=== PATIENT | male | born 1965 | race Caucasian/White ===

== ENCOUNTER 2018-06-09 11:44 | Emergency (ER) | payer BC, SELFPAY ==
[2018-06-09 12:14] VITALS: BP 113/66; PULSE 72; RESP 18; TEMP 36.4; O2SAT 96
--- NOTE | 2018-06-09 12:58 | DI.RAD_ITS ---
SYMPTOMS/DIAGNOSIS: CHEST TIGHTNESS, ? ACUTE DISEASE PA AND LATERAL CHEST: Comparison 01/12/12. The heart is normal in size. The lungs are clear. The mediastinal structures and pleura appear intact. CONCLUSION: Normal chest.
--- NOTE | 2018-06-09 12:58 | DI.CT_ITS ---
SYMPTOMS/DIAGNOSIS: DIZZINESS, HEADACHE, ? ACUTE PROCESS CT BRAIN, NONCONTRAST: No priors. The ventricles and sulci are consistent with the patient's age. The ventricles are intact. The basilar cisterns are patent. No acute intracranial hemorrhage, infarct, midline shift or mass effect is identified. There is opacification of several ethmoid air cells bilaterally. Mild mucosal thickening is seen in the left frontal sinus and the sphenoid sinuses. No fluid levels are seen. The mastoid air cells appear pneumatized. The calvarium is intact. IMPRESSION: Findings of paranasal sinusitis. No acute intracranial process. The findings were discussed with Dr. Sunshine of the Emergency Department on the date of the examination.
[2018-06-09] MEDS: Normal Saline 1,000 ML 1000 ML IV (13:23)
[2018-06-09 13:31] LABS: Abs Immature Grans 0.01 k/cumm (0.0-0.09); Absolute Basophil Count 0.03 k/cumm (0.0-0.2); Absolute Eosinophil Count 0.11 k/cumm (0.0-0.7); Absolute Lymphocyte Count 1.66 k/cumm (1.2-3.4); Absolute Monocyte Count 0.76 k/cumm (0.11-0.7); Absolute Neutrophil Count 2.78 k/cumm (1.2-6.7); Basophils % 0.6; Eosinophils % 2.1; HCT 39.3 % (40.0-50.0); HGB 13.2 g/dL (13.5-17.5); Immature Grans % 0.2; Mean Corp. HGB Concentration 33.6 g/dL (32.0-36.0); Mean Corpuscular Hemoglobin 29.8 pg (27.0-33.0); Mean Corpuscular Volume 88.7 fL (80-95); Mean Platelet Volume 11.2 fL (8.0-11.0); Monocytes % 14.2; Neutrophils % 51.9; Platelet Count 179 x1000/uL (130-400); RBC 4.43 m/cumm (4.50-6.00); RBC Distribution Width 13.3 % (11.8-14.1); White Blood Cell Count 5.35 k/cumm (4.4-10.8)
[2018-06-09 13:44] LABS: ALT 19 U/L (12-78); AST 18 U/L (15-37); Albumin 3.4 g/dL (3.4-5.0); Alkaline Phosphatase 66 U/L (46-116); Anion Gap 6.9 mmol/L (3-11); BUN 19 mg/dL (7-18); Bilirubin, Total 0.3 mg/dL (0.2-1.0); CO2 30.1 mmol/L (21.0-32.0); CREATININE 1.12 mg/dL (0.70-1.30); Calcium 8.8 mg/dL (8.5-10.1); Chloride 105 mmol/L (98-107); Glucose 108 mg/dL (70-100); Magnesium 1.7 mg/dL (1.8-2.4); Sodium 142 mmol/L (136-145); Total Protein 6.8 g/dL (6.4-8.2)
[2018-06-09 13:54] LABS: Troponin I < 0.02 ng/mL (0.00-0.06)
[2018-06-09] MEDS: diphenhydrAMINE 50 MG/ML VIAL 25 MG IVP (14:04)
[2018-06-09] MEDS: Ketorolac 30 MG/ML VIAL IVP (14:05)
[2018-06-09] MEDS: Meclizine 25 MG TAB PO (14:06)
[2018-06-09] MEDS: Prochlorperazine 10 MG/2 ML VIAL IVP (14:06)
[2018-06-09 14:14] VITALS: BP 114/61; PULSE 62; RESP 16; TEMP 36.8; O2SAT 99
--- NOTE | 2018-06-09 14:34 | ED.GENADUL_ITS ---
Discharge Plan Disposition Patient Disposition: HOME Condition: Stable Discharge Details Chief Complaint: Dizzy/Sync Clinical Impression: Vertigo, Headache Primary Care Provider: Michael Acosta ED Provider: Kristie Sunshine Home Meds and New Rx's Prescriptions: New meclizine 12.5 mg tablet 12.5 mg PO TID PRN (Reason: dizziness) Qty: 10 RF: 0 Continued citalopram 20 MG tablet 20 mg RF: 0 cyclobenzaprine 10 MG tablet 10 mg PO Q8H PRN PRNQty: 14 RF: 0 Discharge Instructions Instructions: Vertigo (ED), General Headache (ED) Additional Instructions: Drink plenty fluids and get plenty of rest. Take the meclizine as needed and directed for any further spinning sensation or dizziness. Follow-up with your primary care doctor in 1 week for reevaluation. Return immediately to the emergency department any worsening or concerning symptoms. Discharge Data Discharge Physician: Kristie Sunshine Medical Decision Making 53-year-old male with history of anxiety, depression and PTSD who presents for an episode of dizziness today. He also complained of brief palpitations with chest tightness after his dizziness started which he attributed to his anxiety. No syncopal episodes. No complaint of chest pain, shortness of breath, or palpitations at present. Patient admits to spinning sensation initially, but now complaining of lightheadedness, generalized weakness and headache. Has a history of chronic headaches for the past 3 months for which he [facility] Able to obtain the MRI brain w/ and w/o contrast [facility]18 which noted 1. No intracranial mass or acute intracranial abnormality identified. 2. Findings compatible with mild chronic paranasal sinus disease involving the ethmoid air cells and sphenoid sinus. Vitals within normal limits. Afebrile. Patient appears nontoxic and in no acute distress. The lights are off in the room and he appears mildly uncomfortable. No complaint of thunderclap headache or sudden onset so doubt subarachnoid hemorrhage. No complaint of fever or altered mental status and no focal deficits or meningeal signs so doubt meningitis. Differential diagnosis includes migraine, vertigo, dehydration, CVA, arrhythmia, electrolyte abnormality. Will place an IV, bolus IV fluids, labs, ekg, cxr and ct head. Will give meds for migraine and vertigo if CT head negative. EKG notes a rate of 75, sinus and no acute ST findings. Labs and imaging reviewed and note normal white blood cell count, electrolytes, negative troponin. CT head and chest x-ray negative. Will continue IV fluids, and give a dose of Compazine, Benadryl, Toradol as well as meclizine and reassess. 1520 --patient ambulated around the ED, feels much better and is requesting to go home. States his headache is resolved and he denies any dizziness. Will send home with a prescription for meclizine and he is instructed to drink plenty of fluids stay hydrated. Discussed with patient that as he had a very brief episode of palpitations that started after his dizziness and resolved shortly after, no history of syncope, normal EKG and heart rate, and with a history of anxiety, I do not see an indication for a monitor worker upon discharge and he is agreeable. He is instructed to follow-up with his primary care doctor for reevaluation and to return here at any time if worse. Medical Records Medical records reviewed: Yes I reviewed the patient's medical records. Imaging Data Radiologic Study: Radiologist's impression: PA AND LATERAL CHEST: Comparison 01/12/12. The heart is normal in size. The lungs are clear. The mediastinal structures and pleura appear intact. CONCLUSION: Normal chest. CT BRAIN, NONCONTRAST: No priors. The ventricles and sulci are consistent with the patient's age. The ventricles are intact. The basilar cisterns are patent. No acute intracranial hemorrhage, infarct, midline shift or mass effect is identified. There is opacification of several ethmoid air cells bilaterally. Mild mucosal thickening is seen in the left frontal sinus and the sphenoid sinuses. No fluid levels are seen. The mastoid air cells appear pneumatized. The calvarium is intact. IMPRESSION: Findings of paranasal sinusitis. No acute intracranial process. Lab Data Lab results reviewed: Yes I reviewed the patient's lab results. Laboratory Tests Range/Units 06/09/18 06/09/18 12:32 12:32 WBC (4.4-10.8) k/cumm 5.35 RBC (4.50-6.00) m/cumm 4.43 L Hgb (13.5-17.5) g/dL 13.2 L Hct (40.0-50.0) % 39.3 L MCV (80-95) fL 88.7 MCH (27.0-33.0) pg 29.8 MCHC (32.0-36.0) g/dL 33.6 RDW (11.8-14.1) % 13.3 Plt Count (130-400) x1000/uL 179 MPV (8.0-11.0) fL 11.2 H Immature Gran % 0.2 Neutrophils % 51.9 Lymphocytes % 31.0 Monocytes % 14.2 Eosinophils % 2.1 Basophils % 0.6 Absolute Neutrophils (1.2-6.7) k/cumm 2.78 Absolute Lymphocytes (1.2-3.4) k/cumm 1.66 Absolute Monocytes (0.11-0.7) k/cumm 0.76 H Absolute Eosinophils (0.0-0.7) k/cumm 0.11 Absolute Basophils (0.0-0.2) k/cumm 0.03 Sodium (136-145) mmol/L 142 Potassium (3.5-5.1) mmol/L 4.0 Chloride (98-107) mmol/L 105 Carbon Dioxide (21.0-32.0) mmol/L 30.1 Anion Gap (3-11) mmol/L 6.9 BUN (7-18) mg/dL 19 H Creatinine (0.70-1.30) mg/dL 1.12 Estimated GFR/1.73 m2 (mL/min/1.73m2) >= 60.00 Glucose (70-100) mg/dL 108 H Calcium (8.5-10.1) mg/dL 8.8 Magnesium (1.8-2.4) mg/dL 1.7 L Total Bilirubin (0.2-1.0) mg/dL 0.3 AST (15-37) U/L 18 ALT (12-78) U/L 19 Alkaline Phosphatase (46-116) U/L 66 Troponin I (0.00-0.06) ng/mL < 0.02 Total Protein (6.4-8.2) g/dL 6.8 Albumin (3.4-5.0) g/dL 3.4 ECG Data Attestation: I personally reviewed and interpreted this ECG (s) as follows: Interpretation: Rate of 75, sinus, no acute ST elevation or depression. T wave inversion in lead III, QTc 422. QRS 96. No old EKG to compare HPI General Mode of arrival: ambulatory . Date/Time Provider Initiated Documentation: 06/09/18 12:19 . Limitations to Documentation: no limitations . Information obtained by: patient . HPI Narrative: Patient is a 53-year-old male with a history of anxiety, depression and PTSD who presents for an episode of dizziness today. Patient states he was walking in his garage when he suddenly felt dizziness, spinning followed by chest tightness and heart palpitations. He states he felt a spinning sensation as if everything was shifting peer states he feels like the chest tightness and heart palpitations was due to his dizziness. Patient states he walked in his house and laid down on his bed to rest but this did not change the symptoms. He is complaining mainly of fatigue, generalized weakness, and lightheadedness now. Patient is also complaining of a headache which is in his frontal region, also with sensitivity and light, and posterior neck pain and region. Patient states he has had 3 months of headaches occurring once weekly similar to his headache today. States he is seen his primary care doctor at the [facility] for this and had an MRI brain done last week but he does not know the results. He denies any fever, blurry vision, nausea, vomiting, unilateral numbness or weakness. Related Data Home Medications Medication Instructions Recorded Confirmed citalopram 20 mg 04/11/17 cyclobenzaprine 10 mg PO Q8H PRN PRN #14 tab 04/25/17 meclizine 12.5 mg PO TID PRN #10 tab 06/09/18 Previous Rx's Medication Instructions Recorded cyclobenzaprine 10 mg PO Q8H PRN PRN #14 tab 04/25/17 meclizine 12.5 mg PO TID PRN #10 tab 06/09/18 Allergies Allergy/AdvReac Type Severity Reaction Status Date / Time acetaminophen [From Percocet] AdvReac Intermediate Nausea Unverified 06/09/18 12:18 oxycodone [From Percocet] AdvReac Intermediate Nausea Unverified 06/09/18 12:18 General Stated Complaint: Dizzy/Sync ANNIE: 3 Review of Systems Review of Systems All systems reviewed & are unremarkable except as noted in HPI and below Constitutional Reports as per HPI, Denies chills, Denies fever(s), Reports headache(s) and Reports weakness Eyes Denies blurry vision ENT Reports dizziness, Reports headache(s), Denies sore throat and Denies throat swelling Cardiovascular Denies chest pain and Denies dyspnea Respiratory Denies cough and Denies dyspnea Gastrointestinal Denies abdominal pain, Denies diarrhea and Denies vomiting Genitourinary Denies hematuria and Denies dysuria Musculoskeletal Denies back pain and Denies numbness Integumentary/Breasts Denies lesions and Denies rash Neurologic Reports dizziness, Reports headache(s), Denies focal weakness, Denies numbness and Reports weakness Allergic/Immunologic Denies throat swelling [facility] Medical History PTSD (post-traumatic stress disorder) (Acute) Anxiety (Chronic) Depression (Chronic) Surgical History Synovial cyst (Acute) H/O hemorrhoidectomy (Chronic) History of tonsillectomy (Chronic) History of tonsillectomy (Chronic) Social History Smoking and Tabacco status: Current every day alcohol intake: current alcohol intake frequency: a few times a month substance use type: does not use Exam Const General: cooperative and healthy appearing Orientation: alert and awake HENMT Head: normal to inspection Ears: hearing grossly normal bilaterally, external ears normal and TM's normal bilaterally General nose exam: external nose normal Face and sinus: normal facial exam Mouth: oral mucosae normal Teeth and gingiva: dentition normal Throat: posterior oropharynx normal Eyes General: appearance normal, both eyes and all related structures Eyelids: eyelids normal Pupils: PERRL EOM: EOM intact bilaterally Neck Neck: normal visual inspection Lymphatic: no lymphadenopathy noted Chest Chest: normal inspection of the chest Resp Effort & Inspection: normal respiratory effort and able to speak in complete sentences Auscultation: clear to auscultation bilaterally Cardio Rate: regular rate Rhythm: regular rhythm GI Inspection: normal to inspection Palpation: soft, not firm, no guarding, no hepatosplenomegaly, no masses and nontender Auscultation: normal bowel sounds Skin General skin exam: no rashes or lesions noted Neuro General: alert, awake, oriented x3, moves all extremities, no meningeal signs and no focal motor deficits Cranial Nerves: CN's II-XI intact bilaterally Cognition: normal cognition Speech: speech normal Gait: normal gait Motor: muscle tone normal throughout and strength 5/5 throughout Sensory Exam: no sensory deficits noted Extrem General: normal to inspection, full ROM, normal capillary refill and no edema Psych Appearance: grossly normal Mental Status: mental status grossly normal Speech and Movement: speech and movement normal Affect: normal affect Thought Process: normal Course Vital Signs Temperature 97.5 F L 06/09/18 12:14 Pulse 72 06/09/18 12:14 Respiratory Rate 18 06/09/18 12:14 Blood Pressure 113/66 06/09/18 12:14 Pulse Oximetry 96 06/09/18 12:14 Temperature 98.2 F 06/09/18 14:14 Temperature Source Skin 06/09/18 14:14 Pulse 62 06/09/18 14:14 Respiratory Rate 16 06/09/18 14:14 Respiratory Effort 06/09/18 14:12 Respiratory Depth Normal 06/09/18 14:10 Respiratory Pattern Normal 06/09/18 14:10 Blood Pressure 114/61 06/09/18 14:14 Pulse Oximetry 99 06/09/18 14:14 Oxygen Delivery Method Room Air 06/09/18 14:14 Oxygen Flow Rate 0 06/09/18 14:14 Pain Level 6 06/09/18 14:14 Lab/Test Results Lab/Test Results: Laboratory Tests Range/Units 06/09/18 06/09/18 12:32 12:32 WBC (4.4-10.8) k/cumm 5.35 RBC (4.50-6.00) m/cumm 4.43 L Hgb (13.5-17.5) g/dL 13.2 L Hct (40.0-50.0) % 39.3 L MCV (80-95) fL 88.7 MCH (27.0-33.0) pg 29.8 MCHC (32.0-36.0) g/dL 33.6 RDW (11.8-14.1) % 13.3 Plt Count (130-400) x1000/uL 179 MPV (8.0-11.0) fL 11.2 H Immature Gran % 0.2 Neutrophils % 51.9 Lymphocytes % 31.0 Monocytes % 14.2 Eosinophils % 2.1 Basophils % 0.6 Absolute Neutrophils (1.2-6.7) k/cumm 2.78 Absolute Lymphocytes (1.2-3.4) k/cumm 1.66 Absolute Monocytes (0.11-0.7) k/cumm 0.76 H Absolute Eosinophils (0.0-0.7) k/cumm 0.11 Absolute Basophils (0.0-0.2) k/cumm 0.03 Sodium (136-145) mmol/L 142 Potassium (3.5-5.1) mmol/L 4.0 Chloride (98-107) mmol/L 105 Carbon Dioxide (21.0-32.0) mmol/L 30.1 Anion Gap (3-11) mmol/L 6.9 BUN (7-18) mg/dL 19 H Creatinine (0.70-1.30) mg/dL 1.12 Estimated GFR/1.73 m2 (mL/min/1.73m2) >= 60.00 Glucose (70-100) mg/dL 108 H Calcium (8.5-10.1) mg/dL 8.8 Magnesium (1.8-2.4) mg/dL 1.7 L Total Bilirubin (0.2-1.0) mg/dL 0.3 AST (15-37) U/L 18 ALT (12-78) U/L 19 Alkaline Phosphatase (46-116) U/L 66 Troponin I (0.00-0.06) ng/mL < 0.02 Total Protein (6.4-8.2) g/dL 6.8 Albumin (3.4-5.0) g/dL 3.4
[2018-06-09 15:26] VITALS: BP 117/65; PULSE 65; RESP 18; O2SAT 97
--- NOTE | 2018-06-09 15:26 | NUR.NOTE ---
patient feeling better, ambulates with a steady gait, MD aware Nursing Note:
== END 2018-06-09 15:53 | disposition home or self-care (01) ==
PROVIDERS: Emergency Provider Physician Assistant; PCP Family Medicine
DX: R42 Dizziness and giddiness (principal); R51 Headache; F41.8 Other specified anxiety disorders; F43.10 Post-traumatic stress disorder, unspecified
CPT/HCPCS: 36415; 80053; 93005; 96361; 96374; 96375; 99285; 70450; 71046; 83735; 84484; 85025; 93010; J0780; J1200; J1885

== ENCOUNTER 2021-12-08 16:52 | Emergency (ER) | payer BC, SELFPAY ==
[2021-12-08 16:57] VITALS: BP 121/97; PULSE 76; RESP 17; TEMP 36.6; O2SAT 98
--- NOTE | 2021-12-08 18:07 | W.ED.GENAD ---
Discharge Plan Disposition Patient Disposition: HOME Condition: Improving Discharge Details Clinical Impression: Laceration of thumb Primary Care Provider: [facility] ED Provider: Reji Adames Home Meds and New Rx's Prescriptions: New cephalexin 500 mg capsule 500 mg PO BID 5 Days Qty: 10 0RF No Action citalopram 20 MG tablet 20 mg trazodone 50 mg Tablet 50 mg PO HS cyclobenzaprine 10 MG tablet 10 mg PO Q8H PRN PRNQty: 14 0RF meclizine 12.5 mg tablet 12.5 mg PO TID PRN (Reason: dizziness) Qty: 10 0RF Discharge Instructions Instructions: Laceration (ED) Additional Instructions: Please keep wound clean and dry. Please use dressing for the first 1 to 2 days and if you are active/going out otherwise allow wound to air out as much as possible when at home. Take antibiotics as prescribed. Please return to the emergency part for any worsening symptoms such as bleeding signs of infection or signs of poor healing. Medical Decision Making 56-year-old male presents after accidentally lacerating distal aspect of his right thumb with a promotional representative's knife cutting celery, flap laceration almost through and through, maintained skin bridge on ulnar aspect of approximately 1.5 cm in diameter, wound irrigated, no foreign bodies, hemostatic, ring block applied, 6 simple interrupted 5-0 Vicryl sutures applied, wrapped with Vaseline gauze and dry wrapping, given empiric dose of Keflex given depth and nature of cut in the setting of cutting vegetables. Patient's digit is neurovascularly intact. Patient did have a presyncopal episode while being irrigated in which he became pale and had to lay flat, currently his color is returned to normal, is hemodynamically stable. Given home care instructions and return precautions. HPI General Date/Time Provider Initiated Documentation: 12/08/21 16:59. HPI Narrative: 56-year-old male presents after accidentally lacerating his right thumb while cutting celery with a promotional representative's knife. Patient wrapped thumb before arrival. Last tetanus shot has been within the last 10 years. Related Data Home Medications Medication Instructions Recorded Confirmed citalopram 20 mg tablet 20 mg 04/11/17 cyclobenzaprine 10 mg tablet 10 mg PO Q8H PRN PRN #14 tabs 04/25/17 meclizine 12.5 mg tablet 12.5 mg PO TID PRN dizziness #10 06/09/18 tabs cephalexin 500 mg capsule 500 mg PO BID 5 days #10 caps 12/08/21 trazodone 50 mg tablet 50 mg PO HS 12/08/21 12/08/21 Previous Rx's Medication Instructions Recorded cyclobenzaprine 10 mg tablet 10 mg PO Q8H PRN PRN #14 tabs 04/25/17 meclizine 12.5 mg tablet 12.5 mg PO TID PRN dizziness #10 06/09/18 tabs cephalexin 500 mg capsule 500 mg PO BID 5 days #10 caps 12/08/21 Allergies Allergy/AdvReac Type Severity Reaction Status Date / Time acetaminophen [From Percocet] AdvReac Intermediate Nausea Unverified 12/08/21 17:27 oxycodone [From Percocet] AdvReac Intermediate Nausea Unverified 12/08/21 17:27 General Stated Complaint: Laceration ANNIE: 4 Review of Systems Narrative: Review of Systems Constitutional: negative Eyes: negative ENT: negative Cardiovascular: negative Respiratory: negative Gastrointestinal: negative : negative Musculoskeletal: negative Skin: Thumb laceration Neurologic: negative Psych: negative PFSH All Active Problems (Updated 12/08/21 @ 18:11 by Reji Adames MD) Laceration of thumb (Acute) Medical History (Updated 12/08/21 @ 18:11 by Reji Adames MD) Anxiety Depression PTSD (post-traumatic stress disorder) Surgical History H/O hemorrhoidectomy History of tonsillectomy History of tonsillectomy Synovial cyst Social History Smoking/Tobacco Use Status: Current every day Smoking risk assessment performed?: Yes Alcohol Intake: current Alcohol Intake frequency: a few times a month Drug use: Never Substance use type: does not use Do you feel safe in your relationship?: Yes Exam Narrative Exam Narrative: Physical Examination General: alert, awake, cooperative, resting comfortably, no acute distress HEENT: normocephalic, atraumatic; PERRL, EOM intact, conjunctiva normal; no nasal discharge; moist mucous membranes, oral and pharyngeal mucosa normal, tolerating secretions Neck: supple, trachea midline; full ROM Chest: normal to inspection Respiratory: normal respiratory effort, speaking in full sentences, clear to auscultation, no wheezing, rales or rhonchi Cardiac: regular rate, regular rhythm, S1S2 intact, no murmurs rubs or gallops GI: abdomen soft, non-tender, non-distended; no palpable mass or hepatosplenomegaly Skin: 3 cm flap laceration through distal tip of right thumb, almost through and through maintained skin bridge on ulnar aspect of approximately 1.5 cm in diameter, hemostatic no foreign body Neuro: AAOx3, normal speech, moving all extremities Extremities: Flexion extension abduction and abduction of thumb intact sensation in thumb intact Psych: Appropriate mood and affect Course Vital Signs Vital signs: Vital Signs Temperature 36.6 C 12/08/21 16:57 Pulse 76 12/08/21 16:57 Respiratory Rate 17 12/08/21 16:57 Blood Pressure 121/97 H 12/08/21 16:57 Pulse Oximetry 98 12/08/21 16:57 Temperature 36.6 C 12/08/21 16:57 Temperature Source Temporal Artery Scan 12/08/21 16:57 Pulse 76 12/08/21 16:57 Respiratory Rate 17 12/08/21 16:57 Respiratory Effort Non-Labored 12/08/21 17:24 Blood Pressure 121/97 H 12/08/21 16:57 Blood Pressure Position Sitting 12/08/21 16:57 Pulse Oximetry 98 12/08/21 16:57 Oxygen Delivery Method Room Air 12/08/21 16:57 Oxygen Flow Rate 0 12/08/21 16:57 Pain Level 4 12/08/21 16:57
[2021-12-08] MEDS: Cephalexin 500 MG CAP PO (18:10)
== END 2021-12-08 18:38 | disposition home or self-care (01) ==
PROVIDERS: Emergency Provider Emergency Medicine
DX: S61.011A Laceration without foreign body of right thumb without damage to nail, initial encounter (principal); F17.200 Nicotine dependence, unspecified, uncomplicated; W26.0XXA Contact with knife, initial encounter; Y93.59 Activity, other involving other sports and athletics played individually

== ENCOUNTER 2023-01-17 06:59 | Day surgery (SDC) | payer OTHER, SELFPAY ==
[2023-01-17 07:09] VITALS: BP 105/69; PULSE 52; RESP 18; TEMP 36.3; O2SAT 95
[2023-01-17] MEDS: Tropicam./Phenyleph. (1/2.5%) 5 ML BTL OD ×3 (07:20→07:30)
--- NOTE | 2023-01-17 07:43 | W.ANESPRE ---
General Info Date of Service Date Performed: 01/17/23 Height: 5 ft 10 in Weight: 119.7 kg Body Mass Index (BMI): 37.8 Surgical Procedure: Operation Date: 01/17/23 08:40 Proposed Procedure Side Surgeon p Cataract Extraction with IOL Implant Right Reji Smyth MD Meds Allergies and Home Medications Allergies Allergy/AdvReac Type Severity Reaction Status Date / Time acetaminophen [From Percocet] AdvReac Intermediate Nausea Verified 01/17/23 07:16 oxycodone [From Percocet] AdvReac Intermediate Nausea Verified 01/17/23 07:16 Home Medication Medication Instructions Recorded betamethasone valerate 0.1 % 1 applic topical BID 01/16/23 topical ointment ipratropium bromide 21 mcg (0.03 1 spray intranasal Q6H PRN 01/16/23 %) nasal spray nicotine (polacrilex) 4 mg buccal 4 mg PO DIRECTED 01/16/23 mini lozenge semaglutide 0.25 mg or 0.5 mg (2 0.25 mg subcut QWEEK 01/16/23 mg/1.5 mL) subcutaneous pen injector Current Visit Medications: Current Medications Generic Name Dose Route Start Last Admin Trade Name Freq PRN Reason Stop Dose Admin Acetaminophen 1,000 mg 01/17/23 06:00 Acetaminophen 500 Mg Tab PO 02/16/23 05:59 Q4H PRN PRN Balanced Salt Solution 500 ml 01/17/23 06:00 Balanced Salt Soln.-Plus 500 Ml Bag OP 02/16/23 05:59 DIRECTED ERICKA Miscellaneous Medication 0 ml 01/17/23 06:00 Prednisolone 1%, Moxifloxacin 0.5%, Nepafenac 0.1% 5ml Btl OD 02/16/23 05:59 DIRECTED ERICKA Miscellaneous Medication 0 ml 01/17/23 06:00 01/17/23 07:30 Tropicam./Phenyleph. (1/2.5%) 5 Ml Btl OD 02/16/23 05:59 1 drp DIRECTED ERICKA Administration Tetracaine HCl 0 ml 01/17/23 06:00 Tetracaine 0.5% 4 Ml Btl OD 02/16/23 05:59 DIRECTED ERICKA PFSH Active Problems Active Problems: Problem Status Onset Code Nuclear age-related cataract, right eye H25.11 Cortical age-related cataract, right eye H25.011 Medical History Medical History Anxiety Depression Dysfunction of eustachian tube Ex-smoker Major depressive disorder Multiple pulmonary nodules No blood products Non-alcoholic fatty liver disease PTSD (post-traumatic stress disorder) Sleep apnea Surgical History Surgical History H/O hemorrhoidectomy History of tonsillectomy History of tonsillectomy Synovial cyst Tobacco Smoking/Tobacco Use Status: Former Tobacco Use Alcohol Alcohol Intake: former Substance Use Substance use: Never Substance use type: does not use Vital Signs and Lab Results Vital Signs Most Recent Vital Signs in EMR: Most Recent Vital Signs Temp Pulse Resp BP Pulse Ox 36.3 C L 52 L 18 105/69 95 01/17/23 07:09 01/17/23 07:09 01/17/23 07:09 01/17/23 07:09 01/17/23 07:09 Lab Results Blood Type / Crossmatch: No Data to Display Complete Blood Count: No Data to Display Complete Metabolic Panel: No Data to Display Liver Function Panel: No Data to Display Coagulation Panel: No Data to Display Cardiac Panel: No Data to Display Arterial Blood Gas: No Data to Display Venous Blood Gas: No Data to Display Pancreas Panel: No Data to Display Thyroid Panel: No Data to Display Infectious Disease: No Data to Display Blood Cultures: No Data to Display Toxicology Panel: No Data to Display Anesthesia Assessment and Plan Anesthesia History Personal History: No History of Anesthesia Complications Family History: No Family History of Anesthesia Complications Exercise Tolerance Exercise Tolerance: Metabolic Equivalents>4 Pertinent Negatives Pertinent Negatives: No Symptoms of GERD, No Major Cardiovascular Symptoms or Complaints and No Major Pulmonary Symptoms or Complaints Cardiac & Pulmonary Exam Cardiac Exam: Normal S1/S2 Heart Sounds Pulmonary Exam: Clear Bilateral Breath Sounds Implantable Cardiac Device Does patient have a Pacemaker or an ICD?: No Airway Exam Known Difficult Airway: No Mallampati Class: 2 Mouth Opening: Normal (> 3cm) Thyromental Distance: Greater than 3 cm Neck Range of Motion: Full ROM Neck Circumference: Normal Teeth Condition: Normal Dentition ASA Classification ASA Score: ASA 2 Emergency Case?: No NPO Status NPO Status: NPO Clears >2 hours, Solids >8 hours Anesthesia Plan Resuscitation Status: Full Code Anesthesia Technique: MAC Anesthesia Airway Planned: Natural Airway Monitors Used: Standard Monitors Preoperative Comments:: PTSD with claustrophobia
[2023-01-17 07:45] VITALS: BMI 37.8
[2023-01-17] MEDS: Povidone-Iodine Ophth 30 ML BTL (08:18)
[2023-01-17] MEDS: Tetracaine 0.5% 4 ML BTL OD (08:18)
[2023-01-17] MEDS: Phenylephrine/Lidocaine (15/10) MG/ML 1 ML VIAL (08:25)
[2023-01-17] MEDS: Balanced Salt Soln.-PLUS 500 ML BAG OP (08:25)
[2023-01-17] MEDS: Duovisc Viscoelastic System EACH 1 EACH (08:25)
[2023-01-17] MEDS: Lidocaine 1% Pres-Free 5 ML VIAL (08:26)
[2023-01-17 08:52] VITALS: BP 112/74; PULSE 54; RESP 16; TEMP 36.4; O2SAT 95
--- NOTE | 2023-01-17 08:53 | W.PM.DSUDISC ---
Date of service: 01/17/23 Time of Service: 08:53 Discharge Plan Disposition Patient Disposition: Home Discharge Details Attending Provider: Reji Smyth Primary Care Provider: KERI LEBLANC Home Meds and New Rx's Prescriptions: No Action betamethasone valerate 0.1 % Ointment 1 applic TOPICAL BID ipratropium bromide 21 mcg (0.03 %) [place],Non-Aerosol 1 spray INTRANASAL Q6H PRN nicotine (polacrilex) 4 mg mini lozenge 4 mg PO DIRECTED semaglutide 0.25 mg or 0.5 mg(2 mg/1.5 mL) Pen Injector 0.25 mg SUBCUT QWEEK Discharge Instructions Stand Alone Forms: Post-op Topical Cataract, Kenisha Brewster (DSU) Discharge Orders Discharge Orders: Discharge Order (Routine); Ordered 01/17/23 Ordered By: Reji Smyth DS: Diagnosis Discharge Diagnosis (1) Nuclear age-related cataract, right eye: Status: Resolved (2) Cortical age-related cataract, right eye: Status: Resolved
--- NOTE | 2023-01-17 08:54 | ROE_ITS ---
Date of service: 01/17/23 Time of Service: 08:54 Operative Note Operative Note DATE OF PROCEDURE: 01/17/23 PRE-OP DIAGNOSIS: Nuclear/cortical cataract, right eye High hyperopia with oblique astigmatism, right eye POST-OP DIAGNOSIS: same PROCEDURE: Cataract extraction using phacoemulsification with toric intraocular lens implant, right eye SURGEON: Reji Smyth Refer to Anesthesia Record PATHOLOGY: none sent COMPLICATIONS: None Patient was transported to: same day Patient's condition: stable Implants: Jack [employer] Jack Vision Tecnis Eyhance Toric Intraocular Lens Indications: Progressive decreased vision due to cataract, right eye, with corneal astigmatism Procedure Description: [] CATARACT SURGERY OPERATIVE REPORT PREOPERATIVE DIAGNOSIS: Nuclear/cortical cataract, right eye High hyperopia with oblique astigmatism, right eye POSTOPERATIVE DIAGNOSIS: Same OPERATION: Cataract extraction using phacoemulsification with posterior chamber toric intraocular lens implant, right eye. IOL: IOL Inspector Quality Assurance/Model: Jack and Jack Vision Tecnis Eyhance Toric [id number] IOL Power: + 30.0 diopters sphere, + 5.25 cylinder IOL Serial Number: [id number] Optic Diameter: 6.0mm Haptic/Overall Diameter: 13.00mm PHACO INFO: Broderick [employer] Vision System with OZil and Active Fluidics Cumulative Dispersed Energy (CDE): 1.49 seconds SURGEON: Reji Smyth MD, NIDHI ANESTHESIA: Monitored Anesthesia Care (MAC), with local sub-tenon's anesthetic infiltration COMPLICATIONS: None SPECIMENS: None INDICATIONS FOR PROCEDURE: The patient is a 57-year-old male with history of high hyperopia and a stigmatism who has worn glasses since a very young age. He has developed a symptomatic nuclear/cortical cataract in the right eye. He desires cataract surgery and attempt to improve and maximize his vision. He desires a toric intraocular lens implant to reduce his residual postoperative a stigmatism. The option of cataract surgery was offered to the patient and he wished to proceed. See office notes for detailed information. PROCEDURE: The correct surgical eye was identified and marked as the right eye and the pupil was dilated in the preoperative area using mydriatics and cycloplegics. The dilated pupil size was 7.0 mm. With the patient in the seated position, topical anesthetic was applied and a surgical marker was used to addison the limbus at 6:00. A Surgilum Robomarker was then used to addison the 0/180 degree referenc e axis. Oral sedation was administered in the form of an Imprimis MKO Melt (midazolam 3mg/ketamine 25mg/ondansetron 2mg). The patient elected to proceed without oral sedation. The patient was brought to the operating room where cardiopulmonary monitoring was instituted and surgical time-out was performed, confirming the correct operative eye and IOL power. Topical anesthesia was administered and ophthalmic povidone-iodine 5% was instilled into the conjunctival fornices. Lidocaine gel was applied to the cornea and the herminia-ocular area was prepped with Betadine 10% solution and draped in the usual sterile fashion for intraocular surgery, including an aperture drape. A Tegaderm transparent film dressing was cut in half and used to cover the lashes and lid margins. Care was taken to sequester the lashes and lid margins under the Tegaderm dressing. A lid speculum was placed between the lids of the operative eye and the Ulisses-Natalia operating microscope was maneuvered into position. Jerri scissors were then used to make a conjunctival buttonhole approximately 6mm posterior to the limbus in the inferonasal quadrant. Blunt dissection was carried out to expose bare sclera, and a blunt-tipped sub-tenon?s anesthesia cannula was introduced and passed posteriorly along the globe where non- preserved plain lidocaine was injected into posterior sub-Tenon?s space. A corneal ring gauge and axis marker were then used to addison the 146 degree position for the main phaco incision.and the 56/236 degree axis for alignment of the toric IOL. A sideport knife was used to make a paracentesis port at the 256 postion and intraocular phenylephrine/lidocaine was injected into the anterior chamber. The anterior chamber was filled with viscoelastic.. A keratome knife was used to create a half-thickness groove at the limbus and then to construct a three-plane near-clear corneal tunnel extending 2.0mm into clear cornea at the 146 degree axis. . A flap was raised on the anterior capsule and capsulorhexis forceps were used to complete a continuous curvilinear capsulorhexis of 5.0 mm. Balanced salt solution was then used to perform cortical cleaving hydrodissection and nuclear hydrodelineation until the lens could be freely rotated within the capsular bag. The lens nucleus was then disassembled and removed within the capsular bag and iris plane using phacoemulsification. Residual cortical material was removed using the 45-degree angled silicone I/A tip with 0.3mm port. The posterior capsule was carefully polished to remove as much residual lens epithelial cells as safely possible. The capsular bag was then inflated and the anterior chamber deepened with viscoelastic. The lens implant described above was inserted into the capsular bag using the [employer] pre-loaded injector. A Kuglen hook was used to dial the IOL into position, about 10 degrees counterclockwise of its final alignment. Residual viscoelastic was then removed first from posterior to the IOL, then from the anterior chamber using the I/A handpiece. The I/A handpiece was then used to dial the IOL to the target axis. The lens implant was noted to center nicely within the capsular bag, with the toric IOL alcantara aligned at the 056/146 degree axis. The incisions were stromally hydrated, and the anterior chamber was reformed using BSS. Then 0.5cc of moxifloxacin 1.0mg/ml were injected into the capsular bag and anterior chamber. The incisions were checked with a Weck spear and found to be secure. Several drops of ophthalmic povidone-iodine 5% were then applied to the eye followed by two drops of Imprimis combination gatifloxacin/dexamethasone solution. The drapes were removed and a clear plastic protective eye shield was placed over the eye. The patient was then returned to Same Day Surgery in stable condition.
[2023-01-17 09:16] VITALS: BP 106/72; PULSE 53; RESP 18; TEMP 36.5; O2SAT 95
--- NOTE | 2023-01-17 09:17 | W.ANESPOSTOP ---
Postoperative Evaluation Date, Time and Location Date Performed: 01/17/23 Time Performed: 09:01 Patient Location: Day Surgery Unit Vital Signs Most Recent Imported Vital Signs: Most Recent Vital Signs Temp Pulse Resp BP Pulse Ox 36.4 C L 54 L 16 112/74 95 01/17/23 08:52 01/17/23 08:52 01/17/23 08:52 01/17/23 08:52 01/17/23 08:52 Pain Score Most Recent Pain Score: Most Recent Pain Score Pain Level 0 01/17/23 08:52 Assessment Mental Status: Awake (Alert & Oriented to Patient Baseline) Airway and Respiratory Function: Patent airway with normal (patient baseline) respiratory exam Cardiovascular Function: Hemodynamically Stable Hydration Status: Adequately Hydrated Nausea & Vomiting: No Nausea or Vomiting Pain: Pt. Denies Any Pain Peripheral Nerve Block: Patient did not receive a nerve block
== END 2023-01-17 09:33 | disposition home or self-care (01) ==
LOC: SUR 07:00
PROVIDERS: PCP Internal Medicine; Visit Provider Ophthalmology
PROC: (CPT 66984; principal; 2023-01-17 08:30)
DX: H25.11 Age-related nuclear cataract, right eye (principal); H25.011 Cortical age-related cataract, right eye
CPT/HCPCS: 66984; V2632

== ENCOUNTER 2023-01-31 06:58 | Day surgery (SDC) | payer OTHER, SELFPAY ==
[2023-01-31 07:00] VITALS: BP 125/72; PULSE 58; RESP 17; TEMP 36.2; O2SAT 97
[2023-01-31] MEDS: Tropicam./Phenyleph. (1/2.5%) 5 ML BTL OS ×3 (07:10→07:20)
--- NOTE | 2023-01-31 07:25 | W.ANESPRE ---
General Info Date of Service Date Performed: 01/31/23 Height: 5 ft 10 in Weight: 120.8 kg Body Mass Index (BMI): 38.2 Surgical Procedure: Operation Date: 01/31/23 08:40 Proposed Procedure Side Surgeon p Cataract Extraction with IOL Implant Left Reji Smyth MD Meds Allergies and Home Medications Allergies Allergy/AdvReac Type Severity Reaction Status Date / Time oxycodone [From Percocet] AdvReac Intermediate Nausea Verified 01/31/23 07:06 Home Medication Medication Instructions Recorded betamethasone valerate 0.1 % 1 applic topical BID 01/16/23 topical ointment ipratropium bromide 21 mcg (0.03 1 spray intranasal Q6H PRN 01/16/23 %) nasal spray nicotine (polacrilex) 4 mg buccal 4 mg PO DIRECTED 01/16/23 mini lozenge semaglutide 0.25 mg or 0.5 mg (2 0.25 mg subcut QWEEK 01/16/23 mg/1.5 mL) subcutaneous pen injector Current Visit Medications: Current Medications Generic Name Dose Route Start Last Admin Trade Name Freq PRN Reason Stop Dose Admin Acetaminophen 1,000 mg 01/31/23 06:00 Acetaminophen 500 Mg Tab PO 03/02/23 05:59 Q4H PRN PRN Balanced Salt Solution 500 ml 01/31/23 06:00 Balanced Salt Soln.-Plus 500 Ml Bag OP 03/02/23 05:59 DIRECTED ERICKA Miscellaneous Medication 0 ml 01/31/23 06:00 Prednisolone 1%, Moxifloxacin 0.5%, Nepafenac 0.1% 5ml Btl OS 03/02/23 05:59 DIRECTED ERICKA Miscellaneous Medication 0 ml 01/31/23 06:00 01/31/23 07:20 Tropicam./Phenyleph. (1/2.5%) 5 Ml Btl OS 03/02/23 05:59 1 drp DIRECTED ERICKA Administration Tetracaine HCl 0 ml 01/31/23 06:00 Tetracaine 0.5% 4 Ml Btl OS 03/02/23 05:59 DIRECTED ERICKA PFSH Active Problems Active Problems: Problem Status Onset Code Cortical age-related cataract, left eye H25.012 Nuclear age-related cataract, left eye H25.12 Nuclear age-related cataract, right eye H25.11 Cortical age-related cataract, right eye H25.011 Medical History Medical History No blood products Ex-smoker Sleep apnea Dysfunction of eustachian tube Major depressive disorder Multiple pulmonary nodules Non-alcoholic fatty liver disease Anxiety Depression PTSD (post-traumatic stress disorder) Surgical History Surgical History Synovial cyst History of tonsillectomy History of tonsillectomy H/O hemorrhoidectomy Tobacco Smoking/Tobacco Use Status: Former Tobacco Use Alcohol Alcohol Intake: former Substance Use Substance use: Never Substance use type: does not use Vital Signs and Lab Results Vital Signs Most Recent Vital Signs in EMR: Most Recent Vital Signs Temp Pulse Resp BP Pulse Ox 36.2 C L 58 L 17 125/72 97 01/31/23 07:00 01/31/23 07:00 01/31/23 07:00 01/31/23 07:00 01/31/23 07:00 Lab Results Blood Type / Crossmatch: No Data to Display Complete Blood Count: No Data to Display Complete Metabolic Panel: No Data to Display Liver Function Panel: No Data to Display Coagulation Panel: No Data to Display Cardiac Panel: No Data to Display Arterial Blood Gas: No Data to Display Venous Blood Gas: No Data to Display Pancreas Panel: No Data to Display Thyroid Panel: No Data to Display Infectious Disease: No Data to Display Blood Cultures: No Data to Display Toxicology Panel: No Data to Display Anesthesia Assessment and Plan Anesthesia History Personal History: No History of Anesthesia Complications Family History: No Family History of Anesthesia Complications Exercise Tolerance Exercise Tolerance: Metabolic Equivalents>4 Pertinent Negatives Pertinent Negatives: No Symptoms of GERD, No Major Cardiovascular Symptoms or Complaints and No Major Pulmonary Symptoms or Complaints Cardiac & Pulmonary Exam Cardiac Exam: Normal S1/S2 Heart Sounds Pulmonary Exam: Clear Bilateral Breath Sounds Implantable Cardiac Device Does patient have a Pacemaker or an ICD?: No Airway Exam Known Difficult Airway: No Mallampati Class: 2 Mouth Opening: Normal (> 3cm) Thyromental Distance: Greater than 3 cm Neck Range of Motion: Full ROM Neck Circumference: Normal Teeth Condition: Normal Dentition ASA Classification ASA Score: ASA 2 Emergency Case?: No NPO Status NPO Status: NPO Clears >2 hours, Solids >8 hours Anesthesia Plan Resuscitation Status: Full Code Anesthesia Technique: MAC Anesthesia Airway Planned: Natural Airway Monitors Used: Standard Monitors Preoperative Comments:: Never picked up semaglutide prescription PTSD with claustrophobia
[2023-01-31 07:30] VITALS: BMI 38.2
[2023-01-31] MEDS: Balanced Salt Soln.-PLUS 500 ML BAG OP (08:11)
[2023-01-31] MEDS: Tetracaine 0.5% 4 ML BTL OS (08:13)
[2023-01-31] MEDS: Duovisc Viscoelastic System EACH 1 EACH (08:14)
[2023-01-31] MEDS: Lidocaine 1% Pres-Free 5 ML VIAL (08:14)
[2023-01-31] MEDS: Povidone-Iodine Ophth 30 ML BTL (08:16)
[2023-01-31] MEDS: Phenylephrine/Lidocaine (15/10) MG/ML 1 ML VIAL (08:16)
[2023-01-31 08:37] VITALS: BP 106/60; PULSE 53; RESP 16; TEMP 36.3; O2SAT 95
--- NOTE | 2023-01-31 08:37 | W.PM.DSUDISC ---
Date of service: 01/31/23 Time of Service: 08:37 Discharge Plan Disposition Patient Disposition: Home Discharge Details Attending Provider: Reji Smyth Primary Care Provider: KERI LEBLANC Home Meds and New Rx's Prescriptions: No Action betamethasone valerate 0.1 % Ointment 1 applic TOPICAL BID Hold Instructions: Pt Stopped/Never Started ipratropium bromide 21 mcg (0.03 %) [place],Non-Aerosol 1 spray INTRANASAL Q6H PRN nicotine (polacrilex) 4 mg mini lozenge 4 mg PO DIRECTED Hold Instructions: Pt Stopped/Never Started semaglutide 0.25 mg or 0.5 mg(2 mg/1.5 mL) Pen Injector 0.25 mg SUBCUT QWEEK Discharge Instructions Stand Alone Forms: Post-op Topical Cataract, Kenisha Ganey ([facility]) Discharge Orders Discharge Orders: Discharge Order (Routine); Ordered 01/31/23 Ordered By: Reji Smyth DS: Diagnosis Discharge Diagnosis (1) Cortical age-related cataract, left eye: Status: Resolved (2) Nuclear age-related cataract, left eye: Status: Resolved
--- NOTE | 2023-01-31 08:38 | W.PM.OP ---
Date of service: 01/31/23 Time of Service: 08:38 Operative Note Operative Note DATE OF PROCEDURE: 01/31/23 PRE-OP DIAGNOSIS: Nuclear/cortical cataract, left eye high hyperopic astigmatism, left eye POST-OP DIAGNOSIS: same PROCEDURE: Cataract extraction using phacoemulsification with toric intraocular lens implant, left eye SURGEON: Reji Smyth ANESTHESIA TYPE: Local By Surgeon and MAC Refer to Anesthesia Record PATHOLOGY: none sent COMPLICATIONS: None Patient was transported to: same day Patient's condition: stable Implants: Jack and Jakc Vision Tecnis Eyhance Toric Intraocular Lens Indications: Progressive decreased vision due to cataract, left eye, with corneal astigmatism Procedure Description: CATARACT SURGERY OPERATIVE REPORT PREOPERATIVE DIAGNOSIS: Nuclear/cortical cataract, left eye High hyperopia with astigmatism, left eye POSTOPERATIVE DIAGNOSIS: Same OPERATION: Cataract extraction using phacoemulsification with posterior chamber toric intraocular lens implant, left eye. IOL: IOL Glue Mounter Operator/Model: Jack [employer] Jack Vision Tecnis Eyhance Toric [id number] IOL Power: + 31.5 diopters sphere, 4.50 diopters cylinder IOL Serial Number: [id number] Optic Diameter: 6.0mm Haptic/Overall Diameter: 13.00mm PHACO INFO: Broderick Centurion Vision System with OZil and [employer] Cumulative Dispersed Energy (CDE): 1.29 seconds SURGEON: Reji Smyth MD, NIDHI ANESTHESIA: Monitored Anesthesia Care (MAC), with local sub-tenon's anesthetic infiltration COMPLICATIONS: None SPECIMENS: None INDICATIONS FOR PROCEDURE: The patient is a 57-year-old male with history of high hyperopia with astigmatism since childhood who has developed symptomatic bilateral nuclear/cortical cataract. He is significantly symptomatic that he desires cataract surgery and attempt to improve and maximize his vision. He has already undergone cataract surgery in the right eye and is doing well postoperatively. He now presents for cataract surgery in the left eye. See operative report for detailed information. PROCEDURE: The correct surgical eye was identified and marked as the left eye and the pupil was dilated in the preoperative area using mydriatics and cycloplegics. The dilated pupil size was 7.0 mm. With the patient in the seated position, topical anesthetic was applied and a surgical marker was used to addison the limbus at 6:00. A Surgilum Robomarker was then used to addison the 0/180 degree reference axis. Marking the patient was challenging due to severe blepharospasm. Oral sedation was administered in the form of an Imprimis MKO Melt (midazolam 3mg/ketamine 25mg/ondansetron 2mg). The patient elected to proceed without oral sedation. The patient was brought to the operating room where cardiopulmonary monitoring was instituted and surgical time-out was performed, confirming the correct operative eye and IOL power. Topical anesthesia was administered and ophthalmic povidone-iodine 5% was instilled into the conjunctival fornices. The herminia-ocular area was prepped with Betadine 10% solution and draped in the usual sterile fashion for intraocular surgery, including an aperture drape. A Tegaderm transparent film dressing was cut in half and used to cover the lashes and lid margins. Care was taken to sequester the lashes and lid margins under the Tegaderm dressing. A lid speculum was placed between the lids of the operative eye and the Broderick [employer] operating microscope was maneuvered into position. Jerri scissors were then used to make a conjunctival buttonhole approximately 6mm posterior to the limbus in the inferonasal quadrant. Blunt dissection was carried out to expose bare sclera, and a blunt-tipped sub-tenon?s anesthesia cannula was introduced and passed posteriorly along the globe where non-preserved plain lidocaine was injected into posterior sub-Tenon?s space. A corneal ring gauge and axis marker were then used to addison the 0 degree position for the main phaco incision, and the 119/299 degree axis for alignment of the toric IOL. The original plan was to make the sacral incision at the 0 to 9 degree axis, but the patient had severe blepharospasm with strong Wong's phenomenon, as well as an overhanging brow which made placing incision location in this access very challenging, so the main phaco incision was moved more temporally. A sideport knife was used to make a paracentesis port superior/superiortemporally. Intraocular phenylephrine/lidocaine was injected into the anterior chamber. The anterior chamber was then filled with viscoelastic. A keratome knife was used to create a half-thickness groove at the limbus and then to construct a three-plane near-clear corneal tunnel extending 2.0mm into clear cornea at the just inferior to the 0 degree axis. . A flap was raised on the anterior capsule and capsulorhexis forceps were used to complete a continuous curvilinear capsulorhexis of 5.0 mm. Balanced salt solution was then used to perform cortical cleaving hydrodissection and nuclear hydrodelineation until the lens could be freely rotated within the capsular bag. The lens nucleus was then disassembled and removed within the capsular bag and iris plane using phacoemulsification. Residual cortical material was removed using the irrigation/aspiration handpiece. The posterior capsule was carefully polished to remove as much residual lens epithelial cells as safely possible. The capsular bag was then inflated and the anterior chamber deepened with viscoelastic. The lens implant described above was inserted into the capsular bag using the [employer] pre-loaded injector. . A Kuglen hook was used to dial the IOL into position, about 10 degrees counterclockwise of its final alignment. Residual viscoelastic was then removed first from posterior to the IOL, then from the anterior chamber using the I/A handpiece. The I/A handpiece was then used to dial the IOL to the target axis. The lens implant was noted to center nicely within the capsular bag, with the toric IOL alcantara aligned at the 119/299 degree axis. The incisions were stromally hydrated, and the anterior chamber was reformed using BSS. Then 0.5cc of moxifloxacin 1.0mg/ml were injected into the capsular bag and anterior chamber. The incisions were checked with a Weck spear and found to be secure. Several drops of ophthalmic povidone-iodine 5% were then applied to the eye followed by two drops of Imprimis combination prednisolone/moxifloxacin/nepafenac solution. The drapes were removed and a clear plastic protective eye shield was placed over the eye. The patient was then returned to Same Day Surgery in stable condition.
--- NOTE | 2023-01-31 08:47 | W.ANESPOSTOP ---
Postoperative Evaluation Date, Time and Location Date Performed: 01/31/23 Time Performed: 08:46 Patient Location: Day Surgery Unit Vital Signs Most Recent Imported Vital Signs: Most Recent Vital Signs Temp Pulse Resp BP Pulse Ox 36.3 C L 53 L 16 106/60 95 01/31/23 08:37 01/31/23 08:37 01/31/23 08:37 01/31/23 08:37 01/31/23 08:37 Pain Score Most Recent Pain Score: Most Recent Pain Score Pain Level 0 01/31/23 08:37 Assessment Mental Status: Awake (Alert & Oriented to Patient Baseline) Airway and Respiratory Function: Patent airway with normal (patient baseline) respiratory exam Cardiovascular Function: Hemodynamically Stable Hydration Status: Adequately Hydrated Nausea & Vomiting: No Nausea or Vomiting Pain: Pt. Denies Any Pain Peripheral Nerve Block: Patient did not receive a nerve block
[2023-01-31 09:08] VITALS: BP 103/71; PULSE 50; RESP 16; TEMP 36.4; O2SAT 95
== END 2023-01-31 09:20 | disposition home or self-care (01) ==
LOC: SUR 06:58
PROVIDERS: PCP Internal Medicine; Visit Provider Ophthalmology
PROC: (CPT 66984; principal; 2023-01-31 08:30)
DX: H25.012 Cortical age-related cataract, left eye (principal); H25.12 Age-related nuclear cataract, left eye; G47.33 Obstructive sleep apnea (adult) (pediatric); Z98.41 Cataract extraction status, right eye
CPT/HCPCS: 66984; 00123; V2632

== ENCOUNTER 2023-08-05 12:52 | Outpatient (REF) | payer BC, SELFPAY ==
[2023-08-08 13:20] LABS: Helicobacter pylori Ag, Feces Positive (Negative)
== END 2023-08-05 12:53 | disposition home or self-care (01) ==
LOC: LBN 12:52
PROVIDERS: PCP Internal Medicine; Visit Provider Naturopath
DX: A04.8 Other specified bacterial intestinal infections (principal)
CPT/HCPCS: 87338

== ENCOUNTER 2023-11-05 12:02 | Emergency (ER) | payer OTHER, SELFPAY ==
[2023-11-05] VITALS (40 sets, daily range): BP systolic 119–147; BP diastolic 57–89; PULSE 52–75; RESP 9–23; TEMP 36.2; O2SAT 93–97
--- NOTE | 2023-11-05 12:00 | RT.EKG_ITS ---
APPROVED REPORT Exam: Resting ECG Reason for Exam: Chest pain Patient Location: E HR:62 bpm ECG Measurements Heart Rate 62 AXIS [place] 143 P 72 QRSd 91 QRS 66 QT 382 T 42 QTc 389 Conclusion Sinus rhythm...normal P axis, V-rate 60- 99 sinus rhtyhm normal axis, normal intervals, non sichemic
--- OUTSIDE RECORDS SUMMARY | 2023-11-05 12:36 | XMS_ITS | Encounter Summary ---
Author Name [facility] [place] [facility] [place] [facility] [place] Address [address] [place] [address] Care Team Providers Care Import Specialist Name Role Phone KERI LEBLANC Primary Care Provider Unavaila ble Insurance Providers: All historical and current Section Date Range: From patient's date of to the date document was created. This section includes the names of all active insurance providers for the patient. Insurance Provider Type of Coverage Plan Name Start of Policy Coverage End of Policy Coverage Group Number Member ID Insurance Provider's Telephone Number Policy Crawley's Name Patient's Relationship to Policy Crawley [facility] POINT OF SERVICE SOV RET UNDER 65 CHERISE Apr 14, 2018 [id number] JANELL MALAGON ERT PATIENT [facility] POINT OF SERVICE SOV ACTIV E SELEC TCAR Apr 14, 2018 [id number] [phone] VESNA,JANELL ERT PATIENT [facility] ([id number]) PRESCRIPT ION [facility] Apr 14, 2018 [id number] [phone] VESNA,JANELL ERT PATIENT [facility] ([id number]) PRESCRIPT ION [facility] Apr 14, 2018 [id number] VESNA,JANELL ERT PATIENT Selected Encounter This section includes the information on record at [place] for the Encounter. Date/Time Encounter Type Encounter Description Reason Pro vider Source August 18, 2023 11:04 AM Outpatient Encounter TELEPHONE PRIMARY CARE IHE Encounter Template Text not used by [place] Plan of Treatment: Future Appointments (+ 6 months) and Future Tests (+/- 45 days) The Plan of Treatment section includes future care activities for the patient from all [place] treatmentfacilities. This section includes future appointments and future orders which are active, pending or scheduled. Future Appointments This section includes appointments that were scheduled to occur 6 months from the date of the Encounter, up to a maximum of 20 appointments. The data comes from all [place] treatment facilities. Appointment Date/Time Appointment Type Appointme nt Facility Name September 09, 2023 09:30 AM AM[facility]ATORY - NONE [place] [facility] Nov 17, 2023 09:00 AM AMBULATORY - NONE [place] [facility] Social History: Smoking Status (Most current) and Tobacco Use (All prior to encounter date) This section includes the most current, and the historical, smoking and tobacco- related health factors from the [place] facility where the Encounter took place. Current Smoking Status This section includes the most current smoking, or tobacco-related health factor, from the [place] facility where the Encounter took place. Date/Time Current Smoking Status Comment Facil ity August 19, 2022 09:30 AM VA-TOBACCO FORMER USER [facility] Tobacco Use History This section includes a history of the smoking, or tobacco-related health factors, that were collected on or before the date of the Encounter. The data comes from the [place] facility where the Encounter took place. Date/Time Smoking Status/Tobacco Use Comment F acility August 19, 2022 09:30 AM VA-TOBACCO QUIT 5 TO < 15 YRS [place] [facility] Jul 30, 2021 02:30 PM VA-TOBACCO FORMER USER [place] [facility] Jul 30, 2021 02:30 PM VA-TOBACCO QUIT 1 TO < 5 YRS [place] [facility] Mar 30, 2020 09:00 AM [place]-TO[place]ACCO FOR[facility] [facility] Mar 30, 2020 09:00 AM VA-TOBACCO QUIT 1 TO < 5 YRS [place] [facility] Mar 25, 2019 08:16 AM VA-TOBACCO FORMER USER [place] [facility] Mar 25, 2019 08:16 AM VA-TOBACCO QUIT < 1 YEAR [facility] [place] [facility] Mar 17, 2018 10:44 AM VA-TOBACCO FORMER USER [facility]UEL [facility] Mar 17, 2018 10:44 AM VA-TOBACCO QUIT < 1 YEAR [facility] [place] [facility] May 19, 2017 11:10 AM LIFETIME NON-TOBACCO USER [facility] MANU[facility] [place] [facility] Mar 14, 2017 08:57 AM CURRENT SMOKELESS TOBACCO USER [facility]UAN MANUEL [facility] [place] [facility] Mar 14, 2017 08:57 AM V1-PT DECLINES REF TO TOBACCO CESS [facility] Mar 14, 2017 08:57 AM V1-PT READY TO SHARON T TOBACCO USE [facility] MANUEL [facility] [facility] August 26, 2016 12:48 PM V1-PT DECLINES REF [facility] August 26, 2016 12:48 PM V1-PT THINKING ABO UT QUIT TOBACCO USE [facility] August 26, 2016 08:45 AM CURRENT SMOKER FELICITA PAREDES [facility] Aug 08, 2014 09:46 AM CURRENT SMOKER FELIC[facility] Aug 08, 2014 09:46 AM V1-PT DECLINES [facility] Aug 08, 2014 09:46 AM V1-PT DECLINES TOB ACCO CESSATION MEDS [facility] Aug 08, 2014 09:46 AM V1-PT THINKING ABO UT QUIT TOBACCO USE [facility] Jul 07, 2013 02:26 PM CURRENT SMOKER 4-6 cigarettes/day JUAN MANUEL [facility] Jul 07, 2013 02:26 PM V1-PT DECLINES REF [facility] Jul 07, 2013 02:26 PM V1-PT DECLINES TOB ACCO CESSATION MEDS [facility] Jul 07, 2013 02:26 PM V1-PT THINKING ABO UT QUIT TOBACCO USE [facility] Jul 15, 2012 02:30 PM CURRENT SMOKER Pt. is back to .5 to a ppd. Wants to quit again. [facility] Jul 15, 2011 10:07 AM V1-PT DECLINES [facility] Jul 15, 2011 10:07 AM V1-PT READY TO SHARON T TOBACCO USE JUAN MANUEL [facility] Dec 05, 2010 01:00 PM QUIT TOBACCO USE I N PAST YEAR [facility] Encounter Notes: All associated encounter notes This section contains the clinical notes associated to the Encounter. Date/Time Encounter Note(s) Provider Source August 18, 2023 11:04 AM LETTERS: LOCAL TITLE: Letter To Patient STANDARD TITLE: LETTERS DATE OF NOTE: AUGUST 18, 2023@11:04 ENTRY DATE: AUGUST 18, 2023@11:04:36 AUTHOR: DIMAS ARNDT COSIGNER: BRYAN AVENDAÑO URGENCY: STATUS: [place] [address] AUGUST 18, 2023 EDITH MALAGON [address] [place], [place] [address] Dear EDITH MALAGON: Thank you for selecting the [facility] [place], [place] for your health care. Date/Time: Tuesday AUGUST 22, 2023 at 9:00AM Clinic: [facility] Location: [address] Provider: KERI LEBLANC and Fish And Wildlife Biologist Wearing a mask is optional in most areas at all facilities. If you have private health insurance, please bring your insurance card(s) with you. The [place] may bill private health insurance companies for the cost of treating any non-service connected conditions. Upon check-in, please notify our personnel of any changes in address or telephone number. Again, thank you for letting us serve you. [employer]. [facility] [address] [place] [phone] TOLL FREE: [employer] ( ) JCAK ARNDT [facility]
--- OUTSIDE RECORDS SUMMARY | 2023-11-05 12:36 | XMS_ITS ---
Author Name [facility] [place] [facility] [place] Address [address] [place] [address] Care Team Providers Care Head Of Sales And Marketing Name Role Phone KERI LEBLANC Primary Care [...] Crawley's Name Patient's Relationship to Policy Crawley [facility] POINT OF SERVICE SOV ACTIV E SELEC TCAR Apr 14, 2018 [id number] JANELL MALAGON ERT PATIENT [facility] POINT OF SERVICE SOV RET UNDER 63 CHERISE Apr 14, 2018 [id number] VESNA,JANELL ERT PATIENT [facility] ([id number]) PRESCRIPT ION [facility] Apr 14, 2018 Q54A [id number] VESNA,JANELL ERT PATIENT [facility] ([id number]) PRESCRIPT ION [facility] Apr 14, 2018 Q54A [id number] VESNA,JANELL ERT PATIENT Selected Encounter This section includes the information on record at [place] for the Encounter. Date/Time Encounter Type Encounter Description Reason Pro vider Source Aug 12, 2023 01:18 PM Outpatient Encounter TELEPHONE PRIMARY CARE IHE Encounter Template Text not used by [place] Plan of Treatment: Future Appointments (+ 6 months) and Future Tests (+/- 45 days) The Plan of Treatment section includes future care activities for the patient from all [place] treatmentfacilities. This section includes future appointments and future orders which are active, pending or scheduled. Future Appointments This section includes appointments that were scheduled to occur 6 months from the date of the Encounter, up to a maximum of 20 appointments. The data comes from all [place] treatment facilities. Appointment Date/Time Appointment Type Appointme nt Facility Name September 09, 2023 09:30 AM AMBULATORY - NONE [place] [facility] Nov 17, 2023 09:00 AM AMBULATORY - NONE [place] [facility] Social History: Smoking Status (Most current) and Tobacco Use (All prior to encounter date) This section includes the most current, and the historical, smoking and tobacco- related health factors from the [place] facility where the Encounter took place. Current Smoking Status This section includes the most current smoking, or tobacco-related health factor, from the [place] facility where the Encounter took place. Date/Time Current Smoking Status Comment Facil ity August 19, 2022 09:30 AM VA-TOBACCO FORMER USER [facility] Tobacco Use History This section includes a history of the smoking, or tobacco-related health factors, that were collected on or before the date of the Encounter. The data comes from the [place] facility where the Encounter took place. Date/Time Smoking Status/Tobacco Use Comment F acility August 19, 2022 09:30 AM VA-TOBACCO QUIT 5 TO < 15 YRS [place] [facility] Jul 30, 2021 02:30 PM VA-TOBACCO FORMER USER [place] [facility] Jul 30, 2021 02:30 PM VA-TOBACCO QUIT 1 TO < 5 YRS [place] [facility] Mar 30, 2020 09:00 AM VA-TOBACCO FORMER USER [place] [facility] Mar 30, 2020 09:00 AM VA-TOBACCO QUIT 1 TO < 5 YRS [place] [facility] Mar 25, 2019 08:16 AM VA-TOBACCO FORMER USER [place] [facility] Mar 25, 2019 08:16 AM VA-TOBACCO QUIT < 1 YEAR [facility] Mar 17, 2018 10:44 AM VA-TOBACCO FORMER USER [facility]UEL [facility] Mar 17, 2018 10:44 AM VA-TOBACCO QUIT < 1 YEAR [facility] May 19, 2017 11:10 AM LIFETIME NON-TOBACCO USER [facility] MANUEL [facility] Mar 14, 2017 08:57 AM CURRENT SMOKELESS TOBACCO USER [facility] MANUEL [facility] Mar 14, 2017 08:57 AM V1-PT DECLINES REF TO TOBACCO CESS [facility] Mar 14, 2017 08:57 AM V1-PT READY TO SHARON T TOBACCO USE [facility] August 26, 2016 12:48 PM V1-PT DECLINES REF TO TOBACCO CESS [facility] August 26, 2016 12:48 PM V1-PT THINKING ABO UT QUIT TOBACCO USE [facility] August 26, 2016 08:45 AM CURRENT SMOKER FELICITA PAREDES [facility] Aug 08, 2014 09:46 AM CURRENT SMOKER FELIC[facility] PARED[facility] Aug 08, 2014 09:46 AM V1-PT DECLINES REF TO TOBACCO CESS [facility] Aug 08, 2014 09:46 AM V1-PT DECLINES TOB ACCO CESSATION MEDS [facility] Aug 08, 2014 09:46 AM V1-PT THINKING ABO UT QUIT TOBACCO USE [facility] Jul 07, 2013 02:26 PM CURRENT SMOKER 4-6 cigarettes/day [facility] MANU[facility] Jul 07, 2013 02:26 PM V1-PT DECLINES REF TO TOBACCO CESS [facility] Jul 07, 2013 02:26 PM V1-PT DECLINES TOB ACCO CESSATION MEDS [facility] Jul 07, 2013 02:26 PM V1-PT THINKING ABO UT QUIT TOBACCO USE [facility] Jul 15, 2012 02:30 PM CURRENT SMOKER Pt. is back to .5 to a ppd. Wants to quit again. [facility] Jul 15, 2011 10:07 AM V1-PT DECLINES REF TO TOBACCO CESS [facility] Jul 15, 2011 10:07 AM V1-PT READY TO SHARON T TOBACCO USE [facility] MANU[facility] Dec 05, 2010 01:00 PM QUIT TOBACCO USE I N PAST YEAR [facility] Encounter Notes: All associated encounter notes This section contains the clinical notes associated to the Encounter. Date/Time Encounter Note(s) Provider Source Aug 12, 2023 01:18 PM SOCIAL WORK NOTE: LOCAL TITLE: Administrative Note/Social Work STANDARD TITLE: SOCIAL WORK NOTE DATE OF NOTE: AUG 12, 2023@13:18 ENTRY DATE: AUG 12, 2023@13:18:59 AUTHOR: DIMAS ARNDT COSIGNER: BRYAN AVENDAÑO URGENCY: STATUS: COMPLETED Administrative Note/Social Work Has ADDENDA GRACE has been collaborating with 's MH provider to support Holt in his request to speak with a needle valve operator. SW able to confirm a date and time. provider asked if SW can be vague when speaking to Holt since his calls have to be on speaker phone. SW attempted to reach at home# (per his request), but received VM. D/t safety etc, this health science writer did not leave a message and will try him again later. /sallie ARNDT Primary Care Public Health Analyst Signed: 08/12/2023 13:20 /ROSAURA Samuels Caregiver Support Surface Mount Technology Operator Cosigned: 08/12/2023 15:44 Receipt Acknowledged By: 08/19/2023 10:37 /ROSAURA Schultz Clinical Public Health Analyst 08/18/2023 ADDENDUM STATUS: COMPLETED SW was able to connect with (and his as she has him place all calls on speaker phone). GRACE asked to confirm his upcoming appt August 21 at 9am. confirmed and asked if this person can send him an appt reminder. GRACE asked if he meant mail. Holt said you can email me and provided his email. For his safety, SW reached out to [facility] who suggested if Holt said email then he believes it is safe to send him a reminder. GRACE to draft a generic PCP/MH letter and send to Holt. /sallie ARNDT Primary Care Public Health Analyst Signed: 08/18/2023 11:03 /ROSAURA Samuels Caregiver Support Surface Mount Technology Operator Cosigned: 08/18/2023 12:51 JACK ARNDT JUAN MANUEL [facility]
--- OUTSIDE RECORDS SUMMARY | 2023-11-05 12:36 | XMS_ITS | Encounter Summary ---
Author Name [facility] [place] [facility] [place] Address [address] [place] [address] Care Team Providers Care Broadcast Supervisor Name Role Phone KERI ORELLANA Primary Care Provider Unavaila ble Insurance Providers: [...] Crawley's Name Patient's Relationship to Policy Crawley [facility] POINT OF SERVICE SOV RET UNDER 65 CHERISE Apr 14, 2018 [id number] JANELL MALAGON ERT PATIENT [facility] POINT OF SERVICE SOV ACTIV E SELEC TCAR Apr 14, 2018 [id number] VESNA,JANELL ERT PATIENT [employer] ([id number]) PRESCRIPT ION [facility] NT Apr 14, 2018 [id number] [phone] VESNA,JANELL ERT PATIENT [employer] ([id number]) PRESCRIPT ION [facility] NT Apr 14, 2018 [id number] VESNA,JANELL ERT PATIENT Selected Encounter This section includes the information on record at DC for the Encounter. Date/Time Encounter Type Encounter Description Reason Provider Source September 09, 2023 09:30 AM OFFICE O/P EST LOW 20 MIN PRIMARY CARE/MEDICINE ICD-10-CM B96.81 Helicobacter pylori as the cause of diseases classd roc MAHERIKER PHAN IHSteven Encounter Template Text not used by [place] Assessments - Encounter Diagnoses This section includes the primary and secondary diagnoses documented for the Encounter. Date/Time Primary/Secondary Diagnosis Diagnosis Name Provider Source Sep 23, 2023 02:27 PM PRIMARY Helicobacter pylori as the cause of diseases classd jacindatrinyrafael SABAS ORELLANA JUAN MANUEL [facility] Sep 23, 2023 02:27 PM SECONDARY Obesity, unspecified DEANASABAS PHAN [facility] Sep 23, 2023 02:27 PM SECONDARY Problems in relationship with spouse or partner SABAS ORELLANA [facility] Plan of Treatment: Future Appointments (+ 6 months) and Future Tests (+/- 45 days) The Plan of Treatment section includes future care activities for the patient from all [place] treatmentfacilities. This section includes future appointments and future orders which are active, pending or scheduled. Future Appointments This section includes appointments that were scheduled to occur 6 months from the date of the Encounter, up to a maximum of 20 appointments. The data comes from all [place] treatment facilities. Appointment Date/Time Appointment Type Appointme nt Facility Name Nov 17, 2023 09:00 AM AMBULATORY - NONE [facility] Lab Results: +/- 30 days of the encounter This section includes the Chemistry and Hematology Lab Results on record with DC for the patient. Radiology Reports and Pathology Reports are provided separately, in subsequent sections. Lab Results This section contains the Chemistry/Hematology Results that were resulted 30 days before or 30 daysafter the date of the Encounter. Date/Time Source Result Type Result - Unit Interpretation Reference Range Comment Oct 08, 2023 08:27 AM [facility] H.PYLORI,STOOL(B) Specimen Type: FECES No comment entered. Ordering Provider: SABAS ORELLANA Report Released Date/Time: September 09, 2023 10:15 AM Reporting Lab: [facility] [address] [facility] [address] Performing Lab: [facility] [address] [facility] [address] H.PYLORI,STOOL(B) Neg Neg Oct 08, 2023 08:23 AM [facility] TESTOSTERONE(WRJ) Specimen Type: SERUM Comment: , Tests performed on [employer] Turner SN:[id number] (405) Ordering Provider: SABAS ORELLANA Report Released Date/Time: September 09, 2023 10:50 AM Reporting Lab: [facility] [address] [facility] [address] Performing Lab: [facility] [address] [facility] [address] TESTOSTERONE(J) 485.3 ng/dL 220-892 Oct 08, 2023 08:23 AM [facility] LIPOPROTEIN CHOLESTEROL FRACT. PANEL Specimen Type: PLASMA Comment: , Tests performed on AC Holdco Turner SN:[id number] (405) Ordering Provider: SABAS ORELLANA Report Released Date/Time: September 09, 2023 10:52 AM Reporting Lab: [facility] [address] [facility] [address] Performing Lab: [facility] [address] [facility] [address] CHOLESTEROL 242 mg/dL H 0-200 TRIGLYCERIDE 192 mg/dL H 0-150 HDL CHOLESTEROL 37 mg/dL L >40 LDL CHOLESTEROL (CALC) 167 mg/dL Oct 08, 2023 08:23 AM [facility] LIVER PROFILE Specimen Type: PLASMA Comment: , Tests performed on Ver[employer] Johnny SN:[id number] (405) Ordering Provider: SABAS ORELLANA Report Released Date/Time: September 09, 2023 10:52 AM Reporting Lab: [facility] [address] [facility] [address] Performing Lab: [facility] [address] [facility] [address] PROTEIN, TOTAL 6.9 g/dL 6.0-8.5 ALBUMIN 3.5 g/dL 3.2-5.0 BILIRUBIN, TOTAL 0.4 mg/dL 0.2-1.2 ALKALINE PHOSPHATASE 56 U/L 40-150 ALT(SGPT) 28 U/L 7-52 AST(SGOT) 26 U/L 5-34 FIB-4 SCORE 1.39 <2.67 Oct 08, 2023 08:23 AM [facility] [employer] [facility] GLYCOHEMOGLOBIN (A1C ONLY) Specimen Type: BLOOD Comment: , Tests performed on [employer] SN:[id number] (405) Values obtained from A1C measurements can vary. For typical A1C assays, a reported value of 7.0 could actually be between 6.72 and 7.28 if measured by a reference method. A reported value of 9.0 could actually be between 8.73 and 9.27. Ref: http://www.ngs p.org/CAPdata. asp Ordering Provider: SABAS ORELLANA Report Released Date/Time: September 09, 2023 10:52 AM Reporting Lab: [facility] [employer] [address] [facility] [address] Performing Lab: [facility] [employer] [address] [facility] [address] HEMOGLOBIN A1C 5.4 4.0-5.6 Oct 08, 2023 08:23 AM [facility] P4 GLU,BUN,CREAT,LYTES,CA Specimen Type: PLASMA Comment: , Tests performed on [employer] SN:[id number] (405) Ordering Provider: SABAS ORELLANA Report Released Date/Time: September 09, 2023 10:52 AM Reporting Lab: [facility] [employer] [email or web address] [address] [facility] [address] Performing Lab: [email or web address] [address] [facility] [address] UREA NITROGEN 16 mg/dL 7-25 SODIUM 139 mmol/L 135-145 POTASSIUM 4.2 mmol/L 3.5-5.0 CHLORIDE 107 mmol/L 100-110 CARBON DIOXIDE 24 mmol/L 20-30 ANION GAP 8 4-16 GLUCOSE 103 mg/dL H 65-100 CREATININE 1.00 mg/dL 0.50-1.50 CALCIUM 9.0 mg/dL 8.5-10.5 eGFR(CKD-EPI 2020) 86 See_Comment Oct 08, 2023 08:23 AM [facility] PSA (NEEDLE PUNCH MACHINE OPERATOR HELPER) Specimen Type: SERUM Comment: , Tests performed on AC [employer]co Turner SN:[id number] (405) Ordering Provider: SABAS ORELLANA Report Released Date/Time: September 09, 2023 10:52 AM Reporting Lab: [facility] [address] [facility] [address] Performing Lab: [facility] [address] [facility] [address] PSA (NEEDLE PUNCH MACHINE OPERATOR HELPER) 0.20 ng/mL See_Comment Oct 08, 2023 08:23 AM [facility] CBC PROFILE Specimen Type: BLOOD No comment entered. Ordering Provider: SABAS ORELLANA Report Released Date/Time: September 09, 2023 10:52 AM Reporting Lab: [facility] [address] [facility] [address] Performing Lab: [facility] [address] [facility] [address] WBC 7.6 10*3/uL 4.5-11.0 RBC 5.05 10*6/uL 4.23-5.66 HGB 15.3 g/dL 12.8-17 HEMATOCRIT 44.3 39.2-50.4 MCV 87.7 fL 82-99 MCH 30.3 pg 26.2-32.6 MCHC 34.5 g/dL 30.8-35.1 PLT 212 10*3/uL 140-360 MPV 10.4 fL 9.2-12.4 RDW 12.7 12.0-16.0 LYMPH % 40.1 14.0-42.3 MONO % 10.2 5.1-13.7 NEUT % 45.7 43.7-75.8 EOS % 3.0 0.4-6.8 BASO % 0.9 0.1-2.0 IG % 0.1 0.0-0.7 NUCLEATED RED CELLS 0.0 /100{WBCs} 0.0-0.0 ABSOLUTE IG 0.0 10*3/uL 0-0.06 ABSOLUTE BASOPHILS 0.1 10*3/uL 0.01-0.13 ABSOLUTE EOS. 0.2 10*3/uL 0.03-0.44 ABSOLUTE LYMPHOCYTES 3.0 10*3/uL 1.0-3.2 ABSOLUTE MONOCYTES 0.8 10*3/uL 0.3-1.1 ABSOLUTE GRANULOCYTES 3.5 10*3/uL 2.2-7.6 ABSOLUTE NRBC 0.00 10*3/uL 0-0 Vital Signs: All taken on the encounter date This section contains inpatient and outpatient Vital Signs collected on the date of the Encounter. Date/Time Temperature Pulse Blood Pressure Respiratory Rate SP02 Pain Height Weight Body Mass Index Source September 09, 2023 09:33 AM 98.2 56 103/65 16 97 4 279 40 [facility] Social History: Smoking Status (Most current) and Tobacco Use (All prior to encounter date) This section includes the most current, and the historical, smoking and tobacco- related health factors from the DC facility where the Encounter took place. Current Smoking Status This section includes the most current smoking, or tobacco-related health factor, from the DC facility where the Encounter took place. Date/Time Current Smoking Status Comment Facil ity September 09, 2023 09:30 AM VA-TOBACCO NEVER USED [facility] Tobacco Use History This section includes a history of the smoking, or tobacco-related health factors, that were collected on or before the date of the Encounter. The data comes from the [place] facility where the Encounter took place. Date/Time Smoking Status/Tobacco Use Comment F acility August 19, 2022 09:30 AM VA-TOBACCO FORMER USER [facility] August 19, 2022 09:30 AM VA-TOBACCO QUIT 5 TO < 15 YRS [facility] Jul 30, 2021 02:30 PM VA-TOBACCO FORMER USER [facility] Jul 30, 2021 02:30 PM VA-TOBACCO QUIT 1 TO < 5 YRS [facility] Mar 30, 2020 09:00 AM VA-TOBACCO FORMER USER [facility] Mar 30, 2020 09:00 AM VA-TOBACCO QUIT 1 TO < 5 YRS [facility] Mar 25, 2019 08:16 AM VA-TOBACCO FORMER USER [facility] Mar 25, 2019 08:16 AM VA-TOBACCO QUIT < 1 YEAR [facility] Mar 17, 2018 10:44 AM VA-TOBACCO FORMER USER [facility] Mar 17, 2018 10:44 AM VA-TOBACCO QUIT < 1 YEAR [facility] May 19, 2017 11:10 AM LIFETIME NON-TOBACCO USER [facility] Mar 14, 2017 08:57 AM CURRENT SMOKELESS TOBACCO USER [facility] Mar 14, 2017 08:57 AM V[facility] 14, 2017 08:57 AM V1-PT READY TO SHARON T TOBACCO USE [facility] August 26, 2016 12:48 PM V1[facility] August 26, 2016 12:48 PM V1-PT THINKING ABO UT QUIT TOBACCO USE [facility] August 26, 2016 08:45 AM CURRENT SMOKER FELICITA PAREDES [facility] Aug 08, 2014 09:46 AM CURRENT SMOKER FELICITA PAREDES [facility] Aug 08, 2014 09:46 AM V1-PT [facility] Aug 08, 2014 09:46 AM V1-PT DECLINES TOB ACCO CESSATION MEDS [facility] Aug 08, 2014 09:46 AM V1-PT THINKING ABO UT QUIT TOBACCO USE [facility] Jul 07, 2013 02:26 PM CURRENT SMOKER 4-6 cigarettes/day [facility] Jul 07, 2013 02:26 PM V1-PT DECLINES REF TO TOBACCO CESS [facility] Jul 07, 2013 02:26 PM V1-PT DECLINES TOB ACCO CESSATION MEDS [facility] Jul 07, 2013 02:26 PM V1-PT THINKING ABO UT QUIT TOBACCO USE [facility] Jul 15, 2012 02:30 PM CURRENT SMOKER Pt. is back to .5 to a ppd. Wants to quit again. [facility] Jul 15, 2011 10:07 AM V1-PT DECLINES REF TO TOBACCO CESS [facility] Jul 15, 2011 10:07 AM V1-PT READY TO SHARON T TOBACCO USE [facility] Dec 05, 2010 01:00 PM QUIT TOBACCO USE I N PAST YEAR [facility] Encounter Notes: All associated encounter notes This section contains the clinical notes associated to the Encounter. Date/Time Encounter Note(s) Provider Source Oct 13, 2023 10:25 AM ADDENDUM: LOCAL TITLE: Addendum STANDARD TITLE: ADDENDUM DATE OF NOTE: OCT 13, 2023@10:25:02 ENTRY DATE: OCT 13, 2023@10:25:04 AUTHOR: KERI ORELLANA EXP COSIGNER: URGENCY: STATUS: COMPLETED Please print and mail the following results letter to the . Thank you. /es/ KERI ORELLANA MD Signed: 10/13/2023 10:25 Receipt Acknowledged By: 10/13/2023 10:30 /es/ HERB CARROLL MSA --- Original Document --- 10/13/23 Letter To Patient: [address] [address] OCT 13, 2023 [place], [place] [address] Dear EDITH MALAGON: It was a pleasure seeing you at your recent visit. I have received the results of your lab work testing for H pylori bacteria and would like to share them with you. H.PYLORI,STOOL(B) FECES SP LB #[id number] Collection time: Oct 08, 2023@08:27 Test Name Result Units Range --------- ------ ----- ----- H.PYLORI,STOOL(B) Neg Ref: Neg Your result is negative, which is normal and indicates that you do not have H pylori bacteria currently. No further testing or treatment is indicated. I look forward to seeing you at your next scheduled visit. Sincerely, KERI HOWARD MD [facility] Oct 13, 2023 10:22 AM LETTERS: LOCAL TITLE: Letter To Patient STANDARD TITLE: LETTERS DATE OF NOTE: OCT 13, 2023@10:22 ENTRY DATE: OCT 13, 2023@10:23:05 AUTHOR: KERI ORELLANA EXP COSIGNER: URGENCY: STATUS: COMPLETED Letter To Patient Has ADDENDA [address] [address] OCT 13, 2023 [place], [place] [address] Dear EDITH MALAGON: It was a pleasure seeing you at your recent visit. I have received the results of your lab work testing for H pylori bacteria and would like to share them with you. H.PYLORI,STOOL(B) FECES SP LB #[id number] Collection time: Oct 08, 2023@08:27 Test Name Result Units Range --------- ------ ----- ----- H.PYLORI,STOOL(B) Neg Ref: Neg Your result is negative, which is normal and indicates that you do not have H pylori bacteria currently. No further testing or treatment is indicated. I look forward to seeing you at your next scheduled visit. Sincerely, KERI ORELLANA MD 10/13/2023 ADDENDUM STATUS: COMPLETED Please print and mail the following results letter to the . Thank you. /es/ KERI ORELLANA MD Signed: 10/13/2023 10:25 Receipt Acknowledged By: * AWAITING SIGNATURE * HERB CARROLL JONATHAN B [facility] Oct 08, 2023 09:48 AM LETTERS: LOCAL TITLE: Letter To Patient STANDARD TITLE: LETTERS DATE OF NOTE: OCT 08, 2023@09:48 ENTRY DATE: OCT 08, 2023@09:48:49 AUTHOR: GELY FALK COSIGNER: URGENCY: STATUS: COMPLETED DEPARTMENT OF [facility] [address] [place] [address] OCT 08, 2023 ED[place] MALAGON [address] [place], [place] [address] Dear EDITH MALAGON: I am covering for your regular PCP while they are away this week and just wanted to share the results of your recent blood work. Collection time: Oct 08, 2023@08:23 Test Name Result Units Range --------- ------ ----- ----- PSA (NEEDLE PUNCH MACHINE OPERATOR HELPER) 0.20 ng/mL <0.10 - 4.0 TESTOSTERONE(WRJ) 485.3 ng/dL 220 - 892 HEMOGLOBIN A1C 5.4 % 4.0 - 5.6 GLUCOSE 103 H mg/dL 65 - 100 UREA NITROGEN 16 mg/dL 7 - 25 CREATININE 1.00 mg/dL 0.50 - 1.50 eGFR(CKD-EPI 2020) 86 60 - >90 SODIUM 139 mmol/L 135 - 145 POTASSIUM 4.2 mmol/L 3.5 - 5.0 CHLORIDE 107 mmol/L 100 - 110 CARBON DIOXIDE 24 mmol/L 20 - 30 ANION GAP 8 4 - 16 CALCIUM 9.0 mg/dL 8.5 - 10.5 PROTEIN, TOTAL 6.9 g/dL 6.0 - 8.5 ALBUMIN 3.5 g/dL 3.2 - 5.0 ALKALINE PHOSPHATASE 56 U/L 40 - 150 ALT(SGPT) 28 U/L 7 - 52 AST(SGOT) 26 U/L 5 - 34 FIB-4 SCORE 1.39 Ref: <=2.67 BILIRUBIN, TOTAL 0.4 mg/dL 0.2 - 1.2 CHOLESTEROL 242 H mg/dL 0 - 200 TRIGLYCERIDE 192 H mg/dL 0 - 150 HDL CHOLESTEROL 37 L mg/dL Ref: >=40 LDL CHOLESTEROL (CALC) 167 mg/dL Your lab tests were all in the normal range however, your cholesterol levels are higher than we like to see. To reduce your risk of heart disease and stroke, we typically recommend a medication called a statin. I will let Dr. Orellana know about this and he will be in touch with you. Please call the clinic if you have any questions about these lab results or would like to talk more about starting a cholesterol medication. Sincerely, GELY Bunch [facility] September 09, 2023 09:38 AM PRIMARY CARE NOTE: LOCAL TITLE: Primary Care Clinic Note STANDARD TITLE: PRIMARY CARE NOTE DATE OF NOTE: SEPTEMBER 09, 2023@09:38 ENTRY DATE: SEPTEMBER 09, 2023@09:39:07 AUTHOR: KERI ORELLANA EXP COSIGNER: URGENCY: STATUS: COMPLETED Primary Care Clinic Note Has ADDENDA ID: Mr. Edith Malagon is a 58 yo, MALE CC: f/u obesity, depression, H. pylori PROBLEM LIST Active problems - Computerized Problem List is the source for the followin. Exposure to potentially hazardous substance 2. Anxiety disorder 3. Erectile dysfunction 4. Hyperlipidemia 5. Non-alcoholic fatty liver 6. Thyroid nodule 7. Multiple pulmonary nodules 8. Obesity 9. Chronic post-traumatic stress disorder 10. Major depressive disorder 11. Dysfunction of eustachian tube 12. Sleep apnea 13. Ex-smoker HPI: Edith is doing about the same today. Ongoing home stressors but health has been unchanged. #H. Pylori was diagnosed with H pylori, he went to his wifes provider and was found to be positive H pylori and was Clarithromycin, Amoxacillin, and Lansoprazole. He has taking dietary probitions. No associated symoptoms. #Depression, Anxiety, Marital stress He has feeling more depressed, more stressed in his relationship. remains very anxious; has severe anxiety. is spending money replacing clothes, etc. He saw a associate business analyst, feels that he cannot financially leave his marriage. He will get down, dispondant for 1-3 yard, He met w Dr. Naik once a week through the winter, therapy was very helpful but now feels able to disengage. No panic. Has frequent SI, no specific plan or action. No alcohol; abstinent. No other drugs. #HTN, HLD Takes no cardiac medication. Has intermittent chest pain when he is stressed, prior stress testing negative. No arm/neck/jaw pain. No new or worsening exertional dyspnea. Will have episodes of feeling poorly, gets shaky and lighteadness, sometimes will occur when gets up. Never passed out. No palpitations. No lower extremity edema. No lightheadedness, passing out. #Obesity Weight is up slightly, he identifies dairy and breads, drives and eats on the road. Cookies, baked goods etc. he identifies as causative. ROS: Gen: Has CPAP, wears nightly, follows w Sleep once a year. HENNT: Vision has been much improved since cataracht surgery. Tobacco: Quit ~2018, ~1 ppd since age ~13 Alcohol: None currently Drug: none SHx: Fully retired, lives in [place], [place]. Worked in [employer] and [employer]. Works around the home, spends time with . Son b. 1983, Daughter b. 1992 living 1 hr away. SERVICE HX: deferred Active Outpatient Medications (excluding Supplies): Active Outpatient Medications Status ========= 1) CARBOXYMETHYLCELLULOSE NA 0.5% OPH SOLN INSTILL ONE ACTIVE DROP IN BOTH EYES FOUR TIMES A DAY FOR DRY EYE 2) IPRATROPIUM BR 0.03% NASAL SPRAY SPRAY 1 SPRAY INTO ACTIVE EACH NOSTRIL EVERY SIX HOURS NEEDED FOR NASAL IRRITATION/CONGESTION MAY INCREASE TO 2 SPRAYS PER NOSTRIL IF PERSISTING RUNNY NOSE. 3) NICOTINE POLACRILEX 4MG MINI LOZENGE DISSOLVE ONE ACTIVE LOZENGE BY MOUTH EVERY FOUR HOURS NEEDED TO PREVENT NICOTINE WITHDRAWAL SYMPTOMS 4) TADALAFIL 10MG TAB TAKE ONE TO TWO TABLETS BY MOUTH ACTIVE NEEDED FOR ERECTILE DYSFUNCTION Active Non-VA Medications Status ========= 1) Non-VA SEMAGLUTIDE WL 0.25MG/0.5ML PEN 0.5ML 0.25MG ACTIVE (0.5ML) SUBCUTANEOUSLY ONCE A WEEK 5 Total Medications ALLERGIES: DULOXETINE, VARDENAFIL OBJECTIVE: PE: Temp: 98.2 F [36.8 C] (09/09/2023 09:33) Pulse: 56 (09/09/2023 09:33) BP: 103/65 (09/09/2023 09:33) Resp: 16 (09/09/2023 09:33) 09/09/23 @ 0933 PULSE OXIMETRY: 97 HT(in): 70 in [177.8 cm] (05/19/2019 13:57) WT(lbs):279 lb [126.55 kg] (09/09/2023 09:33) BODY MASS INDEX - NO HEIGHTS FOUND Appearance: Sitting comfortably in chair, No acute distress Eyes: PERRL, no conjunctival injection ENMT: Moist MM CVS: RRR, No M/R/G RESP: Breathing comfortably on room air, no cough observed. No Wheeze/Rales/Ronchi Abd: Central adiposity, Non-tender, Non-distended, BS active MSK: No focal erythema or swelling of the hands, ankles, knees Skin: Warm, dry, well-perfused Neuro/Psych: Alert, Oriented, Appropriate, Conversant. Recent Labs: GLU,BUN,CREAT,LYTES - NONE FOUND HGB A1C: 5.3 (09/05/22 09:26) HCT: 40.5 (06/09/19 15:33) HGB: 13.2 (06/09/19 15:33) No data available for: ALBUMIN BILIRUBIN, TOTAL ALKALINE PHOSPHATASE ALT(SGPT) AST(SGOT) CHOL: 212 (09/05/22 09:26) HDL: 45 (09/05/22 09:26) LDL: 147 (09/05/22 09:26) TRI (09/05/22 09:26) B12 - NONE FOUND TSH: 0.95 (09/05/22 09:26) PSA (NEEDLE PUNCH MACHINE OPERATOR HELPER) - NONE FOUND HIV: No data available for: HIV Ag/Ab SCREEN ASSESSMENT/PLAN: 57 y/o M w obesity class II, HLD, NAFLD, axiety and depression with marked martial stress at home presenting for routine f/u on these issues found to have CV risk factors addequately controlled, otherwise ongoing stable depression and marital stress, worsening obesity in the setting of lifestyle factors condutive to weight gain. Recent H pylori exposure and treatment, test for cure indicated now. Otherwise no changes to current managet as CV risk factors adeuately controlled. #Hx of H pylori. Established. Confirm cure indicated, retreat if positive. - H pylori stool Ag now #MDD, Relatioinship stress Chronic, stable. Moderate functional MDD, chronic passive suicidal ideation, low risk of suicide short term, moderate risk emt intermediate. Pt has been educated on MH resources available at [facility], consents to seek care if mood symptoms worsen. - declines pharmacotherapy, MH referral at this time - pt has been evaluated by SW, declines referral to RISE/abuse services at this time #Obesity class III. Chronic, stable. s/p extensive counseling in diet and lifestyle modification. Excellent candidate for GLP1 agonist, will attempt to follow-up private insurance approval to start medication after operation. - start GLP1a pending availability #History of tobacco smoking. Chronic, stable. Quit 2018. 30 pk yr hx. - repeat CT lung cancer screening annually, next 02/2024 Healthcare Maintenance addressed today: - COVID vaccination next visit - FIT testing now Follow-Up Plan: 6 months for these issues INSTRUCTIONS PROVIDED THIS VISIT: (verbal) Pt educated of Mental health, Emergent and Urgent care services available at [facility] and also in community and reasons to access due to this condition. /es/ KERI ORELLANA MD Signed: 09/15/2023 03:43 09/15/2023 ADDENDUM STATUS: COMPLETED Medication Reconciliation: Perform Medication Reconciliation JLV Link Data on this list may not be complete. Please check JLV. Allergies/ADRs (Tool #5) FACILITY ALLERGY/ADR -------- No Remote Allergy/ADR Data available for this patient JUAN MANUEL PAREDES [facility] DULOXETINE JUAN MANUEL [facility] VARDENAFIL Med Recon NoGlossary (Tool #1) INCLUDED IN THIS LIST: Alphabetical list of active outpatient prescriptions dispensed from this DC (local) and dispensed from another DC or DoD facility (remote) as well as inpatient orders (local pending and active), local clinic medications, locally documented non-VA medications, and local prescriptions that have or been discontinued in the past 90 days. Non-VA Meds Last Documented On: Sep 12, 2022 NOTE The display of VA prescriptions dispensed from another DC or DoD facility (remote) is limited to active outpatient prescription entries matched to National Drug File at the originating site and may not include some items such as investigational drugs, compounds, etc. NOT INCLUDED IN THIS LIST: Medications self-entered by the patient into personal health records (i.e. FreeDrive) are NOT included in this list. Non-VA medications documented outside this DC, remote inpatient orders (regardless of status) and remote clinic medications are NOT included in this list. The patient and provider must always discuss medications the patient is taking, regardless of where the medication was dispensed or obtained. -------- OUTPT BETAMETHASONE VALERATE 0.1% OINT (Status = ) APPLY APPLICATION TOPICALLY TWICE A DAY Rx# [id number] Last Released: 09/06/22 Qty/Days Supply: Rx Expiration Date: 09/06/23 Refills Remainin Indication: ELBOW INFLAMMATION OUTPT CARBOXYMETHYLCELLULOSE NA 0.5% OPH SOLN (Status = Active) INSTILL ONE DROP IN BOTH EYES FOUR TIMES A DAY FOR DRY EYE Rx# [id number] Last Released: 03/29/23 Qty/Days Supply: Rx Expiration Date: 03/28/24 Refills Remainin Indication: FOR DRY EYE OUTPT IPRATROPIUM BR 0.03% NASAL SPRAY (Status = Discontinued) SPRAY 1 SPRAY INTO EACH NOSTRIL EVERY SIX HOURS NEEDED FOR NASAL IRRITATION/CONGESTION MAY INCREASE TO 2 SPRAYS PER NOSTRIL IF PERSISTING RUNNY NOSE. Rx# [id number] Last Released: Supply: 60 Rx Expiration Date: 09/14/23 Refills Remainin Indication: FOR RHINITIS OUTPT MULTIVITAMIN/MINERALS CAP/TAB (Status = Active) TAKE ONE CAP/TAB BY MOUTH ONCE DAILY TO SUPPLEMENT VITAMINS Rx# [id number] Last Released: 09/12/23 Qty/Days Supply: 100/90 Rx Expiration Date: 09/09/24 Refills Remainin Indication: TO SUPPLEMENT VITAMINS OUTPT NICOTINE POLACRILEX 4MG MINI LOZENGE (Status = Discontinued) DISSOLVE ONE LOZENGE BY MOUTH EVERY FOUR HOURS NEEDED TO PREVENT NICOTINE WITHDRAWAL SYMPTOMS Rx# [id number] Last Released: 09/12/23 Qty/Days Supply: 324 Rx Expiration Date: 12/27/23 Refills Remainin OUTPT NICOTINE POLACRILEX 4MG MINI LOZENGE (Status = Active/Suspended) DISSOLVE ONE LOZENGE BY MOUTH EVERY FOUR HOURS NEEDED TO PREVENT NICOTINE WITHDRAWAL SYMPTOMS Rx# [id number] Last Released: QtDays Supply: Rx Expiration Date: 09/09/24 Refills Remainin Non-VA SEMAGLUTIDE WL 0.25MG/0.5ML PEN 0.5ML INJECT 0.25MG (0.5ML) SUBCUTANEOUSLY ONCE A WEEK Lorrie Lizama OUTPT TADALAFIL 10MG TAB (Status = Active) TAKE ONE TO TWO TABLETS BY MOUTH NEEDED FOR ERECTILE DYSFUNCTION Rx# [id number] Last Released: 01/10/23 Qty/Days Supply: Rx Expiration Date: 01/10/24 Refills Remainin Indication: FOR ERECTILE DYSFUNCTION -------- SUPPLIES -------- Comments: The patient's Essential Medication List for Review was used for reconciliation to address additions, deletions, and changes as reported by the patient/caregiver. The patient/caregiver indicates that medications are being taken as documented as described above. The patient/caregiver maintains their own up to date medication list. Was medication education provided for new medications or changes to medications? (including medication name, dose, route, reason for use, and potential side effects). Yes. Verbal education was provided to patient/caregiver and patient/caregiver verbalized understanding. /bear/ KERI ORELLANA MD Signed: 09/15/2023 03:46 KERI ORELLANA T [facility] September 09, 2023 09:29 AM PRIMARY CARE ANNUAL EVALUATION NOTE: LOCAL TITLE: Preventive Health Annual Review STANDARD TITLE: PRIMARY CARE ANNUAL EVALUATION NOTE DATE OF NOTE: SEPTEMBER 09, 2023@09:29 ENTRY DATE: SEPTEMBER 09, 2023@09:29:20 AUTHOR: SHAHZAD BANKS EXP COSIGNER: URGENCY: STATUS: COMPLETED Tobacco Use Screening: The patient has never used tobacco. COVID-19 Immunization: Vaccine given previously - no written/electronic documentation available Comment: pt states that he recieved vaccine [place] at the [place] Influenza Immunization: The patient has received the seasonal influenza vaccine for the current season at another location. Documented: INFLUENZA, UNSPECIFIED FORMULATION Historical Date Administered: Feb 2023 Exact date unknown Information Source: FROM PUBLIC AGENCY Homelessness/Food Insecurity Screen: In the past 2 months, have you been living in stable housing that you own, rent, or stay in as part of a household? Yes - Living in stable housing. Are you worried or concerned that in the next 2 months you may NOT have stable housing that you own, rent, or stay in as part of a household? No - Not worried about housing near future The reports the following: Within the past 12 months, you worried whether your food would run out before you got money to buy more. Never true Within the past 12 months, the food you bought just didn't last and you didn't have money to get more. Never true Alcohol Use Screen (AUDIT-C): Alcohol Screen: SCREEN FOR ALCOHOL (AUDIT-C) An alcohol screening test (AUDIT-C) was negative (score=0). 1. How often did you have a drink containing alcohol in the past year? Consider a drink to be a 12 ounce can or bottle of regular beer, 8 ounces of malt liquor, a 5 ounce glass of table wine, or a 1.5 ounce shot of liquor (like scotch, gin, or vodka). Never 2. How many drinks containing alcohol did you have on a typical day when you were drinking in the past year? Response not required due to responses to other questions. 3. How often did you have six or more drinks on one occasion in the past year? Response not required due to responses to other questions. Advance Directive Screen MH AD: Patient does not have an Advance Directive completed and is requesting more information. A consult was sent to Social Work Services at this visit so that an appointment can be made with the patient to review the advance directive. The patient received education about Advance Directives and written notification of his/her rights. /bear/ SHAHZAD BANKS certified nursing assistant Signed: 09/09/2023 09:33 SHAHZAD BANKS [facility]
--- OUTSIDE RECORDS SUMMARY | 2023-11-05 12:36 | XMS_ITS | Continuity of Care Document ---
Author Name [facility] Organization [facility] Care Team Providers Care Outsewer Name Role Phone [facility] Unavailable Unavailable Problems Combined list of problems from 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 It does not include entries that were removed or entered in error. Problem Status Onset Date Problem Type Date of Resolution Comments Source tooth pain Active Condition DoD refractive error Active Condition DoD presbyopia Active Condition DoD astigmatism regular Active Condition Do D visit for: services physical Active Condition DoD visit for: services physical accession Active Condition DoD difficulty breathing (dyspnea) Active Condition DoD cough Active Condition DoD Wheezing Active Condition DoD leg strain gastrocnemius right Inactive Condition DoD sprain Inactive Condition [facility] Intervention And Counseling On Cessation Of Tobacco Use Inactive Condition [facility] Administrative Evaluation Services Inactive Condition DoD furuncle on the lower leg Inactive Condition DoD Physical Examination Inactive Condition DoD lower back pain Inactive Condition [facility] ankle sprain Inactive Condition [facility] lumbar radiculopathy Inactive Condition [facility] ankle sprain left Inactive Condition DoD Dressing Change Inactive Condition [facility] Incision And Drainage Of Skin Abscess Inactive Condition DoD nicotine dependence Inactive Condition D oD diarrhea Inactive Condition [facility] visit for: services flight physical Inactive Condition DoD astigmatism Inactive Condition [facility] refractive error - hypermetropia Active Condition [facility] visit for: examination of subpopulation Active Condition [facility] visit for: routine eye exam Inactive Condition [facility] visit for: occupational health / fitness exam Active Condition [facility] Patient Counseling: Active Condition Do D Patient Education - Injury Prevention Active Condition DoD reactive airway disease Inactive Condition [facility] DISEASE DoD upper respiratory infection Inactive Condition UPPER RESPIRATORY INFECTION DoD backache Active Condition [facility] DoD Anxiety disorder Active Condition [facility] Chronic post-traumatic stress disorder Active Condition [facility] Dysfunction of eustachian tube Active Condition [facility] Erectile dysfunction Active Condition Aug 10, 2021 Entered By: MANUEL LEBLANC Comment: A, s/p Sildenafil, Tadalafil. Trial Vardenafil (07/2021) [facility] Ex-smoker Active Condition [facility] Exposure to potentially hazardous substance Active Condition [facility] Hyperlipidemia Active Condition Jul 132021 Entered By: MANUEL LEBLANC Comment: A. Elevated tChol, LDL, Triglycerides. Low HDL. Statin advised. (07/2021) [facility] Major depressive disorder Active Condition [facility] Multiple pulmonary nodules Active Condition Jul 23, 2021 Entered By: MANUEL LEBLANC Comment: A. Several bilateral sub-3 mm nodules on LDCT screening; repeat 07/2022 [facility] Non-alcoholic fatty liver Active Condition Jul 23, 2021 Entered By: MANUEL LEBLANC Comment: A. Incidental finding on CT (07/2021); diet modification [facility] Obesity Active Condition Aug 10 Entered By: MANUEL LEBLANC Comment: A. Class II. Start dietary carbohydrate reduction (07/2021)Sep 12, 2022 Entered By: MANUEL LEBLANC Comment: B. Start Semaglutide, private insurance (08/2022) [facility] Sleep apnea Active Condition Aug 10, 2021 Entered By: MANUEL LEBLANC Comment: A. CPAP nightly [facility] Thyroid nodule Active Condition Jan 122021 Entered By: MANUEL LEBLANC Comment: A. Incidental nodule noted on LDCT screeningAu2022 Entered By: MANUEL LEBLANC Comment: B. US thyroid neg 11/2022; repeat surveillance 12/2023 ordered [facility] Ankle pain Inactive Condition 08/10/2021 [facility] Residual hemorrhoidal skin tags (ICD-9-CM 455.9) Inactive Condition 09/11/2022 [facility] Diagnosis: ICD-10-CM B96.81 Helicobacter pylori as the cause of diseases classd elswhr Active Diagnosis [facility] Diagnosis: ICD-10-CM Z63.0 Problems in relationship with spouse or partner Active Diagnosis [facility] Diagnosis: ICD-10-CM F32.1 Major depressive disorder, single episode, moderate Active Diagnosis [facility] Diagnosis: ICD-10-CM Z65.8 Oth problems related to psychosocial circumstances Active Diagnosis [facility] Diagnosis: ICD-10-CM F43.12 Post-traumatic stress disorder, chronic Active Diagnosis [facility] Diagnosis: ICD-10-CM F43.23 Adjustment disorder with mixed anxiety and depressed mood Active Diagnosis [facility] Diagnosis: ICD-10-CM Z46.0 Encounter for fit/adjst of spectacles and contact lenses Active Diagnosis [facility] Diagnosis: ICD-10-CM H04.123 Dry eye syndrome of bilateral lacrimal glands Active Diagnosis [facility] Diagnosis: ICD-10-CM 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 [facility] Diagnosis: ICD-10-CM Z01.818 Encounter for other preprocedural examination Active Diagnosis [facility] Diagnosis: ICD-10-CM M25.561 Pain in right knee Active Diagnosis [facility] Diagnosis: ICD-10-CM Z77.29 Contact with and exposure to other hazardous substances Active Diagnosis [facility] Diagnosis: ICD-10-CM K75.81 Nonalcoholic steatohepatitis ([place]OUDREAUX) Active Diagnosis [facility] Diagnosis: ICD-10-CM F33.9 Major depressive disorder, recurrent, unspecified Active Diagnosis [facility] Diagnosis: ICD-10-CM G47.30 Sleep apnea, unspecified Active Diagnosis [facility] Medications Combined list of outpatient medications from 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Medications provided include 1) outpatient medications from the last 15 months, and 2) patient-reported medications. Medication Details Route Status Patient Instructions Prescription Expires Prescription Number Last Dispense Date Ordering Provider Order Date Order Qty Source BETAMETHASO NE VALERATE 0.1% OINT,TOP BETAMETH ASONE VALERATE 0.1% OINT,TOP APPLY APPLICAT ION TOPICALL Y TWICE A DAY ELBOW INFLAMMA TION September 05, 2022 45 September 06, 2023 [id number] September 05, 2022 KERI LEBLANC [facility] TOPICA L 09/06/2023 [id number] John LEBLANC ONATHAN B 2022 45 [facility] CARBOXYMETH YLCELLULOSE NA 0.5% SOLN,OPH CARBOXYM ETHYLCEL LULOSE NA 0.5% SOLN,OPH Active INSTILL ONE DROP IN BOTH EYES FOUR TIMES A DAY FOR DRY EYE FOR DRY EYE Mar 28, 2023 30 Mar 28, 2024 [id number] Mar 28, 2023 John AUGUST [facility] OPHTHA LMIC ACTIVE 03/28/2024 [id number] SHABBIR AUGUST NNKee D 2022 30 [facility] IPRATROPIUM BR 0.03% SOLN,SPRAY, NASAL IPRATROP IUM BR 0.03% SOLN,SPR AY,NASAL Disconti nued SPRAY 1 SPRAY INTO EACH NOSTRIL EVERY SIX HOURS NEEDED FOR NASAL IRRITATI ON/CONGE STION MAY INCREASE TO 2 SPRAYS PER NOSTRIL IF PERSISTI NG RUNNY NOSE. FOR RHINITIS Sep 13, 2022 60 Sep 14, 2023 [id number] Sep 13, 2022 KERI LEBLANC [facility] NASAL DISCONT INUED BY PROVIDE R 09/14/2023 [id number] John LEBLANC 2022 60 [facility] MULTIVITAMI NS W/MINERALS CAP/TAB MULTIVIT AMINS W/MINERA LS CAP/TAB Active TAKE ONE CAP/TAB BY MOUTH ONCE DAILY TO SUPPLEME NT VITAMINS TO SUPPLEME NT VITAMINS September 09, 2023 100 September 09, 2024 [id number] September 09, 2023 KERI LEBLANC [facility] ORAL ACTIVE 09/09/2024 [id number] John LEBLANC 2023 100 [facility] NICOTINE POLACRILEX 4MG MINI LOZENGE NICOTINE POLACRIL EX 4MG MINI LOZENGE Active: Susp DISSOLVE ONE LOZENGE BY MOUTH EVERY FOUR HOURS NEEDED TO PREVENT NICOTINE WITHDRAW AL SYMPTOMS September 09, 2023 324 September 09, 2024 [id number] Dec 11, 2023 KERI LEBLANC [facility] ORAL SUSPEND ED 09/09/2024 [id number] John LEBLANC 2023 324 [facility] NICOTINE POLACRILEX 4MG MINI LOZENGE NICOTINE POLACRIL EX 4MG MINI LOZENGE Disconti nued DISSOLVE ONE LOZENGE BY MOUTH EVERY FOUR HOURS NEEDED TO PREVENT NICOTINE WITHDRAW AL SYMPTOMS Dec 26, 2022 324 Dec 27, 2023 [id number] Sep 15, 2023 KERI LEBLANC [facility] ORAL DISCONT INUED 12/27/2023 [id number] John LEBLANC 2022 324 [facility] NICOTINE POLACRILEX 4MG MINI LOZENGE NICOTINE POLACRIL EX 4MG MINI LOZENGE Disconti nued DISSOLVE ONE LOZENGE BY MOUTH EVERY FOUR HOURS NEEDED TO PREVENT NICOTINE WITHDRAW AL SYMPTOMS Dec 05, 2021 324 Dec 06, 2022 [id number] Sep 15, 2022 KERI LEBLANC [facility] ORAL DISCONT INUED 12/06/2022 [id number] John LEBLANC 2021 324 [facility] SEMAGLUTIDE (WT LOSS) 0.25MG/0.5M L INJ,SOLN,PE N,0.5ML SEMAGLUT TERENCE (WT LOSS) 0.25MG/0 .5ML INJ,SOLN ,PEN,0.5 ML Non-VA INJECT 0.25MG (0.5ML) SUBCUTAN EOUSLY ONCE A WEEK Sep 12, 2022 Non-[facility] Document ed by: KERI LEBLANC Document ed at: [facility] SUBCUT ANEOUS ACTIVE John LEBLANC 2022 [facility] TADALAFIL 10MG TAB TADALAFI L 10MG TAB Active TAKE ONE TO TWO TABLETS BY MOUTH NEEDED FOR ERECTILE DYSFUNCT ION FOR ERECTILE DYSFUNCT ION Jan 09, 2023 18 Jan 10, 2024 [id number] Jan 09, 2023 KERI LEBLANC [facility] ORAL ACTIVE 01/10/2024 [id number] John LEBLANC 2022 18 [facility] Allergies, Adverse Reactions, Alerts Combined list of allergies from 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 It does not include entries that were removed or entered in error. Substance Category Reaction Severity Reaction type Status Date Reported Comments Source DULOXETINE Propensity to adverse reactions to drug (finding) Anxiety, Suicidal thoughts MILD active 8 [facility] No Known Allergies Drug allergy (disorder) active 0 [facility] [place] VARDENAFIL Propensity to adverse reactions to drug (finding) Headache MODERATE active 3 [facility] Immunizations Combined list of available immunizations from the 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 Immunization Series Date Given Administered By Site Reaction Lot Number CVX Code Drug Medical Radiation Therapist Status Comments Source INFLUENZA, UNSPECIFIED FORMULATION [address] [facility] PNEUMOCOCCAL CONJUGATE PCV20, POLYSACCHARID E [id number] CONJUGATE, ADJUVANT, PF 2022 TERE ONEAL RIGHT DELTO ID [id number] [address] [facility] TDAP 2022 TERE ONEAL LEFT DELTO ID [id number] [address] [facility] INFLUENZA, INJECTABLE, QUADRIVALENT, PRESERVATIVE FREE [address] [facility] ZOSTER RECOMBINANT [address] [facility] ZOSTER RECOMBINANT [address] [facility] INFLUENZA, INJECTABLE, QUADRIVALENT, PRESERVATIVE FREE 2018 150 complet ed Site: Left Deltoid [facility] INFLUENZA, SEASONAL, INJECTABLE 2017 141 complet ed Site: Left Deltoid [facility] INFLUENZA, SEASONAL, INJECTABLE 2016 141 complet ed Site: Left Deltoid [facility] INFLUENZA, UNSPECIFIED FORMULATION [address] [facility] INFLUENZA, UNSPECIFIED FORMULATION 2015 88 complet ed Site: Left Deltoid [facility] INFLUENZA, UNSPECIFIED FORMULATION [address] [facility] INFLUENZA, UNSPECIFIED FORMULATION [address] [facility] Influenza, seasonal, injectable, preservative free 1 2011 [id number] San[employer]i Pasteur ([facility]) complet ed Influenza , seasonal, injectabl e, preservat arvind free DoD INFLUENZA, UNSPECIFIED FORMULATION 2011 88 complet ed [facility] PNEUMOCOCCAL, UNSPECIFIED FORMULATION 2011 109 complet ed Site: Left Deltoid [facility] INFLUENZA, UNSPECIFIED FORMULATION 2010 88 complet ed [facility] influenza virus vaccine, live, attenuated, for intranasal use 1 2010 [id number] 111 Unknown (UNK) complet ed influenza virus vaccine, live, attenuate d, for intranasa l use DoD TDAP 2009 115 complet ed [facility] influenza virus vaccine, split virus (incl. purified surface antigen)-reti red CODE 1 2009 [id number] San[employer]i Pasteur ([facility]) complet ed influenza virus vaccine, split virus (incl. purified surface antigen)- retired CODE DoD meningococcal ACWY vaccine, unspecified formulation 2 2009 [id number] San[employer]i Pasteur ([facility]) complet ed meningoco ccal ACWY vaccine, unspecifi ed formulati on DoD INFLUENZA, UNSPECIFIED FORMULATION 2009 88 complet ed [facility] anthrax vaccine 3 2009 [id number] [employer] [place] ([facility]) complet ed anthrax vaccine DoD influenza virus vaccine, split virus (incl. purified surface antigen)-reti red CODE 1 2009 [id number] 15 Unknown (UNK) complet ed influenza virus vaccine, split virus (incl. purified surface antigen)- retired CODE DoD anthrax vaccine 3 2009 [id number] 24 [employer] [place] ([facility]) complet ed anthrax vaccine DoD hepatitis A vaccine, adult dosage 3 2009 [id number] 52 Unknown (UNK) complet ed hepatitis A vaccine, adult dosage DoD typhoid Vi capsular polysaccharid e vaccine 1 2009 [id number] Unknown (UNK) comple t ed typhoid Vi capsular polysacch aride vaccine DoD Novel influenza-H1N 1-09, injectable 1 2008 [id number] 127 Unknown (UNK) complet ed Novel influenza -D7M2-01, injectabl e DoD hepatitis B vaccine, adult dosage 3 2008 UNK 43 Unknown (UNK) Not Given hepatitis B vaccine, adult dosage DoD varicella virus vaccine 1 2008 UNK 21 Unknown (UNK) Not Given varicella virus vaccine DoD TETANUS DIPTHERIA (TD-ADULT) (HISTORICAL) 2008 139 complet ed [facility] influenza virus vaccine, live, attenuated, for intranasal use 1 2007 [id number] [employer]. (MED) complet ed influenza virus vaccine, live, attenuate d, for intranasa l use DoD hepatitis B vaccine, adult dosage 2 2007 [id number] 43 Unknown (UNK) complet ed hepatitis B vaccine, adult dosage DoD tetanus and diphtheria toxoids, adsorbed, preservative free, for adult use (2 Lf of tetanus toxoid and 2 Lf of diphtheria toxoid) 1 2007 UNK 09 Unknown (UNK) comple t ed tetanus and diphtheri a toxoids, adsorbed, preservat arvind free, for adult use (2 Lf of tetanus toxoid and 2 Lf of diphtheri a toxoid) DoD influenza virus vaccine, split virus (incl. purified surface antigen)-reti red CODE 1 2004 [id number] 15 Unknown (UNK) comple t ed influenza virus vaccine, split virus (incl. purified surface antigen)- retired CODE DoD anthrax vaccine 2 2002 UNK 24 Unknown (UNK) comple t ed anthrax vaccine DoD vaccinia (smallpox) vaccine 0 2002 [id number] Liseth (SAMY) complet ed vaccinia (smallpox ) vaccine DoD anthrax vaccine 1 2002 [id number] [employer] [facility] ([facility]) complet ed anthrax vaccine DoD influenza virus vaccine, split virus (incl. purified surface antigen)-reti red CODE 0 2002 [id number] 15 Unknown (UNK) comple t ed influenza virus vaccine, split virus (incl. purified surface antigen)- retired CODE DoD meningococcal polysaccharid e vaccine (MPSV4) 0 2002 [id number] 32 Unknown (UNK) comple t ed meningoco ccal polysacch aride vaccine (MPSV4) DoD hepatitis B vaccine, adult dosage 1 2002 [id number] 43 Unknown (UNK) complet ed hepatitis B vaccine, adult dosage DoD typhoid Vi capsular polysaccharid e vaccine 0 2002 [id number] 101 Unknown (UNK) comple t ed typhoid Vi capsular polysacch aride vaccine DoD tetanus and diphtheria toxoids, adsorbed, preservative free, for adult use (2 Lf of tetanus toxoid and 2 Lf of diphtheria toxoid) 0 2002 UNK 09 Unknown (UNK) comple t ed tetanus and diphtheri a toxoids, adsorbed, preservat arvind free, for adult use (2 Lf of tetanus toxoid and 2 Lf of diphtheri a toxoid) DoD hepatitis A vaccine, adult dosage 2 1999 UNK 52 Unknown (UNK) comple t ed hepatitis A vaccine, adult dosage DoD typhoid Vi capsular polysaccharid e vaccine 0 1999 UNK 101 Unknown (UNK) comple t ed typhoid Vi capsular polysacch aride vaccine DoD measles, mumps and rubella virus vaccine 0 1999 UNK 03 Unknown (UNK) comple t ed measles, mumps and rubella virus vaccine DoD tetanus and diphtheria toxoids, adsorbed, preservative free, for adult use (2 Lf of tetanus toxoid and 2 Lf of diphtheria toxoid) 0 1999 UNK 09 Unknown (UNK) comple t ed tetanus and diphtheri a toxoids, adsorbed, preservat arvind free, for adult use (2 Lf of tetanus toxoid and 2 Lf of diphtheri a toxoid) DoD poliovirus vaccine, inactivated 0 1999 UNK 10 Unknown (UNK) comple t ed polioviru s vaccine, inactivat ed DoD hepatitis A vaccine, adult dosage 1 1999 UNK 52 Unknown (UNK) comple t ed hepatitis A vaccine, adult dosage DoD Results Combined list of recent chemistry, hematology and other laboratory results from Department of Defense and Veterans Affairs, ranging from 15 months to all on record, depending upon the facility. Order Name Results Value Reference Range Date Interpretation Specimen Comments Source H.PYLORI, STOOL(B) HELICOBACTE R PYLORI AG [[place]ENCE] IN STOOL BY IMMUNOASSAY Neg 10/07 Specimen Type: FECES No comment entered. Ordering Provider: DILCIA LEBLANC Report Released Date/Time: September 09, 2023 10:15 AM Reporting Lab: [facility] [address] [facility] [address] Performing Lab: [facility] [place] [facility] [address] [facility] [address] [facility] TESTOSTER ONE(WRJ) TESTOSTERON E [MASS/VOLUM E] IN SERUM OR PLASMA 485.3 ng/dL 220 - 892 10/07 Specimen Type: SERUM Comment: , Tests performed on [employer] [place] SN:[id number] (405) Ordering Provider: DILCIA LEBLANC Report Released Date/Time: September 09, 2023 10:50 AM Reporting Lab: [facility] [address] [facility] [address] Performing Lab: [facility] [place] [facility] [address] [facility] [address] [facility] LIPOPROTE IN CHOLESTER OL FRACT. PANEL CHOLESTEROL [MASS/VOLUM E] IN SERUM OR PLASMA 242 mg/dL 0 - 200 10/07 H Specimen Type: PLASMA Comment: , Tests performed on Medic Trace [id number] (405) Ordering Provider: DILCIA LEBLANC Report Released Date/Time: September 09, 2023 10:52 AM Reporting Lab: [facility] [address] [facility] [address] Performing Lab: [facility] [address] [facility] [address] [facility] LIPOPROTE IN CHOLESTER OL FRACT. PANEL TRIGLYCERID E [MASS/VOLUM E] IN SERUM OR PLASMA 192 mg/dL 0 - 150 10/07 H Specimen Type: PLASMA Comment: , Tests performed on Medic Trace SN:[id number] (405) Ordering Provider: DILCIA LEBLANC Report Released Date/Time: September 09, 2023 10:52 AM Reporting Lab: [place] [facility] [address] [facility] [address] Performing Lab: [facility] [place] [facility] [address] [facility] [address] [facility] [place] [facility] LIPOPROTE IN CHOLESTER OL FRACT. PANEL CHOLESTEROL IN HDL [MASS/VOLUM E] IN SERUM OR PLASMA 37 mg/dL 40 06/26 /2024 L Specimen Type: PLASMA Comment: , Tests performed on [employer] [place] SN:[id number] (405) Ordering Provider: DILCIA LEBLANC Report Released Date/Time: September 09, 2023 10:52 AM Reporting Lab: [facility] [place] [facility] [address] [facility] [address] Performing Lab: [facility] [address] [facility] [address] [facility] [place] [facility] LIPOPROTE IN CHOLESTER OL FRACT. PANEL CHOLESTEROL IN LDL [MASS/VOLUM E] IN SERUM OR PLASMA BY CALCULATION 167 mg/dL 10/07 Specimen Type: PLASMA Comment: , Tests performed on [employer] [place] SN:[id number] (405) Ordering Provider: DILCIA LEBLANC Report Released Date/Time: September 09, 2023 10:52 AM Reporting Lab: [facility] [address] [facility] [address] Performing Lab: [facility] [place] [facility] [address] [facility] [address] [facility] [facility] LIVER PROFILE PROTEIN [MASS/VOLUM E] IN SERUM OR PLASMA 6.9 g/dL 6.0 - 8.5 10/07 Specimen Type: PLASMA Comment: , Tests performed on [employer] [place] SN:[id number] (405) Ordering Provider: DILCIA LEBLANC Report Released Date/Time: September 09, 2023 10:52 AM Reporting Lab: [facility] [address] [facility] [address] Performing Lab: [facility] [place] [facility] [address] [facility] [address] [facility] [facility] LIVER PROFILE ALBUMIN [MASS/VOLUM E] IN SERUM OR PLASMA 3.5 g/dL 3.2 - 5.0 10/07 Specimen Type: PLASMA Comment: , Tests performed on [employer] [place] SN:[id number] (405) Ordering Provider: DILCIA LEBLANC Report Released Date/Time: September 09, 2023 10:52 AM Reporting Lab: [facility] [address] [facility] [address] Performing Lab: [place] [facility] [address] [facility] [address] [facility] [place] [facility] LIVER PROFILE BILIRUBIN.T OTAL [MASS/VOLUM E] IN SERUM OR PLASMA 0.4 mg/dL 0.2 - 1.2 10/07 Specimen Type: PLASMA Comment: , Tests performed on Medic Trace SN:[id number] (405) Ordering Provider: DILCIA LEBLANC Report Released Date/Time: September 09, 2023 10:52 AM Reporting Lab: [facility] [address] [facility] [address] Performing Lab: [place] [facility] [address] [facility] [address] [facility] ALKALINE PHOSPHATASE [ENZYMATIC ACTIVITY/VO LUME] IN SERUM OR PLASMA 56 U/L 40 - 150 10/07 Specimen Type: PLASMA Comment: , Tests performed on Medic Trace SN:[id number] (405) Ordering Provider: DILCIA LEBLANC Report Released Date/Time: September 09, 2023 10:52 AM Reporting Lab: [facility] [address] [facility] [address] Performing Lab: [place] [facility] [address] [facility] [address] [facility] [place] [facility] ALANINE AMINOTRANSF ERASE [ENZYMATIC ACTIVITY/VO LUME] IN SERUM OR PLASMA 28 U/L 7 - 52 10/07 Specimen Type: PLASMA Comment: , Tests performed on Medic Trace SN:[id number] (405) Ordering Provider: DILCIA LEBLANC Report Released Date/Time: September 09, 2023 10:52 AM Reporting Lab: [facility] [place] [address] [facility] [address] Performing Lab: [facility] [place] [place] [facility] [address] [facility] [address] [facility] [place] [facility] LIVER PROFILE ASPARTATE AMINOTRANSF ERASE [ENZYMATIC ACTIVITY/VO LUME] IN SERUM OR PLASMA 26 U/L 5 - 34 10/07 Specimen Type: PLASMA Comment: , Tests performed on Medic Trace SN:[id number] (405) Ordering Provider: DILCIA LEBLANC Report Released Date/Time: September 09, 2023 10:52 AM Reporting Lab: [facility] [place] [place] [facility] [address] [facility] [address] Performing Lab: [facility] [place] [facility] [address] [facility] [address] [facility] [place] [facility] LIVER PROFILE FIB-4 SCORE 1.39 <2.67 - 2.67 10/07 Specimen Type: PLASMA Comment: , Tests performed on [employer] [place] SN:[id number] (405) Ordering Provider: DILCIA LEBLANC Report Released Date/Time: September 09, 2023 10:52 AM Reporting Lab: [facility] [facility] [address] [facility] [address] Performing Lab: [place] [facility] [address] [facility] [address] [facility] GLYCOHEMO GLOBIN (A1C ONLY) HEMOGLOBIN A1C/HEMOGLO BIN.TOTAL IN BLOOD BY HPLC 5.4 4.0 - 5.6 10/07 Specimen Type: BLOOD Comment: , Tests performed on [employer] [place] SN:[id number] (405) Values obtained from A1C measurement s can vary. For typical A1C assays, a reported value of 7.0 could actually be between 6.72 and 7.28 if measured by a reference method. A reported value of 9.0 could actually be between 8.73 and 9.27. Ref: http://[email or web address] ngsp.org/[place] Pdata.asp Ordering Provider: DILCIA LEBLANC Report Released Date/Time: September 09, 2023 10:52 AM Reporting Lab: [place] [facility] [address] [facility] [address] Performing Lab: [facility] [place] [address] [facility] [address] [facility] PSA (ARCHITEC T) PROSTATE SPECIFIC AG [MASS/VOLUM E] IN SERUM OR PLASMA 0.20 ng/mL 10/07 Specimen Type: SERUM Comment: , Tests performed on Grow Mobile Turner SN:[id number] (405) Ordering Provider: DILCIA LEBLANC Report Released Date/Time: September 09, 2023 10:52 AM Reporting Lab: [place] [facility] [facility] [address] [facility] [address] Performing Lab: [facility] [place] [address] [facility] [address] [facility] P4 GLU,BUN,C REAT,LYTE S,CA UREA NITROGEN [MASS/VOLUM E] IN SERUM OR PLASMA 16 mg/dL 7 - 25 10/07 Specimen Type: PLASMA Comment: , Tests performed on [employer] Turner SN:[id number] (405) Ordering Provider: DILCIA LEBLANC Report Released Date/Time: September 09, 2023 10:52 AM Reporting Lab[facility] [address] [facility] [address] Performing Lab[facility] [address] [facility] [address] [facility] P4 GLU,BUN,C REAT,LYTE S,CA SODIUM [MOLES/VOLU ME] IN SERUM OR PLASMA 139 mmol/L 135 - 145 10/07 Specimen Type: PLASMA Comment: , Tests performed on [employer] Turner SN:[id number] (405) Ordering Provider: DILCIA LEBLANC Report Released Date/Time: September 09, 2023 10:52 AM Reporting Lab: [facility] [address] [facility] [address] Performing Lab: [facility] [address] [facility] [address] [facility] P4 GLU,BUN,C REAT,LYTE S,CA POTASSIUM [MOLES/VOLU ME] IN SERUM OR PLASMA 4.2 mmol/L 3.5 - 5.0 10/07 Specimen Type: PLASMA Comment: , Tests performed on [employer] Turner SN:[id number] (405) Ordering Provider: DILCIA LEBLANC Report Released Date/Time: September 09, 2023 10:52 AM Reporting Lab: [facility] [address] [facility] [address] Performing Lab: [facility] [address] [facility] [address] [facility] P4 GLU,BUN,C REAT,LYTE S,CA CHLORIDE [MOLES/VOLU ME] IN SERUM OR PLASMA 107 mmol/L 100 - 110 10/07 Specimen Type: PLASMA Comment: , Tests performed on [employer] Turner SN:[id number] (405) Ordering Provider: DILCIA LEBLANC Report Released Date/Time: September 09, 2023 10:52 AM Reporting Lab: [facility] [address] [facility] [address] Per[facility]: [facility] [address] [facility] [address] [facility] P4 GLU,BUN,C REAT,LYTE S,CA CARBON DIOXIDE, TOTAL [MOLES/VOLU ME] IN SERUM OR PLASMA 24 mmol/L 20 - 30 10/07 Specimen Type: PLASMA Comment: , Tests performed on [employer] SN:[id number] (405) Ordering Provider: DILCIA LEBLANC Report Released Date/Time: September 09, 2023 10:52 AM Reporting Lab: [facility] [address] [facility] [address] [facility]forming Lab: [facility] [address] [facility] [address] [facility] P4 GLU,BUN,C REAT,LYTE S,CA ANION GAP IN SERUM OR PLASMA 8 4 - 16 10/07 Specimen Type: PLASMA Comment: , Tests performed on [employer] SN:[id number] (405) Ordering Provider: DILCIA LEBLANC Report Released Date/Time: September 09, 2023 10:52 AM Reporting Lab: [facility] [address] [facility] [address] Performing Lab: [facility] [address] [facility] [address] [facility] P4 GLU,BUN,C REAT,LYTE S,CA GLUCOSE [MASS/VOLUM E] IN SERUM OR PLASMA 103 mg/dL 65 - 100 10/07 H Specimen Type: PLASMA Comment: , Tests performed on [employer] SN:[id number] (405) Ordering Provider: DILCIA LEBLANC Report Released Date/Time: September 09, 2023 10:52 AM Reporting Lab: [facility] [address] [facility] [address] Performing Lab: [facility] [address] [facility] [address] [facility] P4 GLU,BUN,C REAT,LYTE S,CA CREATININE [MASS/VOLUM E] IN SERUM OR PLASMA 1.00 mg/dL 0.50 - 1.50 10/07 Specimen Type: PLASMA Comment: , Tests performed on Medic [employer] SN:[id number] (405) Ordering Provider: DILCIA LEBLANC Report Released Date/Time: September 09, 2023 10:52 AM Reporting Lab: [facility] [address] [facility] [address] Per[facility]: [facility] [address] [facility] [address] [facility] P4 GLU,BUN,C REAT,LYTE S,CA CALCIUM [MASS/VOLUM E] IN SERUM OR PLASMA 9.0 mg/dL 8.5 - 10.5 10/07 Specimen Type: PLASMA Comment: , Tests performed on Medic Trace SN:[id number] (405) Ordering Provider: DILCIA LEBLANC Report Released Date/Time: September 09, 2023 10:52 AM Reporting Lab: [facility] [address] [facility] [address] [facility]forming Lab: [facility] [address] [facility] [address] [facility] P4 GLU,BUN,C REAT,LYTE S,CA GLOMERULAR FILTRATION RATE/1.73 SQ M.PREDICTED [VOLUME RATE/AREA] IN SERUM, PLASMA OR BLOOD BY CREATININE- BASED FORMULA (CKD-EPI 2020) 86 10/07 Specimen Type: PLASMA Comment: , Tests performed on Medic Trace SN:[id number] (405) Ordering Provider: DILCIA LEBLANC Report Released Date/Time: September 09, 2023 10:52 AM Reporting Lab: [facility] [address] [facility] [address] Performing Lab: [facility] [address] [facility] [address] [facility] CBC PROFILE LEUKOCYTES [#/VOLUME] IN BLOOD BY AUTOMATED COUNT 7.6 10*3/uL 4.5 - 11.0 10/07 Specimen Type: BLOOD No comment entered. Ordering Provider: DILCIA LEBLANC Report Released Date/Time: September 09, 2023 10:52 AM Reporting Lab: [facility] [address] [facility] [address] Performing Lab: [facility] [address] [facility] [address] [facility] [place] CBC PROFILE ERYTHROCYTE S [#/VOLUME] IN BLOOD BY AUTOMATED COUNT 5.05 10*6/uL 4.23 - 5.66 10/07 Specimen Type: BLOOD No comment entered. Ordering Provider: DILCIA LEBLANC Report Released Date/Time: September 09, 2023 10:52 AM Reporting Lab: [facility] [address] [facility] [address] Performing Lab: [facility] [address] [facility] [address] [facility] [place] CBC PROFILE HEMOGLOBIN [MASS/VOLUM E] IN BLOOD 15.3 g/dL 12.8 - 17 10/07 Specimen Type: BLOOD No comment entered. Ordering Provider: DILCIA LEBLANC Report Released Date/Time: September 09, 2023 10:52 AM Reporting Lab: [facility] [address] [facility] [address] Performing Lab: [facility] [address] [facility] [address] [facility] CBC PROFILE HEMATOCRIT [VOLUME FRACTION] OF BLOOD BY AUTOMATED COUNT 44.3 39.2 - 50.4 10/07 Specimen Type: BLOOD No comment entered. Ordering Provider: DILCIA LEBLANC Report Released Date/Time: September 09, 2023 10:52 AM Reporting Lab: [facility] [address] [facility] [address] Performing Lab: [facility] [address] [facility] [address] [facility] CBC PROFILE MCV [ENTITIC VOLUME] BY AUTOMATED COUNT 87.7 fL 82 - 99 10/07 Specimen Type: BLOOD No comment entered. Ordering Provider: IDLCIA LEBLANC Report Released Date/Time: September 09, 2023 10:52 AM Reporting Lab: [facility] [address] [facility] [address] Performing Lab: [facility] [address] [facility] [address] [facility] [facility] [facility] CBC PROFILE MCH [ENTITIC MASS] BY AUTOMATED COUNT 30.3 pg 26.2 - 32.6 10/07 Specimen Type: BLOOD No comment entered. Ordering Provider: DILCIA LEBLANC Report Released Date/Time: September 09, 2023 10:52 AM Reporting Lab: [facility] [address] [facility] [address] Performing Lab: [facility] [address] [facility] [address] [place] [facility] [facility] CBC PROFILE MCHC [MASS/VOLUM E] BY AUTOMATED COUNT 34.5 g/dL 30.8 - 35.1 10/07 Specimen Type: BLOOD No comment entered. Ordering Provider: DILCIA LEBLANC Report Released Date/Time: September 09, 2023 10:52 AM Reporting Lab: [facility] [address] [facility] [address] Performing Lab: [facility] [place] [address] [facility] [address] [facility] [facility] CBC PROFILE PLATELETS [#/VOLUME] IN BLOOD BY AUTOMATED COUNT 212 10*3/uL 140 - 360 10/07 Specimen Type: BLOOD No comment entered. Ordering Provider: DILCIA LEBLANC Report Released Date/Time: September 09, 2023 10:52 AM Reporting Lab: [facility] [address] [facility] [address] Performing Lab: [facility] [place] [address] [facility] [address] [place] [facility] [facility] CBC PROFILE PLATELET MEAN VOLUME [ENTITIC VOLUME] IN BLOOD BY AUTOMATED COUNT 10.4 fL 9.2 - 12.4 10/07 Specimen Type: BLOOD No comment entered. Ordering Provider: DILCIA LEBLANC Report Released Date/Time: September 09, 2023 10:52 AM Reporting Lab: [facility] [place] [address] [facility] [address] Performing Lab: [facility] [place] [facility] [facility] [address] [facility] [address] [facility] [place] [facility] CBC PROFILE ERYTHROCYTE DISTRIBUTIO N WIDTH [RATIO] BY AUTOMATED COUNT 12.7 12.0 - 16.0 10/07 Specimen Type: BLOOD No comment entered. Ordering Provider: DILCIA LEBLANC Report Released Date/Time: September 09, 2023 10:52 AM Reporting Lab: [facility] [address] [facility] [address] Performing Lab: [facility] [place] [address] [facility] [address] [facility] [facility] CBC PROFILE LYMPHOCYTES /100 LEUKOCYTES IN BLOOD BY AUTOMATED COUNT 40.1 14.0 - 42.3 10/07 Specimen Type: BLOOD No comment entered. Ordering Provider: DILCIA LEBLANC Report Released Date/Time: September 09, 2023 10:52 AM Reporting Lab: [facility] [address] [facility] [address] Performing Lab: [facility] [place] [address] [facility] [address] [facility] [facility] CBC PROFILE MONOCYTES/1 00 LEUKOCYTES IN BLOOD BY AUTOMATED COUNT 10.2 5.1 - 13.7 10/07 Specimen Type: BLOOD No comment entered. Ordering Provider: DILCIA LEBLANC Report Released Date/Time: September 09, 2023 10:52 AM Reporting Lab: [facility] [address] [facility] [address] Performing Lab: [facility] [place] [facility] [address] [facility] [address] [facility] [facility] CBC PROFILE GRANULOCYTE S/100 LEUKOCYTES IN BLOOD BY AUTOMATED COUNT 45.7 43.7 - 75.8 10/07 Specimen Type: BLOOD No comment entered. Ordering Provider: DILCIA LEBLANC Report Released Date/Time: September 09, 2023 10:52 AM Reporting Lab: [facility] [address] [facility] [address] Performing Lab: [facility] [place] [facility] [facility] [address] [facility] [address] [facility] [facility] CBC PROFILE EOSINOPHILS /100 LEUKOCYTES IN BLOOD BY AUTOMATED COUNT 3.0 0.4 - 6.8 10/07 Specimen Type: BLOOD No comment entered. Ordering Provider: DILCIA LEBLANC Report Released Date/Time: September 09, 2023 10:52 AM Reporting Lab: [facility] [address] [facility] [address] Performing Lab: [facility] [address] [facility] [address] [facility] [facility] CBC PROFILE BASOPHILS/1 00 LEUKOCYTES IN BLOOD BY AUTOMATED COUNT 0.9 0.1 - 2.0 10/07 Specimen Type: BLOOD No comment entered. Ordering Provider: DILCIA LEBLANC Report Released Date/Time: September 09, 2023 10:52 AM Reporting Lab: [facility] [address] [facility] [address] Performing Lab: [facility] [place] [address] [facility] [address] [place] [facility] CBC PROFILE IMMATURE GRANULOCYTE S/100 LEUKOCYTES IN BLOOD BY AUTOMATED COUNT 0.1 0.0 - 0.7 10/07 Specimen Type: BLOOD No comment entered. Ordering Provider: DILCIA LEBLANC Report Released Date/Time: September 09, 2023 10:52 AM Reporting Lab: [facility] [address] [facility] [address] Performing Lab: [facility] [place] [address] [facility] [address] [place] [facility] [facility] CBC PROFILE NUCLEATED ERYTHROCYTE S/100 LEUKOCYTES [RATIO] IN BLOOD BY AUTOMATED COUNT 0.0 /100{WBC s} 0.0 - 0.0 10/07 Specimen Type: BLOOD No comment entered. Ordering Provider: DILCIA LEBLANC Report Released Date/Time: September 09, 2023 10:52 AM Reporting Lab: [facility] [place] [address] [facility] [address] Performing Lab: [facility] [facility] [facility] [address] [facility] [address] [place] [facility] CBC PROFILE IMMATURE GRANULOCYTE S [#/VOLUME] IN BLOOD 0.0 10*3/uL 0 - 0.06 10/07 Specimen Type: BLOOD No comment entered. Ordering Provider: DILCIA LEBLANC Report Released Date/Time: September 09, 2023 10:52 AM Reporting Lab: [facility] [place] [address] [place] [facility] [place] [address] Performing Lab: [facility] [address] [place] [facility] [place] [address] [facility] CBC PROFILE BASOPHILS [#/VOLUME] IN BLOOD BY AUTOMATED COUNT 0.1 10*3/uL 0.01 - 0.13 10/07 Specimen Type: BLOOD No comment entered. Ordering Provider: DILCIA LEBLANC Report Released Date/Time: September 09, 2023 10:52 AM Reporting Lab: [facility] [place] [address] [place] [facility] [place] [address] Performing Lab: [facility] [place] [address] [facility] [address] [facility] [facility] CBC PROFILE EOSINOPHILS [#/VOLUME] IN BLOOD BY AUTOMATED COUNT 0.2 10*3/uL 0.03 - 0.44 10/07 Specimen Type: BLOOD No comment entered. Ordering Provider: DILCIA LEBLANC Report Released Date/Time: September 09, 2023 10:52 AM Reporting Lab: [facility] [address] [place] [facility] [place] [address] Performing Lab: [facility] [address] [facility] [address] [facility] [facility] CBC PROFILE LYMPHOCYTES [#/VOLUME] IN BLOOD BY AUTOMATED COUNT 3.0 10*3/uL 1.0 - 3.2 10/07 Specimen Type: BLOOD No comment entered. Ordering Provider: DILCIA LEBLANC Report Released Date/Time: September 09, 2023 10:52 AM Reporting Lab: [facility] [address] [place] [facility] [place] [address] Performing Lab: [facility] [place] [address] [place] [facility] [place] [address] [facility] CBC PROFILE MONOCYTES [#/VOLUME] IN BLOOD BY AUTOMATED COUNT 0.8 10*3/uL 0.3 - 1.1 10/07 Specimen Type: BLOOD No comment entered. Ordering Provider: DILCIA LEBLANC Report Released Date/Time: September 09, 2023 10:52 AM Reporting Lab: [facility] [place] [facility] [address] [facility] [address] [facility]: [facility] [address] [facility] [address] [facility] CBC PROFILE NEUTROPHILS [#/VOLUME] IN BLOOD BY AUTOMATED COUNT 3.5 10*3/uL 2.2 - 7.6 10/07 Specimen Type: BLOOD No comment entered. Ordering Provider: DILCIA LEBLANC Report Released Date/Time: September 09, 2023 10:52 AM Reporting Lab: [facility] [address] [facility] [address] Performing Lab: [facility] [address] [facility] [address] [facility] CBC PROFILE NUCLEATED ERYTHROCYTE S [#/VOLUME] IN BLOOD BY AUTOMATED COUNT 0.00 10*3/uL 0 - 0 10/07 Specimen Type: BLOOD No comment entered. Ordering Provider: DILCIA LEBLANC Report Released Date/Time: September 09, 2023 10:52 AM Reporting Lab: [facility] [address] [facility] [address] Performing Lab: [facility] [address] [facility] [address] [facility] OCCULT BLOOD FIT X1 SCREEN(WR J) HEMOGLOBIN. GASTROINTES TINAL.LOWER [PRESENCE] IN STOOL BY IMMUNOASSAY Negative 01/18 Specimen Type: FECES Comment: Tests performed on [employer] 80(405) Ordering Provider: DILCIA LEBLANC Report Released Date/Time: Jan 09, 2023 09:06 AM Reporting Lab: [facility] [address] [facility] [address] Performing Lab: [facility] [address] [facility] [address] [facility] THYROID TESTING CASCADE THYROXINE (T4) FREE [MASS/VOLUM E] IN SERUM OR PLASMA 0.8 ng/dL 0.6 - 1.6 09/05 Specimen Type: SERUM Comment: Tests performed on [employer] (405) SN:[id number] Ordering Provider: DILCIA LEBLANC Report Released Date/Time: September 05, 2022 08:25 AM Reporting Lab: [facility] [address] [facility] [address] Performing Lab: [facility] [address] [facility] [address] [facility] THYROID TESTING CASCADE THYROTROPIN [UNITS/VOLU ME] IN SERUM OR PLASMA 0.95 u[IU]/mL 0.35 - 5.00 09/05 Specimen Type: SERUM Comment: Tests performed on [employer] (405) SN:[id number] Ordering Provider: DILCIA LEBLANC Report Released Date/Time: September 05, 2022 08:25 AM Reporting Lab: [facility] [address] [facility] [address] Performing Lab: [facility] [address] [facility] [address] [facility] Vital Signs Combined list of inpatient and outpatient Vital Signs from Department of Defense and Veterans Affairs, ranging from 12 months to all on record, depending upon the facility. Vital Sign Value Date Comments Source Encounters Combined list of: 1) Encounters from Department of Veterans Affairs facilities going back up to thelast 18 months. 2) Encounters from the Department of Defense facilities going back up to 280 months. Location Location Details Encounter Type Encounter Number Reason For Visit Attending Provider ADM Date DC Date Status Disposition Source Theater Facility OUTPATIENT [id number] 01/21 Released w/o Limitations Theater Facilit y Theater Facility OUTPATIENT [id number] 06/15 Released w/o Limitations [facility] [place] OUTPATIENT [id number] cdtf screeni SAMINA Rubio 10/03 Released w/o Limitations [facility] [place] F) Theater Facility OUTPATIENT [id number] 07/12 Released w/o Limitations Theater Facilit y Theater Facility OUTPATIENT [id number] 08/09 Sick at Home/Quarter s Theater Facilit y Theater Facility OUTPATIENT [id number] 09/04 Released w/o Limitations Theater Facilit y Theater Facility OUTPATIENT [id number] 09/08 Released w/o Limitations Theater Facilit y Theater Facility OUTPATIENT [id number] 11/29 Released w/o Limitations Theater Facilit y Theater Facility OUTPATIENT [id number] 11/30 Released w/o Limitations Theater Facilit y Theater Facility OUTPATIENT [id number] 12/02 Released w/o Limitations Theater Facilit y Theater Facility OUTPATIENT [id number] 12/05 Released w/o Limitations Theater Facilit y Theater Facility OUTPATIENT [id number] 01/14 Released w/o Limitations Theater Facilit y Theater Facility OUTPATIENT [id number] 01/15 Released w/o Limitations Theater Facilit y Theater Facility OUTPATIENT [id number] 01/15 Released w/o Limitations Theater Facilit y Theater Facility OUTPATIENT [id number] 02/26 Released w/o Limitations Theater Facilit y Theater Facility OUTPATIENT [id number] 02/27 Released w/o Limitations Theater Facilit y [facility] [place]([facility]) OUTPATIENT [id number] DEMOB EVAL (186,DE MOB) CINTHIA GOMEZ A 03/26 Released w/o Limitations [facility] ESTELA [place]([facility] [employer](Civil Defense Support Team) OUTPATIENT [id number] AL[facility] () 06/23-- -RESP CLEARAN GELY LEIJA 07/24 Released with Work/Duty Limitations [facility] [employer](Civi l Defense Support Team) [facility] [employer](Civil Defense Support Team) OUTPATIENT [id number] ALC () 06/23 MED-MON PAULINA MUNOZ 07/28 Released w/o Limitations [facility] [employer](Civi l Defense Support Team) [facility] [employer](Civil Defense Support Team) OUTPATIENT [id number] AL[facility] () 06/23-- MED MONITOR EVELYN COLON 08/02 Released w/o Limitations [facility] Villavicencio [facility] [employer] [employer](Civi l Defense Support Team) [facility] [employer](Civil Defense Support Team) OUTPATIENT [id number] AL[facility] () MED-MON EVELYN LEVIN 08/04 Released w/o Limitations [facility] [place]Civ[place] Support [place] [facility] [place] OUT[facility] [id number] JUNE, TIGIST Louise 08/04 [facility]ased w/o Limitations [facility] [facility] OUTPATIENT [id number] ALC () 06/23 - MED MONITOR PETE MOTA 08/05 [facility]ased w/o Limitations [facility] [facility] [place] OUTPATIENT [id number] [facility] Screeni SAMINA Rubio 12/29 Released w/o Limitations [facility] [place] [place]) [place] [id number] SONIA GARAY 12/31 Released w/o Limitations [facility] [place] DIRECT TO MTF FROM OTHER THAN ER OR [facility] [id number] BARBARA ORNELAS 01/05 [facility] FIT SPECTACLES MULTIFOCAL [id number] 5. Diagnos is: ICD-10- CM Z46.0 Encount er for fit/adj st of spectac les and contact lenses< br/> DARREN JAMES 05/15 [place] [facility] [place] [facility] POS AIRWAY PRESSURE CPAP [id number] 5. Diagnos is: ICD-10- CM G47.30 Sleep apnea, unspeci fied
NATHAN ROSE VID 05/15 [place] [facility] [facility] SPECTACLES [id number] 5. Diagnos is: ICD-10- CM Z46.0 Encount er for fit/adj st of spectac les and contact lenses< br/> DARREN JAMES 07/05 [facility] Outpatient Encounter [id number] Diagnos is: ICD-10- CM F33.9 Major depress arvind disorde r, recurre nt, unspeci fied
CARMELITA ALYO TT D 08/19 [facility] Outpatient Encounter [id number] 5. LUCIE MARK 08/26 [facility] Outpatient Encounter [id number] 5.08/26 [facility] OFFICE O/P EST MOD 30-39 MIN [id number] Diagnos is: ICD-10- CM K75.81 Nonalco holic steatoh epatiti s ([place])< br/> MOE LEBLANC 09/05 [facility] Outpatient Encounter [id number] 09/05 [facility] Outpatient Encounter [id number] 5.09/12 [facility] Outpatient Encounter [id number] Diagnos is: ICD-10- CM Z77.29 Contact with and exposur e to other hazardo us substan erich<br/ > MOE LEBLANC B 09/13 [facility] OFFICE O/P NEW MOD 45-59 MIN [id number] Diagnos is: ICD-10- CM M25.561 Pain in right knee
DEMARCO QUIROGA 09/20 [facility] Outpatient Encounter [id number] [facility] [facility] Out[facility] Encounter [id number] 11/18 [place] [facility] [place] [facility] Outpatient Encounter [id number] 12/04 [place] [facility] [place] [facility] OFFICE O/P EST MOD 30-39 MIN [id number] Diagnos is: ICD-10- CM F43.12 Post-tr aumatic stress disorde r, chronic
REBFIDELIA,SCO TT D 12/06 [place] [facility] [place] [facility] Outpatient Encounter [id number] 12/19 [place] [facility] [place] [facility] Outpatient Encounter [id number] 12/20 [place] [facility] [place] [facility] Outpatient Encounter [id number] 12/27 [place] [facility] [place] [facility] Outpatient Encounter [id number] 12/30 [place] [facility] [place] [facility] OFFICE O/P EST MOD 30-39 MIN [id number] Diagnos is: ICD-10- CM Z01.818 Encount er for other preproc edural examina tion
MOE LEBLANC 01/09 [place] [facility] [place] [facility] Outpatient Encounter [id number] 01/09 [place] [facility] [place] [facility] Outpatient Encounter [id number] 01/16 [place] [facility] [place] [facility] Outpatient Encounter [id number] 01/21 [place] [facility] [place] [facility] Outpatient Encounter [id number] 02/04 [facility] Outpatient Encounter [id number] 02/07 [facility] Outpatient Encounter [id number] 02/12 [facility] PSYTX W PT 45 MINUTES [id number] Diagnos is: ICD-10- CM F32.1 Major depress arvind disorde r, single episode , moderat e
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
WALDO AUGUST D 02/18 [facility] PSYTX W PT 45 MINUTES [id number] Diagnos is: ICD-10- CM F32.1 Major depress arvind disorde r, single episode , moderat e
JN HAINES 03/14 [facility] Outpatient Encounter [id number] 03/14 [facility] OFFICE O/P EST SF 10-19 MIN [id number] Diagnos is: ICD-10- CM H04.123 Dry eye syndrom e of bilater al lacrima l glands< br/> WALDO AUGUST D 03/28 [facility] REPAIR & ADJUST SPECTACLES [id number] Diagnos is: ICD-10- CM Z46.0 Encount er for fit/adj st of spectac les and contact lenses< br/> DARREN JAMES 03/28 [facility] PSYCH DIAGNOSTIC EVALUATION [id number] Diagnos is: ICD-10- CM F43.23 Adjustm ent disorde r with mixed anxiety and depress ed mood
VEILLETTE, JN 04/04 [facility] PSYTX W PT 45 MINUTES [id number] Diagnos is: ICD-10- CM F43.23 Adjustm ent disorde r with mixed anxiety and depress ed mood
VEILLETTE, JN 04/18 [facility] PSYTX W PT 45 MINUTES [id number] Diagnos is: ICD-10- CM F32.1 Major depress arvind disorde r, single episode , moderat e
VEILLETTE, JN 05/16 [facility] PSYTX W PT 45 MINUTES [id number] [id number] Diagnos is: ICD-10- CM F43.12 Post-tr aumatic stress disorde r, chronic
CRISTINA COSTA 05/30 [facility] PSYTX W PT 45 MINUTES [id number] [id number] Diagnos is: ICD-10- CM F32.1 Major depress arvind disorde r, single episode , moderat e
VEILLETTE, JN 06/12 [facility] CASE MANAGEMENT [id number] Diagnos is: ICD-10- CM Z65.8 Oth problem s related to psychos ocial circums tances< br/> ST PATITO,A MONIQUE 06/12 [facility] CASE MANAGEMENT [id number] [id number] Diagnos is: ICD-10- CM Z63.0 Problem s in relatio nship with spouse or partner
ST PATITO,A MONIQUE 06/12 [facility] PSYTX W PT 45 MINUTES [id number] [id number] Diagnos is: ICD-10- CM F32.1 Major depress arvind disorde r, single episode , moderat e
VEILLETTE, JN 06/26 [facility] PSYTX W PT 45 MINUTES [id number] [id number] Diagnos is: ICD-10- CM F32.1 Major depress arvind disorde r, single episode , moderat e
VEILLETTE, JN 07/10 [facility] PSYTX W PT 45 MINUTES [id number] [id number] Diagnos is: ICD-10- CM F32.1 Major depress arvind disorde r, single episode , moderat e
VEILLETTE, JN 07/24 [facility] PSYTX W PT 45 MINUTES [id number] [id number] Diagnos is: ICD-10- CM F32.1 Major depress arvind disorde r, single episode , moderat e
VEILLETTE, JN 08/07 [facility] Outpatient Encounter [id number] 08/11 [facility] Outpatient Encounter [id number] 08/17 [facility] PSYTX W PT 60 MINUTES [id number] [id number] Diagnos is: ICD-10- CM Z63.0 Problem s in relatio nship with spouse or partner
ST PATITO,A MONIQUE 08/21 [facility] OFFICE O/P EST LOW 20 MIN [id number] Diagnos is: ICD-10- CM B96.81 Helicob acter pylori as the cause of disease s classd elswhr< br/> MOE LEBLANC Romaine 09/08 [facility] Outpatient Encounter [id number] 11/04 [facility] Procedures Combined list of: 1) Procedures from Department [facility], not all [place] non-surgical procedures are included; 2) All procedures from the Department of Defense facilities. Procedure Procedure Type Code Date Perfomer Comments Sourc e EXTRACTION OF OTHER TOOTH 12 [facility] SCREENING TEST OF VISUAL ACUITY, QUANTITATIVE, BILATERAL 12/30/19 12 [facility] SCREENING TEST OF VISUAL ACUITY, QUANTITATIVE, BILATERAL 08/05/19 12 [facility] DIAGNOSTIC DARK ADAPTATION EXAMINATION WITH INTERPRETATION AND REPORT 10/04/19 06 [facility] SKIN TEST; TUBERCULOSIS, INTRADERMAL 03/29/20 10 [facility] HEALTH&BEHAV ASSESSMENT (EG, HEALTH-FOC CLINICAL INTERVIEW, BEHAVIORAL OBSERVATIONS, PSYCHOPHYSICOLOGICAL MONITOR, HEALTH-ORIENT QUESTIONNAIRES), EA 15 MIN [id number] W THE PATIENT; INIT ASSESSMENT 03/25/20 10 [facility] INDIVIDUAL PSYCHOTHERAPY, INSIGHT ORIENTED, BEHAVIOR MODIFYING AND/OR SUPPORTIVE, IN AN OFFICE OR OUTPATIENT FACILITY, APPROXIMATELY 20 TO 30 MINUTES [id number] WITH THE PATIENT 05/08/19 10 [facility] TYPHOID VACCINE, CAPSULAR POLYSACCHARIDE (VICPS), FOR INTRAMUSCULAR USE 04/28/19 10 [facility] PURE TONE AUDIOMETRY (THRESHOLD); AIR ONLY 04/27/19 10 [facility] SKIN TEST; TUBERCULOSIS, SHRAVAN TEST 06/22/19 04 [facility] TYMPANOMETRY (IMPEDANCE TESTING) 06/21/19 04 [facility] UNLISTED VACCINE/TOXOID 08/13 05/03 03 [facility] SKIN TEST; TUBERCULOSIS, SHRAVAN TEST 08/05/19 03 [facility] Physician Supervised Specimen Handling / Transfer: Office To Lab Physician Supervised Specimen Handling / Transfer: Office To Lab [id number] 12/30/19 12 HERMINIO LOPEZ [facility] Venipuncture Venipuncture [id number] 12/30/19 12 HERMINIO LOPEZ [facility] Screening Test Of Visual Acuity, Quantitative, Bilateral Screening Test Of Visual Acuity, Quantitative, Bilateral 73294 12/30/19 12 HERMINIO LOPEZ [facility] Screening Test Of Visual Acuity, Quantitative, Bilateral Screening Test Of Visual Acuity, Quantitative, Bilateral 71106 08/06/19June, TIGIST Gil [facility] Spectacles Services Fitting Monofocal Except For Aphakia Spectacles Services Fitting Monofocal Except For Aphakia 33171 08/06/19June, TIGIST Gil [facility] Determination Of Refractive State Determination Of Refractive State 03867 08/06/19June, TIGIST Gil [facility] Clinical Social Work Individual Outpatient Counseling 30 Minutes Clinical Social Work Individual Outpatient Counseling 30 Minutes [id number] 04/16/19 11 MIK COREAS [facility] Clinical Social Work Individual Outpatient Counseling 30 Minutes Clinical Social Work Individual Outpatient Counseling 30 Minutes [id number] 05/10/19 10 EVARISTO RITCHIE [facility] Screening Test Of Visual Acuity, Quantitative, Bilateral Screening Test Of Visual Acuity, Quantitative, Bilateral [id number] 10/04/19 06 CHARI EDWARDS [facility] Eye Findings Diagnostic Dark Adaptation Exam Eye Findings Diagnostic Dark Adaptation Exam [id number] 10/04/19 06 CHARI EDWARDS [facility] Social History Combined list of available smoking, tobacco, and other social history from 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 Social History Type Response Date Comment Source Tobacco smoking status [facility] VA-TOBACCO NEVER USED 09/09/2023 [facility] History of tobacco use VA-TOBACCO FORMER USER 08/19/2022 [facility] History of tobacco use VA-TOBACCO FORMER USER 07/30/2021 [facility] History of tobacco use VA-TOBACCO FORMER USER 03/30/2020 [facility] History of tobacco use VA-TOBACCO QUIT < 1 YEAR 03/25/2019 [facility] History of tobacco use VA-TOBACCO FORMER USER 03/17/2018 [facility] History of tobacco use LIFETIME NON-TOBACCO USER 05/19/2017 [facility] History of tobacco use CURRENT SMOKELESS TOBACCO USER 03/14/2017 [facility] History of tobacco use V1-PT THINKING ABOUT QUIT TOBACCO USE 08/26/2016 [facility] History of tobacco use CURRENT SMOKER 08/26/2016 [facility] History of tobacco use QUIT TOBACCO USE 1-7 YEARS AGO 04/20/2015 [facility] History of tobacco use CURRENT SMOKER 08/08/2014 [facility] History of tobacco use CURRENT SMOKER 07/07/2013 4-6 cigarettes/day [facility] History of tobacco use CURRENT SMOKER 07/15/2012 Pt. is back to .5 to a ppd. Wants to quit again. [facility] History of tobacco use V1-PT READY TO QUIT TOBACCO USE 07/15/2011 [facility] History of tobacco use QUIT TOBACCO USE IN PAST YEAR 12/05/2010 [facility] This section is an empty social history section. [facility] Plan of Care List of future care activities from Department of 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 Additional future care activities may be listed in the Assessment and Plan section. Date/Time Care Activity Care Activity Detail Facili ty 11/17/2023 AMBULATORY - NONE AMBULATORY - NONE [facility] 03/16/2024 AMBULATORY - NONE AMBULATORY - NONE [facility] 11/17/2023 Imaging - Ultrasound Order ULTRA SOUND NECK (THYROID,HEAD,SOFT TISSUE) [facility]
--- OUTSIDE RECORDS SUMMARY | 2023-11-05 12:36 | XMS_ITS ---
Author Name [facility] [place] [facility] [place] [facility] [place] Address [address] [place] [address] Care Team Providers Care Drying Room Operator Name Role Phone KERI LEBLANC Primary Care [...] Crawley's Name Patient's Relationship to Policy Crawley [facility] POINT OF SERVICE SOV RET UNDER 65 CHERISE Apr 14, 2018 [id number] [phone] VESNA,JANELL ERT PATIENT [facility] POINT OF SERVICE SOV ACTIV E SELEC TCAR Apr 14, 2018 [id number] VESNA,JANELL ERT PATIENT [facility] ([id number]) [facility] [place] Apr 14, 2018 Q54A [id number] [phone] VESNA,JANELL ERT PATIENT [facility] ([id number]) [facility] [place] Apr 14, 2018 Q54A [id number] VESNA,JANELL ERT PATIENT Selected Encounter This section includes the information on record at [place] for the Encounter. Date/Time Encounter Type Encounter Description Reason Pro vider Source Nov 05, 2023 11:19 AM Outpatient Encounter TELEPHONE TRIAGE IHE Encounter Template Text not used by [facility] Plan of Treatment: Future Appointments (+ 6 months) and Future Tests (+/- 45 days) The Plan of Treatment section includes future care activities for the patient from all [place] treatmentfacilities. This section includes future appointments and future orders which are active, pending or scheduled. Future Appointments This section includes appointments that were scheduled to occur 6 months from the date of the Encounter, up to a maximum of 20 appointments. The data comes from all [place] treatment facilities. Appointment Date/Time Appointment Type Appointme nt Facility Name Nov 17, 2023 09:00 AM AMBULATORY - NONE [facility] Mar 16, 2024 09:00 AM AMBULATORY - NONE [facility] Active, Pending, and Scheduled Orders This section includes a listing of several types of active, pending, and scheduled orders, including clinic medications orders, diagnostic test orders, procedure orders and consult orders; where the start date of the order is 45 days before the date of the Encounter or 45 days after the date of theEncounter. The data comes from all [place] treatment facilities. Test Date/Time Test Type Test Details Facility Name Nov 17, 2023 09:00 AM Imaging - Ultrasou nd Order ULTRASOUND NECK (THYROID,HEAD,SOFT TISSUE) [facility] Lab Results: +/- 30 days of the encounter This section includes the Chemistry and Hematology Lab Results on record with [place] for the patient. Radiology Reports and Pathology Reports are provided separately, in subsequent sections. Lab Results This section contains the Chemistry/Hematology Results that were resulted 30 days before or 30 daysafter the date of the Encounter. Date/Time Source Result Type Result - Unit Interpretation Reference Range Comment Oct 08, 2023 08:27 AM [facility] H.PYLORI,STOOL(B) Specimen Type: FECES No comment entered. Ordering Provider: SABAS LEBLANC Report Released Date/Time: September 09, 2023 10:15 AM Reporting Lab: [facility] [address] [facility] [address] Performing Lab: [facility] [address] [facility] [address] H.PYLORI,STOOL(B) Neg Neg Oct 08, 2023 08:23 AM [facility] TESTOSTERONE([facility]) Specimen Type: SERUM Comment: , Tests performed on [employer] [id number] (405) Ordering Provider: SABAS LEBLANC Report Released Date/Time: September 09, 2023 10:50 AM Reporting [facility] [address] [facility] [address] Performing Lab: [facility] [address] [facility] [address] TESTOSTERONE([facility]) 485.3 ng/dL 220-892 Oct 08, 2023 08:23 AM [facility] GLYCOHEMOGLOBIN (A1C ONLY) Specimen Type: BLOOD Comment: , Tests performed on [employer] SN:[id number] (405) Values obtained from A1C measurements can vary. For typical A1C assays, a reported value of 7.0 could actually be between 6.72 and 7.28 if measured by a reference method. A reported value of 9.0 could actually be between 8.73 and 9.27. Ref: http://www.ngs p.org/CAPdata. asp Ordering Provider: SABAS LEBLANC Report Released Date/Time: September 09, 2023 10:52 AM Reporting Lab: [facility] [address] [facility] [address] Performing Lab: [facility] [address] [facility] [address] HEMOGLOBIN A1C 5.4 4.0-5.6 Oct 08, 2023 08:23 AM [facility] LIVER PROFILE Specimen Type: PLASMA Comment: , Tests performed on [employer] [id number] (405) Ordering Provider: SABAS LEBLANC Report Released Date/Time: September 09, 2023 10:52 AM Reporting Lab: [facility] [address] [facility] [address] Performing Lab: [facility] [address] [facility] [address] PROTEIN, TOTAL 6.9 g/dL 6.0-8.5 ALBUMIN 3.5 g/dL 3.2-5.0 BILIRUBIN, TOTAL 0.4 mg/dL 0.2-1.2 ALKALINE PHOSPHATASE 56 U/L 40-150 ALT(SGPT) 28 U/L 7-52 AST(SGOT) 26 U/L 5-34 FIB-4 SCORE 1.39 <2.67 Oct 08, 2023 08:23 AM [facility] LIPOPROTEIN CHOLESTEROL FRACT. PANEL Specimen Type: PLASMA Comment: , Tests performed on [employer] SN:[id number] (405) Ordering Provider: SABAS LEBLANC Report Released Date/Time: September 09, 2023 10:52 AM Reporting Lab: [facility] [address] [facility] [address] Performing Lab[facility] [address] [facility] [address] CHOLESTEROL 242 mg/dL H 0-200 TRIGLYCERIDE 192 mg/dL H 0-150 HDL CHOLESTEROL 37 mg/dL L >40 LDL CHOLESTEROL (CALC) 167 mg/dL Oct 08, 2023 08:23 AM [facility] PSA ([employer]) Specimen Type: SERUM Comment: , Tests performed on [employer] SN:[id number] (405) Ordering Provider: SABAS LEBLANC Report Released Date/Time: September 09, 2023 10:52 AM Reporting [facility] [address] [facility] [address] Performing Lab[facility] [address] [facility] [address] PSA ([employer]) 0.20 ng/mL See_Comment Oct 08, 2023 08:23 AM [facility] P4 GLU,BUN,CREAT,LYTES,CA Specimen Type: PLASMA Comment: , Tests performed on [employer] SN:[id number] (405) Ordering Provider: SABAS LEBLANC Report Released Date/Time: September 09, 2023 10:52 AM Reporting Lab: [facility] [address] [facility] [address] Performing Lab[facility] [address] [facility] [address] UREA NITROGEN 16 mg/dL 7-25 SODIUM 139 mmol/L 135-145 POTASSIUM 4.2 mmol/L 3.5-5.0 CHLORIDE 107 mmol/L 100-110 CARBON DIOXIDE 24 mmol/L 20-30 ANION GAP 8 4-16 GLUCOSE 103 mg/dL H 65-100 CREATININE 1.00 mg/dL 0.50-1.50 CALCIUM 9.0 mg/dL 8.5-10.5 eGFR(CKD-EPI 2020) 86 See_Comment Oct 08, 2023 08:23 AM [facility] CBC PROFILE Specimen Type: BLOOD No comment entered. Ordering Provider: SABAS LEBLANC Report Released Date/Time: September 09, 2023 10:52 AM Reporting Lab: [facility] [address] [facility] [facility] [address] Performing Lab: [facility] [address] [facility] [address] WBC 7.6 10*3/uL 4.5-11.0 RBC 5.05 10*6/uL [...] 10*3/uL 2.2-7.6 ABSOLUTE NRBC 0.00 10*3/uL 0-0 Social History: Smoking Status (Most current) and Tobacco Use (All prior to encounter date) This section includes the most current, and the historical, smoking and tobacco- related health factors from the [place] facility where the Encounter took place. Current Smoking Status This section includes the most current smoking, or tobacco-related health factor, from the [place] facility where the Encounter took place. Date/Time Current Smoking Status Comment Paul ity September 09, 2023 09:30 AM VA-TOBACCO NEVER USED [facility] Tobacco Use History This section includes a history of the smoking, or tobacco-related health factors, that were collected on or before the date of the Encounter. The data comes from the [place] facility where the Encounter took place. Date/Time Smoking Status/Tobacco Use Comment Marisol acility August 19, 2022 09:30 AM VA-TOBACCO FORMER USER [facility] August 19, 2022 09:30 AM VA-TOBACCO QUIT 5 TO < 15 YRS [facility] Jul 30, 2021 02:30 PM VA-TOBACCO FORMER USER [facility] Jul 30, 2021 02:30 PM VA-TOBACCO QUIT 1 TO < 5 YRS [facility] Mar 30, 2020 09:00 AM VA-TOBACCO FORMER USER [facility] Mar 30, 2020 09:00 AM VA-TOBACCO QUIT 1 TO < 5 YRS [facility] Mar 25, 2019 08:16 AM VA-TOBACCO FORMER USER [facility] Mar 25, 2019 08:16 AM VA-TOBACCO QUIT < 1 YEAR [facility] Mar 17, 2018 10:44 AM VA-TOBACCO FORMER USER [facility] Mar 17, 2018 10:44 AM VA-TOBACCO QUIT < 1 YEAR [facility] May 19, 2017 11:10 AM LIFETIME NON-TOBACCO USER [facility] Mar 14, 2017 08:57 AM CURRENT SMOKELESS TOBACCO USER [facility] Mar 14, 2017 08:57 AM [facility] 14, 2017 08:57 AM V1-PT READY TO SHARON T TOBACCO USE [facility] August 26, 2016 12:48 PM V1-PT DECLINES REF TO TOBACCO CESS PRGM [facility] August 26, 2016 12:48 PM V1-PT THINKING ABO UT QUIT TOBACCO USE [facility] August 26, 2016 08:45 AM CURRENT SMOKER FELICITA PAREDES [facility] Aug 08, 2014 09:46 AM CURRENT SMOKER FELICITA PAREDES [facility] Aug 08, 2014 09:46 AM V1-PT DECLINES REF TO TOBACCO CESS PRGM [facility] Aug 08, 2014 09:46 AM V1-PT DECLINES TOB ACCO CESSATION MEDS [facility] Aug 08, 2014 09:46 AM V1-PT THINKING ABO UT QUIT TOBACCO USE [facility] Jul 07, 2013 02:26 PM CURRENT SMOKER 4-6 cigarettes/day [facility] Jul 07, 2013 02:26 PM V1-PT DECLINES REF TO TOBACCO CESS PRGM [facility] Jul 07, 2013 02:26 PM V1-PT DECLINES TOB ACCO CESSATION MEDS [facility] Jul 07, 2013 02:26 PM V1-PT THINKING ABO UT QUIT TOBACCO USE [facility] Jul 15, 2012 02:30 PM CURRENT SMOKER Pt. is back to .5 to a ppd. Wants to quit again. [facility] Jul 15, 2011 10:07 AM V1[facility]PT [facility] Jul 15, 2011 10:07 AM V1-PT READY TO SHARON T TOBACCO USE [facility] Dec 05, 2010 01:00 PM QUIT TOBACCO USE I N PAST YEAR [facility] Encounter Notes: All associated encounter notes This section contains the clinical notes associated to the Encounter. Date/Time Encounter Note(s) Provider Source Nov 05, 2023 11:19 AM RN PROGRESS NOTE: LOCAL TITLE: [facility]: CLINICAL TRIAGE STANDARD TITLE: RN PROGRESS NOTE DATE OF NOTE: NOV 05, 2023@11:19:11 ENTRY DATE: NOV 05, 2023@11:19:11 AUTHOR: LILLIAM BARTH COSIGNER: URGENCY: STATUS: COMPLETED Patient Demographics Patient Name: EDITH MALAGON Patient Primary [address]: [address] [place] [address] [address] [facility] [place] [address] Patient Primary Phone: [phone] Patient : 1965 Patient Age: 58 Caller/Recipient Relation to Patient: Self Emergency Contact: TAISHA MALAGON Triage Summary Conducted triage/discussed symptoms Utilized the Triage Tool: Yes Chief Complaint: Chest Heaviness System WHEN: Now, 911 Nurse's Recommendation / WHEN: 911 System WHERE: Emergency department Nurse's Recommendation / WHERE: ED Other Patient Disposition Patient/Caregiver agrees to plan of care: No Patient WHERE: ED Other Other - Patient Where Disposition: driving him Patient WHEN: Now Other - Patient When Disposition: declines 911 Patient is Urgent or Emergent Nursing Plan and Disposition Referred patient to higher level of care Instructed to go to Emergency Room (ER) Advised of Financial Disclaimer: Patient advised that recommendation for care provided during the call does not constitute an approval or authorization for payment by the [place] or its staff. Patient advised to report a community ED visit to the [facility] Office of Community Care at within 72 hours. Advised of [place] Benefits Other Other Description: declined Other course(s) of action Provided guidance for worsening symptoms: *Caller/Patient* advised to call facilities [place] Clinical Contact Center or seek immediate medical attention for new or worsening symptoms Nurse Summary Nurse Summary: Chest pressure Onset 2 days, lingering unchanged Notes tighness center anterior chest, chest pressure like someone is sitting on my chest. SOB with exertion, notes SOB with full sentences. Sharp ain in chest with deep breath. Notes occ dizziness lightheadedness, uncomfortableness, I fee heavy in my arms, a weird tingling in arms . (bilaterally) Was nauseated this AM Checked B/P while on phone: 122/77 HR 64 1995 given NTG when dx pleuricy, states not simialr to that will drive him to ED now Reviewed Non [place] ED Notification line number [facility] [address] [place] [address] Clinical Contact Center Codes Clinic/Location: V1 [facility] PHONE CCC RN TXCC Triage Complete Triage Date: 11/05/2023, 11:17 AM Triage Note: Phone Triage 05 Nov 2023 15:05:59 +0000 [facility] Demographics 58 y/o Male Results CC: Chest Heaviness Software suggested: Software suggested follow-up location: Emergency department Values and Measures Duration of CC: 2 Days Alerts 1) This patient is at high risk for admission. Positive Responses HPI: chest pain, crushing quality HPI: discomfort in the neck, jaw, shoulder or arm HPI: nausea, with chest pain Negative Responses Denies: HPI: chest pain, duration longer than 10 minutes Denies: HPI: chest pain, severe Denies: HPI: syncope Denies: PMH: angina Denies: PMH: heart attack /es/ LILLIAM SAEZ CCC, RN Signed: 11/05/2023 11:19 Receipt Acknowledged By: 11/05/2023 11:30 /bear/ MIK ROMAN RN, CWCN, CFCN [facility]ILLIAM BARTH [facility]
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
--- OUTSIDE RECORDS SUMMARY | 2023-11-05 12:37 | XMS_ITS ---
Author Name [facility] [place] [facility] [place] [facility] [place] Address [address] [place] [address] Care Team Providers Care Quality Control Assistant Name Role Phone KERI LEBLANC Primary Care [...] Crawley's Name Patient's Relationship to Policy Crawley [facility] POINT OF SERVICE SOV RET UNDER 65 CHERISE Apr 14, 2018 [id number] [phone] JANELL MALAGON ERT PATIENT [facility] POINT OF SERVICE SOV ACTIV E SELEC TCAR Apr 14, 2018 [id number] VESNA,JANELL ERT PATIENT [facility] ([id number]) PRESCRIPT ION [facility] NT Apr 14, 2018 Q54A [id number] VESNA,JANELL ERT PATIENT [facility] ([id number]) PRESCRIPT ION [facility] NT Apr 14, 2018 Q54A [id number] VESNA,JANELL ERT PATIENT Selected Encounter This section includes the information on [place] at [place] for the Encounter. Date/Time Encounter Type Encounter Description Reason Provider Source May 16, 2023 09:00 AM PSYTX W PT 45 MINUTES [facility] ICD-10-CM F32.1 Major depressive disorder, single episode, moderate DEVORAILLETTMAYELA Harris IE IHE Encounter Template Text not used by [facility] Assessments - Encounter Diagnoses This section includes the primary and secondary diagnoses documented for the Encounter. Date/Time Primary/Secondary Diagnosis Diagnosis Name Provider Source May 16, 2023 05:09 PM PRIMARY Major depressive disorder, single episode, moderate TEAGAN RAUSCH ESTEPHANIE ZAMBRANO [facility] May 16, 2023 05:09 PM SECONDARY Post-traumatic stress disorder, chronic TEAGAN RAUSCH [facility] Plan of Treatment: Future Appointments (+ 6 months) and Future Tests (+/- 45 days) The Plan of Treatment section includes future care activities for the patient from all [place] [facility] This section includes future appointments and future orders which are active, pending or scheduled. Future Appointments This section includes appointments that were scheduled to occur 6 months from the date of the Encounter, up to a maximum of 20 appointments. The data comes from all [place] treatment facilities. Appointment Date/Time Appointment Type Appointme nt Facility Name May 30, 2023 09:00 AM AMBULATORY - PSYCHIATRY [facility] Jun 13, 2023 09:00 AM AMBULATORY - PSYCHIATRY [facility] Jun 27, 2023 09:00 AM AMBULATORY - PSYCHIATRY [facility] Jul 11, 2023 09:00 AM AMBULATORY - PSYCHIATRY [facility] Jul 25, 2023 09:00 AM AMBULATORY - PSYCHIATRY [facility] Aug 08, 2023 09:00 AM AMBULATORY - PSYCHIATRY [facility] September 09, 2023 09:30 AM AM[facility]ATORY - [facility] Social History: Smoking Status (Most current) and Tobacco Use (All prior to encounter date) This section includes the most current, and the historical, smoking and tobacco- related health factors from the [facility] facility where the Encounter took place. Current Smoking Status This section includes the most current smoking, or tobacco-related health factor, from the [facility] facility where the Encounter took place. Date/Time Current Smoking Status Comment Paul ity August 19, 2022 09:30 AM VA-TOBACCO FORMER USER [facility] Tobacco Use History This section includes a history of the smoking, or tobacco-related health factors, that were collected on or before the date of the Encounter. The data comes from the [place] facility where the Encounter took place. Date/Time Smoking Status/Tobacco Use Comment F acility August 19, 2022 09:30 AM VA-TOBACCO QUIT 5 TO < 15 YRS [facility] Jul 30, 2021 02:30 PM VA-TOBACCO FORMER USER [facility] Jul 30, 2021 02:30 PM VA-TOBACCO QUIT 1 TO < 5 YRS [facility] Mar 30, 2020 09:00 AM VA-TOBACCO FORMER USER [facility] Mar 30, 2020 09:00 AM VA-TOBACCO QUIT 1 TO < 5 YRS [facility] Mar 25, 2019 08:16 AM VA-TOBACCO FORMER USER [facility] Mar 25, 2019 08:16 AM VA-TOBACCO QUIT < 1 YEAR [facility] Mar 17, 2018 10:44 AM VA-TOBACCO FORMER USER [facility] Mar 17, 2018 10:44 AM VA-TOBACCO QUIT < 1 YEAR [facility] May 19, 2017 11:10 AM LIFETIME NON-TOBACCO USER [facility] Mar 14, 2017 08:57 AM CURRENT SMOKELESS TOBACCO USER [facility] Mar 14, 2017 08:57 AM V1-PT [facility] Mar 14, 2017 08:57 AM V1-PT READY TO SHARON T TOBACCO USE [facility] August 26, 2016 12:48 PM V1-PT DECLINES REF TO [facility] August 26, 2016 12:48 PM V1-PT THINKING ABO UT QUIT TOBACCO USE [facility] August 26, 2016 08:45 AM CURRENT SMOKER FELICITA PAREDES [facility] Aug 08, 2014 09:46 AM CURRENT SMOKER FELICITA PAREDES [facility] Aug 08, 2014 09:46 AM V1-PT DECLINES REF TO [facility]ACCO [facility]ESS [facility] Aug 08, 2014 09:46 AM V1-PT DECLINES TOB ACCO CESSATION MEDS [facility] Aug 08, 2014 09:46 AM V1-PT THINKING ABO UT QUIT TOBACCO USE [facility] Jul 07, 2013 02:26 PM CURRENT SMOKER 4-6 cigarettes/day [facility] Jul 07, 2013 02:26 PM V1-PT DECLINES REF TO TOBACCO CESS PRGM [facility] Jul 07, 2013 02:26 PM V1-PT DECLINES TOB ACCO CESSATION MEDS [facility] Jul 07, 2013 02:26 PM V1-PT THINKING ABO UT QUIT TOBACCO USE [facility] Jul 15, 2012 02:30 PM CURRENT SMOKER Pt. is back to .5 to a ppd. Wants to quit again. [facility] Jul 15, 2011 10:07 AM V1-PT DECLINES REF TO TOBACCO CESS PRGM [facility] Jul 15, 2011 10:07 AM V1-PT READY TO SHARON T TOBACCO USE [facility] Dec 05, 2010 01:00 PM QUIT TOBACCO USE I N PAST YEAR [facility] Encounter Notes: All associated encounter notes This section contains the clinical notes associated to the Encounter. Date/Time Encounter Note(s) Provider Source May 16, 2023 03:09 PM MENTAL HEALTH COUN SELING NOTE: LOCAL TITLE: Psychotherapy/Mental Health STANDARD TITLE: MENTAL HEALTH COUNSELING NOTE DATE OF NOTE: MAY 16, 2023@15:09 ENTRY DATE: MAY 16, 2023@15:09:24 AUTHOR: MAKENZIE RAUSCH EXP COSIGNER: DI HAINES URGENCY: STATUS: COMPLETED Psychotherapy/Mental Health Has ADDENDA Individual Psychotherapy Session 5 Length of Visit: 50 min Primary Diagnosis treated this visit: MDD Secondary Diagnosis treated this visit: PTSD Modality of treatment/intervention: Follow-up/Intake Session content: PT spent the majority of our meeting voicing his frustration with his current living situation. His has been less confrontational in the past 3-4 weeks. Consequently, PT reports that his mood has felt improved. He is unsure what to attribute the change in his 's behavior but acknowledges that the direct conversation he had with her one month ago may have contributed. Despite this, he shares that he still feels reluctant to voice his frustrations to his and is not optimistic that these changes will last. PT shares he has been considering purchasing a recreational vehicle as an affordable option if he decides to separate from his . He has reflected on what his next few years would feel like without making significant changes and states that he feels more motivated to consider alternatives. Discussed assertive communication and the importance of expressing his needs in the service of his mental wellbeing. Reviewed plan to continue supportive therapy next visit and to coordinate with IPVAP Preconstruction Manager Mental Status Exam: Appearance: neatly and casually dressed, appears stated age Psychomotor behavior and posture: normal, good eye contact Speech: normal Mood: depressed Affect: appropriate to content Thought content: normal Thought form: coherent, linear, logical Judgment: intact Insight: fair Orientation: person, place, date, time Attention/Concentration: not formally assessed, no problems exhibited Memory: not formally assessed, no apparent problems with short/terminal system operator Risk Assessment: is evaluated to be a low risk of acute and chronic suicide. Please see the 02/14/2023 Suicide/Homicide risk note for additional details. Assessment: PT showed improved willingness to consider realistic changes he can make to improve his relationship. He remains fearful of vocalizing his needs to his but acknowledges that she seemed receptive to the their previous conversation one month ago. Plan: RTC in 2 weeks to resume psychotherapy. NLT RTC (date and time of next appointment): May @09:00 This case and treatment provided are discussed in routine, on-going supervision with the undersigned production control supervisor. /bear/ MAKENZIE RAUSCH Psychology Practicum Student Signed: 05/16/2023 17:09 /bear/ Di Haines Psy.D. Clinical Health Psychologist Cosigned: 05/19/2023 10:27 05/19/2023 ADDENDUM STATUS: COMPLETED I have reviewed this case and concur with the clinical impressions and recommendations made by this trainee, who is under my clinical supervision. We discuss topics including assessment, diagnosis, impressions, interventions, and recommendations related to care in a standard, weekly 60-minute individual supervision meeting. /bear/ Di Haines Psy.D. Clinical Health Psychologist Signed: 05/19/2023 10:29 MAKENZIE RAUSCH [facility]
--- OUTSIDE RECORDS SUMMARY | 2023-11-05 12:37 | XMS_ITS ---
Author Name [facility] [place] [facility] [place] [facility] [place] Address [address] [place] [address] Care Team Providers Care Batt Packer Name Role Phone KERI LEBLANC Primary Care [...] Policy Crawley's Name Patient's Relationship to Policy Carwley [facility] POINT OF SERVICE SOV RET UNDER 63 CHERISE Apr 14, 2018 [id number] VESNA,JANELL ERT PATIENT [facility] POINT OF SERVICE SOV ACTIV E SELEC TCAR Apr 14, 2018 [id number] VESNA,JANELL ERT PATIENT [facility] ([id number]) [facility] [place] Apr 14, 2018 Q54A [id number] VESNA,JANELL ERT PATIENT [facility] ([id number]) PRESCRIPT I[facility] Apr 14, 2018 Q54A [id number] [phone] VESNA,JANELL ERT PATIENT Selected Encounter This section includes the information on record at [place] for the Encounter. Date/Time Encounter Type Encounter Description Reason Provider Source Jun 13, 2023 09:54 AM CASE MANAGEMENT PRIMARY CARE/MEDICINE ICD-10-CM Z65.8 Oth problems related to psychosocial circumstances HAILE ARNDT Encounter Template Text not used by [place] Assessments - Encounter Diagnoses This section includes the primary and secondary diagnoses documented for the Encounter. Date/Time Primary/Secondary Diagnosis Diagnosis Name Provider Source Jun 24, 2023 02:12 PM PRIMARY Oth problems related to psychosocial circumstances DEMETRIUS ARNDT [facility] Plan of Treatment: Future Appointments (+ 6 months) and Future Tests (+/- 45 days) The Plan of Treatment section includes future care activities for the patient from all [place] [facility]. This section includes future appointments and future orders which are active, pending or scheduled. Future Appointments This section includes appointments that were scheduled to occur 6 months from the date of the Encounter, up to a maximum of 20 appointments. The data comes from all [place] treatment facilities. Appointment Date/Time Appointment Type Appointme nt Facility Name Jun 27, 2023 09:00 AM AMBULATORY - PSYCHIATRY [facility] Jul 11, 2023 09:00 AM AMBULATORY - PSYCHIATRY [facility] Jul 25, 2023 09:00 AM AMBULATORY - PSYCHIATRY [facility] Aug 08, 2023 09:00 AM AMBULATORY - PSYCHIATRY [facility] September 09, 2023 09:30 AM AMBULATORY - NONE [facility] Nov 17, 2023 09:00 AM AMBULATORY - NONE [facility] Social History: Smoking Status (Most current) and Tobacco Use (All prior to encounter date) This section includes the most current, and the historical, smoking and tobacco- related health factors from the [place] facility where the Encounter took place. Current Smoking Status This section includes the most current smoking, or tobacco-related health factor, from the [place] facility where the Encounter took place. Date/Time Current Smoking Status Comment Paul ity August 19, 2022 09:30 AM [place]-TOBACCO QUIT 5 TO < 15 YRS [facility] Tobacco Use History This section includes a history of the smoking, or tobacco-related health factors, that were collected on or before the date of the Encounter. The data comes from the [place] facility where the Encounter took place. Date/Time Smoking Status/Tobacco Use Comment F acility August 19, 2022 09:30 AM VA-TOBACCO QUIT 5 TO < 15 YRS [facility] Jul 30, 2021 02:30 PM VA-TOBACCO FORMER USER [facility] Jul 30, 2021 02:30 PM VA-TOBACCO QUIT 1 TO < 5 YRS [facility] Mar 30, 2020 09:00 AM VA-TOBACCO FORMER USER [facility] Mar 30, 2020 09:00 AM VA-TOBACCO QUIT 1 TO < 5 YRS [facility] Mar 25, 2019 08:16 AM VA-TOBACCO FORMER USER [facility] Mar 25, 2019 08:16 AM VA-TOBACCO QUIT < 1 YEAR [facility] Mar 17, 2018 10:44 AM VA-TOBACCO FORMER USER [facility] Mar 17, 2018 10:44 AM VA-TOBACCO QUIT < 1 YEAR [facility] May 19, 2017 11:10 AM LIFETIME NON-TOBACCO USER [facility] Mar 14, 2017 08:57 AM CURRENT SMOKELESS TOBACCO USER [facility] Mar 14, 2017 08:57 AM V1-PT [facility] Mar 14, 2017 08:57 AM V1-PT READY TO SHARON T TOBACCO USE [facility] August 26, 2016 12:48 PM V1-PT [facility]CLINES [facility] August 26, 2016 12:48 PM V1-PT THINKING ABO UT QUIT TOBACCO USE [facility] August 26, 2016 08:45 AM CURRENT SMOKER FELICITA PAREDES [facility] Aug 08, 2014 09:46 AM CURRENT SMOKER FELICITA PAREDES [facility] Aug 08, 2014 09:46 AM V1-PT DECLINES [facility] Aug 08, 2014 09:46 AM V1-PT DECLINES TOB ACCO CESSATION MEDS [facility] Aug 08, 2014 09:46 AM V1-PT THINKING ABO UT QUIT TOBACCO USE [facility] Jul 07, 2013 02:26 PM CURRENT SMOKER 4-6 cigarettes/day [facility] Jul 07, 2013 02:26 PM V1-PT DECLINES REF TO TOBACCO CESS PRGM [facility] Jul 07, 2013 02:26 PM V1-PT DECLINES TOB ACCO CESSATION MEDS [facility] Jul 07, 2013 02:26 PM V1-PT THINKING ABO UT QUIT TOBACCO USE [facility] Jul 15, 2012 02:30 PM CURRENT SMOKER Pt. is back to .5 to a ppd. Wants to quit again. [facility] Jul 15, 2011 10:07 AM V1-PT DECLINES REF TO TOBACCO CESS PRGM [facility] Jul 15, 2011 10:07 AM V1-PT READY TO SHARON T TOBACCO USE [facility] Dec 05, 2010 01:00 PM QUIT TOBACCO USE I N PAST YEAR [facility] Encounter Notes: All associated encounter notes This section contains the clinical notes associated to the Encounter. Date/Time Encounter Note(s) Provider Source Jun 13, 2023 09:54 AM SOCIAL WORK RISK ASSESSMENT SCREENING NOTE: LOCAL TITLE: RELATIONSHIP HEALTH AND SAFETY SCREEN STANDARD TITLE: SOCIAL WORK RISK ASSESSMENT SCREENING NOTE DATE OF NOTE: JUN 13, 2023@09:54 ENTRY DATE: JUN 13, 2023@09:55:11 AUTHOR: DIMAS ARNDT COSIGNER: TRINI AVENDAÑO URGENCY: STATUS: COMPLETED REL[facility] HEALTH AND SAFETY SCREEN Has ADDENDA RHS Screen: RHS Screen Session Format: Face to Face Environmental Check Upon inquiry, the individual reports that the environment is safe to proceed. Informed Consent to Screen and Document The individual consents to proceed with screening. The individual consents to documentation of responses. PRIMARY SCREEN: In the past 12 months, how often did a current or former intimate partner (e.g., boyfriend, girlfriend, , , sexual partner): 1. Scream or curse at you Never 2. Insult or talk down to you-HOWEVER BLAMES ME OFTEN Never 3. Threaten you with harm Never 4. Physically hurt you Never 5. Force or pressure you to have sexual contact against your will, or when you were unable to say no Never ?? The HITS tool (items 1-4 above) is [place] copyright protected by Roe Mason MD, and the user has full rights to use it throughout the [place] system. PRIMARY SCREEN RESULT: The Primary Screen is NEGATIVE. The individual answered never to all forms of IPV above (i.e., answered never to all 5 items) The individual accepts education and/or resources: Yes - Offered verbal universal education about IPV - Offered verbal IPV information to include state domestic violence hotline, and name of Intimate Partner Violence Assistance Long Winder Tender(IPVAP-C) or trained Licensed Independent Providers (LIPs), but declined. EDUCATION: The individual indicated readiness to learn. Education offered during this session as noted above. The individual indicated understanding by asking relevant questions and making appropriate comments. No barriers to learning were observed or identified. Sexual Orientation: The patient thinks of their sexual orientation as: Straight or Heterosexual /bear/ JACK [facility] Human Resources Manager Signed: 06/13/2023 12:43 /bear/ Trini Avendaño [facility] Caregiver Support Liquid Center Assembler Cosigned: 06/17/2023 12:20 06/13/2023 ADDENDUM STATUS: COMPLETED Scored negative, however, emotional abuse and emotional harms such as controlling and blaming him for any issues. /bear/ [facility]ACK [facility] Human Resources Manager Signed: 06/13/2023 13:06 /bear/ Trini Avendaño [facility] Caregiver Support Liquid Center Assembler Cosigned: 06/17/2023 11:56 JACK ARNDT [facility]
--- OUTSIDE RECORDS SUMMARY | 2023-11-05 12:37 | XMS_ITS ---
Author Name [facility] [place] [facility] [place] [facility] [place] Address [address] [place] [address] Care Team Providers Care Correction Officer Supervisor Name Role Phone KERI LEBLANC Primary Care [...] Crawley's Name Patient's Relationship to Policy Crawley [facility] POINT OF SERVICE SOV ACTIV E SELEC TCAR Apr 14, 2018 [id number] JANELL MALAG[address] E[address] PATIENT [facility] POINT OF SERVICE SOV RET UNDER 65 CHERISE Apr 14, 2018 [id number] JANELL MALAGON ERT PATIENT [facility] ([id number]) [facility] Apr 14, 2018 Q54A [id number] VESNA,JANELL ERT PATIENT [facility] ([id number]) [facility]CRIPT [facility] Apr 14, 2018 Q54A [id number] [phone] VESNA,JANELL ERT PATIENT Selected Encounter This section includes the information on record at [place] for the Encounter. Date/Time Encounter Type Encounter Description Reason Provider Source Jul 25, 2023 09:00 AM PSYTX W PT 45 MINUTES [facility] - IND ICD-10-CM F32.1 Major depressive disorder, single episode, moderate SASCHATTSteven,MAYELA IE IHE Encounter Template Text not used by [place] Assessments - Encounter Diagnoses This section includes the primary and secondary diagnoses documented for the Encounter. Date/Time Primary/Secondary Diagnosis Diagnosis Name Provider Source Jul 26, 2023 07:28 AM PRIMARY Major depressive disorder, single episode, moderate [place] [facility] Jul 26, 2023 07:28 AM SECONDARY Post-traumatic stress disorder, chronic TEAGAN RAUSCH [facility] Plan of Treatment: Future Appointments (+ 6 [...] Date/Time Appointment Type Appointme nt Facility Name Aug 08, 2023 09:00 AM [facility] September 09, 2023 09:30 AM AMBULATORY - NONE [facility] Nov 17, 2023 09:00 AM AMBULATORY - NONE [facility] Social History: Smoking Status (Most current) and [...] ity August 19, 2022 09:30 AM VA-TOBACCO QUIT 5 TO < 15 YRS [facility] Tobacco Use History This section includes a history of the smoking, or tobacco-related health factors, that were collected on or before the date of the Encounter. The data comes from the [place] facility where the Encounter took place. Date/Time Smoking Status/Tobacco Use Comment F acility August 19, 2022 09:30 AM VA-TOBACCO QUIT 5 TO < 15 YRS [facility]EL [facility] Jul 30, 2021 02:30 PM VA-TOBACCO FORMER USER JUAN MANUEL [facility]ED[facility] Jul 30, 2021 02:30 PM VA-TOBACCO QUIT 1 TO < 5 YRS [facility] Mar 30, 2020 09:00 AM VA-TOBACCO FORMER USER [facility] Mar 30, 2020 09:00 AM VA-TOBACCO QUIT 1 TO < 5 YRS JUAN MANUEL [facility] Mar 25, 2019 08:16 AM VA-TOBACCO FORMER USER [facility] MANUEL [facility] Mar 25, 2019 08:16 AM VA-TOBACCO QUIT < 1 YEAR [facility] Mar 17, 2018 10:44 AM VA-TOBACCO FORMER USER JUAN MANUEL [facility] Mar 17, 2018 10:44 AM VA-TOBACCO QUIT < 1 YEAR JUAN MANUEL [facility] May 19, 2017 11:10 AM LIFETIME NON-TOBACCO USER JUAN MANUEL PAREDES [facility] Mar 14, 2017 08:57 AM CURRENT SMOKELESS TOBACCO USER JUAN MANUEL PAREDES [facility] Mar 14, 2017 08:57 AM V1-PT DECLINES REF TO TOBACCO [facility]ESS [facility] Mar 14, 2017 08:57 AM V1-PT READY TO SHARON T TOBACCO USE JUAN MANUEL [facility]ED[facility] August 26, 2016 12:48 PM V1-PT DECLINES REF TO TOBACCO [facility]ESS [facility] August 26, 2016 12:48 PM V1-PT THINKING ABO UT QUIT TOBACCO USE [facility] August 26, 2016 08:45 AM CURRENT SMOKER FELICITA [facility]ED[facility] Aug 08, 2014 09:46 AM CURRENT SMOKER FELICITA [facility] Aug 08, 2014 09:46 AM V1-PT DECLINES REF TO TOBACCO CESS [facility] Aug 08, 2014 09:46 AM V1-PT DECLINES TOB ACCO CESSATION MEDS JUAN MANUEL [facility] Aug 08, 2014 09:46 AM V1-PT THINKING ABO UT QUIT TOBACCO USE JUAN MANUEL [facility] Jul 07, 2013 02:26 PM CURRENT SMOKER 4-6 cigarettes/day JUAN MANUEL PAREDES [facility] Jul 07, 2013 02:26 PM V1-PT DECLINES REF TO TOBACCO CESS [facility] Jul 07, 2013 02:26 PM V1-PT DECLINES TOB ACCO CESSATION MEDS [facility] Jul 07, 2013 02:26 PM V1-PT THINKING ABO UT QUIT TOBACCO USE [facility] Jul 15, 2012 02:30 PM CURRENT SMOKER Pt. is back to .5 to a ppd. Wants to quit again. [facility] Jul 15, 2011 10:07 AM V1-PT DECLINES REF TO TOBACCO CESS [facility] Jul 15, 2011 10:07 AM V1-PT READY TO SHARON T TOBACCO USE [facility] Dec 05, 2010 01:00 PM QUIT TOBACCO USE I N PAST YEAR [facility] Encounter Notes: All associated encounter notes This section contains the clinical notes associated to the Encounter. Date/Time Encounter Note(s) Provider Source Jul 26, 2023 07:10 AM MENTAL HEALTH COUN SELING NOTE: LOCAL TITLE: Psychotherapy/Mental Health STANDARD TITLE: MENTAL HEALTH COUNSELING NOTE DATE OF NOTE: JUL 26, 2023@07:10 ENTRY DATE: JUL 26, 2023@07:11:16 AUTHOR: MAKENZIE RAUSCH EXP COSIGNER: DI HAINES URGENCY: STATUS: COMPLETED Psychotherapy/Mental Health Has ADDENDA Individual Psychotherapy Session 9 Length of Visit: 55 min Primary Diagnosis treated this visit: MDD Secondary Diagnosis treated this visit: PTSD Modality of treatment/intervention: Follow-up Session content: PT discussed ongoing contemplation about possibly from his . He describes feeling overwhelmed and emotionally burdened by the thought of separation. He expressed feelings of guilt and negative self-judgement but states he recognizes that separation would likely be the most healthy decision for his overall wellbeing. He worries that others will think he is abandoning his and that he will have to relocate to new place to avoid friends and family. Discussed client's internal dialogue and examined how his beliefs about commitment are influencing his decision-making process. Plan to review legal consultation experience in 2 weeks and review maintenance plan in final session. Mental Status Exam: Appearance: neatly and casually dressed, appears stated age Psychomotor behavior and posture: normal, good eye contact Speech: normal Mood: depressed Affect: appropriate to content Thought content: normal Thought form: coherent, linear, logical Judgment: intact Insight: fair Orientation: person, place, date, time Attention/Concentration: not formally assessed, no problems exhibited Memory: not formally assessed, no apparent problems with short/group home Risk Assessment: is evaluated to be a low risk of acute and chronic SI/HI/. He denies recent thoughts, plans or intent to harm himself or others. Assessment: PT was engaged and participatory throughout session. He recognized that his self-critical thoughts are exacerbating feelings of anxiety and depression and causing him to avoid engaging in his decision-making process. He showed improved willingness to endure distress and improved confidence in his ability to cope with overwhelming emotions. Plan: RTC in 2 weeks to finalize termination/maintenance plan. NLT RTC (date and time of next appointment): Jul @09:00 This case and treatment provided are discussed in routine, on-going supervision with the undersigned sample room supervisor. /bear/ MAKENZIE RAUSCH Psychology Practicum Student Signed: 07/26/2023 07:29 /bear/ Di Haines Psy.D. Clinical Health Psychologist Cosigned: 07/28/2023 08:06 07/28/2023 ADDENDUM STATUS: COMPLETED I have reviewed this case and concur with the clinical impressions and recommendations made by this trainee, who is under my clinical supervision. We discuss topics including assessment, diagnosis, impressions, interventions, and recommendations related to [place] care in a standard, weekly 60-minute individual supervision meeting. /bear/ Di Haines Psy.D. Clinical Health Psychologist Signed: 07/28/2023 08:07 MAKENZIE RAUSCH [facility]
--- OUTSIDE RECORDS SUMMARY | 2023-11-05 12:37 | XMS_ITS ---
Author Name [facility] [place] [facility] [place] Address [address] [place] [address] Care Team Providers Care Machine I Cutter Name Role Phone KERI LEBLANC Primary Care [...] Crawley's Name Patient's Relationship to Policy Crawley [facility] POINT OF SERVICE SOV RET UNDER 63 CHERISE Apr 14, 2018 [id number] [phone] JANELL MALAGON ERT PATIENT [facility] POINT OF SERVICE SOV ACTIV E SELEC TCAR Apr 14, 2018 [id number] JANELL MALAGON ERT PATIENT [facility] ([id number]) PRESCRIPT ION [facility] Apr 14, 2018 Q54A [id number] [phone] VESNA,JANELL ERT PATIENT [facility] ([id number]) PRESCRIPT ION [facility] Apr 14, 2018 Q54A [id number] VESNA,JANELL ERT PATIENT Selected Encounter This section includes the [place] for the Encounter. Date/Time Encounter Type Encounter Description Reason Provider Source Jul 11, 2023 09:00 AM PSYTX W PT 45 MINUTES [facility] - IND ICD-10-CM F32.1 Major depressive disorder, single episode, moderate MAYELA HAINES IHE Encounter Template Text not used by [place] Assessments - Encounter Diagnoses This section includes the primary and secondary diagnoses documented for the Encounter. Date/Time Primary/Secondary Diagnosis Diagnosis Name Provider Source Jul 11, 2023 11:32 AM PRIMARY Major depressive disorder, single episode, moderate [place] MIHIR [facility] Jul 11, 2023 11:32 AM SECONDARY Post-traumatic stress disorder, chronic TEAGAN RAUSCH [facility] Plan of Treatment: Future Appointments (+ 6 months) and Future Tests (+/- 45 days) The Plan of Treatment section includes future care activities for the patient [facility] [place] [facility] This section includes future appointments and future orders which are active, pending or scheduled. Future Appointments This section includes appointments that were scheduled to occur 6 months from the date of the Encounter, up to a maximum of 20 appointments. The data comes from all [place] treatment facilities. Appointment Date/Time Appointment Type Appointme nt Facility Name Jul 25, 2023 09:00 AM AMBULATORY - PSYCHIATRY [facility] Aug 08, 2023 09:00 AM AMBULATORY - PSYCHIATRY [facility] September 09, 2023 09:30 AM AMBULATORY - NONE [facility] Nov 17, 2023 09:00 AM AMBULATORY - NONE [facility] Social History: Smoking Status (Most current) and Tobacco Use (All prior to encounter date) This section includes the most current, and the historical, smoking and tobacco- related health factors from the [place] facility where the Encounter took place. Current Smoking Status This section includes the most current smoking, or tobacco-related health factor, from the [place] facility where the Encounter took place. Date/Time Current Smoking Status Comment Facil ity August 19, 2022 09:30 AM VA-TOBACCO FORMER USER [facility] Tobacco Use History This section includes a history of the smoking, or tobacco-related health factors, that were collected on or before the date of the Encounter. The data comes from the [place] facility where the Encounter took place. Date/Time Smoking Status/Tobacco Use Comment F acility August 19, 2022 09:30 AM VA-TOBACCO QUIT 5 TO < 15 YRS [facility] Jul 30, 2021 02:30 PM VA-TOBACCO FORMER USER JUAN MANUEL [facility] Jul 30, 2021 02:30 PM VA-TOBACCO QUIT 1 TO < 5 YRS [facility] Mar 30, 2020 09:00 AM VA-TOBACCO FORMER USER [facility] Mar 30, 2020 09:00 AM VA-TOBACCO QUIT 1 TO < 5 YRS [facility] Mar 25, 2019 08:16 AM VA-TOBACCO FORMER USER JUAN MANUEL [facility] Mar 25, 2019 08:16 AM VA-TOBACCO QUIT < 1 YEAR [facility] Mar 17, 2018 10:44 AM VA-TOBACCO FORMER USER JUAN MANUEL [facility] Mar 17, 2018 10:44 AM [...] CESS PRGM [facility] Jul 15, 2011 10:07 AM V1-PT READY TO SHARON T TOBACCO USE [facility] Dec 05, 2010 01:00 PM QUIT TOBACCO USE I N PAST YEAR [facility] Encounter Notes: All associated encounter notes This section contains the clinical notes associated to the Encounter. Date/Time Encounter Note(s) Provider Source Jul 11, 2023 11:27 AM MENTAL HEALTH COUN SELING NOTE: LOCAL TITLE: Psychotherapy/Mental Health STANDARD TITLE: MENTAL HEALTH COUNSELING NOTE DATE OF NOTE: JUL 11, 2023@11:27 ENTRY DATE: JUL 11, 2023@11:28:06 AUTHOR: MAKENZIE RAUSCH EXP COSIGNER: DI HAINES URGENCY: STATUS: COMPLETED Psychotherapy/Mental Health Has ADDENDA Individual Psychotherapy Session 8 Length of Visit: 45 min Primary Diagnosis treated this visit: MDD Secondary Diagnosis treated this visit: PTSD Modality of treatment/intervention: Follow-up Session content: PT discussed themes of freedom and comfort in the context of his relationship with his . He has been focusing on creating healthier boundaries and reports he went hiking and hunting several times in the past two weeks. He indicates he feels ready to meet with a criminal lawyer to discuss separation. He recognized that he has felt unhappy in his relationship for the past 10 years however, he is fearful of making such a significant life change. Explored underlying reasons for PT's fear of change and discussed beliefs contributing to resistance. Discussed self-validation in reinforcing boundaries and managing emotional responses to boundary violations. Reviewed plan to resume discussion relating to resistance next session. Mental Status Exam: Appearance: neatly and casually dressed, appears stated age Psychomotor behavior and posture: normal, good eye contact Speech: normal Mood: depressed Affect: appropriate to content Thought content: normal Thought form: coherent, linear, logical Judgment: intact Insight: fair Orientation: person, place, date, time Attention/Concentration: not formally assessed, no problems exhibited Memory: not formally assessed, no apparent problems with short/equipment operator intermodal yard Risk Assessment: [place] is evaluated to be a low risk of acute and chronic SI/HI/. He denies recent thoughts, plans or intent to harm himself or others. Assessment: PT demonstrated improved willingness to make changes in support of asserting boundaries within his relationship. He acknowledges that although he has been unhappy, he feels a level of comfort within his relationship that he is fearful of losing. Plan: RTC in 2 weeks to resume termination/maintenance plan. PT encouraged to reflect on the potential benefits of confiding in his children. NLT RTC (date and time of next appointment): Jul @09:00 This case and treatment provided are discussed in routine, on-going supervision with the undersigned supervisor audit clerks. /bear/ MAKENZIE RAUSCH Psychology Practicum Student Signed: 07/12/2023 00:36 /bear/ Di Haines Psy.D. Clinical Health Psychologist Cosigned: 07/14/2023 11:01 Receipt Acknowledged By: 07/18/2023 09:08 /bear/ THERON WICK Psychology Doctoral Entry Level Automotive Technician 07/14/2023 ADDENDUM STATUS: COMPLETED I have reviewed this case and concur with the clinical impressions and recommendations made by this trainee, who is under my clinical supervision. We discuss topics including assessment, diagnosis, impressions, interventions, and recommendations related to care in a standard, weekly 60-minute individual supervision meeting. /bear/ Di Haines Psy.D. Clinical Health Psychologist Signed: 07/14/2023 11:02 MAKENZIE RAUSCH [facility]
--- OUTSIDE RECORDS SUMMARY | 2023-11-05 12:37 | XMS_ITS | Encounter Summary ---
Author Name [facility] [place] [facility] [place] [facility] [place] [facility] [place] Address [address] [place] [address] Care Team Providers Care Mill Hand Name Role Phone KERI LEBLANC Primary Care [...] Name Patient's Relationship to Policy Crawley [facility] SOV RET UNDER 65 CHERISE Apr 14, 2018 [id number] [phone] JANELL MALAGON ERT PATIENT [facility] SERV[facility] SOV ACTIV E SELEC TCAR Apr 14, 2018 [id number] VESNA,JANELL ERT PATIENT [facility] ([id number]) PRESCRIPT ION [facility] NT Apr 14, 2018 [id number] VESNA,JANELL ERT PATIENT [facility] ([id number]) [facility]CRIPT [facility] NT Apr 14, 2018 [id number] VESNA,JANELL ERT PATIENT Selected Encounter This section includes the information on record at [place] for the Encounter. Date/Time Encounter Type Encounter Description Reason Provider Source Jun 13, 2023 10:41 AM CASE MANAGEMENT PRIMARY CARE/MEDICINE ICD-10-CM Z63.0 Problems in relationship with spouse or partner HAILE ARNDT Encounter Template Text not used by [place] Assessments - Encounter Diagnoses This section includes the primary and secondary diagnoses documented for the Encounter. Date/Time Primary/Secondary Diagnosis Diagnosis Name Provider Source Jun 24, 2023 02:13 PM PRIMARY Problems in relationship with spouse or partner DEMETRIUS ARNDT [facility] Jun 24, 2023 02:13 PM SECONDARY Counseling, unspecified DEMETRIUS ARNDT [facility] Jun 24, 2023 02:13 PM SECONDARY Oth problems related to psychosocial circumstances DEMETRIUS ARNDT [facility] Jun 24, 2023 02:13 PM SECONDARY Problems of adjustment to life-cycle transitions DEMETRIUS ARNDT [facility] Plan of Treatment: Future Appointments (+ 6 months) and Future Tests (+/- 45 days) The Plan of Treatment section includes future care activities for the patient from all [place] [facility] This section includes future appointments and [...] 27, 2023 09:00 AM AMBULATORY - PSYCHIATRY [facility] Jul 11, 2023 09:00 AM AMBULATORY - PSYCHIATRY [facility] Jul 25, 2023 09:00 AM AMBULATORY - PSYCHIATRY [facility] Aug 08, 2023 09:00 AM [facility] September 09, 2023 09:30 AM AMBULATORY - NONE [place] AALIYAH [facility] Nov 17, 2023 09:00 AM AMBULATORY - NONE [place] AALIY[facility] Social History: Smoking Status (Most [...] 19, 2022 09:30 AM VA-TOBACCO FORMER USER [facility] Tobacco Use History This section includes a history of the smoking, or tobacco-related health factors, that were collected on or before the date of the Encounter. The data comes from the [place] facility where the Encounter took place. Date/Time Smoking Status/Tobacco Use Comment Marisol acility August 19, 2022 09:30 AM VA-TOBACCO QUIT 5 TO < 15 YRS [facility] Jul 30, 2021 02:30 PM VA-TOBACCO FORMER USER [facility] Jul 30, 2021 02:30 PM VA-TOBACCO QUIT 1 TO < 5 YRS [facility] Mar 30, 2020 09:00 AM VA-TOBACCO FORMER USER [facility] Mar 30, 2020 09:00 AM VA-TOBACCO QUIT 1 TO < 5 YRS [facility] Mar 25, 2019 08:16 AM VA-TOBACCO FORMER USER [facility] Mar 25, 2019 08:16 AM VA-TOBACCO QUIT < 1 YEAR [facility] Mar 17, 2018 10:44 AM VA-TOBACCO FORMER USER [facility] Mar 17, 2018 10:44 AM VA-TOBACCO QUIT < 1 YEAR [facility] May 19, 2017 11:10 AM LIFETIME NON-TOBACCO USER [facility] Mar 14, 2017 08:57 AM CURRENT SMOKELESS TOBACCO USER [facility] Mar 14, 2017 08:57 AM [facility] 14, 2017 08:57 AM V1-PT READY TO SHARON T TOBACCO USE [facility] August 26, 2016 12:48 PM V1-PT [facility] August 26, 2016 12:48 PM V1-PT THINKING ABO UT QUIT TOBACCO USE [facility] August 26, 2016 08:45 AM CURRENT SMOKER FELICITA PAREDES [facility] Aug 08, 2014 09:46 AM CURRENT SMOKER FELICITA PAREDES [facility] Aug 08, 2014 09:46 AM V1-PT DECLINES REF TO TOBACCO CESS PRGM [facility] Aug 08, 2014 09:46 AM V1-PT DECLINES TOB ACCO CESSATION MEDS [facility] Aug 08, 2014 09:46 AM V1-PT THINKING ABO UT QUIT TOBACCO USE [facility] Jul 07, 2013 02:26 PM CURRENT SMOKER 4-6 cigarettes/day [facility] Jul 07, 2013 02:26 PM V1-PT DECLINES REF TO TOBACCO CESS PRGM [facility] Jul 07, 2013 02:26 PM V1-PT DECLINES TOB ACCO CESSATION MEDS [facility] Jul 07, 2013 02:26 PM V1-PT THINKING ABO UT QUIT TOBACCO USE [facility] Jul 15, 2012 02:30 PM CURRENT SMOKER Pt. is back to .5 to a ppd. Wants to quit again. [facility] Jul 15, 2011 10:07 AM V1-PT [facility] Jul 15, 2011 10:07 AM V1-PT READY TO SHARON T TOBACCO USE [facility] Dec 05, 2010 01:00 PM QUIT TOBACCO USE I N PAST YEAR [facility] Encounter Notes: All associated encounter notes This section contains the clinical notes associated to the Encounter. Date/Time Encounter Note(s) Provider Source Jun 13, 2023 10:41 AM SOCIAL WORK RISK ASSESSMENT SCREENING NOTE: [facility] TITLE: Social Work Triage Assessment STANDARD TITLE: SOCIAL WORK RISK ASSESSMENT SCREENING NOTE DATE OF NOTE: JUN 13, 2023@10:41 ENTRY DATE: JUN 13, 2023@10:41:33 AUTHOR: DIMAS ARNDT COSIGNER: TRINI AVENDAÑO URGENCY: STATUS: COMPLETED Social Work Triage Assessment Referral Source: RH&S SW Presenting Issue: Veterans reports worsening anxiety and depressive sx in the context of marital discord. This PACT SW was requested to complete RH&S screen. Brewster confirms it is safe to document in his chart. Psychosocial Hx: Titus has been to his Taisha since 1983. 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 Brewster is the only one receiving income between him and his . Brewster and Taisha have 2 children, one son (38 years old) and one daughter (32 years old). Narrative: Titus reports after he completely retired in 2018, he noticed how bad things are with his . Titus now understands why and what his kids experienced growing up with his . Titus's is also estranged from her siblings due to her presentation. Titus shared controlling and paranoia behavior from his (see below). His is a very sabianism Gnosticist. SW asked if he has talked to his about alternatives to divorce such as couples therapy. Titus reports she will not do couples counseling or take medications. SW asked about spiritual counseling. Titus denies this is an option with their jew, and since she is so sabianism, she would never sign divorce papers unless he cheated on her which he refuses to do. SW asked if he has relayed his concerns/experiences with her medical team as they would be the best to intervene. Titus reports he will not go to her appointments because he is afraid he will say something wrong. Titus agreed to complete RH&S screen. Titus's official score was negative for experiencing IPV in his relationship, however, this particular screening did not account for the emotional abuse Titus endures, as well as, other abusive behaviors such as isolating, blaming, and controlling him. Titus states yeah it is an unhealthy relationship. SW offered to connect Titus to the community based agency [facility], however, Titus declined as he does not recognize his unhealthy relationship as IPV. SW relayed [facility] or even the [place] RH&S SW would be other people to whom he could talk to in case he needed to talk to someone before he sees his MH provider, and Titus continued to decline the offer. When the topic of divorce came up, Titus reports if he were to divorce his , that is it. I will never be able to talk to my kids again. Titus reports his son and daughter already have a strained relationship with their mother that if he left, all her issues would fall onto their kids and he cannot put that on them. Titus reports his would forbid them to talk to him and he would lose them. SW asked Titus to consider the evidence that supports this statement since he talks to his son nearly every day and his daughter calls him regularly, and they do not want to talk to their mother. [facility]ACE relayed his kids can set healthy boundaries with their mother. Titus reported he also feared that if he divorces her then she may kill herself based on statement she had made in the past. Titus further discusses other barriers to divorce such as lack of privacy to receive mail, lack of privacy to just talk to a divorce lawyer to hear his options, how he would support two households, and how episcopalian would play a huge role in executing a divorce. Titus was quiet for a minute then said maybe I could PO Box if I can afford one. Controlling Behaviors/Paranoia: Titus shared how much he enjoyed going out hunting and fishing, but the last time he went hunting, he was gone too long so called him to accuse him of cheating on her and was suicidal if he didn't return home immediately. Titus reports he is timed with anything he does, and has to have all his conversations on speaker phone so she can hear them because if he doesn't then his will question him what negative things he said about her. Titus reports he has no friends and cannot leave the house. Titus reports he has to have a reason to go outside. Titus has to follow what his asks. Titus reports his believes cell phones cause her headaches and has asked Titus to leave his cell phone in the car. She is worried how Wi-Fi technology is impacting her health so they have no Internet in the home, however, Titus reports they currently have Internet since he hid the router and cords in the basement so his cannot see them. She uses the Internet to look up things that could be making her ill. She has essential oils in the home because the Internet said so even though they bother Titus's sinuses. Titus feels he has no voice. Titus reports he and his do not sleep in the same room or bed together. Titus reports they tried to, but he couldn't sleep the way his wanted him to. Titus reports he has had no sexual desires for his in a long time. He would never cheat on her either which is what he would have to do in order for her to divorce him based on her episcopalian. Titus reports he cannot even think about another relationship. Titus reports his used to clean their home 2x/week, but has increased to every day for fear of bugs and their eggs. showers frequently during a day which leads to dry skin which she constantly itches. Titus reports she itches saying there are bugs on her. Titus reports he tries to correct her or help her, but she does not believe him. Titus was hopeful his would get better, but can see it will not. Titus seemed to agree with this travel writer that 's behavior may exacerbate as she gets older. Titus reports he cannot even talk to his . She is not supportive of him. She blames him for anything that goes wrong with her health. He reports he had a bad PTSD nightmare. He tried to talk to his about it since he was scared and she didn't show any support. Titus shared that 4-5 years ago, he had a difficult time, was depressed and expressing SI. He asked his to take him to a facility for help with his SI. He said I was asking for help and his said if she brought him to a place then that's the end of us. Titus reports who needs to hear that when they are in a vulnerable state. Titus has lost all supports and interests because of what he refers to as her controlling behaviors and paranoia. Titus endorses depression. He reports sometimes he loses it at her so appreciates coming in every 2 weeks to speak to MH provider to even me out. Titus reports it is easier to just give in to his than to do anything else. Titus reports he is getting anxious since his knows how long his sessions is and the travel time. Titus reports if he is late, then she will question him. GRACE encouraged Titus to consider talking to a divorce lawyer to hear his options. [facility]ACE acknowledged this is a conversation that should be held in a safe place and offered the [place]. GRACE acknowledged how difficult his relationship sounds with this and everyone has their own journey, and that Titus should approach leaving his relationship at the pace at which he is most comfortable. Titus appreciated the time and support. He reports he will think things over and see when he may be ready to talk to a divorce lawyer to hear his options. Titus understands this travel writer is available whenever he is ready. SW had brief discussion regarding boundaries, thinking errors (statements he believes without evidence for those statements), and healthy vs unhealthy relationships. SW encouraged continued relationship building with adult children and having tough conversations without feeling he is burdening them. appears to be in the pre-contemplation stage of change as it relates to from his . GRACE will work with Brewster in taking action steps once that stage of change has been reached. Suggestions for MH in regard to healthy relationships: *Processing pros and cons of a conversation with his kids regarding divorce *Cognitive incongruence (Jehovah Witness and suicidal behavior) *Methods used as control in IPV, such as suicidal threats *Support in recognizing that change has to come from him, and the ability to only control one's own behaviors vs other's behaviors. Location: [facility] Office Room#129 Time: 45 Minutes Plan: SW remains available as needed or requested. [facility] updated RH&S [facility]. /bear/ JACK ARNDT Primary Care Sap Sd Analyst Signed: 06/17/2023 10:05 /es/ Trini Avendaño [facility] Caregiver Support Diamond Driller Helper Cosigned: 06/17/2023 11:17 Receipt Acknowledged By: 06/19/2023 11:15 /es/ MAKENZIE RAUSCH Psychology Practicum Student 07/23/2023 08:55 /es/ SERAFIN CERON CORE DROPPER Clinical Sap Sd Analyst 06/17/2023 19:42 /es/ Di Burrell Psy.D. Clinical Health Psychologist 06/27/2023 16:08 /es/ JACK OLVERA MD Venancio [facility]
--- OUTSIDE RECORDS SUMMARY | 2023-11-05 12:37 | XMS_ITS ---
Author Name [facility] [place] [facility] [place] [facility] [place] Address [address] [place] [address] Care Team Providers Care Digital Account Director Name Role Phone KERI LEBLANC Primary Care [...] Crawley's Name Patient's Relationship to Policy Crawley [facility] POINT OF SERVICE SOV RET UNDER 65 CHERISE Apr 14, 2018 [id number] JANELL MALAGON ERT PATIENT [facility] POINT OF SERVICE SOV ACTIV E SELEC TCAR Apr 14, 2018 [id number] VESNA,JANELL ERT PATIENT [facility] ([id number]) PRESCRIPT [facility]ON [facility] Apr 14, 2018 Q54A [id number] VESNA,JANELL ERT PATIENT [facility] ([id number]) PRESCRIPT ION [facility] Apr 14, 2018 Q54A [id number] VESNA,JANELL ERT PATIENT Selected Encounter This section includes the information on record at [place] for the Encounter. Date/Time Encounter Type Encounter Description Reason Provider Source May 30, 2023 09:00 AM PSYTX W PT 45 MINUTES [facility] ICD-10-CM F43.12 Post-traumatic stress disorder, chronic THERESA COSTA Steven Encounter Template Text not used by [place] Assessments - Encounter Diagnoses This section includes the primary and secondary diagnoses documented for the Encounter. Date/Time Primary/Secondary Diagnosis Diagnosis Name Provider Source May 30, 2023 04:35 PM PRIMARY Post-traumatic stress disorder, chronic RUTHTEAGAN LICONA MIHIR ESTEPHANIE [facility] Plan of Treatment: Future Appointments (+ 6 months) and Future Tests (+/- 45 days) The Plan of Treatment section includes future care activities for the patient from [facility] [place] [facility]. This section includes future appointments and future orders which are active, pending or scheduled. Future Appointments This section includes appointments that were scheduled to occur 6 months from the date of the Encounter, up to a maximum of 20 appointments. The data comes from all [place] treatment facilities. Appointment Date/Time Appointment Type Appointme nt Facility Name Jun 13, 2023 09:00 AM AMBULATORY - PSYCHIATRY [facility] Jun 27, 2023 09:00 AM AMBULATORY - PSYCHIATRY [facility] Jul 11, 2023 09:00 AM AMBULATORY - PSYCHIATRY [facility] Jul 25, 2023 09:00 AM AMBULATORY - PSYCHIATRY [facility] Aug 08, 2023 09:00 AM AMBULATORY - PSYCHIATRY [facility] September 09, 2023 09:30 AM AMBULATORY - NONE [facility] Nov 17, 2023 09:00 AM AMBULATORY - NONE [facility] Social History: Smoking Status (Most current) and Tobacco Use (All prior to encounter date) This section includes the most current, and the historical, smoking and tobacco- related health factors from the [place] facility where the Encounter took place. Current Smoking Status This section includes the most current smoking, or tobacco-related health factor, from the [place] facility where the Encounter took place. Date/Time Current Smoking Status Ariana rios August 19, 2022 09:30 AM VA-TOBACCO FORMER USER [facility] Tobacco Use History This section includes a history of the smoking, or tobacco-related health factors, that were collected on or before the date of the Encounter. The data comes from the [place] facility where the Encounter took place. Date/Time Smoking Status/Tobacco Use Comment F acility August 19, 2022 09:30 AM VA-TOBACCO QUIT 5 TO < 15 YRS [facility] Jul 30, 2021 02:30 PM VA-TOBACCO FORMER USER [facility] Jul 30, 2021 02:30 PM VA-TOBACCO QUIT 1 TO < 5 YRS [facility] Mar 30, 2020 09:00 AM VA-TOBACCO FORMER USER [facility] Mar 30, 2020 09:00 AM VA-TOBACCO QUIT 1 TO < 5 YRS [facility] Mar 25, 2019 08:16 AM VA-TOBACCO FORMER USER [facility] Mar 25, 2019 08:16 AM VA-TOBACCO QUIT < 1 YEAR [facility] Mar 17, 2018 10:44 AM VA-TOBACCO FORMER USER [facility] Mar 17, 2018 10:44 AM VA-TOBACCO QUIT < 1 YEAR [facility] May 19, 2017 11:10 AM LIFETIME NON-TOBACCO USER [facility] Mar 14, 2017 08:57 AM CURRENT SMOKELESS TOBACCO USER [facility] Mar 14, 2017 08:57 AM V1-PT DECLINES REF TO TOBACCO CESS [facility] Mar 14, 2017 08:57 AM V1-PT READY TO SHARON T TOBACCO USE [facility] August 26, 2016 12:48 PM V1-PT DECLINES REF TO TOBACCO CESS [facility] August 26, 2016 12:48 PM V1-PT THINKING ABO UT QUIT TOBACCO USE [facility] August 26, 2016 08:45 AM CURRENT SMOKER FELICITA [facility] Aug 08, 2014 09:46 AM CURRENT SMOKER [facility]ITA [facility] Aug 08, 2014 09:46 AM V1-PT DECLINES REF TO TOBACCO CESS [facility] Aug 08, 2014 09:46 AM V1-PT DECLINES TOB ACCO CESSATION MEDS [facility] Aug 08, 2014 09:46 AM V1-PT THINKING ABO UT QUIT TOBACCO USE [facility] Jul 07, 2013 02:26 PM CURRENT SMOKER 4-6 cigarettes/day [facility] Jul 07, 2013 02:26 PM V1-PT DECLINES REF TO TOBACCO CESS PRGM [facility] Jul 07, 2013 02:26 PM V1-PT DECLINES TOB ACCO CESSATION MEDS [facility] Jul 07, 2013 02:26 PM V1-PT THINKING ABO UT QUIT TOBACCO USE [facility] Jul 15, 2012 02:30 PM CURRENT SMOKER Pt. is back to .5 to a ppd. Wants to quit again. [facility] Jul 15, 2011 10:07 AM V1-PT DECLINES REF TO TOBACCO CESS PRGM [facility] Jul 15, 2011 10:07 AM V1-PT READY TO SHARON T TOBACCO USE [facility] Dec 05, 2010 01:00 PM QUIT TOBACCO USE I N PAST YEAR [facility] Encounter Notes: All associated encounter notes This section contains the clinical notes associated to the Encounter. Date/Time Encounter Note(s) Provider Source May 30, 2023 12:52 PM MENTAL HEALTH COUN SELING NOTE: LOCAL TITLE: Psychotherapy/Mental Health STANDARD TITLE: MENTAL HEALTH COUNSELING NOTE DATE OF NOTE: MAY 30, 2023@12:52 ENTRY DATE: MAY 30, 2023@12:53:10 AUTHOR: MAKENZIE RAUSCH EXP COSIGNER: DI HAINES URGENCY: STATUS: COMPLETED Psychotherapy/Mental Health Has ADDENDA Individual Psychotherapy Session 6 Length of Visit: 50 min Primary Diagnosis treated this visit: MDD Secondary Diagnosis treated this visit: PTSD Modality of treatment/intervention: Follow-up Session content: PT spent time reviewing the status of his relationship stress. He states that he has been trying to be more vocal in expressing his needs to his . So far, she has been receptive to his feedback on two occasions and he reports her accommodations have been an improvement for his overall wellbeing. In the past week however, his has been complaining of bugs biting her and she has been scratching her skin creating sores on her arms. He attributes her behavior to delusion and has been frustrated by his inability to convince her to agree to professional help. He does not believe she is a danger to herself or others but feels himself growing more distant from her as time progresses. He shares he feels more motivated to eventually separate from his however, he feels overwhelmed by the steps involved in this process. Reviewed self-care practices and assertive communication. Discussed plan to review meeting with [facility] next session. Mental Status Exam: Appearance: neatly and casually dressed, appears stated age Psychomotor behavior and posture: normal, good eye contact Speech: normal Mood: depressed Affect: appropriate to content Thought content: normal Thought form: coherent, linear, logical Judgment: intact Insight: fair Orientation: person, place, date, time Attention/Concentration: not formally assessed, no problems exhibited Memory: not formally assessed, no apparent problems with short/vermin exterminator Risk Assessment: is evaluated to be a low risk of acute and chronic suicide. Please see the 02/14/2023 Suicide/Homicide risk note for additional details. Assessment: PT presented to his appointment in a cheerful mood and seemed more optimistic about the possibility of from his and finding independence. He States he has been reading more and has found this to be a helpful outlet in coping with stress related to his living situation. Plan: RTC in 2 weeks to resume psychotherapy. NLT RTC (date and time of next appointment): Jun @09:00 This case and treatment provided are discussed in routine, on-going supervision with the undersigned order to delivery supervisor. /bear/ MAKENZIE RAUSCH Psychology Practicum Student Signed: 05/30/2023 16:39 /bear/ Di Haines Psy.D. Clinical Health Psychologist Cosigned: 06/03/2023 09:44 Receipt Acknowledged By: 06/11/2023 11:39 /bear/ THERON WICK Psychology Doctoral Corn Chip Maker 06/03/2023 ADDENDUM STATUS: COMPLETED I have reviewed this case and concur with the clinical impressions and recommendations made by this trainee, who is under my clinical supervision. We discuss topics including assessment, diagnosis, impressions, interventions, and recommendations related to care in a standard, weekly 60-minute individual supervision meeting. /bear/ Di Haines Psy.D. Clinical Health Psychologist Signed: 06/03/2023 09:45 06/05/2023 ADDENDUM STATUS: COMPLETED denies current thoughts of suicide or morbid rumination. He is vocal about his relationship with his children as being his primary protective factor and states that he will never consider suicide due to how much pain that would cause his family. He denies thoughts of homicide or violence /bear/ MAKENZIE RAUSCH Psychology Practicum Student Signed: 06/05/2023 09:22 /bear/ Di Haines Psy.D. Clinical Health Psychologist Cosigned: 06/05/2023 10:42 MAKENZIE RAUSCH [facility]
--- OUTSIDE RECORDS SUMMARY | 2023-11-05 12:37 | XMS_ITS ---
Author Name [facility] Organization [facility] [place] Address [address] [place] [address] Care Team Providers Care Regional Trainer Name Role Phone KERI LEBLANC Primary Care [...] Crawley's Name Patient's Relationship to Policy Crawley [facility] PO[facility] SOV RET UNDER 65 CHERISE Apr 14, 2018 [id number] JANELL MALAGON ERT PATIENT [facility] S[facility] ACTIV E SELEC TCAR Apr 14, 2018 [id number] VESNA,JANELL ERT PATIENT [facility] ([id number]) PRESCRIPT ION [facility] Apr 14, 2018 Q54A [id number] VESNA,JANELL ERT PATIENT [facility] ([id number]) PRESCRIPT ION [facility] Apr 14, 2018 Q54A [id number] [phone] VESNA,JANELL ERT PATIENT Selected Encounter This section includes the information on record at [place] for the Encounter. Date/Time Encounter Type Encounter Description Reason Provider Source Jun 13, 2023 09:00 AM PSYTX W PT 45 MINUTES [facility] ICD-10-CM F32.1 Major depressive disorder, single episode, moderate SASCHATTMAYELA Harris I[facility] Encounter Template Text not used by [place] Assessments - Encounter Diagnoses This section includes the primary and secondary diagnoses documented for the Encounter. Date/Time Primary/Secondary Diagnosis Diagnosis Name Provider Source Jun 13, 2023 12:10 PM PRIMARY Major depressive disorder, single episode, moderate TEAGAN RAUSCH [facility] Jun 13, 2023 12:10 PM SECONDARY Post-traumatic stress disorder, chronic TEAGAN RAUSCH [facility] Plan of Treatment: Future Appointments (+ 6 months) and Future Tests (+/- 45 days) The Plan of Treatment section includes future care activities for the patient from all [place] treatmentfacilities. This section includes future appointments and future orders which are active, pending or scheduled. Future Appointments This section includes appointments that were scheduled to occur 6 months from the date of the Encounter, up to a maximum of 20 appointments. The data comes from all [place] treatment facilities. Appointment Date/Time Appointment Type Appointme nt Facility Name Jun 27, 2023 09:00 AM AMBULATORY - PSYCHIATRY [facility] Jul 11, 2023 09:00 AM AMBULATORY - PSYCHIATRY [facility] Jul 25, 2023 09:00 AM AMBULATORY - PSYCHIATRY [facility] Aug 08, 2023 09:00 AM AMBULATORY - PSYCHIATRY [facility] September 09, 2023 09:30 AM AMBULATORY - NONE [facility] [place] [facility] Nov 17, 2023 09:00 AM AMBULATORY - NONE [facility] Social History: Smoking Status (Most current) and Tobacco Use (All prior to encounter date) This section includes the most current, and the historical, smoking and tobacco- related health factors from the [place] facility where the Encounter took place. Current Smoking Status This section includes the most current smoking, or tobacco-related health factor, from the [place] facility where the Encounter took place. Date/Time Current Smoking Status Comment Facil ity August 19, 2022 09:30 AM VA-TOBACCO FORMER USER [facility] Tobacco Use History This section includes a history of the smoking, or tobacco-related health factors, that were collected on or before the date of the Encounter. The data comes from the [place] facility where the Encounter took place. Date/Time Smoking Status/Tobacco Use Comment F acility August 19, 2022 09:30 AM VA-TOBACCO QUIT 5 TO < 15 YRS [facility] Jul 30, 2021 02:30 PM VA-TOBACCO FORMER USER [facility] Jul 30, 2021 02:30 PM VA-TOBACCO QUIT 1 TO < 5 YRS [facility] Mar 30, 2020 09:00 AM VA-TOBACCO FORMER USER JUAN MANUEL [facility] Mar 30, 2020 09:00 AM VA-TOBACCO QUIT 1 TO < 5 YRS [facility] Mar 25, 2019 08:16 AM VA-TOBACCO FORMER USER [facility] MANUEL [facility] Mar 25, 2019 08:16 AM VA-TOBACCO QUIT < 1 YEAR [facility] Mar 17, 2018 10:44 AM VA-TOBACCO FORMER USER JUAN MANUEL [facility] Mar 17, 2018 10:44 AM VA-TOBACCO QUIT < 1 YEAR [facility] May 19, 2017 11:10 AM LIFETIME NON-TOBACCO USER U[facility]AN MANUEL [facility] Mar 14, 2017 08:57 AM [...] 08:45 AM CURRENT SMOKER FELICITA PAREDES [facility] Aug 08, 2014 09:46 AM CURRENT SMOKER FELICITA PAREDES [facility] Aug 08, 2014 09:46 AM V1-PT [...] Encounter Note(s) Provider Source Jun 13, 2023 11:41 AM MENTAL HEALTH COUN SELING NOTE: LOCAL TITLE: Psychotherapy/Mental Health STANDARD TITLE: MENTAL HEALTH COUNSELING NOTE DATE OF NOTE: JUN 13, 2023@11:41 ENTRY DATE: JUN 13, 2023@11:42:03 AUTHOR: MAKENZIE RAUSCH COSIGNER: DI HAINES URGENCY: STATUS: COMPLETED Psychotherapy/Mental Health Has ADDENDA Individual Psychotherapy Session 6 Length of Visit: 45 min Primary Diagnosis treated this visit: MDD Secondary Diagnosis treated this visit: PTSD Modality of treatment/intervention: Follow-up Session content: PT states he has felt less irritable throughout the past month which he attributes to having an outlet in therapy to voice his frustrations. He has been more vocal with his about his concerns about their relationship and reports that his has been occasionally receptive to feedback. Despite this, he worries that she is progressively deteriorating and states she is currently using odorous oils on her skin as a deterrent for the bugs she believes are biting her. Due to the strong smell, PT states it is difficult for him to go upstairs in his home or to be close to his . He believes he no longer loves his but feels overwhelmed about the notion of from her. Discussed self-care strategies and engaged in dialogue about themes of comfort vs. anxiety related to significant life changes. Reviewed plan to discuss appointment with [facility] next session and to resume stress- management. Mental Status Exam: Appearance: neatly and casually dressed, appears stated age Psychomotor behavior and posture: normal, good eye contact Speech: normal Mood: depressed Affect: appropriate to content Thought content: normal Thought form: coherent, linear, logical Judgment: intact Insight: fair Orientation: person, place, date, time Attention/Concentration: not formally assessed, no problems exhibited Memory: not formally assessed, no apparent problems with short/ocean transportation intermediary Risk Assessment: denies current suicidal thoughts, plans, or intent. He presents as future oriented and lists his family and his attitude toward suicide as protective factors. Assessment: PT was vocal about his optimism toward his meeting todays with [facility]. He is fearful of making a significant life change but acknowledges that his current living situation feels unsustainable. He was receptive to discussion about collecting information to inform his options rather than acting on impulse. Plan: RTC in 2 weeks to resume discussion on stress-management and to begin termination/maintenance plan. PT encouraged to continue assertive communication practices and prioritization of self-care. NLT RTC (date and time of next appointment): Jun @09:00 This case and treatment provided are discussed in routine, on-going supervision with the undersigned supervisor final. /bear/ MAKENZIE RAUSCH Psychology Practicum Student Signed: 06/13/2023 12:10 /bear/ Di Haines Psy.D. Clinical Health Psychologist Cosigned: 06/13/2023 18:21 06/13/2023 ADDENDUM STATUS: COMPLETED I have reviewed this case and concur with the clinical impressions and recommendations made by this trainee, who is under my clinical supervision. We discuss topics including assessment, diagnosis, impressions, interventions, and recommendations related to [place] care in a standard, weekly 60-minute individual supervision meeting. /bear/ Di Haines Psy.D. Clinical Health Psychologist Signed: 06/13/2023 18:21 06/20/2023 ADDENDUM STATUS: COMPLETED PT denies current SI/HI. He denies thoughts, plan, or intent to harm himself or others. /bear/ MAKENZIE RAUSCH Psychology Practicum Student Signed: 06/20/2023 09:31 /bear/ Di Haines Psy.D. Clinical Health Psychologist Cosigned: 06/24/2023 08:39 MAKENZIE RAUSCH [facility]
--- OUTSIDE RECORDS SUMMARY | 2023-11-05 12:37 | XMS_ITS ---
Author Name [facility] [place] [facility] [place] [facility] [place] [facility] [place] Address [address] [place] [address] Care Team Providers Care Video Game Creator Name Role Phone KERI LEBLANC Primary Care [...] Crawley's Name Patient's Relationship to Policy Crawley [facility] POINT OF SERVICE SOV RET UNDER 65 [place] Apr 14, 2018 [id number] JANELL MALAGON ERT PATIENT [facility] POINT OF SERVICE SOV ACTIV E SELEC TCAR Apr 14, 2018 [id number] VESNA,JANELL ERT PATIENT [facility] ([id number]) [facility] Apr 14, 2018 Q54A [id number] [phone] VESNA,JANELL ERT PATIENT [facility] ([id number]) [facility]CRIPT I[facility] Apr 14, 2018 Q54A [id number] [phone] VESNA,JANELL ERT PATIENT Selected Encounter This section includes the information on record at [place] for the Encounter. Date/Time Encounter Type Encounter Description Reason Provider Source Aug 08, 2023 09:00 AM PSYTX W PT 45 MINUTES [facility] - IND ICD-10-CM F32.1 Major depressive disorder, single episode, moderate VEILLETTE,MAYELA IE IHE Encounter Template Text not used by [place] Assessments - Encounter Diagnoses This section includes the primary and secondary diagnoses documented for the Encounter. Date/Time Primary/Secondary Diagnosis Diagnosis Name Provider Source Aug 09, 2023 12:13 AM PRIMARY Major depressive disorder, single episode, moderate RUT[place]AN LICONA [facility] Aug 09, 2023 12:13 AM SECONDARY Post-traumatic stress disorder, chronic TEAGAN RAUSCH [facility] Plan of Treatment: Future Appointments (+ 6 months) and Future Tests (+/- 45 days) The Plan of Treatment section includes future care activities for the patient from all [place] treatmentfacilities. This section includes future appointments and future orders which are active, pending or scheduled. Future Appointments This section includes appointments that were scheduled to occur 6 months from the date of the Encounter, up to a maximum of 20 appointments. The data comes from all [place] treatment facilities. Appointment Date/Time Appointment Type Appointme nt Facility Name September 09, 2023 09:30 AM AMBULATORY - NONE [facility] Nov 17, 2023 09:00 AM AMBULATORY - NONE [facility] Social History: Smoking Status (Most current) and Tobacco Use (All prior to encounter date) This section includes the most current, and the historical, smoking and tobacco- related health factors from the [place] facility where the Encounter took place. Current Smoking Status This section includes the most current smoking, or tobacco-related health factor, from the [place] facility where the Encounter took place. Date/Time Current Smoking Status Comment Facil ity August 19, 2022 09:30 AM [place]-TOBACCO QUIT 5 TO < 15 YRS [facility] Tobacco Use History This section includes a history of the smoking, or tobacco-related health factors, that were collected on or before the date of the Encounter. The data comes from the [place] facility where the Encounter took place. Date/Time Smoking Status/Tobacco Use Comment F acility August 19, 2022 09:30 AM [place]-TOBACCO QUIT 5 TO < 15 YRS [facility] Jul 30, 2021 02:30 PM VA-TOBACCO FORMER USER [facility] Jul 30, 2021 02:30 PM VA-TOBACCO QUIT 1 TO < 5 YRS [facility] Mar 30, 2020 09:00 AM VA-TOBACCO FORMER USER [facility] Mar 30, 2020 09:00 AM VA-TOBACCO QUIT 1 TO < 5 YRS [facility] Mar 25, 2019 08:16 AM VA-TOBACCO FORMER USER [facility] Mar 25, 2019 08:16 AM VA-TOBACCO QUIT < 1 YEAR [facility] Mar 17, 2018 10:44 AM VA-TOBACCO FORMER USER [facility] Mar 17, 2018 10:44 AM VA-TOBACCO QUIT < 1 YEAR [facility] May 19, 2017 11:10 AM LIFETIME NON-TOBACCO USER [facility] Mar 14, 2017 08:57 AM CURRENT SMOKELESS TOBACCO USER [facility] Mar 14, 2017 08:57 AM V1-PT DECLINES REF TO TOBACCO CESS PR [facility] Mar 14, 2017 08:57 AM V1-PT READY TO SHARON T TOBACCO USE [facility] August 26, 2016 12:48 PM V1-PT DECLINES REF TO TOBACCO CESS PR [facility] August 26, 2016 12:48 PM V1-PT THINKING ABO UT QUIT TOBACCO USE [facility] August 26, 2016 08:45 AM CURRENT SMOKER [facility] Aug 08, 2014 09:46 AM CURRENT SMOKER [facility] Aug 08, 2014 09:46 AM V1-PT DECLINES REF TO TOBACCO CESS PR [facility] Aug 08, 2014 09:46 AM V1-PT DECLINES TOB ACCO CESSATION MEDS [facility] Aug 08, 2014 09:46 AM V1-PT THINKING ABO UT QUIT TOBACCO USE [facility] Jul 07, 2013 02:26 PM CURRENT SMOKER 4-6 cigarettes/day [facility] Jul 07, 2013 02:26 PM V1-PT DECLINES REF TO TOBACCO CESS PR [facility] Jul 07, 2013 02:26 PM V1-PT [...] Encounter. Date/Time Encounter Note(s) Provider Source Aug 09, 2023 12:13 AM SUICIDE PREVENTION RISK ASSESSMENT SCREENING NOTE: LOCAL TITLE: SUICIDE/HOMICIDE RISK ASSESSMENT STANDARD TITLE: SUICIDE PREVENTION RISK ASSESSMENT SCREENING NOT DATE OF NOTE: AUG 09, 2023@00:13 ENTRY DATE: AUG 09, 2023@00:13:56 AUTHOR: MAKENZIE RAUSCH COSIGNER: DI HAINES URGENCY: STATUS: COMPLETED ASSESSMENT OF DANGER TO OTHERS: During the past 6 months have you had any thoughts about harming someone else? No Have you ever tried to seriously harm someone else in the past? No No significant current risk of harm to others. ASSESSMENT OF HOMICIDE RISK: Low [place]-Suicide Severity Rating Scale (C-SSRS Screener) 1. Over the past month, have you wished you were or wished you could go to sleep and not wake up? No 2. Over the past month, have you had any actual thoughts of killing yourself? No 3. Over the past month, have you been thinking about how you might do this? Response not required due to responses to other questions. 4. Over the past month, have you had these thoughts and had some intention of acting on them? Response not required due to responses to other questions. 5. Over the past month, have you started to work out or worked out the details of how to kill yourself? Response not required due to responses to other questions. 6. If yes, at any time in the past month did you intend to carry out this plan? Response not required due to responses to other questions. 7. In your lifetime, have you ever done anything, started to do anything, or prepared to do anything to end your life (for example, collected pills, obtained a gun, gave away valuables, went to the roof but didn't jump)? Yes 8. If YES, was this within the past 3 months? No Is the [place] Screen Positive? No Risk Factors History of suicidal behavior(s) Recent psychosocial stressors Preexisting risk factors Please Describe: h/o trauma Protective Factors and Reasons for Living Access to and engagement with health care Reports motivation for medical treatment Access to and engagement with mental health care Reports motivation for mental health treatment Has meaningful family relationships Has a significant other Hope for the future Protective personal traits or beliefs Reports zoroastrianism or spiritual beliefs/connections Strong desire to live /bear/ MAKENZIE RAUSCH Psychology Practicum Student Signed: 08/09/2023 00:15 /bear/ Di Haines Psy.D. Clinical Health Psychologist Cosigned: 08/11/2023 08:13 MAKENZIE RAUSCH [facility] Aug 09, 2023 12:12 AM MENTAL HEALTH DIAG NOSTIC STUDY NOTE: LOCAL TITLE: Mental Health Diagnostic Study Note STANDARD TITLE: MENTAL HEALTH DIAGNOSTIC STUDY NOTE DATE OF NOTE: AUG 09, 2023@00:12:12 ENTRY DATE: AUG 09, 2023@00:12:12 AUTHOR: MAKENZIE RAUSCH COSIGNER: DI HAINES URGENCY: STATUS: COMPLETED These assessments were completed by EDITH MALAGON via provider direct entry on 08/09/2023 12:11:24 AM. PATIENT HEALTH QUESTIONNAIRE-9 (PHQ-9) The patient reported some symptoms of depression; symptoms are not consistent with a major depressive episode. Patient reported being bothered by the following over the last 2 weeks: 1. Little interest or pleasure: Several Days 2. Feeling down, depressed or hopeless: Several Days 3. Trouble sleeping: Several Days 4. Tired, low energy: More than half the days 5. Poor appetite, over-eating: Several Days 6. Feelings of failure, guilt: Several Days 7. Trouble concentrating: More than half the days 8. Motor retardation, agitation: Not at all 9. Thoughts better off /hurting self: Not at all PHQ-9 total score = 9 1-4 = minimal symptoms 5-9= mild symptoms 10-14= moderate symptoms 15-19= moderately severe symptoms 20-27= severe depressive symptoms The patient stated that the depressive symptoms made it somewhat difficult to work, take care of things at home, or get along with others. PHQ-9 Total Score (past 180 days): 08/09/2023 9 05/16/2023 12 04/04/2023 10 /es/ MAKENZIE RAUSCH Psychology Practicum Student Signed: 08/09/2023 00:13 /bear/ Di Haines Psy.D. Clinical Health Psychologist Cosigned: 08/11/2023 08:29 MAKENZIE RAUSCH [facility] Aug 08, 2023 11:01 AM MENTAL HEALTH COUN SELING NOTE: LOCAL TITLE: Psychotherapy/Mental Health STANDARD TITLE: MENTAL HEALTH COUNSELING NOTE DATE OF NOTE: AUG 08, 2023@11:01 ENTRY DATE: AUG 08, 2023@11:01:48 AUTHOR: MAKENZIE RAUSCH COSIGNER: DI HAINES URGENCY: STATUS: COMPLETED Psychotherapy/Mental Health Has ADDENDA Individual Psychotherapy Session 10 Length of Visit: 55 min Primary Diagnosis treated this visit: MDD Secondary Diagnosis treated this visit: PTSD Modality of treatment/intervention: Follow-up Session content: PT discussed his reflections on his relationship with his and treatment progress. He reports continued conflict and stress within the relationship. He spoke about the sense of responsibility he has to his family and worries about potential repercussions in from his . He expressed a clear desire to exit the relationship but remains hesitant. He notes he feels conflicted; part of him wants to pursue his own needs for happiness and wellbeing and the other part feels obligated to maintain stability for others. He notes that therapy has been helpful in allowing a space to voice these dilemmas without repercussion, allowing him to explore options with more clarity. Consolidated strategies that have resulted in therapeutic gains including boundary setting, assertive communication, and self-care. Mental Status Exam: Appearance: neatly and casually dressed, appears stated age Psychomotor behavior and posture: normal, good eye contact Speech: normal Mood: depressed Affect: appropriate to content Thought content: normal Thought form: coherent, linear, logical Judgment: intact Insight: fair Orientation: person, place, date, time Attention/Concentration: not formally assessed, no problems exhibited Memory: not formally assessed, no apparent problems with short/ad terminal makeup operator Risk Assessment: is evaluated to be a low risk of acute and chronic SI/HI/. He denies recent thoughts, plans or intent to harm himself or others. Assessment: PT shows improved insight into his emotional needs and seems more resolved about his decision to seek consultation in options for from his . He recognizes the importance of prioritizing his wellbeing and shows awareness that his current circumstances are unsustainable without change. Plan: Continue with RHS meeting next week. PT declines to continue therapy at this time and indicates he feels confident in his ability to manage distress independently. PT provided contact info should he require additional services or decide to return to therapy. This case and treatment provided are discussed in routine, on-going supervision with the undersigned blackjack supervisor. /bear/ MAKENZIE RAUSCH Psychology Practicum Student Signed: 08/09/2023 00:13 /sallie Haines Psy.D. Clinical Health Psychologist Cosigned: 08/11/2023 08:28 08/11/2023 ADDENDUM STATUS: COMPLETED I have reviewed this case and concur with the clinical impressions and recommendations made by this trainee, who is under my clinical supervision. We discuss topics including assessment, diagnosis, impressions, interventions, and recommendations related to care in a standard, weekly 60-minute individual supervision meeting. /bear/ Di Haines Psy.D. Clinical Health Psychologist Signed: 08/11/2023 08:28 MAKENZIE RAUSCH [facility]
--- OUTSIDE RECORDS SUMMARY | 2023-11-05 12:37 | XMS_ITS ---
Author Name [facility] [place] [facility] [place] Address [address] [place] [address] Care Team Providers Care Fruit Thinner Machine Operator Name Role Phone KERI LEBLANC Primary [...] Crawley's Name Patient's Relationship to Policy Crawley [facility] POINT OF SERVICE SOV RET UNDER 65 [place]ERISE Apr 14, 2018 [id number] JANELL MALAGON ERT PATIENT [facility] POINT OF SERVICE SOV ACTIV E SELEC TCAR Apr 14, 2018 [id number] JANELL MALAGON ERT PATIENT [facility] ([id number]) PRESCRIPT ION [facility] Apr 14, 2018 Q54A [id number] VESNA,JANELL ERT PATIENT [facility] ([id number]) PRESCRIPT ION [facility] Apr 14, 2018 Q54A [id number] VESNA,JANELL ERT PATIENT Selected Encounter This section includes the information on record at [place] for the Encounter. Date/Time Encounter Type Encounter Description Reason Provider Source Jun 27, 2023 09:00 AM PSYTX W PT 45 MINUTES [facility] - IND ICD-10-CM F32.1 Major depressive disorder, single episode, moderate MAYELA HAINES IHSteven Encounter Template Text not used by [place] Assessments - Encounter Diagnoses This section includes the primary and secondary diagnoses documented for the Encounter. Date/Time Primary/Secondary Diagnosis Diagnosis Name Provider Source Jun 27, 2023 05:09 PM PRIMARY Major depressive disorder, single episode, moderate MAVISDO GARRETTSachin ASH ESTEPHANIE [facility] Jun 27, 2023 05:09 PM SECONDARY Post-traumatic stress disorder, chronic TEAGAN RAUSCH [facility] Plan of Treatment: Future Appointments (+ 6 months) and Future Tests (+/- 45 days) The Plan of Treatment section includes future care activities for the patient from all [place] treatment[facility] community hospital[facility]. This section includes future appointments and future orders which are active, pending or scheduled. Future Appointments This section includes appointments that were scheduled to occur 6 months from the date of the Encounter, up to a maximum of 20 appointments. The data comes from all [place] treatment facilities. Appointment Date/Time Appointment Type Appointme nt Facility Name Jul 11, 2023 09:00 AM AMBULATORY - PSYCHIATRY [facility] Jul 25, 2023 09:00 AM AMBULATORY - [facility]CHIATRY [facility] Aug 08, 2023 09:00 AM AMBULATORY - PSYCHIATRY [facility] September 09, 2023 09:30 AM AM[facility]ULATORY [facility] NONE [facility] Nov 17, 2023 09:00 AM AMBULATORY [facility] NONE [facility] Social History: Smoking Status (Most current) [...] AM V1-PT DECLINES REF TO TOBACCO CESS [facility] Mar 14, 2017 08:57 AM V1-PT READY TO SHARON T TOBACCO USE [facility] August 26, 2016 12:48 PM V1-PT DECLINES [facility] August 26, 2016 12:48 PM V1-PT THINKING ABO UT QUIT TOBACCO USE [facility] August 26, 2016 08:45 AM CURRENT SMOKER [facility] Aug 08, 2014 09:46 AM CURRENT SMOKER [facility] Aug 08, 2014 09:46 AM V1-PT DECLINES REF TO [facility]ACCO [facility]ESS [facility] Aug 08, 2014 09:46 AM V1-PT [...] Encounter. Date/Time Encounter Note(s) Provider Source Jul 03, 2023 01:00 PM SUICIDE PREVENTION RISK ASSESSMENT SCREENING NOTE: LOCAL TITLE: SUICIDE/HOMICIDE RISK ASSESSMENT STANDARD TITLE: SUICIDE PREVENTION RISK ASSESSMENT SCREENING NOT DATE OF NOTE: JUL 03, 2023@13:00 ENTRY DATE: JUL 03, 2023@13:01:14 AUTHOR: MAKENZIE RAUSCH COSIGNER: DI HAINES URGENCY: STATUS: COMPLETED ASSESSMENT OF DANGER TO OTHERS: During the past 6 months have you had any thoughts about harming someone else? No Have you ever tried to seriously harm someone else in the past? No No significant current risk of harm to others. ASSESSMENT OF HOMICIDE RISK: Low [place]-Suicide Severity Rating Scale (C-SSRS Screener) 1. Over [...] the past 3 months? No Is the [place] Screen Positive? No Risk Factors History of suicidal behavior(s) Comment: Held gun to his head in 2018 Recent psychosocial stressors Please Describe: Relationship problems Access to lethal means Please Describe: Owns firearms. Locked in safe History of mental health hospitalization Please Describe: 2018 due to SI at [facility] Preexisting risk factors Please Describe: H/o trauma Protective Factors and Reasons for Living Access to and engagement with health care Reports motivation for medical treatment Access to and engagement with mental health care Reports motivation for mental health treatment Has meaningful family relationships Comment: Son and daughter Has a significant other Hope for the future Protective personal traits or beliefs Comment: Beliefs agains suicide Reports roman catholic or spiritual beliefs/connections Connections to cultural group(s) Social context support system Strong desire to live /bear/ MAKENZIE RAUSCH Psychology Practicum Student Signed: 07/03/2023 13:05 /bear/ Di Haines Psy.D. Clinical Health Psychologist Cosigned: 07/04/2023 09:[address] [facility] Jun 27, 2023 11:54 AM MENTAL HEALTH COUN SELING NOTE: LOCAL TITLE: Psychotherapy/Mental Health STANDARD TITLE: MENTAL HEALTH COUNSELING NOTE DATE OF NOTE: JUN 27, 2023@11:54 ENTRY DATE: JUN 27, 2023@11:54:35 AUTHOR: MAKENZIE RAUSCH COSIGNER: DI HAINES URGENCY: STATUS: COMPLETED Psychotherapy/Mental Health Has ADDENDA Individual Psychotherapy Session 7 Length of Visit: 45 min Primary Diagnosis treated this visit: MDD Secondary Diagnosis treated this visit: PTSD Modality of treatment/intervention: Follow-up Session content: PT reports improved mood throughout the past week which he attributes to increased activity level. He states he went on two short hikes this week and also spend an afternoon hunting with friends. His was frustrated by his decisions to leave the house however, he state he did well to avoid engaging in arguments. PT spent time reflecting on his meeting with [employer] [facility] two weeks ago. He found the meeting productive and states that it helped to reinforce the extent of the dysfunction within his relationship. Despite this, he feels unclear about whether he would like to proceed with separation. He worries that his children will have to endure their mother's anger if he decides to leave, and he does not want to be the cause of additional stress in their lives. PT is reluctant to confide in his children and worries that they will blame him for abandoning their mother. Discussed the likelihood of his children having a negative reaction to his disclosure. PT acknowledged that both his son and daughter have confided in him regarding their difficulties in remaining in contact with their mother. He conceded that his son would likely respond positively if PT were to contact him for support, given he also went through divorce due to similar circumstances. Discussed plan to review strategies for mitigating emotional abuse and improving healthy boundaries next session. Mental Status Exam: Appearance: neatly and casually dressed, appears stated age Psychomotor behavior and posture: normal, good eye contact Speech: normal Mood: depressed Affect: appropriate to content Thought content: normal Thought form: coherent, linear, logical Judgment: intact Insight: fair Orientation: person, place, date, time Attention/Concentration: not formally assessed, no problems exhibited Memory: not formally assessed, no apparent problems with short/long term care social worker Risk Assessment: [place] denies current thoughts, plans, or intent to harm himself or others. Assessment: PT presented to appointment in cheerful mood. He seems more willing to make behavioral changes within his current relationship and appeared optimistic about their impact to his wellbeing. He has been focused on disengaging in discussions that have historically led to arguments and feels like this has been helpful in avoiding verbal altercations. Plan: RTC in 3 weeks to resume termination/maintenance plan. PT encouraged to reflect on the potential benefits of confiding in his children. NLT RTC (date and time of next appointment): Jul @09:00 This case and treatment provided are discussed in routine, on-going supervision with the undersigned accounts supervisor. /es/ MAKENZIE RAUSCH Psychology Practicum Student Signed: 06/27/2023 17:10 /es/ Di Haines Psy.D. Clinical Health Psychologist Cosigned: 06/30/2023 15:15 Receipt Acknowledged By: 07/01/2023 09:39 /es/ THERON WICK Psychology Doctoral Senior Asset Manager 06/30/2023 ADDENDUM STATUS: COMPLETED I have reviewed this case and concur with the clinical impressions and recommendations made by this trainee, who is under my clinical supervision. We discuss topics including assessment, diagnosis, impressions, interventions, and recommendations related to [place] care in a standard, weekly 60-minute individual supervision meeting. /bear/ Di Haines Psy.D. Clinical Health Psychologist Signed: 06/30/2023 15:15 07/01/2023 ADDENDUM STATUS: COMPLETED is evaluated to be a low risk of acute and chronic SI/HI/. He reports a h/o suicidal behaviors in 2018 but denies recent thoughts, plans or intent to harm himself or others. He lists several strong protective factors and presents as future oriented. /bear/ MAKENZIE RAUSCH Psychology Practicum Student Signed: 07/01/2023 16:13 /bear/ Di Haines Psy.D. Clinical Health Psychologist Cosigned: 07/03/2023 08:54 MAKENZIE RAUSCH [facility]
--- OUTSIDE RECORDS SUMMARY | 2023-11-05 12:38 | XMS_ITS ---
Author Name [facility] [facility] [place] Address [address] [place] [address] Care Team Providers Care Air Brake Tester Name Role Phone KERI LEBLANC Primary Care [...] Crawley's Name Patient's Relationship to Policy Crawley [facility] POINT OF SERVICE SOV RET UNDER 65 CHERISE Apr 14, 2018 [id number] JANELL MALAGON ERT PATIENT [facility] POINT OF SERVICE SOV ACTIV E SELEC TCAR Apr 14, 2018 [id number] VESNA,JANELL ERT PATIENT [facility] ([id number]) PRESCRIPT ION [facility] NT Apr 14, 2018 [id number] [phone] VESNA,JANELL ERT PATIENT [facility] ([id number]) PRESCRIPT ION [facility] NT Apr 14, 2018 [id number] VESNA,JANELL ERT PATIENT Selected Encounter This section includes the information on record at [place] for the Encounter. Date/Time Encounter Type Encounter Description Reason Provider Source Mar 14, 2023 09:00 AM PSYTX W PT 45 MINUTES [facility] - IND ICD-10-CM F32.1 Major depressive disorder, single episode, moderate MAYELA HAINES IHSteven Encounter Template Text not used by [facility] Assessments - Encounter Diagnoses This section includes the primary and secondary diagnoses documented for the Encounter. Date/Time Primary/Secondary Diagnosis Diagnosis Name Provider Source Mar 14, 2023 04:58 PM PRIMARY Major depressive disorder, single episode, moderate TEAGAN RAUSCH GLAS ESTEPHANIE [facility] Plan of Treatment: Future Appointments (+ 6 months) and Future Tests (+/- 45 days) The Plan of Treatment section includes future care activities for the patient from all [place] treatmentfacilities. This section includes future appointments and future orders which are active, pending or scheduled. Future Appointments This section includes appointments that were scheduled to occur 6 months from the date of the Encounter, up to a maximum of 20 appointments. The data comes from all [place] treatment facilities. Appointment Date/Time Appointment Type Appointme nt Facility Name Mar 28, 2023 02:30 PM [facility] [place] [facility] Apr 04, 2023 09:00 AM [facility] [facility] Apr 18, 2023 09:00 AM [facility] [place] [facility] May 16, 2023 09:00 AM [facility] [place] [facility] May 30, 2023 09:00 AM [facility] [place] [facility] Jun 13, 2023 09:00 AM [facility] [place] [facility] Jun 27, 2023 09:00 AM [facility] [place] [facility] Jul 11, 2023 09:00 AM [facility] [place] [facility] Jul 25, 2023 09:00 AM [facility] [place] [facility] Aug 08, 2023 09:00 AM [facility] [place] [facility] September 09, 2023 09:30 AM AMBULATORY - NONE WHITE [facility] AALIYAH T [facility] Social History: Smoking Status (Most current) and Tobacco Use (All prior to encounter date) This section includes the most current, and the historical, smoking and tobacco- related health factors from the [place] facility where the Encounter took place. Current Smoking Status This section includes the most current smoking, or tobacco-related health factor, from the [place] facility where the Encounter took place. Date/Time Current Smoking Status Comment Paul ity August 19, 2022 09:30 AM VA-TOBACCO QUIT 5 TO < 15 YRS [facility] Tobacco Use History This section includes a history of the smoking, or tobacco-related health factors, that were collected on or before the date of the Encounter. The data comes from the [place] facility where the Encounter took place. Date/Time Smoking Status/Tobacco Use Comment F acility August 19, 2022 09:30 AM VA-TOBACCO QUIT 5 TO < 15 YRS [facility] Jul 30, 2021 02:30 PM VA-TOBACCO FORMER USER [facility] Jul 30, 2021 02:30 PM VA-TOBACCO QUIT 1 TO < 5 YRS [facility] Mar 30, 2020 09:00 AM VA-TOBACCO FORMER USER [facility] Mar 30, 2020 09:00 AM VA-TOBACCO QUIT 1 TO < 5 YRS [facility] Mar 25, 2019 08:16 AM VA-TOBACCO FORMER USER [facility] Mar 25, 2019 08:16 AM VA-TOBACCO QUIT < 1 YEAR [facility] Mar 17, 2018 10:44 AM VA-TOBACCO FORMER USER [facility] Mar 17, 2018 10:44 AM VA-TOBACCO QUIT < 1 YEAR [facility] May 19, 2017 11:10 AM LIFETIME NON-TOBACCO USER [facility] Mar 14, 2017 08:57 AM CURRENT SMOKELESS TOBACCO USER [facility] Mar 14, 2017 08:57 AM V1-PT DECLINES REF TO TOBACCO CESS [facility] Mar 14, 2017 08:57 AM V1-PT READY TO SHARON T TOBACCO USE [facility] August 26, 2016 12:48 PM V1-PT DECLINES REF TO TOBACCO CESS [facility] August 26, 2016 12:48 PM V1-PT THINKING ABO UT QUIT TOBACCO USE [facility] August 26, 2016 08:45 AM CURRENT SMOKER [facility] Aug 08, 2014 09:46 AM CURRENT SMOKER FELICITA Harris [facility] Aug 08, 2014 09:46 AM V1-PT DECLINES REF TO TOBACCO CESS [facility] Aug 08, 2014 09:46 AM V1-PT DECLINES TOB ACCO CESSATION [facility] Aug 08, 2014 09:46 AM V1-PT THINKING ABO UT QUIT TOBACCO USE [facility] Jul 07, 2013 02:26 PM CURRENT SMOKER 4-6 cigarettes/day [facility] Jul 07, 2013 02:26 PM V1-PT DECLINES REF TO TOBACCO CESS [facility] Jul 07, 2013 02:26 PM V1-PT DECLINES TOB ACCO CESSATION [facility] Jul 07, 2013 02:26 PM V1-PT THINKING ABO UT QUIT TOBACCO USE [facility] Jul 15, 2012 02:30 PM CURRENT SMOKER Pt. is back to .5 to a ppd. Wants to quit again. [facility] Jul 15, 2011 10:07 AM V1-PT DECLINES REF TO TOBACCO CESS [facility] Jul 15, 2011 10:07 AM V1-PT READY TO SHARON T TOBACCO USE [facility] Dec 05, 2010 01:00 PM QUIT TOBACCO USE I N PAST YEAR [facility] Radiology Reports: +/- 30 days of the encounter Radiology Reports For cases when an order for radiology services may have been completed prior to the date of the Encounter, the report list includes the Radiology Reports that were completed up to 30 days before dateof the Encounter. For cases when an order for radiology services may have been completed after the date of the Encounter, the report list also includes the Radiology Reports that were completed up to30 days after date of the Encounter. The data comes from all [facility] facilities. Date/Time Radiology Report Provider Source Feb 14, 2023 09:[address] CHEST (INCLUDES ADRENALS): EDITH MALAGON [id number] -[id number] M Exm Date: FEB 14, 2023@09:00 Req Phys: KERI LEBLANC Loc: [facility] PACT ACAD 4 B M1RB (Req'g Img Loc: CT SCAN (OOS) Service: Unknown (Case [id number] COMPLETE) LDCT LUNG CANCER SCREENING (CT Detailed) CPT:51780 Reason for Study: LDCT Lung cancer screening Clinical History: No contrast allergy BUN: 15 (09/05/22 09:26) CREATI: 1.02 (09/05/22 09:26) eGFR - NONE FOUND Weight: 267 lb [121.11 kg] (01/09/2023 09:31) BODY MASS INDEX - NO HEIGHTS FOUND Pager number: [phone] STAT orders MUST be called to RADIOLOGY [phone] to speak to the appropriate light rail signal technician. Indications - Lung cancer screening Report Status: Verified Date Reported: FEB 16, 2023 Date Verified: FEB 16, 2023 [employer] E-Sig:/ES/IRWIN MAZARIEGOS Report: LDCT LUNG CANCER SCREENING COMPARISON: 07/23/[address], 12/25/2021 thyroid ultrasound INDICATION: LDCT Lung cancer screening TECHNIQUE: Low-dose Chest CT was obtained without intravenous contrast. FINDINGS: Cardiomediastinum, Abbi, lymph nodes and soft tissues: No cardiomegaly or pericardial effusion. No lymphadenopathy in the chest. Unchanged mild prominence of the left mid to lower thyroid lobe without a discrete nodule on the prior comparison ultrasound. Vasculature: No coronary artery calcification. Mild aortic arch calcifications. No thoracic aortic aneurysm or CT evidence of pulmonary arterial hypertension. Airways/Lungs/Pleura: No suspicious endotracheal intraparenchymal lesion. Mild atelectasis again seen in the right middle lobe, lingula of the left upper lobe, and bilateral lower lobes. There are several sub-3 mm noncalcified bilateral pulmonary nodules without significant interval change. No definitely suspicious pulmonary nodule or mass. No focal consolidation, pleural effusion, or pneumothorax. Upper Abdomen: Suggestion of mild diffuse fatty infiltration of the liver. Miscellaneous: None Musculoskeletal: No acute or suspicious osseous abnormality. Minimal degenerative disease in the thoracic spine with tiny endplate osteophytes. Impression: 1. Benign-appearing several bilateral sub-3 mm pulmonary nodules: Lung-RADS category 2. Continue annual screening with a low-dose chest CT in 12 months ONLY if the patient meets specific published clinical criteria for annual lung cancer screening per USPSTF guidelines, such as a 20 pack-year smoking history, etc. 2. Suggestion of diffuse fatty infiltration of the liver. Primary Diagnostic Code: LUNGRADS 2: BENIGN APPEARANCE OR BEHAVIOR Primary Interpreting Staff: IRWIN MAZARIEGOS Staff (Administrative Staff Supervisor) /IRWIN HANSEN [facility] Encounter Notes: All associated encounter notes This section contains the clinical notes associated to the Encounter. Date/Time Encounter Note(s) Provider Source Mar 14, 2023 10:33 AM MENTAL HEALTH COUN SELING NOTE: LOCAL TITLE: Psychotherapy/Mental Health STANDARD TITLE: MENTAL HEALTH COUNSELING NOTE DATE OF NOTE: MAR 14, 2023@10:33 ENTRY DATE: MAR 14, 2023@10:36:05 AUTHOR: MAKENZIE RAUSCH COSIGNER: DI HAINES URGENCY: STATUS: COMPLETED Psychotherapy/Mental Health Has ADDENDA Individual Psychotherapy Session 2 Length of Visit: 50 min Primary Diagnosis treated this visit: MDD Secondary Diagnosis treated this visit: PTSD Modality of treatment/intervention: Follow-up/Intake Session content: PT reports no significant change in anxiety or depression sx since our initial meeting one month ago. He continues to struggle to cope with stress related to marital discord but states he is generally able to cope moderately well throughout the day. He continues to find relief from hunting, deep breathing exercises, and grounding exercises and also reports therapy is helpful to have someone to vent his frustration to. PT acknowledges that the majority of his distress is related to his 's declining mental health. He spent time today reviewing his options and considered the pros and cons of: doing nothing, encouraging his to seek mental health treatment, or from his . Mental Status Exam: Appearance: neatly and casually dressed, appears stated age Psychomotor behavior and posture: normal, good eye contact Speech: normal Mood: depressed Affect: appropriate to content Thought content: normal Thought form: coherent, linear, logical Judgment: intact Insight: fair Orientation: person, place, date, time Attention/Concentration: not formally assessed, no problems exhibited Memory: not formally assessed, no apparent problems with short/moth exterminator Risk Assessment: [place] is evaluated to be a low risk of acute and chronic suicide. Please see the 02/14/2023 Suicide/Homicide risk note for additional details. Assessment: PT appeared more motivated for tx as evidenced by his engagement throughout the session. He was willing to consider a more frequent meeting arrangement and showed improved willingness to discuss alternative options for his relationship. T/w discussed transfer to [facility] as an option given his desire for irregular meetings and need for tx goal clarity. Plan: RTC in 3 weeks to resume intake, continue goal clarification, and to move toward psychotherapy. NLT RTC (date and time of next appointment): Mar@09:00 This case and treatment provided are discussed in routine, on-going supervision with the undersigned lunchroom food service supervisor. /bear/ MAKENZIE RAUSCH Psychology Practicum Student Signed: 03/14/2023 16:59 /bera/ Di Haines Psy.D. Clinical Health Psychologist Cosigned: 03/17/2023 12:12 03/17/2023 ADDENDUM STATUS: COMPLETED I have reviewed this case and concur with the clinical impressions and recommendations made by this trainee, who is under my clinical supervision. We discuss topics including assessment, diagnosis, impressions, interventions, and recommendations related to [place] care in a standard, weekly 60-minute individual supervision meeting. /bear/ Di Haines Psy.D. Clinical Health Psychologist Signed: 03/17/2023 12:13 MAKENZIE RAUSCH [facility]
--- OUTSIDE RECORDS SUMMARY | 2023-11-05 12:38 | XMS_ITS | Encounter Summary ---
Author Name [facility] [facility] [place] [facility] [place] Address [address] [place] [address] Care Team Providers Care Rolling Chair Pusher Name Role Phone KERI LEBLANC Primary Care [...] Crawley's Name Patient's Relationship to Policy Crawley [facility] POINT OF SERVICE SOV RET UNDER 65 CHERISE Apr 14, 2018 [id number] [phone] JANELL MALAGON ERT PATIENT [facility] POINT OF SERVICE SOV ACTIV E SELEC TCAR Apr 14, 2018 [id number] JANELL MALAGON ERT PATIENT [facility] ([id number]) PRESCRIPT ION [facility] Apr 14, 2018 [id number] [phone] VESNAJANELL GILLIAM ERT PATIENT [facility] ([id number]) PRESCRIPT ION [facility] Apr 14, 2018 Q54A [id number] [phone] VESNA,JANELL ERT PATIENT Selected Encounter This section includes the information on record at [place] for the Encounter. 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 Date/Time Primary/Secondary Diagnosis Diagnosis Name Provider Source Feb 28, 2023 06:29 PM PRIMARY Benign neoplasm of right choroid TRINI VALDEZ [facility] Feb 28, 2023 06:29 PM SECONDARY Presbyopia TRINI VALDEZ [facility] Feb 28, 2023 06:29 PM SECONDARY Presence of intraocular lens TRINI VALDEZ [facility] Feb 28, 2023 06:29 PM SECONDARY Unspecified ptosis of bilateral eyelids TRINI VALDEZ [facility] Plan of Treatment: Future Appointments (+ 6 months) and Future Tests (+/- 45 days) The Plan of Treatment section includes future care activities for the patient from all [place] [facility] This section includes future appointments and future orders which are active, pending or scheduled. Future Appointments This section includes appointments that were scheduled to occur 6 months from the date of the Encounter, up to a maximum of 20 appointments. The data comes from all [place] treatment facilities. Appointment Date/Time Appointment Type Appointme nt Facility Name Mar 14, 2023 09:00 AM AMBULATORY - PSYCHIATRY [facility] Mar 28, 2023 02:30 PM AMBULATORY - SURGERY [facility] Apr 04, 2023 09:00 AM AMBULATORY - PSYCHIATRY [facility] Apr 18, 2023 09:00 AM [facility] May 16, 2023 09:00 AM AMBULATORY - PSYCHIATRY [facility] May 30, 2023 09:00 AM AMBULATORY - PSYCHIATRY [facility] Jun 13, 2023 09:00 AM AMBULATORY - PSYCHIATRY [facility] Jun 27, 2023 09:00 AM AMBULATORY - PSYCHIATRY [facility] Jul 11, 2023 09:00 AM AMBULATORY - PSYCHIATRY GENE PAREDES [facility] Jul 25, 2023 09:00 [facility] Aug 08, 2023 09:00 AM AMBULATORY - PSYCHIATRY [facility] Social History: Smoking Status (Most current) and Tobacco Use (All prior to encounter date) This section includes the most current, and the historical, smoking and tobacco- related health factors from the [place] facility where the Encounter took place. Current Smoking Status This section includes the most current smoking, or tobacco-related health factor, from the [place] facility where the Encounter took place. Date/Time Current Smoking Status Comment Facil ity August 19, 2022 09:30 AM VA-TOBACCO FORMER USER [facility] Tobacco Use History This section includes a history of the smoking, or tobacco-related health factors, that were collected on or before the date of the Encounter. The data comes from the [place] facility where the Encounter took place. Date/Time Smoking Status/Tobacco Use Comment F acility August 19, 2022 09:30 AM VA-TOBACCO QUIT 5 TO < [address] [facility] Jul 30, 2021 02:30 PM VA-TOBACCO FORMER USER JUAN MANUEL [facility] Jul 30, 2021 02:30 PM VA-TOBACCO QUIT 1 TO < [address] [facility] Mar 30, 2020 09:00 AM VA-TOBACCO FORMER USER [facility] Mar 30, 2020 09:00 AM VA-TOBACCO QUIT 1 TO < [address] [facility] Mar 25, 2019 08:16 AM VA-TOBACCO FORMER USER JUAN MANUEL [facility] Mar 25, 2019 08:16 AM VA-TOBACCO QUIT < [address] [facility] Mar 17, 2018 10:44 AM VA-TOBACCO FORMER USER JUAN MANUEL [facility] Mar 17, 2018 10:44 AM VA-TOBACCO QUIT < [address] [facility] May 19, 2017 11:10 AM LIFETIME NON-TOBACCO USER [facility] Mar 14, 2017 08:57 AM CURRENT SMOKELESS TOBACCO USER [facility] Mar 14, 2017 08:57 AM V1-PT DECLINES REF TO TOBACCO CESS PRGM [facility] Mar 14, 2017 08:57 AM V1-PT READY TO SHARON T TOBACCO USE [facility] August 26, 2016 12:48 PM [facility] 26, 2016 12:48 PM V1-PT THINKING ABO UT QUIT TOBACCO USE [facility] August 26, 2016 08:45 AM CURRENT SMOKER FELICITA Harris [facility] Aug 08, 2014 09:46 AM CURRENT SMOKER FELICITA Harris [facility] Aug 08, 2014 09:46 AM V1-PT DECLINES REF TO TOBACCO CESS PRGM [facility] Aug 08, 2014 09:46 AM V1-PT DECLINES TOB ACCO CESSATION MEDS [facility] Aug 08, 2014 09:46 AM V1-PT THINKING ABO UT QUIT TOBACCO USE [facility] Jul 07, 2013 02:26 PM CURRENT SMOKER 4-6 cigarettes/day [facility] Jul 07, 2013 02:26 PM V1-PT [facility]ES [facility] Jul 07, 2013 02:26 PM V1-PT DECLINES TOB ACCO CESSATION MEDS [facility] Jul 07, 2013 02:26 PM V1-PT THINKING ABO UT QUIT TOBACCO USE [facility] Jul 15, 2012 02:30 PM CURRENT SMOKER Pt. is back to .5 to a ppd. Wants to quit again. [facility] Jul 15, 2011 10:07 AM V1-PT DECLINES REF TO TOBACCO CESS [facility] Jul 15, 2011 10:07 AM V1-PT READY TO SHARON T TOBACCO USE [facility] Dec 05, 2010 01:00 PM QUIT TOBACCO USE I N PAST YEAR [facility] Radiology Reports: +/- 30 days of the [...] the Encounter. The data comes from all [facility] facilities. Date/Time Radiology Report Provider Source Feb 14, 2023 09:[address] CHEST (INCLUDES ADRENALS): EDITH MALAGON [id number] -1965 M Exm Date: FEB 14, 2023@09:00 Req Phys: KERI LEBLANC Loc: [facility] PACT ACAD 4 B M1RB (Req'g Img Loc: CT SCAN (OOS) Service: Unknown (Case [id number] COMPLETE) LDCT LUNG CANCER SCREENING (CT Detailed) CPT:93269 Reason for Study: LDCT Lung cancer screening Clinical History: No contrast allergy BUN: 15 (09/05/22 09:26) CREATI: 1.02 (09/05/22 09:26) eGFR - NONE FOUND Weight: 267 lb [121.11 kg] (01/09/2023 09:31) BODY MASS INDEX - NO HEIGHTS FOUND Pager number: [phone] STAT orders MUST be called to RADIOLOGY [phone] to speak to the appropriate electroneurodiagnostic technician. Indications - Lung cancer screening Report Status: Verified Date Reported: FEB 16, 2023 Date Verified: FEB 16, 2023 Wind Site Manager E-Sig:/ES/IRWIN MAZARIEGOS Report: LDCT LUNG CANCER SCREENING [...] BENIGN APPEARANCE OR BEHAVIOR Primary Interpreting Staff: Staff CINTIA KINGSLEY (Wind Site Manager) /IRWIN [facility]EN [facility] Encounter Notes: All associated encounter notes This section contains the clinical notes associated to the Encounter. Date/Time Encounter Note(s) Provider Source Feb 18, 2023 07:41 AM EYE E & M NOTE: LOCAL TITLE: Eye Exam Template STANDARD TITLE: EYE E & M NOTE DATE OF NOTE: FEB 18, 2023@07:41 ENTRY DATE: FEB 18, 2023@07:41:20 AUTHOR: SOUMYA AUGUST EXP COSIGNER: URGENCY: STATUS: COMPLETED Active Outpatient Medications (excluding Supplies): Active Outpatient Medications Status 1) BETAMETHASONE VALERATE 0.1% OINT APPLY APPLICATION ACTIVE TOPICALLY TWICE A DAY 2) IPRATROPIUM BR 0.03% NASAL SPRAY SPRAY [...] FOR ERECTILE DYSFUNCTION Active Non-VA Medications Status 1) Non-VA SEMAGLUTIDE WL 0.25MG/0.5ML PEN 0.5ML 0.25MG ACTIVE (0.5ML) SUBCUTANEOUSLY ONCE A WEEK 5 Total Medications Allergies/Adverse Reactions: DULOXETINE, VARDENAFIL HGB A1C: 5.3 (09/05/22 09:26) GLU: 101 (09/05/22 09:26) BUN: 15 (09/05/22 09:26) B/P: 120/79 (01/09/2023 09:31) BODY MASS INDEX - NO HEIGHTS FOUND Active problems - Computerized Problem List is the source for the followin. Anxiety disorder 2. Erectile dysfunction 3. Hyperlipidemia 4. Non-alcoholic fatty liver 5. Thyroid nodule 6. Multiple pulmonary nodules 7. Obesity 8. Chronic post-traumatic stress disorder 9. Major depressive disorder 10. Dysfunction of eustachian tube 11. Sleep apnea 12. Ex-smoker 57 year old DECLINED TO ANSWER MALE, ESTABLISHED patient Chief Complaint/Reason for visit: #Here for 1 year CEE #H/o cataract Surgery 01/15/2023 OD and 01/31/2023 OS; [facility] w/Dr. Gage - currently on combo drop - 1 gtt QAM OU (taking until gone) - reports significant improvement since sx #Reports slight blur at night or far distances OU without gls -symp worse when hunting -has been using +3.00 OTC readers with mild relief # Denies pain, flashes, floaters, loss of vision OU going through difficult time w/, currently undergoing counseling Mental Status: alert and attentive Psychological Status: normal OCULAR History: 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 Age-related cataract OU 4. Refractive error w/presbyopia OU VISUAL ACUITY (w/OUT correction) OD: 20/20- OS: 20/20- Current Rx: OTC +3.00 readers AUTOREFRACTION OD: [place] -0.50 x 092 OS: -0.50 SPH REFRACTION and best vision OD: -0.50 SPH 20/20-1 (with difficulty) OS: -0.50 SPH 20/20 ADD: +2.50 20/20 OU EOM: Full without diplopia or pain OU CONFRONTATION VIS HUDSON: full to finger counting OD & OS PUPILS: PERRL, (-) RAPD ORBITS/ADNEXA: Longstanding ptosis OU SLIT LAMP EXAM: Lids/Lashes: OU: 1+ MGD, trace bleph UL, trace capping UL and LL Sclr/Conj: OU: pinguecula temp and nasal Cornea: OU: trace SPK OS>OD, 1 sec TBUT, CE scar Ant Ch: OD: VH 4x4 (-)cells/flare OS: VH 4x4 (+) trace cells Iris: (-) rubeosis OU OU: normal/intact/no neovascularization ------ TONOMETRY: OD/OS 03/26 @0805 NCT ------- DILATION OU: @0835 1 gtt 1% Tropicamide 1 gtt 2.5% Phenylephrine Pt ed regarding side effects of dilation, including light sensitivity and blurred vision at near. INTERNAL (FUNDUSCOPY & BIO): Lens: OD: PCIOL well centered, clear OS: PCIOL well centered, clear Vitreous: OU: Syneresis Nerve: distinct margins, good color OU OD C/D: 0.05R, small nerve ~1/4DD faint flat garrett choroidal nevus sup to ONH (-) lipofuscin/drusen OS C/D: 0.05R, small nerve Macula: (-) macular edema OU OU: flat, even pigment Vessels: OU: Normal caliber and course Retina: OU: no holes/breaks/tears/RDs x360 ASSESSMENT 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 Pseudophakia OU 4. Refractive error w/presbyopia OU PLAN 1. RTC with flashes/floaters/curtain. Obtain baseline Clarus next visit. 2. Longstanding - RTC if bothersome. Monitor. 3. No further intervention. Cont post-op care as directed by OCC. 4. Updated Rx for PALs w/photogrey per request. Monitor. RECALL: 2 years CEE, Clarus; sooner prn STUDENT SUPERVISION: Optometry student Trini Valdez participated in the care of this patient. The student performed an initial history, review of systems, medication review, and ophthalmic examination. The above note represents care provided by me and is NOT a student note. Supervising Report Developer: Soumya August O.D. TOTAL TIME= 35 MINUTES Note complete [x] /bear/ Soumya August OD, FAAO Staff Report Developer Signed: 02/18/2023 09:[address] [facility]
--- OUTSIDE RECORDS SUMMARY | 2023-11-05 12:38 | XMS_ITS ---
Author Name [facility] [place] Address [address] [place] [address] Care Team Providers Care Engagement Lead Name Role Phone KERI LEBLANC Primary Care [...] Crawley's Name Patient's Relationship to Policy Crawley [facility] POINT OF SERVICE SOV ACTIV E SELEC TCAR Apr 14, 2018 [id number] VESNA,JANELL ERT PATIENT [facility] POINT OF SERVICE SOV RET UNDER 65 CHERISE Apr 14, 2018 [id number] VESNA,JANELL ERT PATIENT [facility] ([id number]) PRESCRIPT ION [facility] NT Apr 14, 2018 Q54A [id number] VESNA,JANELL ERT PATIENT [facility] ([id number]) PRESCRIPT ION [facility] NT Apr 14, 2018 Q54A [id number] [phone] VESNA,JANELL ERT PATIENT Selected Encounter This section includes the [place] for the Encounter. Date/Time Encounter Type Encounter Description Reason Pro vider Source Mar 14, 2023 03:52 PM Outpatient Encounter ADMIN PAT ACTIVTIES (MAGGY) IHE Encounter Template Text not used by [place] Plan of Treatment: Future Appointments (+ 6 months) and Future Tests (+/- 45 days) The Plan of Treatment section includes future care activities for the [place] from all [place] treatment[place]ilities. This section includes future appointments and [...] 28, 2023 02:30 PM AMBULATORY - SURGERY [facility] Apr 04, 2023 09:00 AM AMBULATORY - PSYCHIATRY [facility] Apr 18, 2023 09:00 AM AMBULATORY - PSYCHIATRY [facility] May 16, 2023 09:00 AM AMBULATORY - PSYCHIATRY [facility] May 30, 2023 09:00 AM AMBULATORY - PSYCHIATRY [facility] Jun 13, 2023 09:00 AM AMBULATORY - PSYCHIATRY [facility] Jun 27, 2023 09:00 AM AMBULATORY - PSYCHIATRY [facility] Jul 11, 2023 09:00 AM AMBULATORY - PSYCHIATRY [facility] Jul 25, 2023 09:00 AM AMBULATORY - PSYCHIATRY [facility] Aug 08, 2023 09:00 AM AMBULATORY - PSYCHIATRY [facility] September 09, 2023 09:30 AM AMBULATORY - NONE [facility] Social History: Smoking Status (Most [...] VA-TOBACCO QUIT 5 TO < 15 YRS [facility] Tobacco Use History This section includes a history of the smoking, or tobacco-related health factors, that were collected on or before the date of the Encounter. The data comes from the [place] facility where the Encounter took place. Date/Time Smoking Status/Tobacco Use Comment F acility August 19, 2022 09:30 AM VA-TOBACCO QUIT 5 TO < 15 YRS [facility] Jul 30, 2021 02:30 PM VA-TOBACCO FORMER USER [facility] Jul 30, 2021 02:30 PM VA-TOBACCO QUIT 1 TO < 5 YRS [facility] Mar 30, 2020 09:00 AM VA-TOBACCO FORMER USER [facility] Mar 30, 2020 09:00 AM VA-TOBACCO QUIT 1 TO < 5 YRS [facility] Mar 25, 2019 08:16 AM VA-TOBACCO FORMER USER [facility] Mar 25, 2019 08:16 AM VA-TOBACCO QUIT < 1 YEAR [facility] Mar 17, 2018 10:44 AM VA-TOBACCO FORMER USER [facility] Mar 17, 2018 10:44 AM VA-TOBACCO QUIT < 1 YEAR [facility] May 19, 2017 11:10 AM LIFETIME NON-TOBACCO USER [facility] Mar 14, 2017 08:57 AM CURRENT SMOKELESS TOBACCO USER [facility] Mar 14, 2017 08:57 AM V1-PT [facility]CLINES [facility] Mar 14, 2017 08:57 AM V1-PT READY TO SHARON T TOBACCO USE [facility] August 26, 2016 12:48 PM V1-PT DECLINES [facility] August 26, 2016 12:48 PM V1-PT THINKING ABO UT QUIT TOBACCO USE [facility] August 26, 2016 08:45 AM CURRENT SMOKER FELICITA PAREDES [facility] Aug 08, 2014 09:46 AM CURRENT SMOKER FELICITA Harris [facility] Aug 08, 2014 09:46 AM V1-PT DECLINES REF [facility] Aug 08, 2014 09:46 AM V1-PT DECLINES TOB ACCO CESSATION MEDS [facility] Aug 08, 2014 09:46 AM V1-PT THINKING ABO UT QUIT TOBACCO USE [facility] Jul 07, 2013 02:26 PM CURRENT SMOKER 4-6 cigarettes/day [facility] Jul 07, 2013 02:26 PM V1-PT DECLINES REF TO TOBACCO CESS PRGM [facility] Jul 07, 2013 02:26 PM V1-PT DECLINES TOB ACCO CESSATION MEDS [facility] Jul 07, 2013 02:26 PM V1-PT THINKING ABO UT QUIT TOBACCO USE [facility] Jul 15, 2012 02:30 PM CURRENT SMOKER Pt. is back to .5 to a ppd. Wants to quit again. [facility] Jul 15, 2011 10:07 AM V1-PT DECLINES REF TO TOBACCO CESS PRGM [facility] Jul 15, 2011 10:07 AM V1-PT READY TO SHARON T TOBACCO USE [facility] Dec 05, 2010 01:00 PM QUIT TOBACCO USE I N PAST YEAR [facility] Radiology Reports: +/- 30 days of [...] the Encounter. The data comes from all [facility] facilities. Date/Time Radiology Report Provider Source Feb 14, 2023 09:[address] CHEST (INCLUDES ADRENALS): EDITH MALAGON JHOAN [id number] -1965 M Ex Date: FEB 14, 2023@09:00 Req Phys: KERI LEBLANC Pat Loc: [facility] PACT ACAD 4 B M1RB (Req'g Img Loc: CT SCAN (OOS) Service: Unknown (Case [id number] COMPLETE) LDCT LUNG CANCER SCREENING (CT Detailed) CPT:96659 Reason for Study: LDCT Lung cancer screening Clinical History: No contrast allergy BUN: 15 (09/05/22 09:26) CREATI: 1.02 (09/05/22 09:26) eGFR - NONE FOUND Weight: 267 lb [121.11 kg] (01/09/2023 09:31) BODY MASS INDEX - NO HEIGHTS FOUND Pager number: [phone] STAT orders MUST be called to RADIOLOGY [phone] to speak to the appropriate industrial cleaning technician. Indications - Lung cancer screening Report Status: Verified Date Reported: FEB 16, 2023 Date Verified: FEB 16, 2023 Mana E-Sig:/BEAR/IRWIN MAZARIEGOS Report: LDCT LUNG CANCER SCREENING COMPARISON: [...] BEHAVIOR Primary Interpreting Staff: Staff CINTIA KINGSLEY (Mana) /IRWIN HANSEN [facility] Encounter Notes: All associated encounter notes This section contains the clinical notes associated to the Encounter. Date/Time Encounter Note(s) Provider Source Mar 14, 2023 03:53 PM ADMINISTRATIVE NOT E: LOCAL TITLE: Has Admin Note STANDARD TITLE: ADMINISTRATIVE NOTE DATE OF NOTE: MAR 14, 2023@15:53 ENTRY DATE: MAR 14, 2023@15:53:03 AUTHOR: RUSTY HERNANDEZ EXP COSIGNER: URGENCY: STATUS: COMPLETED Reason for call Clinic Name:[facility] Patient came in today with eye problem but did not want to wait to be seen. Called back to see if he still wanted eye exam, left a vm. Sent contact letter. /bear/ RUSTY HERNANDEZ MSA Signed: 03/14/2023 15:54 RUSTY HERNANDEZ [facility] Mar 14, 2023 03:52 PM LETTERS: LOCAL TITLE: LETTER TO PATIENT ATTEMPT TO CONTACT STANDARD TITLE: LETTERS DATE OF NOTE: MAR 14, 2023@15:52 ENTRY DATE: MAR 14, 2023@15:52:16 AUTHOR: RUSTY HERNANDEZ EXP COSIGNER: URGENCY: STATUS: COMPLETED [facility] [address] [place] [address] MAR 14, 2023 EDITH MALAGON [address] [place] [id number] Dear EDITH MALAGON, [facility] [place] is trying to reach you to schedule an appointment. If you have already been in contact with the clinic and scheduled an appointment you may disregard this letter. If we do not hear from you within 14 days, we will assume you no longer desire an appointment. Please call one of the numbers provided below so that we may find a suitable date for you: Service: Optometry Service Direct: [phone] Ext: [phone] Toll Free: [phone] Ext: [phone] We look forward to hearing from you. Sincerely, Clinical Operations RUSTY HERNANDEZ [facility]
--- OUTSIDE RECORDS SUMMARY | 2023-11-05 12:38 | XMS_ITS ---
Author Name [facility] Address [address] [place] [address] Care Team Providers Care Paralegal Specialist Name Role Phone KERI LEBLANC Primary [...] Crawley's Name Patient's Relationship to Policy Crawley [facility] ACTIV E SELEC TCAR Apr 14, 2018 [id number] [phone] JANELL MALAGON ERT PATIENT [facility] SOV RET UNDER 63 [place] Apr 14, 2018 [id number] [phone] VESNA,JANELL ERT PATIENT [facility] ([id number]) PRESCRIPT ION [facility] Apr 14, 2018 [id number] VESNA,JANELL ERT PATIENT [facility] ([id number]) PRESCRIPT ION [facility] Apr 14, 2018 [id number] VESNA,JANELL ERT PATIENT Selected Encounter This section includes the information on record at [place] for the Encounter. Date/Time Encounter Type Encounter Description Reason Provider Source Apr 18, 2023 09:00 AM PSYTX W PT 45 MINUTES [facility] ICD-10-CM F43.23 Adjustment disorder with mixed anxiety and depressed mood MAYELA HAINES Encounter Template Text not used by [facility] Assessments - Encounter Diagnoses This section includes the primary and secondary diagnoses documented for the Encounter. Date/Time Primary/Secondary Diagnosis Diagnosis Name Provider Source Apr 18, 2023 11:41 AM PRIMARY Adjustment disorder with mixed anxiety and depressed mood [facility] Apr 18, 2023 11:41 AM SECONDARY Post-traumatic stress disorder, chronic TEAGAN RAUSCH [facility] Plan of Treatment: Future Appointments (+ 6 months) and Future Tests (+/- 45 days) The Plan of Treatment section includes future care activities for the patient [facility] This section includes future appointments and future orders which are active, pending or scheduled. Future Appointments This section includes appointments that were scheduled to occur 6 months from the date of the Encounter, up to a maximum of 20 appointments. The data comes from all [place] treatment facilities. Appointment Date/Time Appointment Type Appointme nt Facility Name May 16, 2023 09:00 AM AMBULATORY - PSYCHIATRY [facility] May 30, 2023 09:00 AM AMBULATORY - PSYCHIATRY [facility] Jun 13, 2023 09:00 AM AMBULATORY - PSYCHIATRY [facility] Jun 27, 2023 09:00 AM AMBULATORY - PSYCHIATRY [facility] Jul 11, 2023 09:00 AM AMBULATORY - PSYCHIATRY [facility] Jul 25, 2023 09:00 AM AMBULATORY - PSYCHIATRY [facility] Aug 08, 2023 09:00 AM AMBULATORY - PSYCHIATRY [facility] September 09, 2023 09:30 AM AMBULATORY - NONE [facility] Social History: Smoking Status (Most current) and Tobacco Use (All prior to encounter date) This section includes the most current, and the historical, smoking and tobacco- related health factors from the [facility] facility where the Encounter took place. Current Smoking Status This section includes the most current smoking, or tobacco-related health factor, from the [place] facility where the Encounter took place. Date/Time Current Smoking Status Comment Paul ity August 19, 2022 09:30 AM VA-TOBACCO FORMER USER [facility] Tobacco Use History This section includes a history of the smoking, or tobacco-related health factors, that were collected on or before the date of the Encounter. The data comes from the [place] facility where the Encounter took place. Date/Time Smoking Status/Tobacco Use Comment F acility August 19, 2022 09:30 AM VA-TOBACCO QUIT 5 TO < 15 YRS [facility] Jul 30, 2021 02:30 PM VA-TOBACCO FORMER USER [facility] Jul 30, 2021 02:30 PM VA-TOBACCO QUIT 1 TO < 5 YRS [facility] Mar 30, 2020 09:00 AM VA-TOBACCO FORMER USER [facility] Mar 30, 2020 09:00 AM VA-TOBACCO QUIT 1 TO < 5 YRS [facility] Mar 25, 2019 08:16 AM VA-TOBACCO FORMER USER [facility] Mar 25, 2019 08:16 AM VA-TOBACCO QUIT < 1 YEAR [facility] Mar 17, 2018 10:44 AM VA-TOBACCO FORMER USER [facility] Mar 17, 2018 10:44 AM VA-TOBACCO QUIT < 1 YEAR [facility] May 19, 2017 11:10 AM LIFETIME NON-TOBACCO USER [facility] Mar 14, 2017 08:57 AM CURRENT SMOKELESS TOBACCO USER [facility] Mar 14, 2017 08:57 AM V1-PT DECLINES REF TO TOBACCO CESS [facility] Mar 14, 2017 08:57 AM V1-PT READY TO SHARON T TOBACCO USE [facility] August 26, 2016 12:48 PM V1-PT DECLINES REF TO TOBACCO CESS [facility] August 26, 2016 12:48 PM V1-PT THINKING ABO UT QUIT TOBACCO USE [facility] August 26, 2016 08:45 AM CURRENT SMOKER FELICITA [facility] Aug 08, 2014 09:46 AM CURRENT SMOKER FELICITA [facility]ED[facility] Aug 08, 2014 09:46 AM V1-PT DECLINES REF TO TOBACCO CESS [facility] Aug 08, 2014 09:46 AM V1-PT DECLINES TOB ACCO CESSATION MEDS [facility] Aug 08, 2014 09:46 AM V1-PT THINKING ABO UT QUIT TOBACCO USE [facility] Jul 07, 2013 02:26 PM CURRENT SMOKER 4-6 cigarettes/day [facility] Jul 07, 2013 02:26 PM V1-PT DECLINES REF TO TOBACCO CESS PRGM [facility] Jul 07, 2013 02:26 PM V1-PT DECLINES TOB ACCO CESSATION MEDS [facility] Jul 07, 2013 02:26 PM V1-PT THINKING ABO UT QUIT TOBACCO USE [facility] Jul 15, 2012 02:30 PM CURRENT SMOKER Pt. is back to .5 to a ppd. Wants to quit again. [facility] Jul 15, 2011 10:07 AM V1-PT DECLINES REF TO TOBACCO CESS [facility] Jul 15, 2011 10:07 AM V1-PT READY TO SHARON T TOBACCO USE [facility] Dec 05, 2010 01:00 PM QUIT TOBACCO USE I N PAST YEAR [facility] Encounter Notes: All associated encounter notes This section contains the clinical notes associated to the Encounter. Date/Time Encounter Note(s) Provider Source Apr 18, 2023 10:37 AM MENTAL HEALTH COUN SELING NOTE: LOCAL TITLE: Psychotherapy/Mental Health STANDARD TITLE: MENTAL HEALTH COUNSELING NOTE DATE OF NOTE: APR 18, 2023@10:37 ENTRY DATE: APR 18, 2023@10:38:35 AUTHOR: MAKENZIE RAUSCH EXP COSIGNER: DI HAINES URGENCY: STATUS: COMPLETED Psychotherapy/Mental Health Has ADDENDA Individual Psychotherapy Session 4 Length of Visit: 50 min Primary Diagnosis treated this visit: MDD Secondary Diagnosis treated this visit: PTSD Modality of treatment/intervention: Follow-up/Intake Session content: PT spent time discussing the status of his relationship stress. Since hunting season ended, he reports no longer having an outlet activity that feels mood enhancing. He states that he feels like he is walking on eggshells everyday around his and has to force himself to stay quiet to avoid confrontation. Two days ago, he approached his about the impact that her actions have had on his mood and reports that the conversation was productive. His has since stopped making statements that place blame on him for her physical and psychological health. PT states he rarely shares his feelings with his but was happy that she seemed receptive to this new approach. He is not optimistic that their stability will last however, he feels more inclined to approach her with his concerns. Discussed importance of self-care and behavioral activation as it relates to mood enhancing activities. PT agreeable to focusing next session discussion on healthy communication styles. 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 Please see the 02/14/2023 Suicide/Homicide risk note for additional details. Assessment: PT's mood seemed lower in-session relative to previous meetings. He showed improved willingness to engage in discussion about the possibility of from his but does not think separation is realistic. He states he worries about his 's financial stability given he does not believe she would be able to hold a job in her current psychological state. PT was receptive to discussion about SMART goals and the importance of practicing self-care now that hunting season has ended. Plan: RTC in 3 weeks to resume psychotherapy. PT plans to take a one hour walk this week in service of self-care. Relationship Health & Safety consult placed NLT RTC (date and time of next appointment): Apr @09:00 This case and treatment provided are discussed in routine, on-going supervision with the undersigned supervisor functional testing. /bear/ MAKENZIE RAUSCH Psychology Practicum Student Signed: 04/18/2023 11:41 /bear/ Di Haines Psy.D. Clinical Health Psychologist Cosigned: 04/18/2023 12:00 04/18/2023 ADDENDUM STATUS: COMPLETED I have reviewed this case and concur with the clinical impressions and recommendations made by this trainee, who is under my clinical supervision. We discuss topics including assessment, diagnosis, impressions, interventions, and recommendations related to [place] care in a standard, weekly 60-minute individual supervision meeting. /bear/ Di Haines Psy.D. Clinical Health Psychologist Signed: 04/18/2023 12:00 MAKENZIE RAUSCH [facility]
--- OUTSIDE RECORDS SUMMARY | 2023-11-05 12:38 | XMS_ITS | Encounter Summary ---
Author Name [facility] [place] [facility] [facility] [place] Address [address] [place] [address] Care Team Providers Care Scale Manager Name Role Phone KERI LEBLANC Primary Care [...] Crawley's Name Patient's Relationship to Policy Crawley [facility] POINT OF SERVICE SOV RET UNDER 65 CHERISE Apr 14, 2018 [id number] [phone] JANELL MALAGON ERT PATIENT [facility] POINT OF SERVICE SOV ACTIV E SELEC TCAR Apr 14, 2018 [id number] [phone] VESNA,JANELL ERT PATIENT [facility] ([id number]) PRESCRIPT ION [facility] [place] [place] Apr 14, 2018 [id number] [phone] VESNA,JANELL ERT PATIENT [facility] ([id number]) PRESCRIPT ION [facility] [place] [place] Apr 14, 2018 Q54A [id number] [phone] VESNA,JANELL ERT PATIENT Selected Encounter This section includes the information on record at [place] for the Encounter. Date/Time Encounter Type Encounter Description Reason Provider Source Apr 04, 2023 09:00 AM PSYCH DIAGNOSTIC EVALUATION [facility] ICD-10-CM F43.23 Adjustment disorder with mixed anxiety and depressed mood MAYELA HAINES Encounter Template Text not used by [place] Assessments - Encounter Diagnoses This section includes the primary and secondary diagnoses documented for the Encounter. Date/Time Primary/Secondary Diagnosis Diagnosis Name Provider Source Apr 04, 2023 12:59 PM PRIMARY Adjustment disorder with mixed anxiety and depressed mood [place] LICONA [facility] Apr 04, 2023 12:59 PM SECONDARY Post-traumatic stress disorder, chronic TEAGAN RAUSCH [facility] Plan of Treatment: Future Appointments (+ 6 months) and Future Tests (+/- 45 days) The Plan of Treatment section includes future care activities for the patient from all [place] treatmentfacarteret health careities. This section includes future appointments and future orders which are active, pending or scheduled. Future Appointments This section includes appointments that were scheduled to occur 6 months from the date of the Encounter, up to a maximum of 20 appointments. The data comes from all [place] treatment facilities. Appointment Date/Time Appointment Type Appointme nt Facility Name Apr 18, 2023 09:00 AM AMBULATORY - PSYCHIATRY [facility] May 16, 2023 09:00 AM AMBULATORY - PSYCHIATRY [facility] May 30, 2023 09:00 AM AMBULATORY - PSYCHIATRY [facility] Jun 13, 2023 09:00 AM AMBULATORY - PSYCHIATRY [facility] Jun 27, 2023 09:00 AM AMBULATORY - PSYCHIATRY [facility] Jul 11, 2023 09:00 AM AMBULATORY - PSYCHIATRY [facility] Jul 25, 2023 09:00 AM AMBULATORY - PSYCHIATRY [facility] Aug 08, 2023 09:00 AM AMBULATORY - PSYCHIATRY [facility] September 09, 2023 09:30 AM AMBULATORY - [facility] Social History: Smoking Status (Most current) and Tobacco Use (All prior to encounter date) This section includes the most current, and the historical, smoking and tobacco- related health factors from the [facility] facility where the Encounter took place. Current Smoking Status This section includes the most current smoking, or tobacco-related health factor, from the [place] facility where the Encounter took place. Date/Time Current Smoking Status Comment Paul ity August 19, 2022 09:30 AM VA-TOBACCO FORMER USER [facility] Tobacco Use History This section includes a history of the smoking, or tobacco-related health factors, that were collected on or before the date of the Encounter. The data comes from the [place] facility where the Encounter took place. Date/Time Smoking Status/Tobacco Use Comment Marisol acjasvir August 19, 2022 09:30 AM VA-TOBACCO QUIT 5 TO < 15 YRS [facility] Jul 30, 2021 02:30 PM VA-TOBACCO FORMER USER [facility] Jul 30, 2021 02:30 PM VA-TOBACCO QUIT 1 TO < 5 YRS [facility] Mar 30, 2020 09:00 AM VA-TOBACCO FORMER USER [facility] Mar 30, 2020 09:00 AM VA-TOBACCO QUIT 1 TO < 5 YRS [facility] Mar 25, 2019 08:16 AM VA-TOBACCO FORMER USER [facility] Mar 25, 2019 08:16 AM VA-TOBACCO QUIT < 1 YEAR [facility] Mar 17, 2018 10:44 AM VA-TOBACCO FORMER USER [facility] Mar 17, 2018 10:44 AM VA-TOBACCO QUIT < 1 YEAR [facility] May 19, 2017 11:10 AM LIFETIME NON-TOBACCO USER [facility] Mar 14, 2017 08:57 AM CURRENT SMOKELESS TOBACCO USER [facility] Mar 14, 2017 08:57 AM V1-PT DECLINES REF TO TOBACCO CESS [facility] Mar 14, 2017 08:57 AM V1-PT READY TO SHARON T TOBACCO USE [facility] August 26, 2016 12:48 PM V1-PT DECLINES REF TO TOBACCO CESS [facility] August 26, 2016 12:48 PM V1-PT THINKING ABO UT QUIT TOBACCO USE [facility] August 26, 2016 08:45 AM CURRENT SMOKER FELICITA PAREDES [facility] Aug 08, 2014 09:46 AM CURRENT SMOKER FELICITA PAREDES [facility] Aug 08, 2014 09:46 AM V1-PT DECLINES REF TO TOBACCO CESS [facility] Aug 08, 2014 09:46 AM V1-PT DECLINES TOB ACCO CESSATION MEDS [facility] Aug 08, 2014 09:46 AM V1-PT THINKING ABO UT QUIT TOBACCO USE [facility] Jul 07, 2013 02:26 PM CURRENT SMOKER 4-6 cigarettes/day [facility] Jul 07, 2013 02:26 PM V1-PT DECLINES REF TO TOBACCO CESS [facility] Jul 07, 2013 02:26 PM V1-PT DECLINES TOB ACCO CESSATION [facility] Jul 07, 2013 02:26 PM V1-PT THINKING ABO UT QUIT TOBACCO USE [facility] Jul 15, 2012 02:30 PM CURRENT SMOKER Pt. is back to .5 to a ppd. Wants to quit again. [facility] Jul 15, 2011 10:07 AM V1-PT DECLINES REF TO TOBACCO CESS [facility] Jul 15, 2011 10:07 AM V1-PT READY TO SHARON T TOBACCO USE [facility] Dec 05, 2010 01:00 PM QUIT TOBACCO USE I N PAST YEAR [facility] Encounter Notes: All associated encounter notes This section contains the clinical notes associated to the Encounter. Date/Time Encounter Note(s) Provider Source Apr 04, 2023 12:48 PM MENTAL HEALTH DIAG NOSTIC STUDY NOTE: LOCAL TITLE: Mental Health Diagnostic Study Note STANDARD TITLE: MENTAL HEALTH DIAGNOSTIC STUDY NOTE DATE OF NOTE: APR 04, 2023@12:48:38 ENTRY DATE: APR 04, 2023@12:48:38 AUTHOR: MAKENZIE RAUSCH EXP COSIGNER: DI HAINES URGENCY: STATUS: COMPLETED These assessments were completed by EDITH MALAGON via provider direct entry on 04/04/2023 12:47:37 PM. PATIENT HEALTH QUESTIONNAIRE-9 (PHQ-9) The patient reported some symptoms of depression; symptoms are not consistent with a major depressive episode. Patient reported being bothered by the following over the last 2 weeks: 1. Little interest or pleasure: Several Days 2. Feeling down, depressed or hopeless: Several Days 3. Trouble sleeping: Several Days 4. Tired, low energy: Nearly every day 5. Poor appetite, over-eating: Several Days 6. Feelings of failure, guilt: Several Days 7. Trouble concentrating: More than half the days 8. Motor retardation, agitation: Not at all 9. Thoughts better off /hurting self: Not at all PHQ-9 total score = 10 1-4 = minimal symptoms 5-9= mild symptoms 10-14= moderate symptoms 15-19= moderately severe symptoms 20-27= severe depressive symptoms The patient stated that the depressive symptoms made it very difficult to work, take care of things at home, or get along with others. GENERAL ANXIETY DISORDER-7 (ELICEO-7) Patient reported being bothered by the following over the last two weeks: 1. Feeling nervous, anxious or on edge: More than half the days 2. Not being able to stop or control worrying: More than half the days 3. Worrying too much about different things: More than half the days 4. Trouble relaxing: Nearly every day 5. Feeling restless (hard to sit still): Not at all 6. Becoming easily annoyed or irritable: More than half the days 7. Afraid as if something awful might happen: More than half the days ELICEO-7 total score = 13 0-4=minimal symptoms 5-9=mild symptoms 10-14=moderate symptoms 15-21=severe symptoms The patient stated that the anxiety symptoms made it somewhat difficult to work, take care of things at home, or get along with others. /bear/ MAKENZIE RAUSCH Psychology Practicum Student Signed: 04/04/2023 17:33 /bear/ Di Haines Psy.D. Clinical Health Psychologist Cosigned: 04/05/2023 08:51 MAKENZIE RAUSCH [facility] Apr 04, 2023 11:32 AM MENTAL HEALTH INIT IAL EVALUATION NOTE: LOCAL TITLE: Initial Eval/Mental Health STANDARD TITLE: MENTAL HEALTH INITIAL EVALUATION NOTE DATE OF NOTE: APR 04, 2023@11:32 ENTRY DATE: APR 04, 2023@11:32:33 AUTHOR: MAKENZIE RAUSCH COSIGNER: DI HAINES URGENCY: STATUS: COMPLETED Initial Eval/Mental Health Has ADDENDA MENTAL HEALTH INITIAL PSYCHOTHERAPY EVALUATION IDENTIFICATION: Name: EDITH MALAGON Age: 57 Gender: MALE Ethnicity: DECLINED TO ANSWER Marital status: Druze: UNKNOWN/NO PREFERENCE Service connection: SERVICE CONNECTED % - 100 Primary Care Provider: KERI LEBLANC [facility] 4 CHIEF COMPLAINT: 57 yo with PTSD and MDD reports worsening anxiety in the context of marital discord. HISTORY OF PROBLEM: 57 yo with longstanding depression and PTSD reports worsening anxiety and depressive sx in the context of marital discord throughout the past 3-4 years. He first recalls experiencing PTSD sx 6 years ago characterized by depressed mood, increased agitation, recurrent nightmares, and intrusive memories. In 2018 he began experiencing persistent thoughts of suicide and reports holding a gun to his head on two occasions. 2 weeks following the second instance, he presented to [facility] to seek support and referral. He engaged in OP therapy with Dr. Boyle and reports significant reduction in PTSD sx following the completion of CPT. He denies current SI/HI and states won't consider [suicide] because of how much hurt that would cause my family. He states he has one close friend with whom he relies on for support and states he will occasionally call him or go hunting with him if he needs to talk. PT attributes his recent exacerbation of depressive sx to the increased stress he feels in his day-to-day life due to his relationship with his . Their relationship began to experience strain in 2019 during the peak of COVID restrictions. PT reports that his began to experience paranoia in 2019, initially related to COVID, but later extended to concerns/fears about the impact of WI-FI, cellular signals, solar power, and metals on her physical health. PT reports that his blames him for her physical distress, stating that he is responsible for their living circumstances in which they are exposed to these factors. Previous Mental Health Treatment (Psychiatric, Psychotherapy, Inpatient, Outpatient, Residential, Self-Help e.g., AA): OP therapy with Dr. Boyle in 2017 due to depression, PTSD, and persistent thoughts of suicide. History of Suicidal Ideation/Behavior or Self-Harm: Past six months: Denies Lifetime: Reports persistent thoughts of suicide in [id number]. Describes 2 incidents of putting a gun to his head. Presented to [facility] 2 weeks following second incident and engaged in [facility] Family History of Psychiatric Illness, Suicide, Substance Abuse: Reports his sister has struggled with addiction. Denies knowledge of addiction family h/o psychiatric illness. Family History of Suicide: No If yes, relationship to the patient: LEGAL HISTORY: Ever arrested? No Ever arrested for domestic violence? No Ever a victim of domestic violence? No Past convictions? Result: NA Current pending charges? No (describe) NA History of Violence/Assault: Past six months: Denies Lifetime: Denies as a civilian SUBSTANCE USE HISTORY: Addiction History (Alcohol, Drugs, Behavioral Addictions: gambling, pornography, magda, etc.): Past six months: Denies Lifetime: Reports h/o daily crack cocaine use in his early 40s. He states he stopped cold turkey when he and his moved to [place] Addiction treatments: Denies Self-Help Groups e.g., AA: Denies History of DUI or other addiction-related legal problems: Denies MEDICAL INFORMATION: Active problems - Computerized Problem List is the source for the followin. Anxiety disorder 2. Erectile dysfunction 3. Hyperlipidemia 4. Non-alcoholic fatty liver 5. Thyroid nodule 6. Multiple pulmonary nodules 7. Obesity 8. Chronic post-traumatic stress disorder 9. Major depressive disorder 10. Dysfunction of eustachian tube 11. Sleep apnea 12. Ex-smoker CONCUSSION HISTORY Have you had any concussions or head injuries? No (If yes, describe) PAIN ASSESSMENT: Are you experiencing physical pain: Yes Recent pain severity (1 10 scale with 1 = absence of pain, 10 most pain you could imagine) 07/22 Location and description of the pain: Back and ankles Treatments for the pain (e.g., medications, non-medication treatments, etc.)NSAIDS, activity NUTRITION ASSESSMENT: HT(in): 70 in [177.8 cm] (05/19/2019 13:57) WT(lbs):267 lb [121.11 kg] (01/09/2023 09:31) BMI: BODY MASS INDEX - NO HEIGHTS FOUND Allergies: VARDENAFIL SEPTEMBER 05, 2022 (observed) Symptoms: HEADACHE DULOXETINE SEPTEMBER 02, 2017 (observed) Symptoms: ANXIETY SUICIDAL THOUGHTS Weight gain or loss of 10 lbs or more in the preceding three months No (cause of weight gain or loss if known) No Binge eating No Deliberate food restriction No Purging e.g., vomiting, laxatives, etc. PSYCHOSOCIAL HISTORY Personal History (Developmental History, Family, Employment/Vocational, Trauma, Education, Marital): PT is the second to youngest of 7 children. He was raised by his biological mother and father and describes his childhood as normal. He shares he was close with his parents and siblings and parents throughout most of his life but states in the past few years, he has distanced himself from his siblings due to stress within his marriage. PT [place] his [place] and has been to her for 37 years. They have two children, a daughter in her mid-twenties and a son in his mid-thirties. PT shares he and his children have maintained close, supportive relationships until the past 3-4 years due to worsening discord between their mother. As such, he states he rarely visits with his children and speaks to them on the phone every few months. 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 PT reports that he experienced traumatic events during his service in [place] in 2002. 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 History of Trauma: Yes (see Personal History for Details) Current family: and two children Does the patient want family members involved in their care? No If yes, then who? NA Bereavement issues that would impact treatment: Has anyone close to the patient w/in the past 2 years? No If so, who? Friends/Peers: Reports one close friendship Community resources accessed by patient (outside agencies or providers): PT states he knows he has access to resources at his adventism but he is not very anabaptist so he rarely utilizes them EDUCATION Highest level of education attained: Highschool Diploma If college, what was the Veterans focus of study: I took a couple gen. ed. classes Is the aware of any learning challenges/disabilities? No (If yes, describe): Is the Spur currently enrolled in school: No Is the Spur considering returning to school: No If yes, area of interest: VOCATIONAL BACKGROUND Work status: Retired If employed, satisfied with current position? (explain) NA Financial Status [e.g. self-supporting, pension, disability (VA, SSDI)]: Work-related pension/skilled nursing income, Disability income (VA,SSDI) Living situation (please include type of situation, who living with, and stability): Current Living Situation (choose one): Living in stable housing that you own, rent or stay in as a part of a household Living with (Choose all that apply): Family Leisure/Recreational Activities: PT enjoys hunting and states it is his primary leisure activity for reducing stress. He states he used to be more active but has cut out many of his activities to make sure he is available to support his Mandaeism/Spiritual beliefs, values, and preferences: PT is a member of [employer] but states he only attends to support his practicing . He does not consider himself spiritual or anabaptist Does the patient currently attend anabaptist services? Yes If so, what are they:STARFACE adventism Will the patient's anabaptist/spiritual preferences affect treatment? 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 No Wish to be 2. No Suicidal thoughts 3. No Suicidal thoughts with method (without specific plan or intent) 4. No Suicidal intent (without specific plan) 5. No Suicidal intent with specific plan 6. No Suicide behavior question Risk Assessment MENTAL STATUS EXAM: Mental Status Examination: Appearance: neatly and casually dressed, groomed, appears stated age, normal weight Psychomotor behavior and posture: normal, good eye contact Speech: normal Mood: sad Affect: appropriate to content Thought content: normal Thought form: coherent, linear, logical Judgment: intact Insight: fair Orientation: person, place, date, time Attention/Concentration: not formally assessed, no problems exhibited Memory: not formally assessed, no apparent problems with short/terminal block assembler Summary and Diagnostic Impression/Formulation: Provisional Diagnoses and Assessment: 57 yo with longstanding PTSD and depression reports worsening anxiety and depressive sx in the past 2-3 years in the context of marital discord. He currently endorses low mood, decreased energy, decreased engagement in activities, and disrupted sleep. He c/o difficulty coping with a high degree of stress and states he has been forced to remove many helpful coping activities from his life because he worries his will get angry if he leaves her alone. He endorses difficulty controlling excessive worrying, difficulty relaxing, and increased agitation/irritability. The aforementioned sx are consistent with his adjustment disorder with mixed anxiety and depressed mood. Spur's short and long-term goals (use Spur's own words when possible) and preferences for treatment: I feel like I am stuck and I would like to be able to process my relationship with my . I also want to cope better in this relationship Strengths/Abilities: Insightful, resourceful, caring, resilient Is the able to care for themselves: Yes No (explain): Do you have a Behavioral Health Advance Directive? No Would you like information about and/or assistance with a Behavioral Health Advance Directives? No PRELIMINARY TREATMENT PLAN: (Include next steps, referrals made or considered, and follow-up appointments) RTC in 2 weeks, Apr.18 at 9am, to resume psychotherapy focused on stress/anger management. was given the clinician's contact information as well as the contact numbers listed below: Yes Contact numbers: * [facility] (hours of operation: 8am - 4pm): Telephone#: [phone] Ext [phone] or [phone] Ext [phone] * After hours: Telephone#: [phone] ext [phone] Or if an emergency call: 911 * [facility] (available 24 hours 7 days a week): Telephone#: [phone] Press 1 Text: [phone] NLT RTC (date and time of next appointment): Apr@10:00 This case and treatment provided are discussed in routine, on-going supervision with the undersigned therapist. /bear/ MAKENZIE RAUSCH Psychology Practicum Student Signed: 04/04/2023 17:33 /bear/ Di Haines Psy.D. Clinical Health Psychologist Cosigned: 04/05/2023 08:51 04/05/2023 ADDENDUM STATUS: COMPLETED I have reviewed this case and concur with the clinical impressions and recommendations made by this trainee, who is under my clinical supervision. We discuss topics including assessment, diagnosis, impressions, interventions, and recommendations related to care in a standard, weekly 60-minute individual supervision meeting. /bear/ Di Haines Psy.D. Clinical Health Psychologist Signed: 04/05/2023 08:52 MAKENZIE RAUSCH [facility]
--- OUTSIDE RECORDS SUMMARY | 2023-11-05 12:38 | XMS_ITS ---
Author Name [facility] [place] [facility] [place] [facility] [place] Address [address] [place] [address] Care Team Providers Care Statement Clerk Name Role Phone KERI LEBLANC Primary Care [...] RET UNDER 65 CHERISE Apr 14, 2018 [id number] [phone] JANELL MALAGON ERT PATIENT [facility] POINT OF SERVICE SOV ACTIV E SELEC TCAR Apr 14, 2018 [id number] [phone] JANELL MALAGON ERT PATIENT [facility] ([id number]) PRESCRIPT ION [facility] NT Apr 14, 2018 Q54A [id number] VESNAJANELL GILLIAM ERT PATIENT [facility] ([id number]) PRESCRIPT ION [facility] NT Apr 14, 2018 Q54A [id number] [phone] VESNA,JANELL ERT PATIENT Selected Encounter This section includes the information on record at [place] for the Encounter. Date/Time Encounter Type Encounter Description Reason Provider Source Mar 28, 2023 02:30 PM OFFICE O/P EST SF 10-19 MIN OPTOMETRY ICD-10-CM H04.123 Dry eye syndrome of bilateral lacrimal glands SOUMYA AUGUST IHSteven Encounter Template Text not used by VA Assessments - Encounter Diagnoses This section includes the primary and secondary diagnoses documented for the Encounter. Date/Time Primary/Secondary Diagnosis Diagnosis Name Provider Source Apr 11, 2023 09:47 AM PRIMARY Dry eye syndrome of bilateral lacrimal glands RADHA BELLE [facility] Plan of Treatment: Future Appointments (+ 6 months) and Future Tests (+/- 45 days) The Plan of Treatment section includes future care activities for the patient from all [place] treatmentfacilities. This section includes future appointments and future orders which are active, pending or scheduled. Future Appointments This section includes appointments that were scheduled to occur 6 months from the date of the Encounter, up to a maximum of 20 appointments. The data comes from all [place] treatment facilities. Appointment Date/Time Appointment Type Appointme nt Facility Name Apr 04, 2023 09:00 AM [place] [place] [facility] Apr 18, 2023 09:00 AM [facility] [place] [facility] May 16, 2023 09:00 AM [facility] May 30, 2023 09:00 AM [facility] [place] [facility] Jun 13, 2023 09:00 AM [facility] [place] [facility] Jun 27, 2023 09:00 AM [facility] [place] [facility] Jul 11, 2023 09:00 AM [place] [place] [facility] Jul 25, 2023 09:00 AM [facility] [place] [facility] Aug 08, 2023 09:00 AM [place] [place] [facility] September 09, 2023 09:30 AM AMBULATORY - NONE [facility] Social History: Smoking Status (Most current) and Tobacco Use (All prior to encounter date) This section includes the most current, and the historical, smoking and tobacco- related health factors from the [place] facility where the Encounter took place. Current Smoking Status This section includes the most current smoking, or tobacco-related health factor, from the [place] facility where the Encounter took place. Date/Time Current Smoking Status Comment Paul ity August 19, 2022 09:30 AM VA-TOBACCO QUIT 5 TO < 15 YRS [facility] Tobacco Use History This section includes a history of the smoking, or tobacco-related health factors, that were collected on or before the date of the Encounter. The data comes from the [place] facility where the Encounter took place. Date/Time Smoking Status/Tobacco Use Comment Marisol acjasvir August 19, 2022 09:30 AM VA-TOBACCO QUIT 5 TO < 15 YRS [facility] Jul 30, 2021 02:30 PM VA-TOBACCO FORMER USER [facility] Jul 30, 2021 02:30 PM VA-TOBACCO QUIT 1 TO < 5 YRS [facility] Mar 30, 2020 09:00 AM VA-TOBACCO FORMER USER [facility] Mar 30, 2020 09:00 AM VA-TOBACCO QUIT 1 TO < 5 YRS [facility] Mar 25, 2019 08:16 AM VA-TOBACCO FORMER USER [facility] Mar 25, 2019 08:16 AM VA-TOBACCO QUIT < 1 YEAR [facility] Mar 17, 2018 10:44 AM VA-TOBACCO FORMER USER [facility] Mar 17, 2018 10:44 AM VA-TOBACCO QUIT < 1 YEAR [facility] May 19, 2017 11:10 AM LIFETIME NON-TOBACCO USER [facility] Mar 14, 2017 08:57 AM CURRENT SMOKELESS TOBACCO USER [facility] Mar 14, 2017 08:57 AM V1-PT DECLINES REF TO TOBACCO [facility]ESS [facility] Mar 14, 2017 08:57 AM V1-PT READY TO SHARON T TOBACCO USE [facility] August 26, 2016 12:48 PM V1-PT DECLINES REF TO TOBACCO CESS [facility] August 26, 2016 12:48 PM V1-PT THINKING ABO UT QUIT TOBACCO USE [facility] August 26, 2016 08:45 AM CURRENT SMOKER FELICITA PAREDES [facility] Aug 08, 2014 09:46 AM CURRENT SMOKER FELICITA PAREDES [facility] Aug 08, 2014 09:46 AM V1-PT DECLINES REF TO TOBACCO CESS [facility] Aug 08, 2014 09:46 AM V1-PT DECLINES TOB ACCO CESSATION MEDS [facility] Aug 08, 2014 09:46 AM V1-PT THINKING ABO UT QUIT TOBACCO USE [facility] Jul 07, 2013 02:26 PM CURRENT SMOKER 4-6 cigarettes/day [facility] Jul 07, 2013 02:26 PM V1-PT DECLINES REF TO TOBACCO CESS [facility] Jul 07, 2013 02:26 PM V1-PT DECLINES TOB ACCO CESSATION MEDS [facility] Jul 07, 2013 02:26 PM V1-PT THINKING ABO UT QUIT TOBACCO USE [facility] Jul 15, 2012 02:30 PM CURRENT SMOKER Pt. is back to .5 to a ppd. Wants to quit again. [facility] Jul 15, 2011 10:07 AM V1-PT DECLINES REF TO TOBACCO CESS [facility] Jul 15, 2011 10:07 AM V1-PT READY TO SHARON T TOBACCO USE [facility] Dec 05, 2010 01:00 PM QUIT TOBACCO USE I N PAST YEAR [facility] Encounter Notes: All associated encounter notes This section contains the clinical notes associated to the Encounter. Date/Time Encounter Note(s) Provider Source Mar 28, 2023 02:13 PM EYE E & M NOTE: LOCAL TITLE: Eye Exam Template STANDARD TITLE: EYE E & M NOTE DATE OF NOTE: MAR 28, 2023@14:13 ENTRY DATE: MAR 28, 2023@14:13:48 AUTHOR: SOUMYA AUGUST EXP COSIGNER: URGENCY: STATUS: COMPLETED NEW OR ESTABLISHED PATIENT OPHTHALMIC EXAMINATION CONSULTATION, SPECIALTY CODE OR E/M SERVICE Active Outpatient Medications (excluding Supplies): Active Outpatient [...] MALE, ESTABLISHED patient Chief Complaint/Reason for visit: TRIAGE #here for ant seg, IOP check #Reports irritation/itching OS lower lid x 1 month -symptoms not present at exam on 02/18/2023 -no change/improvement in symp since onset -intermittent symp -no pain/FBS/red/bluurry/JULES -not using ATs or WC -has still been using post-op drops (pred) without relief # No flashes/floaters/diplopia/LO V Mental Status: alert and attentive Psychological Status: normal OCULAR History: 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 Age-related cataract OU 4. Refractive error w/presbyopia OU VISUAL ACUITY (without Correction) OD: 20/20-2 OS: 20/20-2 OU: 20/20-1 CURRENT RX BCVA OD: -0.50 SPH 20/20-1 OS: -0.50 SPH 20/20 ADD: +2.50 20/20 OU REFRACTION - not required for today's exam EOM: Full without diplopia or pain OU CONFRONTATION VIS HUDSON: full to finger counting OD & OS PUPILS: PERRL, (-) RAPD ORBITS/ADNEXA: Normal OU SLIT LAMP EXAM: Lids/Lashes: OU: 1+ MGD, tr bleph Sclr/Conj: OU: pinguecula N & T Cornea: OD: TBUT 5s OS: TBUT 5s OU: tr inf SPK OS>OD Ant Ch: no cells/flare OU OD: VH 4x4 OS: VH 4x4 Iris: no rubeosis OU OU: normal & intact -------- TONOMETRY: OD/OS 12/21 @1409 [facility] --------- DILATION - not required for today's exam ASSESSMENT 1. Dry Eye Syndrome OU 2. Choroidal Nevus OD 3. Ptosis OS 4. Pseudophakia OU 5. Refractive Error with presbyopia OU PLAN 1. [facility] pt - d/c post op drops. Start ATs BID-QID OU (mail bottle). Start WC x 5- 10m BID OU (no microwave - use washcloth). Monitor. 2-5. Not evaluated today. RTC ORDER: 2 years CEE, CLARUS; sooner prn. ############################ ############################ ###################### STUDENT SUPERVISION: Optometry student Hung Belle participated in the care of this patient. The student performed an initial history, review of systems, medication review, and ophthalmic examination. The above note represents care provided by me and is NOT a student note. Supervising Whiskey Filterer: Soumya August O.D. ############################ ############################ ####################### TOTAL TIME= 15 MINUTES Note complete [X] /bear/ Soumya August OD, FAAO Staff Whiskey Filterer Signed: 03/28/2023 15:02 SOUMYA AUGUST [facility]
--- OUTSIDE RECORDS SUMMARY | 2023-11-05 12:38 | XMS_ITS ---
Author Name [facility] [place] Address [address] [place] [address] Care Team Providers Care Online Marketing Strategist Name Role Phone KERI LEBLANC Primary Care [...] Name Patient's Relationship to Policy [place] [facility] POINT OF SERVICE SOV RET UNDER 65 CHERISE Apr 14, 2018 [id number] [phone] JANELL MALAGON ERT PATIENT [facility] POINT OF SERVICE SOV ACTIV E SELEC TCAR Apr 14, 2018 [id number] JANELL MALAGON ERT PATIENT [facility] ([id number]) PRESCRIPT ION [facility] NT Apr 14, 2018 Q54A [id number] VESNAJANELL GILLIAM ERT PATIENT [facility] ([id number]) PRESCRIPT ION [facility] NT Apr 14, 2018 Q54A [id number] VESNA,JANELL ERT PATIENT Selected Encounter This section includes the information on record at [place] for the Encounter. Date/Time Encounter Type Encounter Description Reason Provider Source Mar 28, 2023 02:51 PM REPAIR & ADJUST SPECTACLES OPTOMETRY ICD-10-CM Z46.0 Encounter for fit/adjst of spectacles and contact lenses RANDELL JAMES Steven Encounter Template Text not used by [place] Assessments - Encounter Diagnoses This section includes the primary and secondary diagnoses documented for the Encounter. Date/Time Primary/Secondary Diagnosis Diagnosis Name Provider Source Apr 10, 2023 02:59 PM PRIMARY Encounter for fit/adjst of spectacles and contact lenses RANDELL JAMES [facility] Plan of Treatment: Future Appointments (+ 6 months) and Future Tests (+/- 45 days) The Plan of Treatment section includes future care activities for the patient from all [place] treatmentfacilities. This section includes future appointments and [...] AM [place] [place] [facility] Apr 18, 2023 09:00 AM [place] [place] [facility] May 16, 2023 09:00 AM [place] [place] [facility] May 30, 2023 09:00 AM [place] [place] [facility] Jun 13, 2023 09:00 AM [place] [place] [facility] Jun 27, 2023 09:00 AM [place] [place] [facility] Jul 11, 2023 09:00 AM [place] [place] [facility] Jul 25, 2023 09:00 AM [place] [place] [facility] Aug 08, 2023 09:00 AM AM[place] [place] [facility] September 09, 2023 09:30 AM AMBULATORY - NONE [facility] Social [...] VA-TOBACCO QUIT 5 TO < 15 YRS [facility] Jul 30, 2021 02:30 PM VA-TOBACCO FORMER USER [facility] Jul 30, 2021 02:30 PM VA-TOBACCO QUIT 1 TO < 5 YRS [facility] Mar 30, 2020 09:00 AM VA-TOBACCO FORMER USER [facility] Mar 30, 2020 09:00 AM VA-TOBACCO QUIT 1 TO < 5 YRS [facility] Mar 25, 2019 08:16 AM VA-TOBACCO FORMER USER [facility] Mar 25, 2019 08:16 AM VA-TOBACCO QUIT < 1 YEAR [facility] Mar 17, 2018 10:44 AM VA-TOBACCO FORMER USER [facility] Mar 17, 2018 10:44 AM VA-TOBACCO QUIT < 1 YEAR [facility] May 19, 2017 11:10 AM LIFETIME NON-TOBACCO USER [facility] Mar 14, 2017 08:57 AM CURRENT SMOKELESS TOBACCO USER [facility] Mar 14, 2017 08:57 AM V1-PT DECLINES [facility] Mar 14, 2017 08:57 AM V1-PT READY TO SHARON T TOBACCO USE [facility] August 26, 2016 12:48 PM V1-PT DECLINES [facility] August 26, 2016 12:48 PM V1-PT THINKING ABO UT QUIT TOBACCO USE [facility] August 26, 2016 08:45 AM CURRENT SMOKER FELICITA PAREDES [facility] Aug 08, 2014 09:46 AM CURRENT SMOKER FELICITA PAREDES [facility] Aug 08, 2014 09:46 AM V1-PT DECLINES RE[facility] Aug 08, 2014 09:46 AM V1-PT DECLINES [facility] Aug 08, 2014 09:46 AM V1-PT THINKING ABO UT QUIT TOBACCO USE [facility] Jul 07, 2013 02:26 PM CURRENT SMOKER 4-6 cigarettes/day [facility] Jul 07, 2013 02:26 [...] AM V1-PT DECLINES REF TO TOBACCO CESS [facility] Jul 15, 2011 10:07 AM V1-PT READY TO SHARON T TOBACCO USE [facility] Dec 05, 2010 01:00 PM QUIT TOBACCO USE I N PAST YEAR [facility] Encounter Notes: All associated encounter notes This section contains the clinical notes associated to the Encounter. Date/Time Encounter Note(s) Provider Source Mar 28, 2023 02:51 PM EYE NOTE: LOCAL TITLE: Eye Optical Fitting Note STANDARD TITLE: EYE NOTE DATE OF NOTE: MAR 28, 2023@14:51 ENTRY DATE: MAR 28, 2023@14:51:16 AUTHOR: RANDELL JAMES EXP COSIGNER: URGENCY: STATUS: COMPLETED was in for repair/refit (21154) of eyeglasses. Repair/refit was made satisfactorily. was informed that he or she may return to the clinic by appointment for fittings, repairs, and adjustments as needed. /bear/ RANDELL JAMES TECHNICAL SALES ENGINEER Signed: 03/28/2023 14:58 RANDELL JAMES [facility]
--- OUTSIDE RECORDS SUMMARY | 2023-11-05 12:39 | XMS_ITS ---
Author Name [facility] [place] Address [address] [place] [address] Care Team Providers Care Architectural Sales Consultant Name Role Phone KERI LEBLANC Primary Care [...] RET UNDER 65 CHERISE Apr 14, 2018 [id number] JANELL MALAGON ERT PATIENT [facility] POINT OF SERVICE SOV ACTIV E SELEC TCAR Apr 14, 2018 [id number] VESNA,JANELL ERT PATIENT [facility] ([id number]) PRESCRIPT ION [facility] NT Apr 14, 2018 Q54A [id number] VESNA,JANELL ERT PATIENT [facility] ([id number]) PRESCRIPT ION [facility] NT Apr 14, 2018 Q54A [id number] VESNA,JANELL ERT PATIENT Selected Encounter This section includes the information on record at [place] for the Encounter. Date/Time Encounter Type Encounter Description Reason Pro vider Source Feb 07, 2023 10:19 AM Outpatient Encounter ADMIN PAT ACTIVTIES (MASNONCT) I[facility] Encounter Template Text not used by [place] Plan of Treatment: Future Appointments (+ 6 months) and Future Tests (+/- 45 days) The Plan of Treatment section includes future care activities for the patient from all [place] treatmentfacilities. This section includes future appointments and future orders which are active, pending or scheduled. Future Appointments This section includes appointments that were scheduled to occur 6 months from the date of the Encounter, up to a maximum of 20 appointments. The data comes from all [place] treatment facilities. Appointment Date/Time Appointment Type Appointme nt Facility Name Feb 14, 2023 09:00 AM [place]ATORY - [place] [facility] Feb 14, 2023 10:00 AM [place] [facility] Feb 18, 2023 08:00 AM [place] [facility] Mar 14, 2023 09:00 AM [place] [facility] Mar 28, 2023 02:30 PM [place]ORY [place] [facility] Apr 04, 2023 09:00 AM [place] [facility] Apr 18, 2023 09:00 AM [place] [facility] May 16, 2023 09:00 AM [place] [facility] May 30, 2023 09:00 AM [place] [facility] Jun 13, 2023 09:00 AM [place] [facility] Jun 27, 2023 09:00 AM [place] [facility] Jul 11, 2023 09:00 AM [place] [facility] Jul 25, 2023 09:00 AM [place] [facility] Aug 08, 2023 09:00 AM [place] [facility] Lab Results: +/- 30 days of the encounter This section includes the Chemistry and Hematology Lab Results on record with [place] for the patient. Radiology Reports and Pathology Reports are provided separately, in subsequent sections. Lab Results This section contains the Chemistry/Hematology Results that were resulted 30 days before or 30 daysafter the date of the Encounter. Date/Time Source Result Type Result - Unit Interpretation Reference Range Comment Jan 18, 2023 08:00 AM [facility] OCCULT BLOOD FIT X1 SCREEN([facility]) Specimen Type: FECES Comment: Tests performed on Team[employer] OC Auto Micro 80(405) Ordering Provider: IKER LEBLANC Report Released Date/Time: Jan 09, 2023 09:06 AM Reporting Lab: [facility] [address] [place] [place] [address] Performing Lab: [facility] [address] [facility] [address] OCCULT BLOOD(FIT)# 1 OF 1([facility]) Negative Negative Social History: Smoking Status (Most current) and Tobacco Use (All prior to encounter date) This section includes the most current, and the historical, smoking and tobacco- related health factors from the [place] facility where the Encounter took place. Current Smoking Status This section includes the most current smoking, or tobacco-related health factor, from the [place] facility where the Encounter took place. Date/Time Current Smoking Status Comment Facil ity August 19, 2022 09:30 AM VA-TOBACCO FORMER USER [facility] Tobacco Use History This section includes a history of the smoking, or tobacco-related health factors, that were collected on or before the date of the Encounter. The data comes from the [place] facility where the Encounter took place. Date/Time Smoking Status/Tobacco Use Comment F acility August 19, 2022 09:30 AM VA-TOBACCO QUIT 5 TO < 15 YRS [facility] Jul 30, 2021 02:30 PM VA-TOBACCO FORMER USER [facility] Jul 30, 2021 02:30 PM VA-TOBACCO QUIT 1 TO < 5 YRS [facility] Mar 30, 2020 09:00 AM VA-TOBACCO FORMER USER [facility] Mar 30, 2020 09:00 AM VA-TOBACCO QUIT 1 TO < 5 YRS [facility] Mar 25, 2019 08:16 AM VA-TOBACCO FORMER USER [facility] Mar 25, 2019 08:16 AM VA-TOBACCO QUIT < 1 YEAR [facility] Mar 17, 2018 10:44 AM VA-TOBACCO FORMER USER [facility] Mar 17, 2018 10:44 AM VA-TOBACCO QUIT < 1 YEAR [facility] May 19, 2017 11:10 AM LIFETIME NON-TOBACCO USER [facility] Mar 14, 2017 08:57 AM CURRENT SMOKELESS TOBACCO USER [facility] Mar 14, 2017 08:57 AM V1-PT DECLINES REF [facility] Mar 14, 2017 08:57 AM V1-PT READY TO SHARON T TOBACCO USE [facility] August 26, 2016 12:48 PM V1-PT DECLINES REF [facility]CO [facility] August 26, 2016 12:48 PM V1-PT THINKING ABO UT QUIT TOBACCO USE [facility] August 26, 2016 08:45 AM CURRENT SMOKER FELICITA [facility] Aug 08, 2014 09:46 AM CURRENT SMOKER FELICITA [facility] Aug 08, 2014 09:46 AM V1-PT DECLINES REF [facility] Aug 08, 2014 09:46 AM V1-PT DECLINES TOB ACCO CESSATION MEDS [facility] Aug 08, 2014 09:46 AM V1-PT THINKING ABO UT QUIT TOBACCO USE [facility] Jul 07, 2013 02:26 PM CURRENT SMOKER 4-6 cigarettes/day [facility] Jul 07, 2013 02:26 PM V1-PT DECLINES REF TO TOBACCO CESS [facility] Jul 07, 2013 02:26 PM V1-PT DECLINES TOB ACCO CESSATION MEDS [facility] Jul 07, 2013 02:26 PM V1-PT THINKING ABO UT QUIT TOBACCO USE [facility] Jul 15, 2012 02:30 PM CURRENT SMOKER Pt. is back to .5 to a ppd. Wants to quit again. [facility] Jul 15, 2011 10:07 AM V1-PT DECLINES REF TO [facility]BACCO CESS [facility] Jul 15, 2011 10:07 AM V1-PT READY TO SHARON T TOBACCO USE [facility] Dec 05, 2010 01:00 PM QUIT TOBACCO USE I N PAST YEAR [facility] Radiology Reports: +/- 30 days of [...] the Encounter. The data comes from all [place] treatment facilities. Date/Time Radiology Report Provider Source Feb 14, 2023 09:[address] CHEST (INCLUDES ADRENALS): EDITH MALAGON [id number] -[id number] M Exm Date: FEB 14, 2023@09:00 Req Phys: KERI LEBLANC Loc: [facility] PACT ACAD 4 B M1RB (Req'g Img Loc: CT SCAN (OOS) Service: Unknown (Case [id number] COMPLETE) LDCT LUNG CANCER SCREENING (CT Detailed) CPT:53789 Reason for Study: LDCT Lung cancer screening Clinical History: No contrast allergy BUN: 15 (09/05/22 09:26) CREATI: 1.02 (09/05/22 09:26) eGFR - NONE FOUND Weight: 267 lb [121.11 kg] (01/09/2023 09:31) BODY MASS INDEX - NO HEIGHTS FOUND Pager number: [phone] STAT orders MUST be called to RADIOLOGY [phone] to speak to the appropriate radiation control technician. Indications - Lung cancer screening Report Status: Verified Date Reported: FEB 16, 2023 Date Verified: FEB 16, 2023 Golf Course Mechanic E-Sig:/BEAR/IRWIN MAZARIEGOS Report: LDCT LUNG CANCER SCREENING [...] BEHAVIOR Primary Interpreting Staff: IRWIN MAZARIEGOS Staff (Golf Course Mechanic) /IRWIN HANSEN [facility] Encounter Notes: All associated encounter notes This section contains the clinical notes associated to the Encounter. Date/Time Encounter Note(s) Provider Source Feb 07, 2023 10:19 AM ADMINISTRATIVE NOT E: LOCAL TITLE: Has Admin Note STANDARD TITLE: ADMINISTRATIVE NOTE DATE OF NOTE: FEB 07, 2023@10:19 ENTRY DATE: FEB 07, 2023@10:19:10 AUTHOR: OJ MCCRAY EXP COSIGNER: URGENCY: STATUS: COMPLETED Has Admin Note Has ADDENDA Reason for call Clinic Name: patient called and wanted to reschedule apt from 02/13/23 @ [address] Darin LR PRACTICUM L1RA to the 3rd as will be here for other appts. Teams message sent to call patient to confirm if this will work. patient also wanted to cancel the visit ARMANDO LR PSYTR 18 L1RA 02/14/23 @ 10AM WITH DR. ALY /bear/ OJ MCCRAY MSA Signed: 02/07/2023 10:23 Receipt Acknowledged By: 02/07/2023 12:09 /bear/ MAKENZIE RAUSCH Psychology Practicum Student 02/07/2023 13:40 /es/ CARMELA ALY STAFF PSYCHIATRIST 02/07/2023 ADDENDUM STATUS: COMPLETED T/w left message confirming change in appointment time. Provided contact information for return call /es/ MAKENZIE RAUSCH Psychology Practicum Student Signed: 02/07/2023 13:04 /es/ Di Burrell Psy.D. Clinical Health Psychologist Cosigned: 02/10/2023 08:58 OJ MCCRAY [facility]
--- OUTSIDE RECORDS SUMMARY | 2023-11-05 12:39 | XMS_ITS ---
Author Name [facility] [place] Address [address] [place] [address] Care Team Providers Care Mate First Name Role Phone KERI ORELLANA Primary Care [...] Name Patient's Relationship to Policy Crawley [facility] POINT OF SERVICE SOV RET UNDER 65 CHERISE Apr 14, 2018 [id number] [phone] JANELL MALAGON ERT PATIENT [facility] POINT OF SERVICE SOV ACTIV E SELEC TCAR Apr 14, 2018 [id number] [phone] JANELL MALAGON ERT PATIENT [facility] ([id number]) PRESCRIPT ION [facility] Apr 14, 2018 [id number] VESNAJANELL GILLIAM ERT PATIENT [facility] ([id number]) PRESCRIPT ION [facility] Apr 14, 2018 [id number] [phone] VESNA,JANELL ERT PATIENT Selected Encounter This section includes the information on record at OR for the Encounter. Date/Time Encounter Type Encounter Description Reason Provider Source Jan 09, 2023 09:30 AM OFFICE O/P EST MOD 30-39 MIN PRIMARY CARE/MEDICINE ICD-10-CM Z01.818 Encounter for other preprocedural examination IKER ORELLANA IHE Encounter Template Text not used by OR Assessments - Encounter Diagnoses This section includes the primary and secondary diagnoses documented for the Encounter. Date/Time Primary/Secondary Diagnosis Diagnosis Name Provider Source Jan 11, 2023 10:48 PM PRIMARY Encounter for other preprocedural examination FREDERICK MUKHERJEE [facility] Jan 11, 2023 10:48 PM SECONDARY Male erectile dysfunction, unspecified FREDERICK MUKHERJEE T [facility] Jan 11, 2023 10:48 PM SECONDARY Obesity, unspecified FREDERICK MUKHERJEE T [facility] Jan 11, 2023 10:48 PM SECONDARY Personal history of nicotine dependence FREDERICK MUKHERJEET [facility] Jan 11, 2023 10:48 PM SECONDARY Unspecified age-related cataract FREDERICK MUKHERJEE [facility] Plan of Treatment: Future Appointments (+ 6 months) and Future Tests (+/- 45 days) The Plan of Treatment section includes future care activities for the patient from [facility]. This section includes future appointments and future orders which are active, pending or scheduled. Future Appointments This section includes appointments that were scheduled to occur 6 months from the date of the Encounter, up to a maximum of 20 appointments. The data comes from all OR treatment facilities. Appointment Date/Time Appointment Type Appointme nt Facility Name Feb 14, 2023 09:00 AM AMBULATORY - NONE [place] AALIYAH T [facility] Feb 14, 2023 10:00 AM [place] [facility] Feb 18, 2023 08:00 AM AMBULATORY [place] [facility] Mar 14, 2023 09:00 AM AM[place] [facility] Mar 28, 2023 02:30 PM AMBULATORY - [place] [facility] Apr 04, 2023 09:00 AM AM[place] [facility] Apr 18, 2023 09:00 AM AM[place]ULATORY - [place] [facility] May 16, 2023 09:00 AM AMBULATORY - PSYCHIATRY [facility] May 30, 2023 09:00 AM AMBULATORY - PSYCHIATRY [facility] Jun 13, 2023 09:00 AM AMBULATORY - PSYCHIATRY [facility] Jun 27, 2023 09:00 AM AMBULATORY - PSYCHIATRY [facility] Lab Results: +/- 30 days of the encounter This section includes the Chemistry and Hematology Lab Results on record with VA for the patient. Radiology Reports and Pathology Reports are provided separately, in subsequent sections. Lab Results This section contains the Chemistry/Hematology Results that were resulted 30 days before or 30 daysafter the date of the Encounter. Date/Time Source Result Type Result - Unit Interpretation Reference Range Comment Jan 18, 2023 08:00 AM [facility] OCCULT BLOOD FIT X1 SCREEN([facility]) Specimen Type: FECES Comment: Tests performed on [employer] 80(405) Ordering Provider: IKER ORELLANA Report Released Date/Time: Jan 09, 2023 09:06 AM Reporting Lab: [facility] [address] [place] [facility] [address] Performing Lab: [facility] [address] [facility] [address] OCCULT BLOOD(FIT)# 1 OF 1([facility]) Negative Negative Vital Signs: All taken on the encounter date This section contains inpatient and outpatient Vital Signs collected on the date of the Encounter. Date/Time Temperature Pulse Blood Pressure Respiratory Rate SP02 Pain Height Weight Body Mass Index Source Jan 09, 2023 09:31 AM 97.8 F 67 /min 120/79 mm[Hg] 18 /min 97 % 6 267 lb 38 [facility] Social History: Smoking Status (Most current) and Tobacco Use (All prior to encounter date) This section includes the most current, and the historical, smoking and tobacco- related health factors from the OR facility where the Encounter took place. Current Smoking Status This section includes the most current smoking, or tobacco-related health factor, from the OR facility where the Encounter took place. Date/Time Current Smoking Status Comment Facil ity August 19, 2022 09:30 AM VA-TOBACCO FORMER USER [facility] Tobacco Use History This section includes a history of the smoking, or tobacco-related health factors, that were collected on or before the date of the Encounter. The data comes from the OR facility where the Encounter took place. Date/Time Smoking Status/Tobacco Use Comment F acility August 19, 2022 09:30 AM VA-TOBACCO QUIT 5 TO < 15 YRS JUAN MANUEL PAREDES [facility] Jul 30, 2021 02:30 PM VA-TOBACCO FORMER USER JUAN MANUEL [facility] Jul 30, 2021 02:30 PM VA-TOBACCO QUIT 1 TO < 5 YRS [facility] Mar 30, 2020 09:00 AM VA-TOBACCO FORMER USER [facility] Mar 30, 2020 09:00 AM VA-TOBACCO QUIT 1 TO < 5 YRS [facility] Mar 25, 2019 08:16 AM VA-TOBACCO FORMER USER [facility] Mar 25, 2019 08:16 AM VA-TOBACCO QUIT < 1 YEAR [facility] Mar 17, 2018 10:44 AM VA-TOBACCO FORMER USER [facility] Mar 17, 2018 10:44 AM VA-TOBACCO QUIT < 1 YEAR [facility] May 19, 2017 11:10 AM LIFETIME NON-TOBACCO USER [facility] Mar 14, 2017 08:57 AM CURRENT SMOKELESS TOBACCO USER [facility] Mar 14, 2017 08:57 AM V1-PT DECLINES REF TO TOBACCO CESS PRGM [facility] Mar 14, 2017 08:57 AM V1-PT READY TO SHARON T TOBACCO USE [facility] August 26, 2016 12:48 PM V1-PT [facility] August 26, 2016 12:48 PM V1-PT THINKING ABO UT QUIT TOBACCO USE [facility] August 26, 2016 08:45 AM CURRENT SMOKER FELICITA PAREDES [facility] Aug 08, 2014 09:46 AM CURRENT SMOKER FELICITA PAREDES [facility] Aug 08, 2014 09:46 AM V1-PT DECLINES REF TO TOBACCO CESS PRGM [facility] Aug 08, 2014 09:46 AM V1-PT DECLINES TOB ACCO CESSATION MEDS [facility] Aug 08, 2014 09:46 AM V1-PT THINKING ABO UT QUIT TOBACCO USE [facility] Jul 07, 2013 02:26 PM CURRENT SMOKER 4-6 cigarettes/day [facility] Jul 07, 2013 02:26 PM V1-PT DECLINES REF TO TOBACCO CESS PRGM [facility] Jul 07, 2013 02:26 PM V1-PT DECLINES TOB ACCO CESSATION MEDS [facility] Jul 07, 2013 02:26 PM V1-PT THINKING ABO UT QUIT TOBACCO USE [facility] Jul 15, 2012 02:30 PM CURRENT SMOKER Pt. is back to .5 to a ppd. Wants to quit again. [facility] Jul 15, 2011 10:07 AM V1-PT DECLINES REF TO TOBACCO CESS PRGM [facility] Jul 15, 2011 10:07 AM V1-PT READY TO SHARON T TOBACCO USE [facility] Dec 05, 2010 01:00 PM QUIT TOBACCO USE I N PAST YEAR [facility] Encounter Notes: All associated encounter notes This section contains the clinical notes associated to the Encounter. Date/Time Encounter Note(s) Provider Source Feb 27, 2023 01:56 AM ADDENDUM: LOCAL TITLE: Addendum STANDARD TITLE: ADDENDUM DATE OF NOTE: FEB 27, 2023@01:56:44 ENTRY DATE: FEB 27, 2023@01:56:45 AUTHOR: KERI ORELLANA EXP COSIGNER: URGENCY: STATUS: COMPLETED Please print and mail the following results letter to the . Thank you. /bear/ KERI ORELLANA MD Signed: 02/27/2023 01:56 Receipt Acknowledged By: 02/27/2023 07:58 /bear/ HERB CARROLL MSA --- Original Document --- 02/27/23 Letter To Patient: [facility] [address] [place] [address] FEB 27, 2023 EDITH MALAGON [address], [place] [address] Dear EDITH MALAGON: I have received the results of your lab work and would like to share them with you. LDCT LUNG CANCER SCREENING Exm Date: FEB 14, 2023@09:00 Impression: 1. Benign-appearing several bilateral sub-3 mm pulmonary nodules: Lung-RADS category 2. Continue annual screening with a low-dose chest CT in 12 months ONLY if the patient meets specific published clinical criteria for annual lung cancer screening per USPSTF guidelines, such as a 20 pack-year smoking history, etc. 2. Suggestion of diffuse fatty infiltration of the liver. There ar jose lung masses concerning for lung cancer. There is no signficant coronary artery disease ('hardening of the arteries') seen in the vessels of the heart. There is evidence of fat stored in the liver, but this is to be expected given yuor history of overweight, and you are treating this appropriately. This is a normal, reassuring study. We will plan to repeat the scan again in 1 year. I look forward to seeing you at your next scheduled visit. Sincerely, KERI HOWARD MD [facility] Feb 27, 2023 01:54 AM LETTERS: LOCAL TITLE: Letter To Patient STANDARD TITLE: LETTERS DATE OF NOTE: FEB 27, 2023@01:54 ENTRY DATE: FEB 27, 2023@01:54:05 AUTHOR: KERI ORELLANA EXP COSIGNER: URGENCY: STATUS: COMPLETED Letter To Patient Has ADDENDA [facility] [address] [place] [address] FEB 27, 2023 EDITH MALAGON [address] [place], [place] [address] Dear EDITH MALAGON: I have received the results of your lab work and would like to share them with you. LDCT LUNG CANCER SCREENING Exm Date: FEB 14, 2023@09:00 Impression: 1. Benign-appearing several bilateral sub-3 mm pulmonary nodules: Lung-RADS category 2. Continue annual screening with a low-dose chest CT in 12 months ONLY if the patient meets specific published clinical criteria for annual lung cancer screening per USPSTF guidelines, such as a 20 pack-year smoking history, etc. 2. Suggestion of diffuse fatty infiltration of the liver. There ar jose lung masses concerning for lung cancer. There is no signficant coronary artery disease ('hardening of the arteries') seen in the vessels of the heart. There is evidence of fat stored in the liver, but this is to be expected given yuor history of overweight, and you are treating this appropriately. This is a normal, reassuring study. We will plan to repeat the scan again in 1 year. I look forward to seeing you at your next scheduled visit. Sincerely, KERI ORELLANA MD 02/27/2023 ADDENDUM STATUS: COMPLETED Please print and mail the following results letter to the . Thank you. /bear/ KERI ORELLANA MD Signed: 02/27/2023 01:56 Receipt Acknowledged By: * AWAITING SIGNATURE * HERB CARROLL JONATHAN B [facility] Jan 22, 2023 12:17 PM ADDENDUM: LOCAL TITLE: Addendum STANDARD TITLE: ADDENDUM DATE OF NOTE: JAN 22, 2023@12:17:24 ENTRY DATE: JAN 22, 2023@12:17:25 AUTHOR: KERI ORELLANA EXP COSIGNER: URGENCY: STATUS: COMPLETED Please print and mail the following results letter to the . Thank you. /bear/ KERI ORELLANA MD Signed: 01/22/2023 12:17 Receipt Acknowledged By: 01/22/2023 13:16 /bear/ HERB CARROLL MSA --- Original Document --- 01/22/23 Letter To Patient: [facility] [address] [place] [address] JAN 22, 2023 [place], [place] [address] Dear EDITH MALAGON: I have received the results of your colon cancer screening and would like to share them with you. Your FIT (fecal immunohistochemical test) was negative. This indicates a low risk for colon cancer at this time. We will plan to repeat this test in one year. No further action is needed at this time. Sincerely, KERI HOWARD MD [facility] Jan 22, 2023 12:17 PM LETTERS: LOCAL TITLE: Letter To Patient STANDARD TITLE: LETTERS DATE OF NOTE: JAN 22, 2023@12:17 ENTRY DATE: JAN 22, 2023@12:17:08 AUTHOR: KERI ORELLANA EXP COSIGNER: URGENCY: STATUS: COMPLETED Letter To Patient Has ADDENDA [facility] [address] [facility] [place] [address] JAN 22, 2023 EDITH MALAGON [address], [place] [address] Dear EDITH MALAGON: I have received the results of your colon cancer screening and would like to share them with you. Your FIT (fecal immunohistochemical test) was negative. This indicates a low risk for colon cancer at this time. We will plan to repeat this test in one year. No further action is needed at this time. Sincerely, KERI ORELLANA MD 01/22/2023 ADDENDUM STATUS: COMPLETED Please print and mail the following results letter to the . Thank you. /bear/ KERI ORELLANA MD Signed: 01/22/2023 12:17 Receipt Acknowledged By: * AWAITING SIGNATURE * CARLYHERB KERI HI [facility] [place] [facility] Jan 11, 2023 10:49 PM ADDENDUM: LOCAL TITLE: Addendum STANDARD TITLE: ADDENDUM DATE OF NOTE: JAN 11, 2023@22:49:11 ENTRY DATE: JAN 11, 2023@22:49:12 AUTHOR: KERI ORELLANA EXP COSIGNER: URGENCY: STATUS: COMPLETED MSA Team, Please fax copy of pre-operative not to [facility]. Thank you. /bear/ KERI ORELLANA MD Signed: 01/11/2023 22:50 Receipt Acknowledged By: 01/13/2023 09:36 /bear/ KLARISSA MICHELLE --- Original Document --- 01/09/23 Primary Care Clinic Note: ID: Mr. Edith Maalgon is a 57 yo, MALE CC: Cataract extraction pre-operative assessment PROBLEM LIST Active problems - Computerized Problem List is the source for the followin. Anxiety disorder 2. Erectile dysfunction 3. Hyperlipidemia 4. Non-alcoholic fatty liver 5. Thyroid nodule 6. Multiple pulmonary nodules 7. Obesity 8. Chronic post-traumatic stress disorder 9. Major depressive disorder 10. Dysfunction of eustachian tube 11. Sleep apnea 12. Ex-smoker HPI: Planned operation: Bilateral cataract excision surgery Date: 01/17/23 R eye, 01/31/23 L eye Cataract Surgery: [facility] Brief HPI: Gradually progressive vision loss, fuzzy with double vision, cannot change vision Rx. He has difficulty tolerating stress of operation and requests general anesthesia. Est. Functional capacity: ~5 METs Hx of bleeding complications: None Hx of clotting complications: None Hx of adverse reaction to anesthesia: None Family hs of adverse reaction to anesthesia: None Recovery location: Home Assistance: supporting PT post-operative plan: Recovery at home, f/u Ophtho planned Consents to in-operation resuscitation as needed. Status of other medical problems: No new complaints or interval issues. #HTN, HLD Takes no cardiac medication. Has intermittent chest pain when he is stressed, prior stress testing negative. No arm/neck/jaw pain. No new or worsening exertional dyspnea. Will have episodes of feeling poorly, gets shaky and lighteadness, sometimes will occur when gets up. Never passed out. No palpitations. No lower extremity edema. No lightheadedness, passing out. #Obesity Did not receive Semaglutide from private pharmacy Weight down 4 lb; Andrew Macrotek, [facility] #Marital stress Marital stress still is an issue. He is considering divorce but concerned about the disruption to life that this would cause. Home is physically safe. No SI/HI, though he does have a hx of suicidality in 2017 he does not have intrusive thoughts or plan of self injury currently. ROS: : Has had 3-4 years of difficulty with erections, has tried PDEi without significant relief. Has reduced libido. Has tried Tadalafil, Sildenafil, AVArdenafil, thinks Sildenafil most effective. Tobacco: Quit ~2018, ~1 ppd since age ~13 Alcohol: None currently Drug: none SHx: Fully retired, lives in [place], [place]. Worked in [employer]. Works around the home, spends time with . Son viki. 1983, Daughter viki. 1992 living 1 [address] away. SERVICE HX: [...] HOURS NEEDED TO PREVENT NICOTINE WITHDRAWAL SYMPTOMS Active Non-VA Medications Status 1) Non-VA SEMAGLUTIDE WL 0.25MG/0.5ML PEN 0.5ML 0.25MG ACTIVE (0.5ML) SUBCUTANEOUSLY ONCE A WEEK 4 Total Medications ALLERGIES: DULOXETINE, VARDENAFIL OBJECTIVE: PE: Temp: 97.8 F [36.6 C] (01/09/2023 09:31) Pulse: 67 (01/09/2023 09:31) BP: 120/79 (01/09/2023 09:31) Resp: 18 (01/09/2023 09:31) 01/09/23 @ 0931 PULSE OXIMETRY: 97 HT(in): 70 in [177.8 cm] (05/19/2019 13:57) WT(lbs):267 lb [121.11 kg] (01/09/2023 09:31) BODY MASS INDEX - NO HEIGHTS FOUND Appearance: Sitting comfortably in chair, No acute distress Eyes: PERRL, no conjunctival injection ENMT: Moist MM CVS: RRR, No M/R/G RESP: Breathing comfortably on room air, no cough observed. No Wheeze/Rales/Ronchi Abd: Central adiposity, otherwise non-tender, Non-distended, BS active MSK: No focal erythema or swelling of the hands, ankles, knees Skin: Warm, dry, well-perfused Neuro/Psych: Alert, Oriented, Appropriate, Conversant. Recent Labs: GLU,BUN,CREAT,LYTES GLUCOSE BUN CREAT SODIUM K CHLOR CO2 09/05/22 09:26 101 H 15 1.02 137 4.2 104 26 GLU,BUN,CREAT,LYTES ANION eGFR 09/05/22 09:26 7 HGB A1C: 5.3 (09/05/22 09:26) HCT: 40.5 (06/09/19 15:33) HGB: 13.2 (06/09/19 15:33) Collection DT Specimen Test Name Result Units Ref Range 09/05/2022 09: PLASMA ALBUMIN 3.6 g/dL 3.2 - 5.0 09/05/2022 09: PLASMA BILIRUBIN, TOTAL 0.8 mg/dL 0.2 - 1.2 09/05/2022 09: PLASMA ALKALINE PHOSPHAT 48 U/L 40 - 150 09/05/2022 09:26 PLASMA ALT(SGPT) 40 U/L 7 - 52 09/05/2022 09:26 PLASMA AST(SGOT) 37 H U/L 5 - 34 CHOL: 212 (09/05/22 09:26) HDL: 45 (09/05/22 09:26) LDL: 147 (09/05/22 09:26) TRI (09/05/22 09:26) B12 - NONE FOUND TSH: 0.95 (09/05/22 09:26) PSA (NUMERICAL CONTROL PROGRAMMER) 09/05/22 09:26 0.20 HIV: No data available for: HIV Ag/Ab SCREEN ASSESSMENT/PLAN: 57 y/o M w obesity class II, HLD, NAFLD, axiety and depression and longstanding cataracts presenting for pre-operative assessment prior to scheduled cataract surgery. #Preoperative assessment. No contraindication to proceeding with scheduled operation without the need for futher testing. - RCRS score 0, 3.9% risk of herminia-operative NV or cardiac - RENATO-CANET score 3, LOW risk for periooperative pulmonary infection (1.6%) - No medication changes indicated for procedure Other issues addressed today: #Erectile dysfunction. Chronic, stable. Preserved libido. - We have prescribed TADALAFIL (Cialis) 1/2-1 tab daily as needed #Obesity class II. Chronic, stable. s/p extensive counseling in diet and lifestyle modification. Excellent candidate for GLP1 agonist, will attempt to follow-up private insurance approval to start medication after operation. - I will contact [employer] to try to get Semaglutide approved #history of tobacco smoking. Chronic, stable. Quit 2018. 30 pk yr hx. - repeat CT lung cancer screening now Healthcare Maintenance addressed today: - COVID vaccination next visit - FIT testing now Follow-Up Plan: 4 months for these issues INSTRUCTIONS PROVIDED THIS VISIT: #ERECTILE DYSFUNCTION - We have prescribed TADALAFIL (Cialis) 1/2-1 tab daily as needed #WEIGHT - I will contact [employer] to try to get Semaglutide approved #LUNG CANCER SCREENING - You will receive a call to schedule CT lung cancer screening Pt educated of Mental health, Emergent and Urgent care services available at [facility] and also in community and reasons to access due to this condition. /bear/ KERI ORELLANA MD Signed: 01/11/2023 22:49 KERI ORELLANA [facility] Jan 09, 2023 10:31 AM PRIMARY CARE ADMINISTRATIVE NOTE: LOCAL TITLE: Administrative Note/Primary Care STANDARD TITLE: PRIMARY CARE ADMINISTRATIVE NOTE DATE OF NOTE: JAN 09, 2023@10:31 ENTRY DATE: JAN 09, 2023@10:31:22 AUTHOR: KERI ORELLANA EXP COSIGNER: URGENCY: STATUS: COMPLETED VISIT RECOMMENDATIONS Visit Date: JAN 09, 2023 Provider: Dr. Keri Orellana #ERECTILE DYSFUNCTION - We have prescribed TADALAFIL (Cialis) 1/2-1 tab daily as needed #WEIGHT - I will contact Lorrie [employer] to try to get Semaglutide approved #LUNG CANCER SCREENING - You will receive a call to schedule CT lung cancer screening FOLLOW-UP: 6 months for follow-up on these issues Mailing Address and Contact: Keri Orellana MD [facility] [address] [place] [address] , [phone] /es/ KERI ORELLANA MD Signed: 01/09/2023 10:31 KERI ORELLANA [facility] Jan 09, 2023 09:59 AM PRIMARY CARE NOTE: LOCAL TITLE: Primary Care Clinic Note STANDARD TITLE: PRIMARY CARE NOTE DATE OF NOTE: JAN 09, 2023@09:59 ENTRY DATE: JAN 09, 2023@09:59:49 AUTHOR: KERI ORELLANA EXP COSIGNER: URGENCY: STATUS: COMPLETED Primary Care Clinic Note Has ADDENDA ID: Mr. Edith Malagon is a 57 yo, MALE CC: Cataract extraction pre-operative assessment PROBLEM LIST Active problems - Computerized Problem List is the source for the followin. Anxiety disorder 2. Erectile dysfunction 3. Hyperlipidemia 4. Non-alcoholic fatty liver 5. Thyroid nodule 6. Multiple pulmonary nodules 7. Obesity 8. Chronic post-traumatic stress disorder 9. Major depressive disorder 10. Dysfunction of eustachian tube 11. Sleep apnea 12. Ex-smoker HPI: Planned operation: Bilateral cataract excision surgery Date: 01/17/23 R eye, 01/31/23 L eye Cataract Surgery: [facility] Brief HPI: Gradually progressive vision loss, fuzzy with double vision, cannot change vision Rx. He has difficulty tolerating stress of operation and requests general anesthesia. Est. Functional capacity: ~5 METs Hx of bleeding complications: None Hx of clotting complications: None Hx of adverse reaction to anesthesia: None Family hs of adverse reaction to anesthesia: None Recovery location: Home Assistance: supporting PT post-operative plan: Recovery at home, f/u Ophtho planned Consents to in-operation resuscitation as needed. Status of other medical problems: No new complaints or interval issues. #HTN, HLD Takes no cardiac medication. Has intermittent chest pain when he is stressed, prior stress testing negative. No arm/neck/jaw pain. No new or worsening exertional dyspnea. Will have episodes of feeling poorly, gets shaky and lighteadness, sometimes will occur when gets up. Never passed out. No palpitations. No lower extremity edema. No lightheadedness, passing out. #Obesity Did not receive Semaglutide from private pharmacy Weight down 4 lb; Andrew Macrotek, [facility] #Marital stress Marital stress still is an issue. He is considering divorce but concerned about the disruption to life that this would cause. Home is physically safe. No SI/HI, though he does have a hx of suicidality in 2017 he does not have intrusive thoughts or plan of self injury currently. ROS: : Has had 3-4 years of difficulty with erections, has tried PDEi without significant relief. Has reduced libido. Has tried Tadalafil, Sildenafil, AVArdenafil, thinks Sildenafil most effective. Tobacco: Quit ~2018, ~1 ppd since age ~13 Alcohol: None currently Drug: none SHx: Fully retired, lives in [place], [place]. Worked in [employer]. Works around the home, spends time with [...] HOURS NEEDED TO PREVENT NICOTINE WITHDRAWAL SYMPTOMS Active Non-VA Medications Status 1) Non-VA SEMAGLUTIDE WL 0.25MG/0.5ML PEN 0.5ML 0.25MG ACTIVE (0.5ML) SUBCUTANEOUSLY ONCE A WEEK 4 Total Medications ALLERGIES: DULOXETINE, VARDENAFIL OBJECTIVE: PE: Temp: 97.8 F [36.6 C] (01/09/2023 09:31) Pulse: 67 (01/09/2023 09:31) BP: 120/79 (01/09/2023 09:31) Resp: 18 (01/09/2023 09:31) 01/09/23 @ 0931 PULSE OXIMETRY: 97 HT(in): 70 in [177.8 cm] (05/19/2019 13:57) WT(lbs):267 lb [121.11 kg] (01/09/2023 09:31) BODY MASS INDEX - NO HEIGHTS FOUND Appearance: Sitting comfortably in chair, No acute distress Eyes: PERRL, no conjunctival injection ENMT: Moist MM CVS: RRR, No M/R/G RESP: Breathing comfortably on room air, no cough observed. No Wheeze/Rales/Ronchi Abd: Central adiposity, otherwise non-tender, Non-distended, BS active MSK: No focal erythema or swelling of the hands, ankles, knees Skin: Warm, dry, well-perfused Neuro/Psych: Alert, Oriented, Appropriate, Conversant. Recent Labs: GLU,BUN,CREAT,LYTES GLUCOSE BUN CREAT SODIUM K CHLOR CO2 09/05/22 09:26 101 H 15 1.02 137 4.2 104 26 GLU,BUN,CREAT,LYTES ANION eGFR 09/05/22 09:26 7 HGB A1C: 5.3 (09/05/22 09:26) HCT: 40.5 (06/09/19 15:33) HGB: 13.2 (06/09/19 15:33) Collection DT Specimen Test Name Result Units Ref Range 09/05/2022 09: PLASMA ALBUMIN 3.6 g/dL 3.2 - 5.0 09/05/2022 09: PLASMA BILIRUBIN, TOTAL 0.8 mg/dL 0.2 - 1.2 09/05/2022 09:26 PLASMA ALKALINE PHOSPHAT 48 U/L 40 - 150 09/05/2022 09:26 PLASMA ALT(SGPT) 40 U/L 7 - 52 09/05/2022 09:26 PLASMA AST(SGOT) 37 H U/L 5 - 34 CHOL: 212 (09/05/22 09:26) HDL: 45 (09/05/22 09:26) LDL: 147 (09/05/22 09:26) TRI (09/05/22 09:26) B12 - NONE FOUND TSH: 0.95 (09/05/22 09:26) PSA (NUMERICAL CONTROL PROGRAMMER) 09/05/22 09:26 0.20 HIV: No data available for: HIV Ag/Ab SCREEN ASSESSMENT/PLAN: 57 y/o M w obesity class II, HLD, NAFLD, axiety and depression and longstanding cataracts presenting for pre-operative assessment prior to scheduled cataract surgery. #Preoperative assessment. No contraindication to proceeding with scheduled operation without the need for futher testing. - RCRS score 0, 3.9% risk of herminia-operative NV or cardiac - RENATO-CANET score 3, LOW risk for periooperative pulmonary infection (1.6%) - No medication changes indicated for procedure Other issues addressed today: #Erectile dysfunction. Chronic, stable. Preserved libido. - We have prescribed TADALAFIL (Cialis) 1/2-1 tab daily as needed #Obesity class II. Chronic, stable. s/p extensive counseling in diet and lifestyle modification. Excellent candidate for GLP1 agonist, will attempt to follow-up private insurance approval to start medication after operation. - I will contact [employer] to try to get Semaglutide approved #history of tobacco smoking. Chronic, stable. Quit 2018. 30 pk yr hx. - repeat CT lung cancer screening now Healthcare Maintenance addressed today: - COVID vaccination next visit - FIT testing now Follow-Up Plan: 4 months for these issues INSTRUCTIONS PROVIDED THIS VISIT: #ERECTILE DYSFUNCTION - We have prescribed TADALAFIL (Cialis) 1/2-1 tab daily as needed #WEIGHT - I will contact [employer] to try to get Semaglutide approved #LUNG CANCER SCREENING - You will receive a call to schedule CT lung cancer screening Pt educated of Mental health, Emergent and Urgent care services available at [facility] and also in community and reasons to access due to this condition. /bear/ KERI ORELLANA MD Signed: 01/11/2023 22:49 01/11/2023 ADDENDUM STATUS: COMPLETED MSA Team, Please fax copy of pre-operative not to [facility]. Thank you. /bear/ KERI ORELLANA MD Signed: 01/11/2023 22:50 Receipt Acknowledged By: * AWAITING SIGNATURE * KLARISSA MICHELLE JONATHAN B [place] [facility] Jan 09, 2023 09:01 AM PRIMARY CARE ADMINISTRATIVE NOTE: LOCAL TITLE: Administrative Note/Primary Care STANDARD TITLE: PRIMARY CARE ADMINISTRATIVE NOTE DATE OF NOTE: JAN 09, 2023@09:01 ENTRY DATE: JAN 09, 2023@09:01:37 AUTHOR: KERI ORELLANA EXP COSIGNER: URGENCY: STATUS: COMPLETED JAN 09, 2023 PRE-VISIT PLANNING NOTE: Labs ordered prior to visit: NONE Imaging ordered prior to visit: NONE Vaccinations to be administered this visit: Influenza -> Clinic Other rooming notes: - FIT testing due. Ordered today. Please provide to patient when roomed. /bear/ KERI ORELLANA MD Signed: 01/09/2023 09:02 Receipt Acknowledged By: 01/09/2023 09:28 /bear/ SHAHZAD BANKS instructor of nursing KERI ORELLANA Venancio [facility]
--- OUTSIDE RECORDS SUMMARY | 2023-11-05 12:39 | XMS_ITS ---
Author Name [facility] [place] [facility] [place] Address [address] [place] [address] Care Team Providers Care Clinical Audiologist Name Role Phone KERI LEBLANC Primary Care Provider Unavailramona amaral Insurance Providers: All historical and current Section Date Range: From patient's date of to the date document was created. This section includes the names of all active insurance providers for the patient. Insurance Provider Type of Coverage Plan Name Start of Policy Coverage End of Policy Coverage Group Number Member ID Insurance Provider's Telephone Number Policy Crawley's Name Patient's Relationship to Policy Crawley [facility] SOV RET UNDER 65 CHERISE Apr 14, 2018 [id number] [phone] VESNA,JANELL ERT PATIENT [facility] SOV ACTIV E SELEC TCAR Apr 14, 2018 [id number] VESNA,JANELL ERT PATIENT [facility] ([id number]) [facility] Apr 14, 2018 [id number] VESNA,JANELL ERT PATIENT [facility] ([id number]) [facility] Apr 14, 2018 [id number] VESNA,JANELL ERT PATIENT Selected Encounter This section includes the information on record at PA for the Encounter. Date/Time Encounter Type Encounter Description Reason Pro vider Source Jan 16, 2023 09:20 AM Outpatient Encounter ADMIN PAT ACTIVTIES (MASNONCT) IHE Encounter Template Text not used by PA Plan of Treatment: Future Appointments (+ 6 months) and Future Tests (+/- 45 days) The Plan of Treatment section includes future care activities for the patient from all PA treatmentfacilities. This section includes future appointments and future orders which are active, pending or scheduled. Future Appointments This section includes appointments that were scheduled to occur 6 months from the date of the Encounter, up to a maximum of 20 appointments. The data comes from all [place] treatment facilities. Appointment Date/Time Appointment Type Appointme nt Facility Name Feb 14, 2023 09:00 AM [place] [facility] Feb 14, 2023 10:00 AM [place] [facility] Feb 18, 2023 08:00 AM AMBULATORY - [place] [facility] Mar 14, 2023 09:00 AM [place] [facility] Mar 28, 2023 02:30 PM AMBULATORY - [place] [facility] Apr 04, 2023 09:00 AM [place] [facility] Apr 18, 2023 09:00 AM [place] [facility] May 16, 2023 09:00 AM [place] [facility] May 30, 2023 09:00 AM [place] [facility] Jun 13, 2023 09:00 AM [place] [facility] Jun 27, 2023 09:00 AM [place] [facility] Jul 11, 2023 09:00 AM [place] [facility] Lab Results: +/- 30 days of the encounter This section includes the Chemistry and Hematology Lab Results on record with PA for the patient. Radiology Reports and Pathology Reports are provided separately, in subsequent sections. Lab Results This section contains the Chemistry/Hematology Results that were resulted 30 days before or 30 daysafter the date of the Encounter. Date/Time Source Result Type Result - Unit Interpretation Reference Range Comment Jan 18, 2023 08:00 AM [place] [facility] OCCULT BLOOD FIT X1 SCREEN([facility]) Specimen Type: FECES Comment: Tests performed on [employer] OC Auto Micro 80(405) Ordering Provider: IKER LEBLANC Report Released Date/Time: Jan 09, 2023 09:06 AM Reporting Lab: [facility] [address] [place] [address] Performing Lab: [facility] [address] [place] [place] [place] [address] OCCULT BLOOD(FIT)# 1 OF 1([facility]) Negative Negative Social History: Smoking Status (Most current) and Tobacco Use (All prior to encounter date) This section includes the most current, and the historical, smoking and tobacco- related health factors from the [place] facility where the Encounter took place. Current Smoking Status This section includes the most current smoking, or tobacco-related health factor, from the PA facility where the Encounter took place. Date/Time Current Smoking Status Comment Facil ity August 19, 2022 09:30 AM VA-TOBACCO FORMER USER [facility] Tobacco Use History This section includes a history of the smoking, or tobacco-related health factors, that were collected on or before the date of the Encounter. The data comes from the [place] facility where the Encounter took place. Date/Time Smoking Status/Tobacco Use Comment F acjasvir August 19, 2022 09:30 AM VA-TOBACCO QUIT 5 TO < 15 YRS [place] [facility] Jul 30, 2021 02:30 PM VA-TOBACCO FORMER USER [facility] Jul 30, 2021 02:30 PM VA-TOBACCO QUIT 1 TO < 5 YRS [place] [facility] Mar 30, 2020 09:00 AM VA-TOBACCO FORMER USER [place] [facility] Mar 30, 2020 09:00 AM VA-TOBACCO QUIT 1 TO < 5 YRS [place] [facility] Mar 25, 2019 08:16 AM VA-TOBACCO FORMER USER [place] [facility] Mar 25, 2019 08:16 AM VA-TOBACCO QUIT < 1 YEAR [place] [facility] Mar 17, 2018 10:44 AM VA-TOBACCO FORMER USER [facility] Mar 17, 2018 10:44 AM VA-TOBACCO QUIT < 1 YEAR [facility] May 19, 2017 11:10 AM LIFETIME NON-TOBACCO USER [facility] Mar 14, 2017 08:57 AM CURRENT SMOKELESS TOBACCO USER [facility] Mar 14, 2017 08:57 AM V1-PT DECLINES REF TO TOBACCO CESS [facility] Mar 14, 2017 08:57 AM V1-PT READY TO SHARON T TOBACCO USE [facility] August 26, 2016 12:48 PM V1-PT DECLINES REF TO TOBACCO CESS [facility] August 26, 2016 12:48 PM V1-PT THINKING ABO UT QUIT TOBACCO USE [facility] August 26, 2016 08:45 AM CURRENT SMOKER [facility] Aug 08, 2014 09:46 AM CURRENT SMOKER [facility] Aug 08, 2014 09:46 AM V1-PT DECLINES REF TO TOBACCO CESS [facility] Aug 08, 2014 09:46 AM V1-PT DECLINES TOB ACCO CESSATION MEDS [facility] Aug 08, 2014 09:46 AM V1-PT THINKING ABO UT QUIT TOBACCO USE [facility] Jul 07, 2013 02:26 PM CURRENT SMOKER 4-6 cigarettes/day [facility] Jul 07, 2013 02:26 PM V1-PT DECLINES REF TO TOBACCO CESS [facility] Jul 07, 2013 02:26 PM V1-PT [facility] Jul 07, 2013 02:26 PM V1-PT THINKING ABO UT QUIT TOBACCO USE [facility] Jul 15, 2012 02:30 PM CURRENT SMOKER Pt. is back to .5 to a ppd. Wants to quit again. [facility] Jul 15, 2011 10:07 AM V1-PT DECLINES REF TO TOBACCO CESS [facility] Jul 15, 2011 10:07 AM V1-PT READY TO SHARON T TOBACCO USE [facility] Dec 05, 2010 01:00 PM QUIT TOBACCO USE I N PAST YEAR [facility] Radiology Reports: +/- 30 days of [...] the Encounter. The data comes from all [place] treatment facilities. Date/Time Radiology Report Provider Source Feb 14, 2023 09:[address] CHEST (INCLUDES ADRENALS): EDITH MALAGON [id number] -1965 M Exm Date: FEB 14, 2023@09:00 Req Phys: KERI LEBLANC Loc: [facility] PACT ACAD 4 B M1RB (Req'g Img Loc: CT SCAN ([facility]OS) Service: Unknown (Case [id number] COMPLETE) LDCT LUNG CANCER SCREENING (CT Detailed) CPT:97778 Reason for Study: LDCT Lung cancer screening Clinical History: No contrast allergy BUN: 15 (09/05/22 09:26) CREATI: 1.02 (09/05/22 09:26) eGFR - NONE FOUND Weight: 267 lb [121.11 kg] (01/09/2023 09:31) BODY MASS INDEX - NO HEIGHTS FOUND Pager number: [phone] STAT orders MUST be called to RADIOLOGY [phone] to speak to the appropriate ordnance technician. Indications - Lung cancer screening Report Status: Verified Date Reported: FEB 16, 2023 Date Verified: FEB 16, 2023 Surg Rn E-Sig:/BEAR/IRWIN MAZARIEGOS Report: LDCT LUNG CANCER SCREENING [...] BEHAVIOR Primary Interpreting Staff: Staff CINTIA KINGSLEY (Surg Rn) /IRWIN [facility]ANSEN [facility] Encounter Notes: All associated encounter notes This section contains the clinical notes associated to the Encounter. Date/Time Encounter Note(s) Provider Source Jan 16, 2023 09:26 AM ADDENDUM: LOCAL TITLE: Addendum STANDARD TITLE: ADDENDUM DATE OF NOTE: JAN 16, 2023@09:26:50 ENTRY DATE: JAN 16, 2023@09:26:50 AUTHOR: TERE ONEAL EXP COSIGNER: URGENCY: STATUS: COMPLETED Please fax Primary care note of 01/09 to Lyla as above. Fax at [facility] is [phone] Mora cao/ TERE CANALES RN Signed: 01/16/2023 09:28 Receipt Acknowledged By: 01/16/2023 09:41 /bear/ ALEXX VIDAL --- Original Document --- 01/16/23 CCC: SCHEDULING ADMINISTRATION: Patient Demographics Patient Name: EDITH MALAGON SSN: [id number] Patient Primary Address: [address] [place] [address]
[place] [address] Patient Primary Phone: [phone] Patient : 1965 Patient Age: 57 Caller/Recipient Relation to Patient: Other Call Back Number: [phone] If Other Describe Relation to Patient: Med office Caller Name: Lyla Administrative Administrative Note Reason: Paperwork Request Administrative Note Comments: Lyla calls from [facility], to request that pre op paperwork be refaxed directly to the day surgery center at [facility], to make paperwork more readable. Carmel is scheduled for surgery tomorrow 01/17/2023. Fax at [facility] is [phone] [place] phone [phone] /bear/ GAVI taylor [facility] Signed: 01/16/2023 09:20 TERE ONEAL [facility] Jan 16, 2023 09:20 AM ADMINISTRATIVE NOT E: LOCAL TITLE: CCC: SCHEDULING ADMINISTRATION STANDARD TITLE: ADMINISTRATIVE NOTE DATE OF NOTE: JAN 16, 2023@09:20:48 ENTRY DATE: JAN 16, 2023@09:20:49 AUTHOR: GAVI KIRBY EXP COSIGNER: URGENCY: STATUS: COMPLETED CCC: SCHEDULING ADMINISTRATION Has ADDENDA Patient Demographics Patient Name: EDITH MALAGON SSN: [id number] Patient Primary Address: [address] [place] [address] <>[place] [address] Patient Primary Phone: [phone] Patient : 1965 Patient Age: 57 Caller/Recipient Relation to Patient: Other Call Back Number: [phone] If Other Describe Relation to Patient: Med office Caller Name: Lyla Administrative Administrative Note Reason: Paperwork Request Administrative Note Comments: Lyla calls from [facility], to request that pre op paperwork be refaxed directly to the day surgery center at [facility], to make paperwork more readable. [place] is scheduled for surgery tomorrow 01/17/2023. Fax at [facility] is [phone] Luz phone [phone] /bear/ GAVI taylor [address] [facility] Signed: 01/16/2023 09:20 01/16/2023 ADDENDUM STATUS: COMPLETED Please fax Primary care note of 01/09 to Lyla as above. Fax at [facility] is [phone] Attn Lyla /bear/ TERE CANALES RN Signed: 01/16/2023 09:28 Receipt Acknowledged By: * AWAITING SIGNATURE * ALEXX VIDAL MARGARET JANE [place] [facility]
--- OUTSIDE RECORDS SUMMARY | 2023-11-05 12:39 | XMS_ITS | Encounter Summary ---
Author Name [facility] [place] Organization [place] Address [address] [place] [address] Care Team Providers Care Cytopathologist Name Role Phone KERI LEBLANC Primary Care [...] Crawley's Name Patient's Relationship to Policy Crawley [facility] POINT OF SERVICE SOV RET UNDER 65 CHERISE Apr 14, 2018 [id number] JANELL MALAGON ERT PATIENT [facility] POINT OF SERVICE SOV ACTIV E SELEC TCAR Apr 14, 2018 [id number] [phone] VESNA,JANELL ERT PATIENT [facility] ([id number]) [facility] NT Apr 14, 2018 [id number] [phone] VESNA,JANELL ERT PATIENT [facility] ([id number]) [facility] NT Apr 14, 2018 Q54A [id number] VESNA,JANELL ERT PATIENT Selected Encounter This section includes the information on record at [place] for the Encounter. Date/Time Encounter Type Encounter Description Reason Pro vider Source Feb 12, 2023 12:00 AM Outpatient Encounter EVENT (HISTORICAL) IHE Encounter Template Text not used by VA Plan of Treatment: Future Appointments (+ 6 months) and Future Tests (+/- 45 days) The Plan of Treatment section includes future care activities for the patient from all [place] [facility]. This section includes future appointments [...] AMBULATORY - [place]ONE [place] [facility] Feb 14, 2023 10:00 AM [place] [facility] Feb 18, 2023 08:00 AM [place]ORY [place] [facility] Mar 14, 2023 09:00 AM [place] [facility] Mar 28, 2023 02:30 PM [place]ORY [place] [facility] Apr 04, 2023 09:00 AM [place] [facility] Apr 18, 2023 09:00 AM [place] [facility] May 16, 2023 09:00 AM [place] [facility] May 30, 2023 09:00 AM [place] [facility] Jun 13, 2023 09:00 AM [place] [facility] Jun 27, 2023 09:00 AM [place] [facility] Jul 11, 2023 09:00 AM [place] [facility] Jul 25, 2023 09:00 AM [place] [facility] Aug 08, 2023 09:00 AM [place] [facility] Lab Results: +/- 30 days of the encounter This section includes the Chemistry and Hematology Lab Results on record with [place] for the patient. Radiology Reports and Pathology Reports are provided separately, in subsequent sections. Lab Results This section contains the Chemistry/Hematology Results that were resulted 30 days before or 30 daysafter the date of the Encounter. Date/Time Source Result Type Result - Unit Interpretation Reference Range Comment Jan 18, 2023 08:00 AM [facility] OCCULT BLOOD FIT X1 SCREEN([facility]) Specimen Type: FECES Comment: Tests performed on [employer] OC Auto Micro 80(405) Ordering Provider: IKER LEBLANC Report Released Date/Time: Jan 09, 2023 09:06 AM Reporting Lab: [facility] [address] [facility] [place] [address] Performing Lab: [facility] [address] [facility] [address] OCCULT BLOOD(FIT)# 1 OF 1([facility]) Negative Negative Immunizations: All administered on the encounter date This section contains immunizations associated to the Encounter. Immunization Series Date Issued Reaction Comments INFLUENZA, UNSPECIFIED FORMULATION Feb 12, 2023 Social History: Smoking Status (Most current) and [...] AM VA-TOBACCO FORMER USER [facility] Mar 17, 2018 10:44 AM VA-TOBACCO QUIT < 1 YEAR [facility] May 19, 2017 11:10 AM LIFETIME NON-TOBACCO USER [facility] Mar 14, 2017 08:57 AM CURRENT SMOKELESS TOBACCO USER [facility] Mar 14, 2017 08:57 AM V1-PT DECLINES REF TO TOBACCO CESS [facility] Mar 14, 2017 08:57 AM V1-PT READY TO SHARON T TOBACCO USE [facility] August 26, 2016 12:48 PM V1-PT DECLINES REF TO TOBACCO CESS [facility] August 26, 2016 12:48 PM V1-PT THINKING ABO UT QUIT TOBACCO USE [facility] August 26, 2016 08:45 AM CURRENT SMOKER [facility] Aug 08, 2014 09:46 AM CURRENT SMOKER [facility] Aug 08, 2014 09:46 AM V1-PT DECLINES REF TO TOBACCO CESS [facility] Aug 08, 2014 09:46 AM V1-PT DECLINES TOB ACCO CESSATION MEDS [facility] Aug 08, 2014 09:46 [...] REF TO TOBACCO CESS [facility] Jul 15, 2011 10:07 AM V1-PT READY TO SHARON T TOBACCO USE [facility] Dec 05, 2010 01:00 PM QUIT TOBACCO USE I N PAST YEAR [facility] Radiology Reports: +/- 30 days of [...] the Encounter. The data comes from all [place] treatment facilities. Date/Time Radiology Report Provider Source Feb 14, 2023 09:[address] CHEST (INCLUDES ADRENALS): EDITH MALAGON [id number] -1965 M Exm Date: FEB 14, 2023@09:00 Req Phys: KERI LEBLANC Loc: [place] PACT ACAD 4 B M1RB (Req'g Img Loc: CT SCAN ([facility]OS) Service: Unknown (Case [id number] COMPLETE) LDCT LUNG CANCER SCREENING (CT Detailed) CPT:39892 Reason for Study: LDCT Lung cancer screening Clinical History: No contrast allergy BUN: 15 (09/05/22 09:26) CREATI: 1.02 (09/05/22 09:26) eGFR - NONE FOUND Weight: 267 lb [121.11 kg] (01/09/2023 09:31) BODY MASS INDEX - NO HEIGHTS FOUND Pager number: [phone] STAT orders MUST be called to RADIOLOGY [phone] to speak to the appropriate sales service technician. Indications - Lung cancer screening Report Status: Verified Date Reported: FEB 16, 2023 Date Verified: FEB 16, 2023 Compressor House Operator E-Sig:/ES/IRWIN MAZARIEGOS Report: LDCT LUNG CANCER SCREENING [...] BEHAVIOR Primary Interpreting Staff: Staff CINTIA KINGSLEY (Compressor House Operator) /IRWIN HANSEN [facility]
--- OUTSIDE RECORDS SUMMARY | 2023-11-05 12:39 | XMS_ITS | Encounter Summary ---
Author Name [facility] [place] [facility] [place] Address [address] [place] [address] Care Team Providers Care Territory Account Representative Name Role Phone KERI LEBLANC Primary Care [...] ACTIV E SELEC TCAR Apr 14, 2018 [id number] [phone] JANELL MALAGON ERT PATIENT [facility] POINT OF SERVICE SOV RET UNDER 65 CHERISE Apr 14, 2018 [id number] [phone] VESNA,JANELL ERT PATIENT [facility] ([id number]) PRESCRIPT ION [facility] Apr 14, 2018 [id number] [phone] VESNA,JANELL ERT PATIENT [facility] ([id number]) PRESCRIPT ION [facility] Apr 14, 2018 Q54A [id number] VESNA,JANELL ERT PATIENT Selected Encounter This section includes the information on record at [place] for the Encounter. Date/Time Encounter Type Encounter Description Reason Pro vider Source Feb 04, 2023 12:06 PM Outpatient Encounter COMMUNITY CARE CONSULT IHE Encounter Template Text not used by VA Plan of Treatment: Future Appointments (+ 6 months) and Future Tests (+/- 45 days) The Plan of Treatment section includes future care activities for the patient from all [place] [facility]. This section includes future appointments and future orders which are active, pending or scheduled. Future Appointments This section includes appointments that were scheduled to occur 6 months from the date of the Encounter, up to a maximum of 20 appointments. The data comes from all [place] treatment facilities. Appointment Date/Time Appointment Type Appointme nt Facility Name Feb 14, 2023 09:00 AM AM[facility]ULATORY - NONE [place] [facility] Feb 14, 2023 10:00 AM [place] [facility] Feb 18, 2023 08:00 AM [place] [facility] Mar 14, 2023 09:00 AM [place] [facility] Mar 28, 2023 02:30 PM AMBULATORY [place] [facility] Apr 04, 2023 09:00 AM [place] [facility] Apr 18, 2023 09:00 AM [place] [facility] May 16, 2023 09:00 AM [place] [facility] May 30, 2023 09:00 AM [place] [facility] Jun 13, 2023 09:00 AM [place] [facility] Jun 27, 2023 09:00 AM [place] [facility] Jul 11, 2023 09:00 AM [place] [facility] Jul 25, 2023 09:00 AM [place] [facility] Lab Results: +/- 30 days of the encounter This section includes the Chemistry and Hematology Lab Results on record with [place] for the patient. Radiology Reports and Pathology Reports are provided separately, in subsequent sections. Lab Results This section contains the Chemistry/Hematology Results that were resulted 30 days before or 30 daysafter the date of the Encounter. Date/Time Source Result Type Result - Unit Interpretation Reference Range Comment Jan 18, 2023 08:00 AM [facility] OCCULT BLOOD FIT X1 SCREEN([facility]) Specimen Type: FECES Comment: Tests performed on [employer] Micro 80(405) Ordering Provider: IKER LEBLANC Report Released Date/Time: Jan 09, 2023 09:06 AM Reporting Lab: [facility] [address] [place] [address] Performing Lab: [facility] [address] [facility] [address] OCCULT BLOOD(FIT)# 1 OF 1([facility]) Negative Negative Social History: Smoking Status (Most current) and Tobacco Use (All prior to encounter date) This section includes the most current, and the historical, smoking and tobacco- related health factors from the [place] facility where the Encounter took place. Current Smoking Status This section includes the most current smoking, or tobacco-related health factor, from the [place] facility where the Encounter took place. Date/Time Current Smoking Status Comment Facil ity August 19, 2022 09:30 AM VA-TOBACCO QUIT 5 TO < 15 YRS [facility] Tobacco Use History This section includes a history of the smoking, or tobacco-related health factors, that were collected on or before the date of the Encounter. The data comes from the [place] facility where the Encounter took place. Date/Time Smoking Status/Tobacco Use Comment F acility August 19, 2022 09:30 AM VA-TOBACCO QUIT 5 TO < 15 YRS [place] [facility] Jul 30, 2021 02:30 PM VA-TOBACCO FORMER USER [place] [facility] Jul 30, 2021 02:30 PM VA-TOBACCO QUIT 1 TO < 5 YRS [place] [facility] Mar 30, 2020 09:00 AM VA-TOBACCO FORMER USER [place] [facility] Mar 30, 2020 09:00 AM VA-TOBACCO QUIT 1 TO < 5 YRS [place] [facility] Mar 25, 2019 08:16 AM VA-TOBACCO FORMER USER [place] [facility] Mar 25, 2019 08:16 AM VA-TOBACCO QUIT < 1 YEAR [place] [facility] Mar 17, 2018 10:44 AM VA-TOBACCO FORMER USER [place] [facility] Mar 17, 2018 10:44 AM VA-TOBACCO QUIT < 1 YEAR [place] [facility] May 19, 2017 11:10 AM LIFETIME NON-TOBACCO USER [facility] Mar 14, 2017 08:57 AM CURRENT SMOKELESS TOBACCO USER [facility] Mar 14, 2017 08:57 AM V1-PT DECLINES REF [facility] Mar 14, 2017 08:57 AM V1-PT READY TO SHARON T TOBACCO USE [facility] August 26, 2016 12:48 PM V1-PT DECLINES REF [facility] August 26, 2016 12:48 PM V1-PT THINKING ABO UT QUIT TOBACCO USE [facility] August 26, 2016 08:45 AM CURRENT SMOKER FELICITA PAREDES [facility] Aug 08, 2014 09:46 AM CURRENT SMOKER FELICITA PAREDES [facility] Aug 08, 2014 09:46 AM V1-PT DECLINES REF TO TOBACCO CESS [facility] Aug 08, 2014 09:46 AM V1-PT DECLINES TOB ACCO CESSATION MEDS [facility] Aug 08, 2014 09:46 AM V1-PT THINKING ABO UT QUIT TOBACCO USE [facility] Jul 07, 2013 02:26 PM CURRENT SMOKER 4-6 cigarettes/day [facility] Jul 07, 2013 02:26 PM V1-PT DECLINES REF TO TOBACCO CESS [facility] Jul 07, 2013 02:26 PM [facility] Jul 07, 2013 02:26 PM V1-PT THINKING ABO UT QUIT TOBACCO USE [facility] Jul 15, 2012 02:30 PM CURRENT SMOKER Pt. is back to .5 to a ppd. Wants to quit again. [facility] Jul 15, 2011 10:07 AM V1-PT DECLINES REF TO TOBACCO CESS [facility] Jul 15, 2011 10:07 AM V1-PT READY TO SHARON T TOBACCO USE [facility] Dec 05, 2010 01:00 PM QUIT TOBACCO USE I N PAST YEAR [facility] Radiology Reports: +/- 30 days of [...] the Encounter. The data comes from all [place] treatment facilities. Date/Time Radiology Report Provider Source Feb 14, 2023 09:[address] CHEST (INCLUDES ADRENALS): EDTIH MALAGON [id number] -1965 M Exm Date: FEB 14, 2023@09:00 Req Phys: KERI LEBLANC Loc: [facility] PACT ACAD 4 B M1RB (Req'g Img Loc: CT SCAN ([facility]OS) Service: Unknown (Case [id number] COMPLETE) LDCT LUNG CANCER SCREENING (CT Detailed) CPT:19977 Reason for Study: LDCT Lung cancer screening Clinical History: No contrast allergy BUN: 15 (09/05/22 09:26) CREATI: 1.02 (09/05/22 09:26) eGFR - NONE FOUND Weight: 267 lb [121.11 kg] (01/09/2023 09:31) BODY MASS INDEX - NO HEIGHTS FOUND Pager number: [phone] STAT orders MUST be called to RADIOLOGY [phone] to speak to the appropriate computer service technician. Indications - Lung cancer screening Report Status: Verified Date Reported: FEB 16, 2023 Date Verified: FEB 16, 2023 Ux Consultant E-Sig:/BEAR/IRWIN MAZARIEGOS Report: LDCT LUNG CANCER SCREENING [...] BEHAVIOR Primary Interpreting Staff: Staff CINTIA KINGSLEY (Ux Consultant) /IRWIN HANSEN [facility] Encounter Notes: All associated encounter notes This section contains the clinical notes associated to the Encounter. Date/Time Encounter Note(s) Provider Source Feb 04, 2023 12:06 PM NONVA CONSULT: LOCAL TITLE: COMMUNITY CARE CONSULT RESULT NOTE STANDARD TITLE: NONVA CONSULT DATE OF NOTE: FEB 04, 2023@12:06 ENTRY DATE: MAR 08, 2023@12:07:19 AUTHOR: SUBHA CHAWLA EXP COSIGNER: URGENCY: STATUS: COMPLETED VistA Imaging - Scanned Document [facility] DOS: 02/04/2023 PROCEDURE VISIT-F/U EXAM S/P [facility], 1928–1983 /bear/ SUBHA CHAWLA BRAKES INSPECTOR Signed: 03/08/2023 12:08 SUBHA CHAWLA Venancio [facility]
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
--- OUTSIDE RECORDS SUMMARY | 2023-11-05 12:39 | XMS_ITS | Encounter Summary ---
Author Name [facility] [place] [facility] [place] [facility] [place] Address [address] [place] [address] Care Team Providers Care Composite Bond Technician Name Role Phone KERI LEBLANC Primary Care [...] Crawley's Name Patient's Relationship to Policy Crawley [facility] POINT OF SERVICE SOV RET UNDER 65 CHERISE Apr 14, 2018 [id number] JANELL MALAGON ERT PATIENT [facility] POINT OF SERVICE SOV ACTIV E SELEC TCAR Apr 14, 2018 [id number] VESNA,JANELL ERT PATIENT [facility] ([id number]) PRESCRIPT ION [facility] NT Apr 14, 2018 Q54A [id number] VESNA,JANELL ERT PATIENT [facility] ([id number]) PRESCRIPT ION [facility] NT Apr 14, 2018 Q54A [id number] [phone] VESNA,JANELL ERT PATIENT Selected Encounter This section includes the information on record at [place] for the Encounter. Date/Time Encounter Type Encounter Description Reason Pro vider Source Jan 21, 2023 12:00 PM Outpatient Encounter COMMUNITY CARE CONSULT IHE Encounter Template Text not used by [place] Plan of Treatment: Future Appointments (+ 6 [...] AMBULATORY - NONE [place] [facility] Feb 14, 2023 10:00 AM [place] [facility] Feb 18, 2023 08:00 AM AMBUL[place]ORY - [place] [facility] Mar 14, 2023 09:00 AM [place] [facility] Mar 28, 2023 02:30 PM [place] - [place] [facility] Apr 04, 2023 09:00 AM [place] [facility] Apr 18, 2023 09:00 AM [place] [facility] May 16, 2023 09:00 AM [place] [facility] May 30, 2023 09:00 AM [place] [facility] Jun 13, 2023 09:00 AM [place] [facility] Jun 27, 2023 09:00 AM [place] [facility] Jul 11, 2023 09:00 AM [place] [facility] Lab Results: +/- 30 days of the encounter This section includes the Chemistry and Hematology Lab Results on record with [place] for the patient. Radiology Reports and Pathology Reports are provided separately, in subsequent sections. Lab Results This section contains the Chemistry/Hematology Results that were resulted 30 days before or 30 daysafter the date of the Encounter. Date/Time Source Result Type Result - Unit Interpretation Reference Range Comment Jan 18, 2023 08:00 AM [place] [facility] OCCULT BLOOD FIT X1 SCREEN(RUST) Specimen Type: FECES Comment: Tests performed on [employer] OC Auto Micro 80(405) Ordering Provider: IKER LEBLANC Report Released Date/Time: Jan 09, 2023 09:06 AM Reporting Lab: [facility] [address] [place] [place] [address] Performing Lab: [facility] [address] [facility] [address] OCCULT BLOOD(FIT)# 1 OF 1(RUST) Negative Negative Social History: Smoking Status (Most [...] 19, 2022 09:30 AM VA-TOBACCO FORMER USER [facility] Tobacco Use History This section includes a history of the smoking, or tobacco-related health factors, that were collected on or before the date of the Encounter. The data comes from the [place] facility where the Encounter took place. Date/Time Smoking Status/Tobacco Use Comment F acility August 19, 2022 09:30 AM VA-TOBACCO QUIT 5 TO < 15 YRS [place] [facility] Jul 30, 2021 02:30 PM [place]BAC[place] FOR[place] US[place] [facility] Jul 30, 2021 02:30 PM VA-TOBACCO QUIT 1 TO < 5 YRS [place] [facility] Mar 30, 2020 09:00 AM VA-TOBACCO FORMER USER [place] [facility] Mar 30, 2020 09:00 AM VA-TOBACCO QUIT 1 TO < 5 YRS [place] [facility] Mar 25, 2019 08:16 AM VA-TOBACCO FORMER USER [place] [facility] Mar 25, 2019 08:16 AM VA-TOBACCO QUIT < 1 YEAR [place] [facility] Mar 17, 2018 10:44 AM VA-TOBACCO FORMER USER [place] [facility] Mar 17, 2018 10:44 AM VA-TOBACCO QUIT < 1 YEAR [place] [facility] May 19, 2017 11:10 AM LIFETIME NON-TOBACCO USER [place] [facility] Mar 14, 2017 08:57 AM CURRENT SMOKELESS TOBACCO USER [facility] Mar 14, 2017 08:57 AM V1-PT DECLINES REF [facility] Mar 14, 2017 08:57 AM V1-PT READY TO SHARON T TOBACCO USE [facility] August 26, 2016 12:48 PM V1-PT DECLINES REF TO [facility]ACCO [facility] August 26, 2016 12:48 PM V1-PT THINKING ABO UT QUIT TOBACCO USE [facility] August 26, 2016 08:45 AM CURRENT SMOKER FELICITA [facility] Aug 08, 2014 09:46 AM CURRENT SMOKER FELICITA [facility] Aug 08, 2014 09:46 AM V1-PT DECLINES REF TO [facility]ACCO [facility] Aug 08, 2014 09:46 AM V1-PT DECLINES TOB ACCO CESSATION MEDS [facility] Aug 08, 2014 09:46 AM V1-PT THINKING ABO UT QUIT TOBACCO USE [facility] Jul 07, 2013 02:26 PM CURRENT SMOKER 4-6 cigarettes/day [facility] Jul 07, 2013 02:26 PM V1-PT DECLINES REF TO [facility]BACCO [facility]ESS [facility] Jul 07, 2013 02:26 PM [...] AM V1-PT DECLINES REF TO [facility]ACCO [facility] Jul 15, 2011 10:07 AM V1-PT READY TO SHARON T TOBACCO USE [facility] Dec 05, 2010 01:00 PM QUIT TOBACCO USE I N PAST YEAR [facility] Radiology Reports: +/- 30 days [...] the Encounter. The data comes from all [place] treatment facilities. Date/Time Radiology Report Provider Source Feb 14, 2023 09:[address] CHEST (INCLUDES ADRENALS): EDITH MALAGON [id number] -1965 M Exm Date: FEB 14, 2023@09:00 Req Phys: KERI LEBLANC Pat Loc: [facility] PACT ACAD 4 B M1RB (Req'g Img Loc: CT SCAN (OOS) Service: Unknown (Case [id number] COMPLETE) LDCT LUNG CANCER SCREENING (CT Detailed) CPT:91409 Reason for Study: LDCT Lung cancer screening Clinical History: No contrast allergy BUN: 15 (09/05/22 09:26) CREATI: 1.02 (09/05/22 09:26) eGFR - NONE FOUND Weight: 267 lb [121.11 kg] (01/09/2023 09:31) BODY MASS INDEX - NO HEIGHTS FOUND Pager number: [phone] STAT orders MUST be called to RADIOLOGY [phone] to speak to the appropriate finishing technician. Indications - Lung cancer screening Report Status: Verified Date Reported: FEB 16, 2023 Date Verified: FEB 16, 2023 College Professor E-Sig:/ES/IRWIN MAZARIEGOS Report: LDCT LUNG CANCER SCREENING [...] BEHAVIOR Primary Interpreting Staff: Staff CINTIA KINGSLEY (College Professor) /IRWIN HANSEN [facility] Encounter Notes: All associated encounter notes This section contains the clinical notes associated to the Encounter. Date/Time Encounter Note(s) Provider Source Jan 21, 2023 12:00 PM NONVA CONSULT: LOCAL TITLE: COMMUNITY CARE CONSULT RESULT NOTE STANDARD TITLE: NONVA CONSULT DATE OF NOTE: JAN 21, 2023@12:00 ENTRY DATE: FEB 11, 2023@12:21:47 AUTHOR: SUBHA CHAWLA EXP COSIGNER: URGENCY: STATUS: COMPLETED VistA Imaging - Scanned Document DOS: 01/21/2023 PROCEDURE VISIT-F/U EXAM S/P CATARACT SURGERY [facility] SCANNED DOCUMENT SIGNATURE NOT REQUIRED Electronically Filed: 02/11/2023 by: SUBHA CHAWLA REACTOR SERVICE OPERATOR SUBHA CHAWLA [facility]
--- OUTSIDE RECORDS SUMMARY | 2023-11-05 12:40 | XMS_ITS ---
Author Name [facility] [place] Organization [facility] [place] Address [address] [place] [address] Care Team Providers Care Line Walker Name Role Phone KERI LEBLANC Primary Care [...] Crawley's Name Patient's Relationship to Policy Crawley [facility] POINT OF SERVICE SOV ACTIV E SELEC TCAR Apr 14, 2018 [id number] VESNA,JANELL ERT PATIENT [facility] POINT OF SERVICE SOV RET UNDER 63 CHERISE Apr 14, 2018 [id number] [phone] VESNA,JANELL ERT PATIENT [facility] ([id number]) PRESCRIPT ION [facility] NT Apr 14, 2018 [id number] VESNA,JANELL ERT PATIENT [facility] ([id number]) PRESCRIPT ION [facility] NT Apr 14, 2018 Q54A [id number] VESNA,JANELL ERT PATIENT Selected Encounter This section includes the information on record at [place] for the Encounter. Date/Time Encounter Type Encounter Description Reason Pro vider Source Dec 20, 2022 09:08 AM Outpatient Encounter ADMIN PAT ACTIVTIES (MASNONCT) IHE Encounter Template Text not used by [place] Plan of Treatment: Future Appointments (+ 6 months) and Future Tests (+/- 45 days) The Plan of Treatment section includes future care activities for the patient from all [place] treatmentfacilities. This section includes future appointments and future orders which are active, pending or scheduled. Future Appointments This section includes appointments that were scheduled to occur 6 months from the date of the Encounter, up to a maximum of 20 appointments. The data comes from all [place] treatment facilities. Appointment Date/Time Appointment Type Appointme nt Facility Name Jan 09, 2023 09:30 AM [place]ORY [place]ONE [place] [facility] Feb 14, 2023 09:00 AM AM[place]ORY - NONE [place] [facility] Feb 14, 2023 10:00 AM [place] [facility] Feb 18, 2023 08:00 AM [place] - [place] [facility] Mar 14, 2023 09:00 AM [place] [facility] Mar 28, 2023 02:30 PM [place] - [place] [facility] Apr 04, 2023 09:00 AM [place] [facility] Apr 18, 2023 09:00 AM [place] [facility] May 16, 2023 09:00 AM [place] [facility] May 30, 2023 09:00 AM [place] [facility] Jun 13, 2023 09:00 AM [place] [facility] Lab Results: +/- 30 days [...] Jan 18, 2023 08:00 AM [place] [facility] OCCULT BLOOD FIT X1 SCREEN([facility]) Specimen Type: FECES Comment: Tests performed on Medical [employer]velope OC Auto Micro 80(405) Ordering Provider: IKER LEBLANC Report Released Date/Time: Jan 09, 2023 09:06 AM Reporting Lab: [facility] [address] [facility] [address] Performing Lab: [facility] [address] [facility] [address] OCCULT BLOOD(FIT)# 1 OF 1(WRJ) Negative Negative Social History: Smoking Status (Most [...] VA-TOBACCO QUIT 5 TO < 15 YRS [facility] Tobacco Use History This section includes a history of the smoking, or tobacco-related health factors, that were collected on or before the date of the Encounter. The data comes from the [place] facility where the Encounter took place. Date/Time Smoking Status/Tobacco Use Comment F acility August 19, 2022 09:30 AM VA-TOBACCO QUIT 5 TO < 15 YRS [place] [facility] Jul 30, 2021 02:30 PM VA-TOBACCO FORMER USER [facility] Jul 30, 2021 02:30 PM VA-TOBACCO QUIT 1 TO < 5 YRS [facility] Mar 30, 2020 09:00 AM VA-TOBACCO FORMER USER [facility] [facility] Mar 30, 2020 09:00 AM VA-TOBACCO QUIT 1 TO < 5 YRS [place] [facility] Mar 25, 2019 08:16 AM VA-TOBACCO FORMER USER [place] [facility] Mar 25, 2019 08:16 AM VA-TOBACCO QUIT < 1 YEAR [place] [facility] Mar 17, 2018 10:44 AM VA-TOBACCO FORMER USER [place] [facility] Mar 17, 2018 10:44 AM VA-TOBACCO QUIT < 1 YEAR [facility] May 19, 2017 11:10 AM LIFETIME NON-TOBACCO USER [facility] Mar 14, 2017 08:57 AM CURRENT SMOKELESS TOBACCO USER [facility] Mar 14, 2017 08:57 AM V1-PT DECLINES REF [facility] Mar 14, 2017 08:57 AM V1-PT READY TO SHARON T TOBACCO USE [facility] August 26, 2016 12:48 PM V1-PT DECLINES REF TO TOBACCO [facility]ESS [facility] August 26, 2016 12:48 PM V1-PT THINKING ABO UT QUIT TOBACCO USE [facility] August 26, 2016 08:45 AM CURRENT SMOKER [facility] Aug 08, 2014 09:46 AM CURRENT SMOKER [facility] Aug 08, 2014 09:46 AM V1-PT DECLINES REF TO TOBACCO CESS [facility] Aug 08, 2014 09:46 AM V1-PT DECLINES TOB ACCO CESSATION MEDS [facility] Aug 08, 2014 09:46 AM V1-PT THINKING ABO UT QUIT TOBACCO USE [facility] Jul 07, 2013 02:26 PM CURRENT SMOKER 4-6 cigarettes/day [facility] Jul 07, 2013 02:26 PM V1-PT DECLINES REF TO TOBACCO CESS [facility] Jul 07, 2013 02:26 PM V1-PT DECLINES TOB ACCO CESSATION MEDS [facility] Jul 07, 2013 02:26 PM V1-PT THINKING ABO UT QUIT TOBACCO USE [facility] Jul 15, 2012 02:30 PM CURRENT SMOKER Pt. is back to .5 to a ppd. Wants to quit again. [facility] Jul 15, 2011 10:07 AM V1-PT DECLINES REF TO TOBACCO CESS [facility] Jul 15, 2011 10:07 AM V1-PT READY TO SHARON T TOBACCO USE [facility] Dec 05, 2010 01:00 PM QUIT TOBACCO USE I N PAST YEAR [facility] Encounter Notes: All associated encounter notes This section contains the clinical notes associated to the Encounter. Date/Time Encounter Note(s) Provider Source Dec 20, 2022 09:08 AM ADMINISTRATIVE NOT E: LOCAL TITLE: CCC: SCHEDULING ADMINISTRATION STANDARD TITLE: ADMINISTRATIVE NOTE DATE OF NOTE: DEC 20, 2022@09:08:30 ENTRY DATE: DEC 20, 2022@09:08:30 AUTHOR: CARMELA YODER COSIGNER: URGENCY: STATUS: COMPLETED Patient Demographics Patient Name: EDITH MALAGON SSN: [id number] Patient Primary Address: [place] [address] Patient Primary Phone: [phone] Patient : 1965 Patient Age: 57 Caller/Recipient Relation to Patient: Self Administrative Administrative Note Reason: Medication Renewal Medications Refill/Renewal Request: please renew and mail NICOTINE POLACRILEX 4MG MINI CORRINEZENPAM /bear/ CARMELA YODER VISN 1 CCC AMSA Signed: 12/20/2022 09:08 Receipt Acknowledged By: 12/20/2022 09:33 /es/ TERE ONEAL BSN RN 12/26/2022 16:03 /es/ CARMELA LOPEZ MD T [facility]
--- OUTSIDE RECORDS SUMMARY | 2023-11-05 12:40 | XMS_ITS ---
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 Name Role Phone KERI LEBLANC Primary Care [...] Crawley's Name Patient's Relationship to Policy Crawley [facility] S[facility] RET UNDER 65 CHERISE Apr 14, 2018 [id number] JANELL MALAGON ERT PATIENT [facility] SOV ACTIV E SELEC TCAR Apr 14, 2018 [id number] VESNA,JANELL ERT PATIENT [facility] ([id number]) PRESCRIPT ION [facility] Apr 14, 2018 [id number] [phone] VESNA,AJNELL ERT PATIENT [facility] ([id number]) PRESCRIPT ION [facility] Apr 14, 2018 [id number] VESNA,JANELL ERT PATIENT Selected Encounter This section includes the information on record at MD for the Encounter. Date/Time Encounter Type Encounter Description Reason Pro vider Source Dec 27, 2022 11:21 AM Outpatient Encounter ADMIN PAT ACTIVTIES (MASNONCT) IHE Encounter Template Text not used by MD Plan of Treatment: Future Appointments (+ 6 months) and Future Tests (+/- 45 days) The Plan of Treatment section includes future care activities for the patient from all MD treatmentfacilities. This section includes future appointments and future orders which are active, pending or scheduled. Future Appointments This section includes appointments that were scheduled to occur 6 months from the date of the Encounter, up to a maximum of 20 appointments. The data comes from all MD treatment facilities. Appointment Date/Time Appointment Type Appointme nt Facility Name Jan 09, 2023 09:30 AM [place]ORY [place] [facility] Feb 14, 2023 09:00 AM [place]ORY [place] [facility] Feb 14, 2023 10:00 AM [place] [facility] Feb 18, 2023 08:00 AM [place]ORY [place] [facility] Mar 14, 2023 09:00 AM [place] [facility] Mar 28, 2023 02:30 PM AMBULATORY [place] [facility] Apr 04, 2023 09:00 AM [place] [facility] Apr 18, 2023 09:00 AM [place] [facility] May 16, 2023 09:00 AM [place] [facility] May 30, 2023 09:00 AM [place] [facility] Jun 13, 2023 09:00 AM [place] [facility] Jun 27, 2023 09:00 AM [place] [facility] Lab Results: +/- 30 days of the encounter This section includes the Chemistry and Hematology Lab Results on record with MD for the patient. Radiology Reports and Pathology Reports are provided separately, in subsequent sections. Lab Results This section contains the Chemistry/Hematology Results that were resulted 30 days before or 30 daysafter the date of the Encounter. Date/Time Source Result Type Result - Unit Interpretation Reference Range Comment Jan 18, 2023 08:00 AM [place] [facility] OCCULT BLOOD FIT X1 SCREEN([facility]) Specimen Type: FECES Comment: Tests performed on [employer] OC Auto Micro 80(405) Ordering Provider: IKER LEBLANC Report Released Date/Time: Jan 09, 2023 09:06 AM Reporting Lab: [facility] [address] [place] [facility] [address] Performing Lab: [facility] [address] [place] [facility] [address] OCCULT BLOOD(FIT)# 1 OF 1([facility]) Negative Negative Social History: Smoking Status (Most current) and Tobacco Use (All prior to encounter date) This section includes the most current, and the historical, smoking and tobacco- related health factors from the MD facility where the Encounter took place. Current Smoking Status This section includes the most current smoking, or tobacco-related health factor, from the MD facility where the Encounter took place. Date/Time Current Smoking Status Comment Facil ity August 19, 2022 09:30 AM VA-TOBACCO FORMER USER [facility] Tobacco Use History This section includes a history of the smoking, or tobacco-related health factors, that were collected on or before the date of the Encounter. The data comes from the MD facility where the Encounter took place. Date/Time Smoking Status/Tobacco Use Comment F acjasvir August 19, 2022 09:30 AM VA-TOBACCO QUIT 5 TO < 15 YRS [place] [facility] Jul 30, 2021 02:30 PM VA-TOBACCO FORMER USER [facility] Jul 30, 2021 02:30 PM VA-TOBACCO QUIT 1 TO < 5 YRS [place] [facility] Mar 30, 2020 09:00 AM VA-TOBACCO FORMER USER [place] [facility] Mar 30, 2020 09:00 AM VA-TOBACCO QUIT 1 TO < 5 YRS [place] [facility] Mar 25, 2019 08:16 AM VA-TOBACCO FORMER USER [place] [facility] Mar 25, 2019 08:16 AM VA-TOBACCO QUIT < 1 YEAR [place] [facility] Mar 17, 2018 10:44 AM VA-TOBACCO FORMER USER [facility] Mar 17, 2018 10:44 AM VA-TOBACCO QUIT < 1 YEAR [facility] May 19, 2017 11:10 AM LIFETIME NON-TOBACCO USER [facility] Mar 14, 2017 08:57 AM CURRENT SMOKELESS TOBACCO USER [facility] Mar 14, 2017 08:57 AM V1-PT DECLINES REF TO TOBACCO [facility]ESS [facility] Mar 14, 2017 08:57 AM V1-PT READY TO SHARON T TOBACCO USE [facility] August 26, 2016 12:48 PM V1-PT DECLINES REF TO TOBACCO CESS [facility] August 26, 2016 12:48 PM V1-PT THINKING ABO UT QUIT TOBACCO USE [facility] August 26, 2016 08:45 AM CURRENT SMOKER FELICITA [facility] Aug 08, 2014 09:46 AM CURRENT SMOKER FELICITA PAREDES [facility] Aug 08, 2014 09:46 AM V1-PT DECLINES REF TO TOBACCO CESS [facility] Aug 08, 2014 09:46 AM V1-PT DECLINES TOB ACCO CESSATION MEDS [facility] Aug 08, 2014 09:46 AM V1-PT THINKING ABO UT QUIT TOBACCO USE [facility] Jul 07, 2013 02:26 PM CURRENT SMOKER 4-6 cigarettes/day [facility] Jul 07, 2013 02:26 PM V1-PT DECLINES REF TO TOBACCO CESS [facility] Jul 07, 2013 02:26 PM [...] AM V1-PT DECLINES REF TO TOBACCO CESS [facility] Jul 15, 2011 10:07 AM V1-PT READY TO SHARON T TOBACCO USE [facility] Dec 05, 2010 01:00 PM QUIT TOBACCO USE I N PAST YEAR [facility] Encounter Notes: All associated encounter notes This section contains the clinical notes associated to the Encounter. Date/Time Encounter Note(s) Provider Source Dec 31, 2022 11:08 AM ADDENDUM: LOCAL TITLE: Addendum STANDARD TITLE: ADDENDUM DATE OF NOTE: DEC 31, 2022@11:08:28 ENTRY DATE: DEC 31, 2022@11:08:29 AUTHOR: SKYLER CUNNINGHAM EXP COSIGNER: URGENCY: STATUS: COMPLETED spoke with patient- relayed the message re: pre-op.. Pt never got the Ozempic, Pharmacy- [facility], never called him. /bear/ SKYLER CANALES, RN Signed: 12/31/2022 11:09 Receipt Acknowledged By: 03/31/2023 13:10 /es/ KERI LEBLANC MD --- Original Document --- 12/27/22 CCC: SCHEDULING ADMINISTRATION: Patient Demographics Patient Name: EDITH MALAGON SSN: [id number] Patient Primary Address: [address] [place] [address]
[place] [address] Patient Primary Phone: [phone] Patient : 1965 Patient Age: 57 Caller/Recipient Relation to Patient: Other If Other Describe Relation to Patient: [facility] Caller Name: Lyla Administrative Administrative Note Comments: Lyla at [facility] would like the pre-op clearance faxed to [phone]. ?Laporte is scheduled for cataract right eye on 01/17/2023 and left eye on 01/31/2023? Lyla can be reached at [phone]. /es/ EMMANUEL ESPINAL Signed: 12/27/2022 11:22 Receipt Acknowledged By: 12/30/2022 11:38 /es/ KERI LEBLANC MD 12/27/2022 14:37 /es/ LILLIAM ABEL RN for TERE ENCARNACIONG 12/27/2022 16:12 /bear/ LILLIAM ABEL RN 12/27/2022 ADDENDUM STATUS: COMPLETED Clemencia please fax Pre-op as requested. TY /bear/ LILLIAM ABEL RN Signed: 12/27/2022 14:36 12/27/2022 ADDENDUM STATUS: COMPLETED T/c to patient to discuss his pre-op letter request. Left a vm asking patient to return call to [facility]. No pre-op visit noted in chart. /bear/ LILLIAM ABEL RN Signed: 12/27/2022 15:15 12/27/2022 ADDENDUM STATUS: COMPLETED called back returning RNs call, stated he has an appointment already scheduled with PCP on 01/09/23 and is wondering if Pre Op could be done at that visit. Please call him back to let him know. /bear/ HOLLY ENEDELIA Signed: 12/27/2022 15:57 Receipt Acknowledged By: 12/27/2022 16:15 /bear/ LILLIAM ABEL RN for TERE ONEAL 12/27/2022 ADDENDUM STATUS: COMPLETED Spoke to patient and he advised he will be seeing PCP on 01/09 at 0930 and would like to know if he can have his pre-op done at that time. Will defer to pcp and then we will call patient back with answer. /bear/ LILLIAM ABEL RN Signed: 12/27/2022 16:14 Receipt Acknowledged By: 12/30/2022 11:40 /bear/ KERI LEBLANC MD 12/30/2022 ADDENDUM STATUS: COMPLETED MSA Team, Please inform the patient: I agree w performing pre-operative assessment at time of scheduled 12/14/22 visit. No labs due that visit. Also, please clarify: Was he able to obtain Semaglutide at local pharmacy as discussed at last visit? Thank you. /bear/ KERI LEBLANC MD Signed: 12/30/2022 11:40 Receipt Acknowledged By: 12/30/2022 12:23 /es/ ALEXX VIDAL 12/30/2022 12:30 /bear/ SKYLER CANALES, RN for TERE ONEAL 12/30/2022 ADDENDUM STATUS: COMPLETED left message on both numbers listed to call back. /bear/ SKYLER CANALES, RN Signed: 12/30/2022 12:32 SKYLER CUNNINGHAM [facility] Dec 30, 2022 11:38 AM ADDENDUM: LOCAL TITLE: Addendum STANDARD TITLE: ADDENDUM DATE OF NOTE: DEC 30, 2022@11:38:07 ENTRY DATE: DEC 30, 2022@11:38:08 AUTHOR: KERI LEBLANC EXP COSIGNER: URGENCY: STATUS: COMPLETED MSA Team, Please inform the patient: I agree w performing pre-operative assessment at time of scheduled 12/14/22 visit. No labs due that visit. Also, please clarify: Was he able to obtain Semaglutide at local pharmacy as discussed at last visit? Thank you. /bear/ KERI LEBLANC MD Signed: 12/30/2022 11:40 Receipt Acknowledged By: 12/30/2022 12:23 /es/ ALEXX VIDAL 12/30/2022 12:30 /es/ SKYLER CANALES, RN for TERE ONEAL --- Original Document --- 12/27/22 CCC: SCHEDULING ADMINISTRATION: Patient Demographics Patient Name: EDITH MALAGON SSN: [id number] Patient Primary Address: [address] [place] [address] <>[place] [address] Patient Primary Phone: [phone] Patient : 1965 Patient Age: 57 Caller/Recipient Relation to Patient: Other If Other Describe Relation to Patient: [facility] Caller Name: Lyla Administrative Administrative Note Comments: Lyla at [facility] would like the pre-op clearance faxed to [phone]. ? is scheduled for cataract right eye on 01/17/2023 and left eye on 01/31/2023? Lyla can be reached at [phone]. /es/ EMMANUEL ESPINAL Signed: 12/27/2022 11:22 Receipt Acknowledged By: 12/30/2022 11:38 /bear/ KERI LEBLANC MD 12/27/2022 14:37 /bear/ LILLIAM ABEL RN for TERE ONEAL 12/27/2022 16:12 /bear/ LILLIAM ABEL RN 12/27/2022 ADDENDUM STATUS: COMPLETED Clemencia please fax Pre-op as requested. TY /bear/ LILLIAM ABEL RN Signed: 12/27/2022 14:36 12/27/2022 ADDENDUM STATUS: COMPLETED T/c to patient to discuss his pre-op letter request. Left a vm asking patient to return call to [facility]. No pre-op visit noted in chart. /bear/ LILLIAM ABEL RN Signed: 12/27/2022 15:15 12/27/2022 ADDENDUM STATUS: COMPLETED [place] called back returning RNs call, stated he has an appointment already scheduled with PCP on 01/09/23 and is wondering if Pre Op could be done at that visit. Please call him back to let him know. /es/ HOLLY MCDANIELS Signed: 12/27/2022 15:57 Receipt Acknowledged By: 12/27/2022 16:15 /bear/ LILLIAM ABEL RN for TERE ONEAL 12/27/2022 ADDENDUM STATUS: COMPLETED Spoke to patient and he advised he will be seeing PCP on 01/09 at 0930 and would like to know if he can have his pre-op done at that time. Will defer to pcp and then we will call patient back with answer. /bear/ LILLIAM ABEL RN Signed: 12/27/2022 16:14 Receipt Acknowledged By: 12/30/2022 11:40 /bear/ KERI LEBLANC MD 12/30/2022 ADDENDUM STATUS: UNSIGNED You may not VIEW this UNSIGNED Addendum. KERI LEBLANC [facility] Dec 27, 2022 04:13 PM ADDENDUM: LOCAL TITLE: Addendum STANDARD TITLE: ADDENDUM DATE OF NOTE: DEC 27, 2022@16:13:04 ENTRY DATE: DEC 27, 2022@16:13:05 AUTHOR: LILLIAM ABEL EXP COSIGNER: URGENCY: STATUS: COMPLETED Spoke to patient and he advised he will be seeing PCP on 01/09 at 0930 and would like to know if he can have his pre-op done at that time. Will defer to pcp and then we will call patient back with answer. /bear/ LILLIAM ABEL RN Signed: 12/27/2022 16:14 Receipt Acknowledged By: 12/30/2022 11:40 /bear/ KERI LEBLANC MD --- Original Document --- 12/27/22 CCC: SCHEDULING ADMINISTRATION: Patient Demographics Patient Name: EDITH MALAGON SSN: [id number] Patient Primary Address: [address] [place] [address] <>[place], [place] [address] Patient Primary Phone: [phone] Patient : 1965 Patient Age: 57 Caller/Recipient Relation to Patient: Other If Other Describe Relation to Patient: [facility] Caller Name: Lyla Administrative Administrative Note Comments: Lyla at [facility] would like the pre-op clearance faxed to [phone]. ?Laporte is scheduled for cataract right eye on 01/17/2023 and left eye on 01/31/2023? Lyla can be reached at [phone]. /bear/ EMMANUEL ESPINAL Signed: 12/27/2022 11:22 Receipt Acknowledged By: 12/30/2022 11:38 /bear/ KERI LEBLANC MD 12/27/2022 14:37 /bear/ LILLIAM ABEL RN for TERE ONEAL 12/27/2022 16:12 /bear/ LILLIAM ABEL RN 12/27/2022 ADDENDUM STATUS: COMPLETED Clemencia please fax Pre-op as requested. TY /bear/ LILILAM ABEL RN Signed: 12/27/2022 14:36 12/27/2022 ADDENDUM STATUS: COMPLETED T/c to patient to discuss his pre-op letter request. Left a vm asking patient to return call to [facility]. No pre-op visit noted in chart. /bear/ LILLIAM ABEL RN Signed: 12/27/2022 15:15 12/27/2022 ADDENDUM STATUS: COMPLETED [place] called back returning RNs call, stated he has an appointment already scheduled with PCP on 01/09/23 and is wondering if Pre Op could be done at that visit. Please call him back to let him know. /bear/ HOLLY MCDANIELS Signed: 12/27/2022 15:57 Receipt Acknowledged By: 12/27/2022 16:15 /es/ LILLIAM ABEL RN for TERE ONEAL 12/30/2022 ADDENDUM STATUS: COMPLETED MSA Team, Please inform the patient: I agree w performing pre-operative assessment at time of scheduled 12/14/22 visit. No labs due that visit. Also, please clarify: Was he able to obtain Semaglutide at local pharmacy as discussed at last visit? Thank you. /es/ KERI LEBLANC MD Signed: 12/30/2022 11:40 Receipt Acknowledged By: * AWAITING SIGNATURE * ALEXX VIDAL KIMBERLY L [facility] Dec 27, 2022 03:54 PM ADDENDUM: LOCAL TITLE: Addendum STANDARD TITLE: ADDENDUM DATE OF NOTE: DEC 27, 2022@15:54:16 ENTRY DATE: DEC 27, 2022@15:54:17 AUTHOR: HOLLY MCDANIELS COSIGNER: URGENCY: STATUS: COMPLETED [place] called back returning RNs call, stated he has an appointment already scheduled with PCP on 01/09/23 and is wondering if Pre Op could be done at that visit. Please call him back to let him know. /bear/ HOLLY MCDANIELS Signed: 12/27/2022 15:57 Receipt Acknowledged By: 12/27/2022 16:15 /es/ LILLIAM ABEL RN for TERE ONEAL --- Original Document --- 12/27/22 CCC: SCHEDULING ADMINISTRATION: Patient Demographics Patient Name: EDITH MALAGON SSN: [id number] Patient Primary Address: [address] [address] Patient Primary Phone: [phone] Patient : 1965 Patient Age: 57 Caller/Recipient Relation to Patient: Other If Other Describe Relation to Patient: [facility] Caller Name: Lyla Administrative Administrative Note Comments: Lyla at [facility] would like the pre-op clearance faxed to [phone]. ? is scheduled for cataract right eye on 01/17/2023 and left eye on 01/31/2023? Lyla can be reached at [phone]. /bear/ EMMANUEL ESPINAL Signed: 12/27/2022 11:22 Receipt Acknowledged By: * AWAITING SIGNATURE * KERI LEBLANC 12/27/2022 14:37 /bear/ LILLIAM ABEL RN for TERE ONEAL 12/27/2022 16:12 /bear/ LILLIAM ABEL RN 12/27/2022 ADDENDUM STATUS: COMPLETED Clemencia please fax Pre-op as requested. TY /bear/ LILLIAM ABEL RN Signed: 12/27/2022 14:36 12/27/2022 ADDENDUM STATUS: COMPLETED T/c to patient to discuss his pre-op letter request. Left a asking patient to return call to [facility]. No pre-op visit noted in chart. /bear/ LILLIAM ABEL RN Signed: 12/27/2022 15:15 12/27/2022 ADDENDUM STATUS: COMPLETED Spoke to patient and he advised he will be seeing PCP on 01/09 at 0930 and would like to know if he can have his pre-op done at that time. Will defer to pcp and then we will call patient back with answer. /bear/ LILLIAM ABEL RN Signed: 12/27/2022 16:14 Receipt Acknowledged By: * AWAITING SIGNATURE * KERI LEBLANC [facility] Dec 27, 2022 11:21 AM ADMINISTRATIVE NOT E: LOCAL TITLE: CCC: SCHEDULING ADMINISTRATION STANDARD TITLE: ADMINISTRATIVE NOTE DATE OF NOTE: DEC 27, 2022@11:21:55 ENTRY DATE: DEC 27, 2022@11:21:55 AUTHOR: EMMANUEL ESPINAL COSIGNER: URGENCY: STATUS: COMPLETED CCC: SCHEDULING ADMINISTRATION Has ADDENDA Patient Demographics Patient Name: EDITH MALAGON SSN: [id number] Patient Primary Address: [address] [place] [address]
[place] [address] Patient Primary Phone: [phone] Patient : 1965 Patient Age: 57 Caller/Recipient Relation to Patient: Other If Other Describe Relation to Patient: [facility] Caller Name: Lyla Administrative Administrative Note Comments: Lyla at [facility] would like the pre-op clearance faxed to [phone]. ?Laporte is scheduled for cataract right eye on 01/17/2023 and left eye on 01/31/2023? Lyla can be reached at [phone]. /bear/ EMMANUEL ESPINAL Signed: 12/27/2022 11:22 Receipt Acknowledged By: 12/30/2022 11:38 /es/ KERI LEBLANC MD 12/27/2022 14:37 /es/ LILLIAM ABEL RN for TERE ONEAL 12/27/2022 16:12 /bear/ LILLIAM ABEL RN 12/27/2022 ADDENDUM STATUS: COMPLETED Clemencia please fax Pre-op as requested. TY /bear/ LILLIAM ABEL RN Signed: 12/27/2022 14:36 12/27/2022 ADDENDUM STATUS: COMPLETED T/c to patient to discuss his pre-op letter request. Left a vm asking patient [facility] to [facility]. No pre-op visit noted in chart. /bear/ LILLIAM ABEL RN Signed: 12/27/2022 15:15 12/27/2022 ADDENDUM STATUS: COMPLETED called back returning RNs call, stated he has an appointment already scheduled with PCP on 01/09/23 and is wondering if Pre Op could be done at that visit. Please call him back to let him know. /es/ HOLLY ENEDELIA Signed: 12/27/2022 15:57 Receipt Acknowledged By: 12/27/2022 16:15 /es/ LILLIAM ABEL RN for TERE ONEAL 12/27/2022 ADDENDUM STATUS: COMPLETED Spoke to patient and he advised he will be seeing PCP on 01/09 at 0930 and would like to know if he can have his pre-op done at that time. Will defer to pcp and then we will call patient back with answer. /es/ LILLIAM ABEL RN Signed: 12/27/2022 16:14 Receipt Acknowledged By: 12/30/2022 11:40 /bear/ KERI LEBLANC MD 12/30/2022 ADDENDUM STATUS: COMPLETED MSA Team, Please inform the patient: I agree w performing pre-operative assessment at time of scheduled 12/14/22 visit. No labs due that visit. Also, please clarify: Was he able to obtain Semaglutide at local pharmacy as discussed at last visit? Thank you. /bear/ KERI LEBLANC MD Signed: 12/30/2022 11:40 Receipt Acknowledged By: 12/30/2022 12:23 /bear/ ALEXX VIDAL 12/30/2022 12:30 /bear/ SKYLER CANALES, RN for TERE ONEAL 12/30/2022 ADDENDUM STATUS: COMPLETED left message on both numbers listed to call back. /bear/ SKYLER CANALES, RN Signed: 12/30/2022 12:32 12/31/2022 ADDENDUM STATUS: COMPLETED spoke with patient- relayed the message re: pre-op.. Pt never got the Ozempic, Pharmacy- [facility], never called him. /bear/ SKYLER CANALES, RN Signed: 12/31/2022 11:09 Receipt Acknowledged By: * AWAITING SIGNATURE * KERI LEBLANC [facility]
--- OUTSIDE RECORDS SUMMARY | 2023-11-05 12:40 | XMS_ITS ---
Author Name [facility] [place] [facility] [place] Address [address] [place] [address] Care Team Providers Care Tunnel Inspector Name Role Phone KERI LEBLANC Primary Care [...] RET UNDER 65 CHERISE Apr 14, 2018 [id number] [phone] VESNA,JANELL ERT PATIENT [facility] POINT OF SERVICE SOV ACTIV E SELEC TCAR Apr 14, 2018 [id number] VESNA,JANELL ERT PATIENT [facility] ([id number]) [facility] Apr 14, 2018 Q54A [id number] [phone] VESNA,JANELL ERT PATIENT [facility] ([id number]) [facility] Apr 14, 2018 Q54A [id number] [phone] VESNA,JANELL ERT PATIENT Selected Encounter This section includes the information on record at NH for the Encounter. Date/Time Encounter Type Encounter Description Reason Pro vider Source Dec 04, 2022 02:20 PM Outpatient Encounter ADMIN PAT ACTIVTIES (MAGGY) IHE Encounter Template Text not used by NH Plan of Treatment: Future Appointments (+ 6 months) and Future Tests (+/- 45 days) The Plan of Treatment section includes future care activities for the patient from all NH treatmentfacilities. This section includes future appointments and future orders which are active, pending or scheduled. Future Appointments This section includes appointments that were scheduled to occur 6 months from the date of the Encounter, up to a maximum of 20 appointments. The data comes from all NH treatment facilities. Appointment Date/Time Appointment Type Appointme nt Facility Name Dec 06, 2022 10:00 AM [facility] [place] [facility] Dec 19, 2022 08:00 AM [facility] [place]ONE [place] [facility] Jan 09, 2023 09:30 AM [place]ORY - [place]ONE [place] [facility] Feb 14, 2023 09:00 AM [facility]ORY - NONE [place] [facility] Feb 14, 2023 10:00 AM [place] [place] [facility] Feb 18, 2023 08:00 AM [place] [facility] Mar 14, 2023 09:00 AM [place] [place] [facility] Mar 28, 2023 02:30 PM [place] [facility] Apr 04, 2023 09:00 AM [facility] [place] [facility] Apr 18, 2023 09:00 AM [facility] [place] [facility] May 16, 2023 09:00 [facility] May 30, 2023 09:00 AM AM[facility] - [facility]RY [facility] Social History: Smoking Status (Most current) and Tobacco Use (All prior to encounter date) This section includes the most current, and the historical, smoking and tobacco- related health factors from the NH facility where the Encounter took place. Current Smoking Status This section includes the most current smoking, or tobacco-related health factor, from the NH facility where the Encounter took place. Date/Time Current Smoking Status Comment Paul rios August 19, 2022 09:30 AM VA-TOBACCO FORMER USER [facility] Tobacco Use History This section includes a history of the smoking, or tobacco-related health factors, that were collected on or before the date of the Encounter. The data comes from the [place] facility where the Encounter took place. Date/Time Smoking Status/Tobacco Use Comment F acility August 19, 2022 09:30 AM VA-TOBACCO QUIT 5 TO < 15 YRS [facility] Jul 30, 2021 02:30 PM VA-TOBACCO FORMER USER [facility] Jul 30, 2021 02:30 PM VA-TOBACCO QUIT 1 TO < 5 YRS [facility] Mar 30, 2020 09:00 AM VA-TOBACCO FORMER USER [facility] Mar 30, 2020 09:00 AM VA-TOBACCO [...] 11:10 AM LIFETIME NON-TOBACCO USER [facility] Mar 14, 2017 08:57 AM CURRENT SMOKELESS TOBACCO USER [facility] Mar 14, 2017 08:57 AM V1-PT [facility] Mar 14, 2017 08:57 AM V1-PT READY TO SHARON T TOBACCO USE [facility] August 26, 2016 12:48 PM V1-PT DECLINES [facility] August 26, 2016 12:48 PM V1-PT THINKING ABO UT QUIT TOBACCO USE [facility] August 26, 2016 08:45 AM CURRENT SMOKER FELICITA [facility] Aug 08, 2014 09:46 AM CURRENT SMOKER FELICITA [facility]ED[facility] Aug 08, 2014 09:46 AM V1-PT DECLINES [facility] Aug 08, 2014 09:46 AM [...] I N PAST YEAR [facility] Radiology Reports: +/- 30 days of [...] the Encounter. The data comes from all [facility] facilities. Date/Time Radiology Report Provider Source Nov 15, 2022 08:15 AM ULTRASOUND NECK (THYROID,HEAD,SOFT TISSUE): EDITH AMLAGON [id number] -1965 [facility] Date: NOV 15, 2022@08:15 Req Phys: KERI LEBLANC Loc: [id number] PACT ACAD 4 PHONE (Req'g Img Loc: ULTRASOUND (OOS) Service: Unknown (Case [id number] COMPLETE) ULTRASOUND NECK (THYROID,HEAD,SOF(US Detailed) CPT:46533 Reason for Study: Thyroid ndule noted on previous imaging; Surveillance Clinical History: Report Status: Verified Date Reported: NOV 18, 2022 Date Verified: NOV 18, 2022 Tool And Die Maker Apprentice E-Sig:/ES/JOSE GARCIA Report: Ultrasound -- thyroid: COMPARISON: Ultrasound (thyroid) 12/25/2021 CT (chest) 07/23/2021 The right lobe of the thyroid measures 4.2 x 1.8 x 1.4 cm (CC/TRV/AP). The gland has a homogeneous echotexture with the exception of a 0.3 cm anechoic nodule likely representing a colloid cyst. No solid nodules are appreciated. The nodule adjacent to the lower pole was not identified at this time. The left lobe of thyroid measures 4.1 x 1.6 x 1.1 cm (CC/TRV/AP). The parenchyma has a mildly and homogeneous consistency. A few small anechoic structures are identified which likely represent blood vessels although a couple of subzero 0.3 cm cysts are thought to be present as well. No suspicious nodules are appreciated. The isthmus has an AP diameter of 0.4 cm. No focal abnormalities are identified. Impression: 1. Several scattered 0.3 cm or smaller anechoic structures in each of the lobes consistent with colloid cysts. 2. No suspicious nodules. 3. Questionable nodule inferior to the lower pole of the right lobe not identified at this time. A twelve-month follow-up ultrasound is recommended. Primary Diagnostic Code: NO IMMEDIATE ATTENTION REQUIRED Primary Interpreting Staff: JOSE GARCIA, RADIOLOGY ATTENDING (Tool And Die Maker Apprentice) /JOSE SIMMS [facility] Encounter Notes: All associated encounter notes This section contains the clinical notes associated to the Encounter. Date/Time Encounter Note(s) Provider Source Dec 04, 2022 02:20 PM SLEEP MEDICINE NOT E: LOCAL TITLE: SLEEP PSA ADMINISTRATIVE NOTE STANDARD TITLE: SLEEP MEDICINE NOTE DATE OF NOTE: DEC 04, 2022@14:20 ENTRY DATE: DEC 04, 2022@14:20:44 AUTHOR: ERICA DOUGHERTY EXP COSIGNER: URGENCY: STATUS: COMPLETED SLEEP PSA ADMINISTRATIVE NOTE Has ADDENDA Called lm/re book letter sent for voice intercept technician phone appt pls alert sleep dept psa when call is returned /bear/ ERICA DOUGHERTY PSA Signed: 12/04/2022 14:21 12/19/2022 ADDENDUM STATUS: COMPLETED CLINIC: [facility] 2 PHONE RTC PID 03/28/2023 Discontinued per protocol. Minimum scheduling efforts have been met. /bear/ JUNIOR KELLY Signed: 12/19/2022 08:02 ERICA DOUGHERTY [facility]
--- OUTSIDE RECORDS SUMMARY | 2023-11-05 12:40 | XMS_ITS ---
Author Name [facility] [place] [facility] [place] Address [address] [place] [address] Care Team Providers Care Craniologist Name Role Phone KERI LEBLANC Primary Care [...] Crawley's Name Patient's Relationship to Policy Crawley [facility] POINT OF SERVICE SOV RET UNDER 65 CHERISE Apr 14, 2018 [id number] VESNA,JANELL ERT PATIENT [facility] POINT OF SERVICE SOV ACTIV E SELEC TCAR Apr 14, 2018 [id number] VESNA,JANELL ERT PATIENT [facility] ([id number]) [facility] NT Apr 14, 2018 Q54A [id number] VESNA,JANELL ERT PATIENT [facility] ([id number]) [facility] NT Apr 14, 2018 Q54A [id number] VESNA,JANELL ERT PATIENT Selected Encounter This section includes the information on record at [place] for the Encounter. Date/Time Encounter Type Encounter Description Reason Pro vider Source Dec 30, 2022 03:20 PM Outpatient Encounter ADMIN PAT ACTIVTIES (PAMNONCT) IHE Encounter Template Text not used by [place] Plan of Treatment: Future Appointments (+ 6 [...] [facility] [place] [facility] Feb 14, 2023 09:00 AM AM[facility]ORY - [place] [facility] Feb 14, 2023 10:00 AM [place] [facility] Feb 18, 2023 08:00 AM [place] [facility] Mar 14, 2023 09:00 AM [place] [facility] Mar 28, 2023 02:30 PM [place] [facility] Apr 04, 2023 09:00 AM [place] Apr 18, 2023 09:00 AM [place] [facility] May 16, 2023 09:00 AM [place] [facility] May 30, 2023 09:00 AM [place] [facility] Jun 13, 2023 09:00 AM [place] [facility] Jun 27, 2023 09:00 AM [facility] [place] [facility] Lab Results: +/- 30 days of the encounter This section includes the Chemistry and Hematology Lab Results on record with [place] for the patient. Radiology Reports and Pathology Reports are provided separately, in subsequent sections. Lab Results This section contains the Chemistry/Hematology Results that were resulted 30 days before or 30 daysafter the date of the Encounter. Date/Time Source Result Type Result - Unit Interpretation Reference Range Comment Jan 18, 2023 08:00 AM [place] [facility] OCCULT BLOOD FIT X1 SCREEN([facility]) Specimen Type: FECES Comment: Tests performed on [employer] OC Auto Micro 80(405) Ordering Provider: IKER LEBLANC Report Released Date/Time: Jan 09, 2023 09:06 AM Reporting Lab: [facility] [address] [place] [place] [address] Performing Lab: [facility] [address] [place] [facility] [place] [address] OCCULT BLOOD(FIT)# 1 OF 1([facility]) Negative Negative Social History: Smoking [...] 5 TO < 15 YRS [facility] Jul 30, 2021 02:30 PM VA-TOBACCO FORMER USER [facility] Jul 30, 2021 02:30 PM VA-TOBACCO QUIT 1 TO < 5 YRS [facility] Mar 30, 2020 09:00 AM VA-TOBACCO FORMER USER [facility] Mar 30, 2020 09:00 AM VA-TOBACCO QUIT 1 TO < 5 YRS [facility] Mar 25, 2019 08:16 AM VA-TOBACCO FORMER USER [facility] Mar 25, 2019 08:16 AM VA-TOBACCO QUIT < 1 YEAR [facility] Mar 17, 2018 10:44 AM VA-TOBACCO FORMER USER [facility] Mar 17, 2018 10:44 AM VA-TOBACCO QUIT < [address] [facility] [facility] May 19, 2017 11:10 [...] 2016 08:45 AM CURRENT SMOKER [facility] Aug 08, 2014 09:46 AM CURRENT SMOKER FELICITA [facility] Aug 08, 2014 09:46 [...] Encounter. Date/Time Encounter Note(s) Provider Source Dec 30, 2022 03:20 PM ADMINISTRATIVE NOT E: LOCAL TITLE: CCC: SCHEDULING ADMINISTRATION STANDARD TITLE: ADMINISTRATIVE NOTE DATE OF NOTE: DEC 30, 2022@15:20:47 ENTRY DATE: DEC 30, 2022@15:20:47 AUTHOR: LUCIANA LITTLE EXP COSIGNER: URGENCY: STATUS: COMPLETED CCC: SCHEDULING ADMINISTRATION Has ADDENDA Patient Demographics Patient Name: EDITH MALAGON SSN: [id number] Patient Primary Address: [address] [place] [address]
[place] [address] Patient Primary Phone: [phone] Patient : 1965 Patient Age: 57 Caller/Recipient Relation to Patient: Self Call Back Number: [phone] Administrative Administrative Note Reason: Returned Call Administrative Note Comments: Patient returning call to RN left on V/M 12/30/2022 /bear/ LUCIANA EATON 1 [facility] Signed: 12/30/2022 15:20 Receipt Acknowledged By: 12/30/2022 15:28 /bear/ SKYLER CANALES, RN for TERE ONEAL 12/30/2022 ADDENDUM STATUS: COMPLETED left message to call back /bear/ SKYLER CANALES, RN Signed: 12/30/2022 15:[address] [facility]
--- OUTSIDE RECORDS SUMMARY | 2023-11-05 12:40 | XMS_ITS ---
Author Name [facility] [place] Organization [facility] [place] Address [address] [place] [address] Care Team Providers Care Domestic Maid Name Role Phone KERI LEBLANC Primary Care [...] Name Patient's Relationship to Policy Crawley [facility] POINT OF SERVICE SOV ACTIV E SELEC TCAR Apr 14, 2018 [id number] VESNA,JANELL ERT PATIENT [facility] POINT OF SERVICE SOV RET UNDER 65 CHERISE Apr 14, 2018 [id number] [phone] VESNA,JANELL ERT PATIENT [facility] ([id number]) [facility] NT Apr 14, 2018 Q54A [id number] [phone] VESNA,JANELL ERT PATIENT [facility] ([id number]) [facility] NT Apr 14, 2018 Q54A [id number] VESNA,JANELL ERT PATIENT Selected Encounter This section includes the information on record at [place] for the Encounter. Date/Time Encounter Type Encounter Description Reason Pro vider Source Nov 15, 2022 08:36 AM Outpatient Encounter ADMIN PAT ACTIVTIES (MASNONCT) [...] Appointment Type Appointme nt Facility Name Nov 18, 2022 10:30 AM AMBULATORY - [facility]IATRY [facility] Dec 06, 2022 10:00 AM [facility] Dec 19, 2022 08:00 AM [place] [place] [facility] Jan 09, 2023 09:30 AM [place]ATORY - NONE [place] [facility] Feb 14, 2023 09:00 AM [place]ATORY - [place]ONE [place] [facility] Feb 14, 2023 10:00 AM [facility] Feb 18, 2023 08:00 AM AM[facility]ULATORY - SURG[facility] Mar 14, 2023 09:00 AM AMBULATORY - PS[facility]IAT[facility] Mar 28, 2023 02:30 PM [facility] Apr 04, 2023 09:00 AM AMBULATORY - [facility]IAT[facility] Apr 18, 2023 09:00 AM [facility] May 16, 2023 09:00 AM AMBULATORY - PSYCHIATRY [facility] Social History: Smoking Status (Most [...] place. Date/Time Current Smoking Status Comment Paul zamoray August 19, 2022 09:30 AM VA-TOBACCO FORMER USER [facility] Tobacco Use History This [...] 11:10 AM LIFETIME NON-TOBACCO USER [facility] Mar 14, 2017 08:57 [facility] Aug 08, 2014 09:46 AM V1-PT [...] N PAST YEAR [facility] Radiology Reports: +/- 30 days [...] 08:15 AM ULTRASOUND NECK (THYROID,HEAD,SOFT TISSUE): EDITH MALAGON [id number] -1965 [facility] Date: NOV 15, 2022@08:15 Req Phys: KERI LEBLANC Loc: [id number] PACT ACAD 4 PHONE (Req'g Img Loc: ULTRASOUND (OOS) Service: Unknown (Case [id number] COMPLETE) ULTRASOUND NECK (THYROID,HEAD,SOF(US Detailed) CPT:60215 Reason for Study: Thyroid ndule noted on previous imaging; Surveillance Clinical History: Report Status: Verified Date Reported: NOV 18, 2022 Date Verified: NOV 18, 2022 Tie Knitter Helper E-Sig:/ES/JOSE GARCIA Report: Ultrasound -- thyroid: COMPARISON: [...] Primary Interpreting Staff: JOSE GARCIA, RADIOLOGY ATTENDING (Tie Knitter Helper) /JOSE SIMMS [facility] Encounter Notes: All associated encounter notes This section contains the clinical notes associated to the Encounter. Date/Time Encounter Note(s) Provider Source Nov 17, 2022 05:23 PM ADDENDUM: LOCAL TITLE: Addendum STANDARD TITLE: ADDENDUM DATE OF NOTE: NOV 17, 2022@17:23:54 ENTRY DATE: NOV 17, 2022@17:23:55 AUTHOR: KERI LEBLANC EXP COSIGNER: URGENCY: STATUS: COMPLETED MRI ordered by ORthopedics, appreciated Dr. Quiroga's opinioon. /bear/ KERI LEBLANC MD Signed: 11/17/2022 17:24 Receipt Acknowledged By: 11/21/2022 07:54 /bear/ HERB QUIROGA Physician Separations Scientist --- Original Document --- 11/15/22 Administrative Note/Primary Care: Patient stopped by at the front desk host to say [employer] denied his MRI for his knee. They want him to go through PT first. Patient has had this issue for over a year, and now he won't be able to go get his MRI that was scheduled for Friday. Please call the patient to figure out where to go from here. Patient would like to see PT closer to his house so he doesn't have to travel as far. Please call him at [phone]. Thank you. /bear/ ALEXX VIDAL Signed: 11/15/2022 08:37 Receipt Acknowledged By: 11/15/2022 09:23 /bear/ MONICA DAVIS Staff Nurse for TERE ONEAL 11/17/2022 17:23 /bear/ KERI LEBLANC MD 11/15/2022 ADDENDUM STATUS: COMPLETED will review w pcp /bear/ MONICA DAVIS Staff Nurse Signed: 11/15/2022 09:23 [facility] Nov 15, 2022 08:36 AM PRIMARY CARE ADMINISTRATIVE NOTE: LOCAL TITLE: Administrative Note/Primary Care STANDARD TITLE: PRIMARY CARE ADMINISTRATIVE NOTE DATE OF NOTE: NOV 15, 2022@08:36 ENTRY DATE: NOV 15, 2022@08:36:09 AUTHOR: ALEXX VIDAL EXP COSIGNER: URGENCY: STATUS: COMPLETED Administrative Note/Primary Care Has ADDENDA Patient stopped by at the front desk host to say [employer] denied his MRI for his knee. They want him to go through PT first. Patient has had this issue for over a year, and now he won't be able to go get his MRI that was scheduled for Friday. Please call the patient to figure out where to go from here. Patient would like to see PT closer to his house so he doesn't have to travel as far. Please call him at [phone]. Thank you. /bear/ ALEXX VIDAL Signed: 11/15/2022 08:37 Receipt Acknowledged By: 11/15/2022 09:23 /bear/ MONICA DAVIS Staff Nurse for TERE ONEAL 11/17/2022 17:23 /bear/ KERI LEBLANC MD 11/15/2022 ADDENDUM STATUS: COMPLETED will review w pcp /bear/ MONICA DAVIS Staff Nurse Signed: 11/15/2022 09:23 11/17/2022 ADDENDUM STATUS: COMPLETED MRI ordered by ORthopedics, appreciated Dr. Quiroga's opinioon. /bear/ KERI LEBLANC MD Signed: 11/17/2022 17:24 Receipt Acknowledged By: * AWAITING SIGNATURE * HERB QUIROGA [facility]
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
--- OUTSIDE RECORDS SUMMARY | 2023-11-05 12:40 | XMS_ITS | Encounter Summary ---
Author Name [facility] [place] [facility] [place] Organization [facility] [place] [facility] [place] Address [address] [place] [address] Care Team Providers Care Machinist Tool And Die Name Role Phone KERI LEBLANC Primary Care [...] Relationship to Policy Crawley [facility] POINT OF SERVICE SOV RET UNDER 65 CHERISE Apr 14, 2018 [id number] [phone] VESNA,JANELL ERT PATIENT [facility] POINT OF SERVICE SOV ACTIV E SELEC TCAR Apr 14, 2018 [id number] VESNA,JANELL ERT PATIENT [facility] ([id number]) PRESCRIPT ION [facility] NT Apr 14, 2018 Q54A [phone] VESNA,JANELL ERT PATIENT [facility] ([id number]) PRESCRIPT ION [facility] NT Apr 14, 2018 Q54A [id number] VESNA,JANELL ERT PATIENT Selected Encounter This section includes the information on record at [place] for the Encounter. Date/Time Encounter Type Encounter Description Reason Pro vider Source Nov 18, 2022 10:30 AM [facility] En[facility] Template Text not used by [place] Plan of Treatment: Future Appointments (+ 6 months) and Future Tests (+/- 45 days) The Plan of Treatment section includes future care activities for the patient from all [place] [facility]. This section includes future appointments [...] 06, 2022 10:00 AM AMBULATORY - PSYCHIATRY [facility] Dec 19, 2022 08:00 AM AMBULATORY - NONE [facility] Jan 09, 2023 09:30 AM AMBULATORY - NONE [facility] [place] [facility] Feb 14, 2023 09:00 AM AMBULATORY - NONE [place] [facility] Feb 14, 2023 10:00 AM [facility] Feb 18, 2023 08:00 AM AMBULATORY - SURGERY [facility] Mar 14, 2023 09:00 AM AMBULATORY - PSYCHIATRY [facility] Mar 28, 2023 02:30 PM AMBULATORY - SURGERY [facility] Apr 04, 2023 09:00 AM AMBULATORY - PSYCHIATRY [facility] Apr 18, 2023 09:00 AM AMBULATORY - PSYCHIATRY [facility] May 16, 2023 09:00 AM AMBULATORY - PSYCHIATRY [facility] Social History: Smoking Status [...] 19, 2022 09:30 AM VA-TOBACCO FORMER USER [facility] Tobacco Use History This section includes a history of the smoking, or tobacco-related health factors, that were collected on or before the date of the Encounter. The data comes from the [place] facility where the Encounter took place. Date/Time Smoking Status/Tobacco Use Comment F acility August 19, 2022 09:30 AM VA-TOBACCO QUIT 5 TO < 15 YRS JUAN MANUEL PAREDES [facility] Jul 30, 2021 02:30 PM VA-TOBACCO FORMER USER JUAN MANUEL [facility] Jul 30, 2021 02:30 PM VA-TOBACCO QUIT 1 TO < 5 YRS [facility] Mar 30, 2020 09:00 AM VA-TOBACCO FORMER USER [facility] Mar 30, 2020 09:00 AM VA-TOBACCO QUIT 1 TO < 5 YRS [facility] Mar 25, 2019 08:16 AM VA-TOBACCO FORMER USER [facility] Mar 25, 2019 08:16 AM VA-TOBACCO QUIT < 1 YEAR [facility] Mar 17, 2018 10:44 AM VA-TOBACCO FORMER USER [facility] Mar 17, 2018 10:44 AM VA-TOBACCO QUIT < 1 YEAR [facility] May 19, 2017 11:10 AM LIFETIME NON-TOBACCO USER [facility] Mar 14, 2017 08:57 AM CURRENT SMOKELESS TOBACCO USER [facility] Mar 14, 2017 08:57 AM V1-PT DECLINES REF TO TOBACCO CESS PRGM [facility] Mar 14, 2017 08:57 AM V1-PT READY TO SHARON T TOBACCO USE [facility] August 26, 2016 12:48 PM V1-PT [facility] 26, 2016 12:48 PM V1-PT THINKING ABO UT QUIT TOBACCO USE [facility] August 26, 2016 08:45 AM CURRENT SMOKER FELICITA PAREDES [facility] Aug 08, 2014 09:46 AM CURRENT SMOKER FELICITA PAREDES [facility] Aug 08, 2014 09:46 AM V1-PT DECLINES REF TO TOBACCO CESS PRGM [facility] Aug 08, 2014 09:46 [...] I N PAST YEAR [facility] Radiology Reports: +/- 30 days of [...] the Encounter. The data comes from all [facility] facilities. Date/Time Radiology Report Provider Source Nov 15, 2022 08:15 AM ULTRASOUND NECK (THYROID,HEAD,SOFT TISSUE): EDITH MALAGON [id number] -1965 M Ex Date: NOV 15, 2022@08:15 Req Phys: KERI LEBLANC Loc: [id number] PACT [facility] 4 PHONE (Req'g Img Loc: ULTRASOUND (OOS) Service: Unknown (Case [id number] COMPLETE) ULTRASOUND NECK (THYROID,HEAD,SOF(US Detailed) CPT:44928 Reason for Study: Thyroid ndule noted on previous imaging; Surveillance Clinical History: Report Status: Verified Date Reported: NOV 18, 2022 Date Verified: NOV 18, 2022 Seals Engraver E-Sig:/ES/JOSE GARCIA Report: Ultrasound -- thyroid: COMPARISON: [...] Primary Interpreting Staff: JOSE GARCIA, RADIOLOGY ATTENDING (Seals Engraver) /JOSE SIMMS [facility] Encounter Notes: All associated encounter notes This section contains the clinical notes associated to the Encounter. Date/Time Encounter Note(s) Provider Source Nov 18, 2022 10:48 AM NO SHOW NOTE: LOCAL TITLE: Mental Health No Show/Clinic Cancel/Conversion Note STANDARD TITLE: NO SHOW NOTE DATE OF NOTE: NOV 18, 2022@10:48 ENTRY DATE: NOV 18, 2022@10:48:10 AUTHOR: CARMELA ALY EXP COSIGNER: URGENCY: STATUS: COMPLETED Mental Health No Show/Clinic Cancel/Conversion Note Has ADDENDA MENTAL HEALTH NO SHOW/CLINIC CANCELLATION/CLINIC CONVERSION NOTE Appointment Date & Time: Nov@10:30 ACTION: Provider attempted to reach Wray to discuss: (X) No Show Cancellation by clinic Cancellation by Conversion of clinic appointment REASON: for no show or clinic cancel/reschedule: Unknown. Wray did not answer the phone, I connected to voicemail, I therefore left a message asking him to call. I also tried his cell phone and also connected to voicemail and left a message asking him to call OUTCOME: Reached Wray and Clinic rescheduled to: [facility] Clinic Telephone Clinic Face to Face Clinic New clinic appointment date/time: Wray's email address: Left Wray voicemail message: Any Acute Safety Concerns? No If Yes, Action Taken or Further Follow-up: Co-sign MSAs at location to this note to take action on the clinic appt and add any additional instructions to MSA group. /bear/ CARMELA ALY STAFF PSYCHIATRIST Signed: 11/18/2022 10:49 Receipt Acknowledged By: 11/20/2022 13:58 /bear/ NAMAN ARGUELLES Artist Blacksmith 11/20/2022 ADDENDUM STATUS: COMPLETED I called and connected to his cell phone as well as his home phone. I left voicemail on both asking him to call. On the home phone I also asked that he leave any scheduling constraints if he does not reach me and I can try to schedule an appointment. I suggested we try for an in person appointment if we can /bear/ CARMELA ALY STAFF PSYCHIATRIST Signed: 11/20/2022 16:12 CARMELA ALY [facility]
--- OUTSIDE RECORDS SUMMARY | 2023-11-05 12:40 | XMS_ITS | Encounter Summary ---
Author Name [facility] [place] [facility] [place] [facility] [place] Address [address] [place] [address] Care Team Providers Care Bibliographic Services Specialist Name Role Phone KERI LEBLANC Primary [...] Crawley's Name Patient's Relationship to Policy Crawley [facility] POINT OF SERVICE SOV RET UNDER 63 CHERISE Apr 14, 2018 [id number] JANELL MALAGON ERT PATIENT [facility] POINT OF SERVICE SOV ACTIV E SELEC TCAR Apr 14, 2018 [id number] VESNA,JANELL ERT PATIENT [facility] ([id number]) PRESCRIPT ION [facility] Apr 14, 2018 Q54A [id number] [phone] VESNA,JANELL ERT PATIENT [facility] ([id number]) PRESCRIPT ION [facility] Apr 14, 2018 Q54A [id number] VESNA,JANELL ERT PATIENT Selected Encounter This section includes the information on record at [place] for the Encounter. Date/Time Encounter Type Encounter Description Reason Pro vider Source Jan 09, 2023 09:45 AM Outpatient Encounter [facility] Encounter Template Text not used by [place] Plan of Treatment: Future Appointments (+ 6 months) and Future Tests (+/- 45 days) The Plan of Treatment section includes future care activities for the patient from all [place] treatmentfacilities. This section includes future appointments and future orders which are active, pending or scheduled. Future Appointments This section includes appointments that were scheduled to occur 6 months from the date of the Encounter, up to a maximum of 20 appointments. The data comes from all [place] treatment facilities. Appointment Date/Time Appointment Type Appointme nt Facility Name Feb 14, 2023 09:00 AM AMBULATORY - NONE [place] [facility] Feb 14, 2023 10:00 AM [place] [facility] Feb 18, 2023 08:00 AM AMB[place]ORY [place] [facility] Mar 14, 2023 09:00 AM [place] [facility] Mar 28, 2023 02:30 PM AMBUL[place]ORY - [place] [facility] Apr 04, 2023 09:00 AM [place] [facility] Apr 18, 2023 09:00 AM [place] - [place] [facility] May 16, 2023 09:00 AM AM[place]AT[place] [facility] May 30, 2023 09:00 AM [place] [facility] Jun 13, 2023 09:00 AM [place]AT[place] - [place] [facility] Jun 27, 2023 09:00 AM AM[place]ULATORY - [place]RY [place] [facility] Lab Results: +/- 30 days of the encounter This section includes the Chemistry and Hematology Lab Results on record with [place] for the patient. Radiology Reports and Pathology Reports are provided separately, in subsequent sections. Lab Results This section contains the Chemistry/Hematology Results that were resulted 30 days before or 30 daysafter the date of the Encounter. Date/Time Source Result Type Result - Unit Interpretation Reference Range Comment Jan 18, 2023 08:00 AM [place] [facility] OCCULT BLOOD FIT X1 SCREEN([facility]) Specimen Type: FECES Comment: Tests performed on Polymed[employer] OC Auto Micro 80(405) Ordering Provider: IKER LEBLANC Report Released Date/Time: Jan 09, 2023 09:06 AM Reporting Lab: [facility] [address] [place] [address] Performing Lab: [facility] [address] [facility] [address] OCCULT BLOOD(FIT)# 1 OF 1(WRJ) Negative Negative Vital Signs: All taken on the encounter date This section contains inpatient and outpatient Vital Signs collected on the date of the Encounter. Date/Time Temperature Pulse Blood Pressure Respiratory Rate SP02 Pain Height Weight Body Mass Index Source Jan 09, 2023 09:31 AM 97.8 F 67 /min 120/79 mm[Hg] 18 /min 97 % 6 267 lb 38 [facility] Social History: Smoking Status (Most current) and Tobacco Use (All prior to encounter date) This section includes the most current, and the historical, smoking and tobacco- related health factors from the [place] facility where the Encounter took place. Current Smoking Status This section includes the most current smoking, or tobacco-related health factor, from the [place] facility where the Encounter took place. Date/Time Current Smoking Status Comment Facil ity August 19, 2022 09:30 AM VA-TOBACCO FORMER USER [facility] Tobacco Use History This section includes a history of the smoking, or tobacco-related health factors, that were collected on or before the date of the Encounter. The data comes from the [place] facility where the Encounter took place. Date/Time Smoking Status/Tobacco Use Comment F acility August 19, 2022 09:30 AM VA-TOBACCO QUIT 5 TO < 15 YRS [place] [facility] Jul 30, 2021 02:30 PM VA-TOBACCO FORMER USER [place] [facility] Jul 30, 2021 02:30 PM VA-TOBACCO QUIT 1 TO < 5 YRS [place] [facility] Mar 30, 2020 09:00 AM VA-TOBACCO FORMER USER [place] [facility] Mar 30, 2020 09:00 AM VA-TOBACCO QUIT 1 TO < 5 YRS [place] [facility] Mar 25, 2019 08:16 AM VA-TOBACCO FORMER USER [facility] Mar 25, 2019 08:16 AM VA-TOBACCO QUIT < 1 YEAR [facility] Mar 17, 2018 10:44 AM VA-TOBACCO FORMER USER [facility] Mar 17, 2018 10:44 AM VA-TOBACCO QUIT < 1 YEAR [facility] May 19, 2017 11:10 AM LIFETIME NON-TOBACCO USER [facility] Mar 14, 2017 08:57 AM CURRENT SMOKELESS TOBACCO USER [facility] Mar 14, 2017 08:57 AM V1-PT DECLINES REF TO TOBACCO CESS PRGM [facility] Mar 14, 2017 08:57 AM V1-PT READY TO SHARON T TOBACCO USE [facility] August 26, 2016 12:48 PM [facility] August 26, 2016 12:48 PM V1-PT THINKING ABO [place] QUIT TOBACCO USE [facility] August 26, 2016 08:45 AM CURRENT SMOKER [facility] Aug 08, 2014 09:46 AM CURRENT SMOKER [facility] Aug 08, 2014 09:46 AM [facility] Aug 08, 2014 09:46 AM V1-PT DECLINES TOB ACCO CESSATION MEDS [facility] Aug 08, 2014 09:46 AM V1-PT THINKING ABO [place] QUIT TOBACCO USE [facility] Jul 07, 2013 02:26 PM CURRENT SMOKER 4-6 cigarettes/day [facility] Jul 07, 2013 02:26 PM V1-PT [facility] Jul 07, 2013 02:26 PM V1-PT DECLINES TOB ACCO CESSATION MEDS [facility] Jul 07, 2013 02:26 PM V1-PT THINKING ABO UT QUIT TOBACCO USE [facility] Jul 15, 2012 02:30 PM CURRENT SMOKER Pt. is back to .5 to a ppd. Wants to quit again. [facility] Jul 15, 2011 10:07 AM V1-PT [facility] Jul 15, 2011 10:07 AM V1-PT READY TO SHARON T TOBACCO USE [facility] Dec 05, 2010 01:00 PM QUIT TOBACCO USE I N PAST YEAR [facility] Encounter Notes: All associated encounter notes This section contains the clinical notes associated to the Encounter. Date/Time Encounter Note(s) Provider Source Jan 10, 2023 08:40 AM MENTAL HEALTH TELE PHONE ENCOUNTER NOTE: LOCAL TITLE: Telephone Note/Mental Health STANDARD TITLE: MENTAL HEALTH TELEPHONE ENCOUNTER NOTE DATE OF NOTE: JAN 10, 2023@08:40 ENTRY DATE: JAN 10, 2023@08:40:53 AUTHOR: MAKENZIE RAUSCH COSIGNER: DI HAINES URGENCY: STATUS: COMPLETED TELEPHONE NOTE Duration of Call Content: returned t/w call and requests appointment in first week of February. He anticipates that he will be too busy throughout the month of January to begin therapy. Assessment of behavioral risk: [place] is not known to t/w however he denies any urgent MH needs and stated he feels safe. No distress noted during call Plan: Scheduled for 02/13/2023 at 9am /bear/ MAKENZIE RAUSCH Psychology Practicum Student Signed: 01/10/2023 09:08 /bear/ Di Haines Psy.D. Clinical Health Psychologist Cosigned: 01/10/2023 16:42 MAKENZIE RAUSCH [facility]
--- OUTSIDE RECORDS SUMMARY | 2023-11-05 12:40 | XMS_ITS | Encounter Summary ---
Author Name [facility] [place] [facility] [place] [facility] [place] Address [address] [place] [address] Care Team Providers Care Hobbing Machine Operator Name Role Phone KERI LEBLANC [...] Crawley's Name Patient's Relationship to Policy Crawley [facility] POINT OF SERVICE SOV RET UNDER 65 CHERISE Apr 14, 2018 [id number] JANELL MALAGON ERT PATIENT [facility] POINT OF SERVICE SOV ACTIV E SELEC TCAR Apr 14, 2018 [id number] [phone] VESNA,JANELL ERT PATIENT [facility] ([id number]) PRESCRIPT ION [facility] NT Apr 14, 2018 Q54A [id number] VESNA,JANELL ERT PATIENT [facility] ([id number]) PRESCRIPT ION [facility] Apr 14, 2018 Q54A [id number] [phone] VESNA,JANELL ERT PATIENT Selected Encounter This section includes the information on record at [place] for the Encounter. Date/Time Encounter Type Encounter Description Reason Pro vider Source Dec 19, 2022 05:12 AM Outpatient Encounter COMMUNITY CARE CONSULT IHE Encounter [...] AMBULATORY - NONE [place] [facility] [facility] Feb 14, 2023 09:00 AM AMBULATORY - NONE [place] [facility] [facility] Feb 14, 2023 10:00 AM [facility] Feb 18, 2023 08:00 AM [place] [facility] Mar 14, 2023 09:00 AM [place] [facility] Mar 28, 2023 02:30 PM [place] - [place] [facility] Apr 04, 2023 09:00 AM [place] [facility] Apr 18, 2023 09:00 AM [place] [facility] May 16, 2023 09:00 AM [facility] May 30, 2023 09:00 AM [facility] Jun 13, 2023 09:00 AM AMBULATORY - PSYCHIATRY [facility] Lab Results: +/- 30 days of the encounter This section includes the Chemistry and Hematology Lab Results on record with [place] for the patient. Radiology Reports and Pathology Reports are provided separately, in subsequent sections. Lab Results This section contains the Chemistry/Hematology Results that were resulted 30 days before or 30 daysafter the date of the Encounter. Date/Time Source Result Type Result - Unit Interpretation Reference Range Comment Jan 18, 2023 08:00 AM [facility] OCCULT BLOOD FIT X1 SCREEN([facility]) Specimen Type: FECES Comment: Tests performed on [employer] OC Auto Micro 80(405) Ordering Provider: IKER LEBLANC Report Released Date/Time: Jan 09, 2023 09:06 AM Reporting Lab: [facility] [address] [facility] [address] Performing Lab: [facility] [address] [address] OCCULT BLOOD(FIT)# 1 OF 1(WRJ) Negative Negative [...] 19, 2022 09:30 AM VA-TOBACCO FORMER USER [facility] Tobacco Use History This section includes a history of the smoking, or tobacco-related health factors, that were collected on or before the date of the Encounter. The data comes from the [place] facility where the Encounter took place. Date/Time Smoking Status/Tobacco Use Comment F acility August 19, 2022 09:30 AM VA-TOBACCO QUIT 5 TO < 15 YRS [facility] Jul 30, 2021 02:30 PM VA-TOBACCO FORMER USER [facility] Jul 30, 2021 02:30 PM VA-TOBACCO QUIT 1 TO < 5 YRS [facility] Mar 30, 2020 09:00 AM VA-TOBACCO FORMER USER [facility] Mar 30, 2020 09:00 AM VA-TOBACCO QUIT 1 TO < 5 YRS [facility] Mar 25, 2019 08:16 AM VA-TOBACCO FORMER USER [facility] Mar 25, 2019 08:16 AM VA-TOBACCO QUIT < 1 YEAR [facility] Mar 17, 2018 10:44 AM VA-TOBACCO FORMER USER [facility] Mar 17, 2018 10:44 AM VA-TOBACCO QUIT < 1 YEAR [facility] May 19, 2017 11:10 AM LIFETIME NON-TOBACCO USER [facility] Mar 14, 2017 08:57 AM CURRENT SMOKELESS TOBACCO USER [facility] Mar 14, 2017 08:57 AM V1-PT [facility] Mar 14, 2017 08:57 AM V1-PT READY TO SHARON T TOBACCO USE [facility] August 26, 2016 12:48 PM V1-PT [facility] August 26, 2016 12:48 PM V1-PT THINKING ABO UT QUIT TOBACCO USE [facility] August 26, 2016 08:45 AM CURRENT SMOKER [facility] Aug 08, 2014 09:46 AM CURRENT SMOKER [facility] Aug 08, 2014 09:46 AM V1-PT [facility] Aug 08, 2014 09:46 AM V1-PT DECLINES TOB ACCO CESSATION MEDS [facility] Aug 08, 2014 09:46 AM V1-PT THINKING ABO UT QUIT TOBACCO USE [facility] Jul 07, 2013 02:26 PM CURRENT SMOKER 4-6 cigarettes/day [facility] Jul 07, 2013 02:26 PM V1-PT DECLINES REF TO TOBACCO CESS [facility] Jul 07, 2013 02:26 PM [facility] Jul 07, 2013 02:26 PM V1-PT THINKING ABO UT QUIT TOBACCO USE [facility] Jul 15, 2012 02:30 PM CURRENT SMOKER Pt. is back to .5 to a ppd. Wants to quit again. [facility] Jul 15, 2011 10:07 AM V1-PT DECLINES REF TO TOBACCO CESS [facility] Jul 15, 2011 10:07 AM V1-PT READY TO SHARON T TOBACCO USE [facility] Dec 05, 2010 01:00 PM QUIT TOBACCO USE I N PAST YEAR [facility] Encounter Notes: All associated encounter notes This section contains the clinical notes associated to the Encounter. Date/Time Encounter Note(s) Provider Source Dec 19, 2022 05:12 AM NONVA CONSULT: LOCAL TITLE: COMMUNITY CARE CONSULT RESULT NOTE STANDARD TITLE: NONVA CONSULT DATE OF NOTE: DEC 19, 2022@05:12 ENTRY DATE: APR 04, 2023@05:12:56 AUTHOR: ARMAND BILLY EXP COSIGNER: URGENCY: STATUS: COMPLETED VistA Imaging - Scanned Document COMMUNITY CARE-PHYSICAL THERAPY DATE OF SERVICE: 12/19/2022 PT INITIAL EVALUATION NOTE-RIGHT KNEE PAIN. [facility] // ARMAND BILLY Lead Signed: 04/04/2023 05:14 ARMAND BILLY [facility]
[2023-11-05 12:43] LABS: Abs Immature Grans 0.03 10^3/uL (0.0-0.06); Absolute Basophil Count 0.06 10^3/uL (0.0-0.2); Absolute Eosinophil Count 0.13 10^3/uL (0.0-0.7); Absolute Lymphocyte Count 2.78 10^3/uL (1.2-3.4); Absolute Monocyte Count 0.75 10^3/uL (0.1-0.8); Absolute Neutrophil Count 3.12 10^3/uL (1.2-6.7); Basophils % 0.9 %; Eosinophils % 1.9 %; HCT 42.3 % (40.0-50.0); Immature Grans % 0.4 %; Lymphocytes % 40.5 %; MCH 29.7 pg (27.0-33.0); MCHC 33.1 % (32.0-36.0); MCV 90 fL (80-95); MPV 10.8 fL (8.0-11.0); Monocytes % 10.9 %; Neutrophils % 45.4 %; Platelet Count 196 10^3/uL (130-400); RBC 4.71 10^6/uL (4.36-5.78); RDW 12.9 % (11.8-14.1); RDW-SD 42.8 fL; WBC 6.87 10^3/uL (4.4-10.8)
--- NOTE | 2023-11-05 12:46 | W.ED.GENAD ---
Discharge Plan Discharge Details Chief Complaint: Chest Pain Primary Care Provider: KERI LEBLANC ED Provider: Reji Adames Home Meds and New Rx's Prescriptions: No Action nicotine (polacrilex) 4 mg mini lozenge 4 mg PO DIRECTED melatonin 10 mg capsule 10 mg PO QHS HPI General Date/Time Provider Initiated Documentation: 11/05/23 12:35. HPI Narrative: 58-year-old male history of pleurisy presents with 2 days of pleuritic chest discomfort shortness of breath dizziness and tingling to bilateral arms worse with deep breath. Denies recent travel immobilization surgery or trauma, denies history of thromboembolic disease or coronary disease. Related Data Home Medications ?Medication ?Instructions ?Recorded ?Confirmed nicotine (polacrilex) 4 mg buccal 4 mg PO DIRECTED 01/16/23 11/05/23 mini lozenge melatonin 10 mg capsule 10 mg PO QHS 11/05/23 11/05/23 Allergies Allergy/AdvReac Type Severity Reaction Status Date / Time oxycodone (From Percocet) AdvReac Intermediate Nausea Verified 11/05/23 12:10 General Stated Complaint: Chest Pain ANNIE: 2 Exam Narrative Exam Narrative: Resting comfortably no acute distress alert interactive Tolerate secretions moist mucous membranes Normal heart sounds no murmurs rubs or gallops, normal rate No wheezes rhonchi or rails good breath sounds and chest exertion no chest wall crepitus Abdomen soft nontender nondistended No peripheral edema Alert and oriented moving all extremities without deficit normal speech cranial nerves intact no ataxia Course Vital Signs Vital signs: Vital Signs Temperature 36.2 C L 11/05/23 12:06 Pulse 75 11/05/23 12:06 Respiratory Rate 17 11/05/23 12:06 Blood Pressure 139/57 L 11/05/23 12:06 Pulse Oximetry 95 11/05/23 12:06 Temperature 36.2 C L 11/05/23 12:06 Temperature Source Temporal Artery Scan 11/05/23 12:06 Pulse 75 11/05/23 12:06 Respiratory Rate 16 11/05/23 12:22 Respiratory Effort Short of Breath 11/05/23 12:22 Respiratory Depth Normal 11/05/23 12:22 Respiratory Pattern Normal 11/05/23 12:22 Blood Pressure 139/57 L 11/05/23 12:06 Pulse Oximetry 95 11/05/23 12:06 Pain Level 4 11/05/23 12:22 Lab/Test Results Lab/Test Results: Laboratory Tests Range/Units 11/05/23 12:20 WBC (4.4-10.8) 10^3/uL 6.87 RBC (4.36-5.78) 10^6/uL 4.71 Hgb (13.5-17.5) g/dL 14.0 Hct (40.0-50.0) % 42.3 MCV (80-95) fL 90 MCH (27.0-33.0) pg 29.7 MCHC (32.0-36.0) % 33.1 RDW (11.8-14.1) % 12.9 Plt Count (130-400) 10^3/uL 196 MPV (8.0-11.0) fL 10.8 Immature Gran % % 0.4 Neutrophils % % 45.4 Lymphocytes % % 40.5 Monocytes % % 10.9 Eosinophils % % 1.9 Basophils % % 0.9 Nucleated RBC % (0.0-0.3) % 0.0 Absolute Neutrophils (1.2-6.7) 10^3/uL 3.12 Absolute Lymphocytes (1.2-3.4) 10^3/uL 2.78 Absolute Monocytes (0.1-0.8) 10^3/uL 0.75 Absolute Eosinophils (0.0-0.7) 10^3/uL 0.13 Absolute Basophils (0.0-0.2) 10^3/uL 0.06 Medical Decision Making 58-year-old male presents with 2 days of pleuritic chest pain shortness of breath arm tingling and dizziness. EKG normal sinus rhythm normal axis normal intervals consider J-point versus diffuse ST segment elevation, no territorial ST segment elevation or reciprocal changes to suggest acute STEMI must consider pericarditis or myocarditis versus pleurisy versus PE versus ACS lower suspicion for aortic pathology most also consider pneumothorax or pneumonia. Screening labs troponin BNP D-dimer coags trial of analgesia, loading with aspirin close reassessment 17: 24 patient resting comfortably no acute distress. Feeling much better after steroids and benzodiazepine. Awaiting second troponin for dispo home if normal. Consider resolving pleurisy Quality:[facility] Health Related Social Needs: No Data to Display [facility] Medical History No blood products Ex-smoker Sleep apnea Dysfunction of eustachian tube Major depressive disorder Multiple pulmonary nodules Non-alcoholic fatty liver disease Anxiety Depression PTSD (post-traumatic stress disorder) Surgical History (Updated 01/31/23 @ 08:38 by Reji Smyth MD) Synovial cyst History of tonsillectomy History of tonsillectomy H/O hemorrhoidectomy Social History Smoking/Tobacco Use Status: Former Tobacco Use Quit Date: 04/14/14 Smoking risk assessment performed?: Yes Alcohol Intake: current Alcohol Intake frequency: a few times a month Drug use: Never Substance use type: does not use Housing: apartment Do you feel safe at home: Yes Do you feel safe in your relationship?: Yes PAWSS Have you Been Recently Intoxicated or Drunk Within the Last 30 days?: No Have you Ever Experienced Previous Episodes of Alcohol Withdrawal?: No Have you ever Experienced Withdrawal Seizures?: No Have you ever Experienced Delirium Tremens(DT)s?: No Have you ever undergone Alcohol Rehabilitation Treatment (i.e, inpt ot outpatient treatment programs)?: No Have you ever Experienced Blackouts?: No Have you ever Combined Alcohol with other Downers within the last 90 days?: No Have you ever Combined Alcohol with any other Substance of Abuse during the last 90 days?: No Result: 0
--- OUTSIDE RECORDS SUMMARY | 2023-11-05 12:47 | XMS_ITS | Encounter Summary ---
[place] [address] Care Team Providers Care Farmer Cash Grain Name Role Phone Adolfo Kirkland MD Primary Care Provider [phone] Reason for Visit * Reason Comments Low Back Pain Follow Up Surgery Encounter Details Date Type Department Care Team (Late st Contact Info) Description 05/10/2014 10:40 AM EST Office [place] [address] Orville Roy MD [facility] [place] [address] Synovial cyst of lumbar facet joint Discharge Disposition: Home Social History Tobacco Use Types Packs/Day Years Used Date Smoking Tobacco: Smoker, Current Status Unknown Cigarettes Smokeless Tobacco: Never Comments:stopped 2 weeks ago Sex and Gender Information Value Date Recorded Sex Assigned at Not on file Gender Identity Not on file Sexual Orientation Not on file documented as of this encounter Progress Notes * Jhony Tracy RN - 05/10/2014 12:[address] Roy a prescription for Tramadol 50 mg, 1 tabs at HS PRN #30 was completed for patient. directed patient to discuss further refills with his PCP. * Orville Roy MD - 05/10/2014 11:26 AM EST Mr. Zaman is seen today in followup to his surgery of 04/11/2014, where he underwent a decompression L4-L5 for symptomatic spinal stenosis, left leg pain, and a synovial cyst at the left L4-L5 facet joint. He had severe lateral recess stenosis, facet hypertrophy, and capsular hypertrophy, particularly at the shoulder of left L5 nerve root, in the foramen of the fourth nerve root, and all nerves were fully decompressed without problems at the time of surgery. Today, Mr. Zaman reports that his leg pain is gone. He is still having some pain along his surgical site. Today, he appears well. His gait is normal. He can toe and heel walk without weakness. His incision is completely benign in appearance. His distal motor exam and sensory exam are normal. His reflexes are 2 at the knees and ankles. His straight leg raise test is negative. His calf musculatures are soft and nontender. From the point of view of his leg pain, Mr. Zaman has done well. His leg pain is completely resolved. His back pain may be a combination of resolving incisional pain and arthropathy, which is well known in his spine L3-L4 and L4-L5. All this was reviewed with him in detail. We discussed physical therapy. He is in agreement with that. 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 We will also try him on some tramadol to see if this helps with his pain at night. I will be happy to see him back and review these issues as needed. documented in this encounter Plan of Treatment Not on file documented as of this encounter Visit Diagnoses Diagnosis Synovial cyst of lumbar facet joint Cyst of bone (localized), unspecified documented in this encounter Care Teams Farmer Cash Grain Relationship Specialty Start Date End Date Adolfo Kirkland MD [address] [place] [address] PCP - General 04/04/14 documented as of this encounter
--- OUTSIDE RECORDS SUMMARY | 2023-11-05 12:47 | XMS_ITS | Encounter Summary ---
Author Organization [facility] Address [facility] [address] Care Team Providers Care Integrated Pest Management Technician Name Role Phone Adolfo Kirkland MD Primary Care Provider [phone] Encounter Details Date Type Department Care Team (Late st Contact Info) Description 04/11/2014 9:59 AM EST Anesthesia Event [place] [address] Fernandez Marino MD [facility] [place] [address] Anesthesia Record Procedure Summary Procedure Name Responsible Anesthesiologist Anesthesia Start Time Anesthesia Stop Time LAMINECTOMY, FACETECTOMY & FORAMINOTOMY,LUMBAR, ONE LEVEL (WRVU 15.37) (Spine Lumbar) Fernandez Marino MD 04/11/14 0959 04/11/14 1210 Events Date Time Event Comment 04/11/2014 0956 0959 Start 1001 AN Verify 1001 An Start Data 1005 An Induction 1008 An Intubation 1016 Anesthesia Ready 1027 Quick Note 20 ml 0.25% mar roxanne local 1031 Skin Incision 1123 Break/Relief In FERNANDEZ MOREAU MD 1155 Break/Relief Out 1206 Extubation/LMA Out 1210 an stop data 1210 Stop Meds Name Total Midazolam 2 mg fentaNYL 250 mcg IV Lidocaine 30 mg Propofol 150 mg Rocuronium 50 mg PHENYLephrine 320 mcg Ondansetron 4 mg Dexamethasone 8 mg Glycopyrrolate 0.4 mg ceFAZolin (ANCEF) 2g in dextrose 5% 50 m L 2 g PHENYLephrine INF 3,400 mcg ketorolac 30 mg lactated ringers infusion 1,000 mL 1,200 mL * Agents Name O2 Air Sevoflurane (et) * Blood No blood administrations on file. Lines, Drains, and Airways Type Details Placement Removal Incision 04/11/14; lumbar spi ne; vertical, midline; 12/10/21 (LDA cleanup utility RA#[id number]); 1715 (LDA cleanup utility RA#[id number]) 04/11/14 0000 by Fernandez Suárez RN 12/10/21 1715 by Familia Quintanilla (RETIRED) Peripheral IV Line - Single Lumen 04/11/14; 0954; metacarpal vein right (top of hand); 18 gauge; 04/11/14; 1609 04/11/14 0954 by Rachel Alejandro RN 04/11/14 1609 by Lu Vo RN ETT Mask Ventilation: Ea sy (1); ETT Type: Oral; ETT Size: 7.5 mm; Mac Blade: 4; Notes: Asleep, Pre-O2; Attempts: 1; Laryngoscopy Grade: 1; ETT Placement Verified By: Auscultation, Capnometry, Visual; Secured at Teeth: 22 cm; Inserted by: ER resident; Removal Date: 04/11/14; Removal Time: 1206 04/11/14 1008 by Terrell Alarcon CRNA 04/11/14 1206 by Terrell Alarcon CRNA documented in this encounter Social History Tobacco Use Types Packs/Day Years Used Date Smoking Tobacco: Former Cigarettes Smokeless Tobacco: Never Comments:stopped 2 weeks ago Sex and Gender Information Value Date Recorded Sex Assigned at Not on file Gender Identity Not on file Sexual Orientation Not on file documented as of this encounter OR Notes * Anesthesia Postprocedure Evaluation - Fernandez Marino MD - 04/11/2014 1:46 PM EST Patient: Danish Zaman Procedure(s) Performed: Procedure(s): LAMINECTOMY, FACETECTOMY & FORAMINOTOMY,LUMAR, ONE LEVEL ADD'L INTERSPACES CX., THORACIC, LUMBAR MODIFIER L4 MODIFIER L5 Actual Anesthetic: general Patient location: PACU Post-op pain: Adequate analgesia Post-op nausea: no nausea or vomiting Last Vitals: Filed Vitals: 04/11/14 1315 BP: 118/65 Pulse: 83 Temp: Resp: 16 Post-op cardiovascular and respiratory status: is stable Level of consciousness: awake Complications: no apparent complications and tolerated the procedure well Fluid Status: normal * Anesthesia Preprocedure Evaluation - Fernandez Marino MD - 04/11/2014 9:53 AM EST Pre-Anesthesia Evaluation for: Danish Zaman a 48 y.o. male. Procedure(s): LAMINECTOMY, FACETECTOMY & FORAMINOTOMY,LUMAR, ONE LEVEL ADD'L INTERSPACES CX., THORACIC, LUMBAR MODIFIER L4 MODIFIER L5 Patient Active Problem List Diagnosis ??? Left buttock pain ??? Synovial cyst of lumbar facet joint Left l4-5 No past medical history on file. No past surgical history on file. History Substance Use Topics ??? Smoking status: Former Smoker -- 0.50 packs/day ??? Smokeless tobacco: Never Used Comment: stopped 2 weeks ago ??? Alcohol Use: Not on file History Drug Use Not on file Allergies Allergen Reactions ??? Percocet [Oxycodone-Acetaminophen] Other (See Comments) GI issues Medications: MAR and/or home medications have been reviewed. Physical Exam: Filed Vitals: 04/11/14 0936 BP: 102/68 Pulse: 59 Temp: 36.3 ??C (97.3 ??F) Resp: 18 Body mass index is 32.28 kg/(m^2). Height: 177.8 cm (5' 10) Weight - Scale: 102.059 kg (225 lb) Airway Assessment: Mallampati: II TM distance: >3 FB Neck ROM: full Cardiovascular Assessment: Pulmonary Assessment: Dental Assessment: - normal exam Misc Assessment: IV access: Peripheral line Anesthesia Plan: ASA 2 general, with a(n) intravenous induction Stopped smoking 6 days ago, no inhaler use last 10 days. No problems with anesthesia in past. NPO, OK to proceed. GETA, std monitors, prone protection. Region - Other Informed Consent: Anesthetic plan and risks discussed with patient. Plan discussed with MATERIALS ENGINEERING TECHNICIAN. Misc. Assessment: documented in this encounter Plan of Treatment Not on file documented as of this encounter Visit Diagnoses Not on filedocumented in this encounter Administered Medications Inactive Administered Medications - up to 3 most recent administrations Medication Order MAR Action Action Date Dose Rate Site ceFAZolin (ANCEF) 2g in dextrose 5% 50 mL 2 g, Intravenous, EVERY 3 HOURS, 1 dose, First dose on Fri04/11/14 at 1000, Administer over 30 Minutes, Redose after 3 hours., Intra-Operative (Intra-Procedure), Indication for (Active or Suspected): Prophylaxis Given 04/11/2014 10:07 AM EST 2 g dexamethasone (DECADRON) injection PRN, Starting on Fri04/11/14 at 1023, Until Fri04/11/14 at 1210, Anesthesia Intra-op, Routine Given 04/11/2014 10:23 AM EST 8 mg fentaNYL 50mcg/mL injection PRN, Starting on Fri04/11/14 at 1020, Until Fri04/11/14 at 1210, Pain, Anesthesia Intra-op, Routine Given 04/11/2014 10:20 AM EST 100 mcg Given 04/11/2014 10:11 AM EST 50 mcg Given 04/11/2014 9:59 AM EST 100 mcg glycopyrrolate (ROBINUL) injection PRN, Starting on Fri04/11/14 at 1038, Until Fri04/11/14 at 1210, Anesthesia Intra-op, Routine Given 04/11/2014 10:40 AM EST 0.1 mg Given 04/11/2014 10:38 AM EST 0.3 mg ketorolac (TORADOL) injection PRN, Starting on Fri04/11/14 at 1142, Until Fri04/11/14 at 1210, Pain, Anesthesia Intra-op, Routine Given 04/11/2014 11:42 AM EST 30 mg lactated ringers infusion 1,000 mL 1,000 mL, at 100 mL/hr, Intravenous, CONTINUOUS, Starting on Fri04/11/14 at 1000, Until Fri04/11/14 at 1843, Day of Surgery (Day of Procedure) New Bag 04/11/2014 10:00 AM EST 1,000 mLs 100 mL/hr New Bag 04/11/2014 9:59 AM EST lidocaine (PF) (XYLOCAINE) 100 mg/5 mL (2 %) injection PRN, Starting on Fri04/11/14 at 1005, Until Fri04/11/14 at 1210, Anesthesia Intra-op, Routine Given 04/11/2014 10:05 AM EST 30 mg midazolam (PF) (VERSED) 1 mg/mL injection PRN, Starting on Fri04/11/14 at 0959, Until Fri04/11/14 at 1210, Sleep, Anesthesia Intra-op, Routine Given 04/11/2014 9:59 AM EST 2 mg ondansetron (ZOFRAN) injection PRN, Starting on Fri04/11/14 at 1139, Until Fri04/11/14 at 1210, Nausea, Anesthesia Intra-op, Routine Given 04/11/2014 11:39 AM EST 4 mg PHENYLephrine (DIMPLE-SYNEPHRINE) 20 mg in sodium chloride 250 mL infusion CONTINUOUS PRN, Starting on Fri04/11/14 at 1034, Until Fri04/11/14 at 1210, Anesthesia Intra-op, Routine New Bag 04/11/2014 10:34 AM EST 40 mcg/min 30 mL/hr PHENYLephrine HCl in NS (PF) (DIMPLE-SYNEPHRINE) 0.8 mg/10 mL (80 mcg/mL) injection Syrg PRN, Starting on Fri04/11/14 at 1024, Until Fri04/11/14 at 1210, Anesthesia Intra-op, Routine Given 04/11/2014 10:34 AM EST 160 mcg Given 04/11/2014 10:24 AM EST 160 mcg propofol (DIPRIVAN) 10 mg/mL bolus injection (Anesthesia) PRN, Starting on Fri04/11/14 at 1005, Until Fri04/11/14 at 1210, Anesthesia Intra-op Given 04/11/2014 10:05 AM EST 1 50 mg rocuronium (ZEMURON) injection PRN, Starting on Fri04/11/14 at 1005, Until Fri04/11/14 at 1210, Anesthesia Intra-op, Routine Given 04/11/2014 10:05 AM EST 50 mg documented in this encounter Care Teams Integrated Pest Management Technician Relationship Specialty Start Date End Date Adolfo Kirkland MD [address] [place] [address] PCP - General 04/04/14 documented as of this encounter
--- OUTSIDE RECORDS SUMMARY | 2023-11-05 12:47 | XMS_ITS | Encounter Summary ---
Author Organization [facility] [place] [address] Care Team Providers Care Hand Expansion Envelope Maker Name Role Phone Adolfo Kirkland MD Primary Care Provider [phone] Encounter Details Date Type Department Care Team (Late st Contact Info) Description 04/11/2014 9:58 AM EST - 04/11/2014 12:26 PM EST Surgery [place] [address] Orville Roy MD [facility] [place] [address] LAMINECTOMY, FACETECTOMY & FORAMINOTOMY,LUMBAR, ONE LEVEL (WRVU 15.37) Social History Tobacco Use Types Packs/Day Years Used Date Smoking Tobacco: Former Cigarettes Smokeless Tobacco: Never Comments:stopped 2 weeks ago Sex and Gender Information Value Date Recorded Sex Assigned at Not on file Gender Identity Not on file Sexual Orientation Not on file documented as of this encounter Last Filed Vital Signs Vital Sign Reading Time Taken Comments Blood Pressure 136/82 04/11/2014 12:16 PM EST Pulse 72 04/11/2014 12:16 PM EST Temperature 36.5 ??C (97.7 ??F) 04/11/2014 12:[address] Respiratory Rate 18 04/11/2014 12:16 PM EST Oxygen Saturation 96% 04/11/2014 12:16 PM EST Inhaled Oxygen Concentration - - Weight 102.1 kg (225 lb) 04/11/2014 9:36 AM EST Height 177.8 cm (5' 10) 04/11/2014 9:36 AM EST Body Mass Index 32.28 04/11/2014 9:36 AM EST documented in this encounter Discharge Instructions * Discharge Instructions* Lu Vo, RN - 04/11/2014 12:53 PM EST Spine Surgery Discharge Instructions MEDICATION: 1. If you need a renewal of your pain medication, please contact the [facility] Center Prescription Lineat [phone]. PRESCRIPTION RENEWAL REQUEST CAN TAKE UP TO 3 DAYS TO PROCESS SO PLEASE PLAN ACCORDINGLY. Some narcotic pain medications can not be called into your pharmacy and require the prescription to be picked up or mailed to your pharmacy. Call [phone] to speak with a Spine Center Nurse. 2. The pain medication you are on can cause constipation, so increase your intake of fluids and fiber while you are taking them. You should also take an puut-aju-rftstbl stool softener, colace or senna, to facilitate a bowel movement. 3. You should take tylenol around the clock (1000mg every 8 hours) for pain management for the first 10 days. 4. You may also take ibuprofen (800mg three times per day) OR naproxen (550mg twice per day) for pain relief. ACTIVITY: As tolerated, but no bending, or twisting and do not lift anything greater than 5 pounds. DIET: Eat your normal diet, with adequate amounts of protein and fiber. DRIVING: NO driving while you are on narcotic pain medication. SHOWER/BATH: You may shower with the operative dressing in place. Cover your gauze dressing with Tegaderm for first seven to ten days while showering. Following your shower you should remove the tegaderm and gauze dressing and reapply a lightly taped gauze dressing over your incision. Tegaderm should only be used while in the shower. Do not soak the incision in a bath or pool for 3 weeks. WOUND CARE: Keep the dressing in place for 72 hours. After 72 hours remove the dressing but keep the paper strips (steri-strips) in place. Change the dressing with a sterile gauze dressing. The steri-strips may begin to fall off, and you may remove them as they peel back. Change the dressing daily for 7- 10 days. After 10 days the wound can remain uncovered. After 14 days you should remove the steri-strips if they have not fallen off already. CALL YOUR SURGEON, IF YOU HAVE: ??? Fevers greater than 101.5* Fahrenheit ??? Chills or night sweats ??? Nausea or vomiting ??? Wound redness or discharge ??? Numbness or tingling in your hands or feet ??? Incontinence of bowel or bladder ??? Any questions or concerns If you have any questions call: Clinical issues, nurse questions: [phone] Medication renewal: [phone] Appointments for : Manuela: [phone] If you need to speak with a Spine Center resident after-hours or on weekends for any of the above listed issues please call [phone] and ask for the Ortho resident on-call. If not urgent, please leave a message with the spine nurse team and your call will be returned within a business day. Future Appointments Date Time Provider Department Center 05/10/2014 10:40 AM Orville Roy MD [facility] POST ANESTHESIA INSTRUCTIONS Go home, rest, use caution on stairs. Change positions slowly. Do not smoke if you are alone. Diet light to regular as tolerated today. If nausea occurs start with clear liquids and progress slowly. No driving, operating machinery, alcoholic beverages and no important decisions for 24 hours. Monitor IV site for signs and symptoms of infection: increasing redness, swelling, foul drainage, if occurs contact M.D. Patients who have had endotrachial tubes (this tube, used by anesthesia department, is passed down your throat after you are asleep, to ensure safe air passage during your operation). A sore throat is normal due to the tube. Cold liquids or soothing lozenges will help ease the discomfort. The generalized muscle aches are due to the medication given to you just before the tube is inserted. As the medication wears off, you may develop muscle soreness, which usually goes away in 12-24 hours. documented in this encounter Medications at Time of Discharge Medication Sig Dispensed Refills Start Date End Date acetaminophen (TYLENOL) 500 mg Tablet Take 2 tablets by mouth every 8 hours. 30 tablet 1 04/11/2014 gabapentin (NEURONTIN) 300 mg Capsule 300-600 mgs at bedtime. 60 capsule 2 03/15/2014 albuterol (PROVENTIL HFA;VENTOLIN HFA) 90 mcg/actuation inhaler Inhale 1 puff into the lungs as needed. Use with spacer HYDROmorphone (DILAUDID) 2 mg Tablet Take 1-3 tablets by mouth every 4 hours as needed for Pain. 80 tablet 0 04/11/2014 05/10/2014 ondansetron (ZOFRAN-ODT) 4 mg Tablet, Rapid Dissolve Take 2 tablets by mouth every 8 hours as needed for Nausea. 20 tablet 2 04/11/2014 05/10/2014 documented as of this encounter H&P Notes * Orville Roy MD - 04/11/2014 9:12 AM EST The patient's history and physical exam have been reviewed and completed. There has been no interval change from that of the pre-operative history and physical exam done within the last 30 days. Pt seen and examined, noting no changes in health or of left leg pain to distal leg. bilat EHL and ADF 5/5, LT sensation intact. Consented procedure reviewed, questions answered and post-operative instructions reviewed. Will proceed as consented. present. Orville Roy MD MS Source Note - Orville Roy MD - 04/10/2014 7:35 PM EST Patient Name: Danish Zaman Patient Age: 48 y.o. Birthdate: 1965 Admit date: (Not on file) Attending Physician: Orville Roy MD Please see H&P note for visit documentation. * Orville Roy MD - 04/10/2014 7:35 PM EST Patient Name: Danish Zaman Patient Age: 48 y.o. Birthdate: 1965 Admit date: (Not on file) Attending Physician: Orville Roy MD Please see H&P note for visit documentation. documented in this encounter Miscellaneous Notes * Op Note - Orville Roy MD - 04/11/2014 11:57 PM EST Operative Note Patient Name: Danish Zaman : [id number] MR#: [id number] Case Date: 04/11/2014 Surgeon: Surgeon(s) and Role: * Orville Roy MD - Primary * Dilcia Cruz MD - Resident-Surgeon Ricardo Preoperative diagnosis: spinal stenosis left L4-5 Postoperative diagnosis: spinal stenosis left L4-5 Procedure(s): Decompression left L4-5 Anesthesia: General Findings: severe lateral recess stenosis and facet hypertrophy and capsular hypertrophy at shoulderof left L5 and foramen L4. Nerves fully decompressed at closure.no CSF. Complications: none Fluids: 1200 cc Estimated Blood Loss: 50 mL Drains: none Disposition: awakened from anesthesia, extubated and taken to the recovery room in a stable condition INDICATIONS FOR PROCEDURE: This is a 48-year-old male who presented to clinic complaining of left leg pain. MRI confirmed that he had stenosis with a synovial cyst coming off his left L4-L5 facet joint. He had previously had the synovial cyst aspirated in November. However his pain persisted and he felt that he had exhausted all nonoperative treatment options and after discussion of the risks and benefits of surgical decompression, he wished to pursue operative treatment. Consent form was signed in clinic. DESCRIPTION OF PROCEDURE: The patient was correctly identified in the same-day holding area, the operative site was marked, and consent was confirmed by the team. The preoperative procedural checklist was completed. The patient was brought to the operating room where general anesthetic was administered while supine on the stretcher. The patient was then transitioned to theprone position on the Geovani table, making sure all bony prominences were well padded. Preoperative antibiotics were given and documented by the anesthesia team. A time-out was performed to confirm the patient's identity, planned surgery, and site according to the [facility] [place] protocol. The back was then prepped using chlorhexidine, alcohol, and DuraPrep and then draped in the usual sterile fashion. Using the iliac wing to help define the patient's anatomy, an incision was marked on the skin with a marking pen. 20cc of 0.25% Marcaine with epinephrine was injected into the subcutaneous tissues before making an incision directly over the proposed levels. Soft tissue dissection was initiated with a scalpel followed by Bovie electrocautery to obtain hemostasis. We proceeded with subperiosteal dissection on the left starting with the tip of the spinous process and working out laterally over the lamina out to the facet. The facet joints were not compromised or debrided. Exposure was realized with a Destiny retractor. The undersurface of the exposed lamina was dissected and soft tissue removed using a rongeur and curette. A Oneida was then placed on the undersurface of the lamina, and an intraoperative x-ray confirmed that we were at the superior aspect of the L4 level. Following this, we then extended our incision and dissection distally to the L4-L5 level. A rongeur was used to remove a small portion of the inferior left side of medial L4 lamina and superior portion of the L5 lamina once those levels were exposed. A Kerrison was then used to continue to remove the bone in a piecemeal fashion to complete the laminotomy while preserving the pars. The ligamentum flavum was identified and carefully removed as well to provide adequate exposure. The synovial cyst was identified insolation in the approach, but the . Significant stenosis was encountered. The dura was exposed to the level of the exiting left side [id number] root. Gelfoam, thrombin, and patties were used to control epidural bleeding as needed. We continued to remove bone and hypertrophied ligamentum flavum in the area of the synovial cyst to decompress the shoulder and axilla of the L5 nerve root, and we also directly decompressed the L4 foramen. At the end of the decompression, the L4 foramen and the exiting left L5 nerve were decompressed. The wound was then copiously irrigated and any remaining bleeding was controlled using Bovie electrocautery. A Gelfoam was placed over the dura at the laminotomy site. Then, 0 Vicryl sutures were used to reapproximate the fascial layer in an interrupted fashion. After the fascia was closed, the wounds were irrigated. The superficial layer was closed using 2-0 Vicryl sutures in a simple interrupted buried fashion followed by running 3-0 Vicryl and 20 mL of 0.25% Marcaine with epi was then injected to assist with hemostasis and postoperative pain control. Mastisol and Steri-Strips were applied to the wound, which was then dressed with 4 x 4's and Tegaderm. A postoperative time-out was held. The patient was then transferred back to the stretcher and extubated without difficulty. On the stretcher, he was taken back to the same-day recovery area in stable condition. There were no obvious intraoperative complications at the end of the case. All needle, sponge, and instrument counts were correct at the end of the procedure. Dr. Roy was present, scrubbed, and supervised all integral portions of the procedure. * Brief Op Note - Orville Roy MD - 04/11/2014 12:08 PM EST Brief Operative Note Patient Name: Danish Zaman DOB: [id number] MR#: [id number] Case Date: 04/11/2014 Surgeon: Surgeon(s) and Role: * Orville Roy MD - Primary * Dilcia Cruz MD - Resident-Surgeon Ricardo Preoperative diagnosis: spinal stenosis left L4-5 Postoperative diagnosis: spinal stenosis left L4-5 Procedure(s): Decompression left L4-5. 22324, 28926 Anesthesia: General Findings: severe lateral recess stenosis and facet hypertrophy and capsular hypertrophy at shoulderof left L5 and foramen L4. Nerves fully decompressed at closure.no CSF. Complications: none Fluids: 1200 cc Estimated Blood Loss: 50 mL Drains: none Disposition: awakened from anesthesia, extubated and taken to the recovery room in a stable condition Attestation: Case Date: 04/11/2014 I was present and I participated during the entire procedure operating with Dr. Cruz. documented in this encounter Plan of Treatment Not on file documented as of this encounter Procedures Procedure Name Priority Date/Time Associated Diagnosis Comments XR LUMBAR SPINE 1 VIEW Routine 04/11/2014 10:59 AM EST MODIFIER L5 04/11/2014 9:59 AM EST spinal stenosis left L4-5 MODIFIER L4 04/11/2014 9:59 AM EST spinal stenosis left L4-5 EA ADD'L VERTEBRAL SEGMENT CERVICAL, THORACIC, LUMBAR (WRVU 3.47) 04/11/2014 9:59 AM EST spinal stenosis left L4-5 LAMINECTOMY, FACETECTOMY & FORAMINOTOMY,LUMBAR, ONE LEVEL (WRVU 15.37) 04/11/2014 9:59 AM EST spinal stenosis left L4-5 ADD'L INTERSPACES CX., THORACIC, LUMBAR Routine 04/11/2014 8:53 AM EST documented in this encounter Results * XR lumbar spine 1 view (04/11/2014 10:59 AM EST) Anatomical Region Laterality Modality L-spine N/A Radiographic Sade ging 04/11/2014 10:5 9 AM EST Impressions 04/11/2014 11:12 AM EST IMPRESSION: 1. Metallic probe is identified at the superior L4 level. 2. No acute fracture is identified. 3. There is 2 mm anterolisthesis of L4 on L5. 4. Mild degenerative changes are noted at the L4-5 level. 5. Bilateral facet joint hypertrophy is noted the L4-5 and L5-S1 levels. Narrative 04/11/2014 11:12 AM EST EXAMINATION: LUMBAR SPINE 1 VIEW/XPORT CLINICAL HISTORY: intraoperative level confirmation TECHNIQUE: Portable crosstable lateral at 10:50. COMPARISON: 03/15/2014 and MRI 02/25/2014 FINDINGS: Metallic probe is identified at the superior L4 level. No acute fracture is identified. There is 2 mm anterolisthesis of L4 on L5. Mild degenerative changes are noted at the L4-5 level. Bilateral facet joint hypertrophy is noted the L4-5 and L5-S1 levels. No lytic or blastic lesions are appreciated Procedure Note Óscar Carroll MD - 04/11/2014 EXAMINATION: LUMBAR SPINE 1 VIEW/XPORT CLINICAL HISTORY: intraoperative level confirmation TECHNIQUE: Portable crosstable lateral at 10:50. COMPARISON: 03/15/2014 and MRI 02/25/2014 FINDINGS: Metallic probe is identified at the superior L4 level. Noacute fracture is identified. There is 2 mm anterolisthesis of L4 on L5. Mild degenerative changes are noted at the L4-5 level. Bilateral facet joint hypertrophy is noted the L4-5 and L5-S1 levels. No lytic or blasticlesions are appreciated IMPRESSION IMPRESSION: 1. Metallic probe is identified at the superior L4 level. 2. No acute fracture is identified. 3. There is 2 mm anterolisthesis of L4 on L5. 4. Mild degenerative changes are noted at the L4-5 level. 5. Bilateral facet joint hypertrophy is noted the L4-5 and L5-S1 levels. Authorizing Provider Result Sohan Roy MD IMG DX ORDERABLES documented in this encounter Visit Diagnoses Not on filedocumented in this encounter Administered Medications Inactive Administered Medications - up to 3 most recent administrations Medication Order MAR Action Action Date Dose Rate Site acetaminophen (TYLENOL) tablet 1,000 mg 1,000 mg, Oral, EVERY 8 HOURS SCHEDULED, First dose on Fri04/11/14 at 1245, Until Discontinued, Maximum dose of acetaminophen is 4000 mg from all sources in 24 hours., Routine Given 04/11/2014 3:16 PM EST 1,000 mg bacitracin injection ONCE PRN, Starting on Fri04/11/14 at 1039, Until Fri04/11/14 at 1843, Intra-Operative (Intra-Procedure), Routine Given 04/11/2014 10:39 AM EST 50,000 Units BUpivacaine-EPINEPHrine 0.25 %-1:200,000 injection ONCE PRN, Starting on Fri04/11/14 at 1040, Until Fri04/11/14 at 1843, Intra-Operative (Intra-Procedure), Routine Given 04/11/2014 12:00 PM EST 20 mLs 19- Surgical Site Given 04/11/2014 10:40 AM EST 20 mLs 1 9- Surgical Site gelatin adsorbable 100 (GELFOAM) sponge ONCE PRN, Starting on Fri04/11/14 at 1040, Until Fri04/11/14 at 1843, Intra-Operative (Intra-Procedure), Routine Given 04/11/2014 10:40 AM EST 1 each HYDROmorphone (DILAUDID) 0.2 mg/mL 10mL Syringe (IR ONLY) 0.2-0.4 mg, Intravenous, EVERY 5 MIN PRN, Pain, Starting on Fri04/11/14 at 1216, Until Fri04/11/14 at 1843, For moderate pain (4-6) give: 0.2 mg every 5 minute prn For severe pain (7-10) give: 0.4 mg every 5 minutes prn Maximum dose: 4 mg per hour Hold for respiratory rate less than 10 per minute., PACU Recovery Given 04/11/2014 2:01 PM EST 0.4 mg Given 04/11/2014 1:32 PM EST 0.4 mg Given 04/11/2014 1:23 PM EST 0.4 mg HYDROmorphone (DILAUDID) tablet 2-6 mg 2-6 mg, Oral, EVERY 4 HOURS PRN, Starting on Fri04/11/14 at 1215, Until Fri04/11/14 at 1843, Pain, Routine Given 04/11/2014 2:41 PM EST 2 mg lactated ringers infusion 1,000 mL 1,000 mL, at 100 mL/hr, Intravenous, CONTINUOUS, Starting on Fri04/11/14 at 1000, Until Fri04/11/14 at 1843, Day of Surgery (Day of Procedure) New Bag 04/11/2014 10:00 AM EST 1,000 mLs 100 mL/hr New Bag 04/11/2014 9:59 AM EST ondansetron (ZOFRAN) injection 4 mg 4 mg, Intravenous, EVERY 30 MIN PRN, Starting on Fri04/11/14 at 1216, Until Fri04/11/14 at 1843, Nausea, May repeat 4 mg once in 30 minutes. Consider prochlorperazine if ineffective., PACU Recovery Given 04/11/2014 1:49 PM EST 4 mg thrombin (Bovine) (THROMBINAR) kit ONCE PRN, Starting on Fri04/11/14 at 1041, Until Fri04/11/14 at 1843, Intra-Operative (Intra-Procedure) Given 04/11/2014 10:41 AM EST 20,000 Un its documented in this encounter Active and Recently Administered Medications Times are shown in EST. Scheduled Medication Order 04/09/2014 04/10/2014 04/11/2014 acetaminophen (TYLENOL) tablet 1,000 mg 1,000 mg, Oral, EVERY 8 HOURS SCHEDULED, First dose on Fri04/11/14 at 1245, Until Discontinued, Maximum dose of acetaminophen is 4000 mg from all sources in 24 hours., Routine 1245 (Due)1516 (Give n - Provider: Lu Vo RN) ceFAZolin (ANCEF) 2g in dextrose 5% 50 mL (COMPLETED) 2 g, Intravenous, EVERY 3 HOURS, 1 dose, First dose on Fri04/11/14 at 1000, Administer over 30 Minutes, Redose after 3 hours., Intra-Operative (Intra-Procedure), Indication for (Active or Suspected): Prophylaxis 1007 (Given - Provid er: Terrell Alarcon) Continuous Medication Order 04/09/2014 04/10/2014 04/11/2014 lactated ringers infusion 1,000 mL (CANCELED) 1,000 mL, at 100 mL/hr, Intravenous, CONTINUOUS, Starting on Fri04/11/14 at 1000, Until Fri04/11/14 at 1843, Day of Surgery (Day of Procedure) 0959 (New Bag - Prov ider: Terrell Alarcon)1000 (New Bag - Provider: Rachel Alejandro RN)1021 (Anesthesia Volume Adjustment - Provider: Terrell Alarcon)1050 (Anesthesia Volume Adjustment - Provider: Terrell Alarcon)1145 (Anesthesia Volume Adjustment - Provider: Terrell Alarcon) PRN Medication Order 04/09/2014 04/10/2014 04/11/2014 bacitracin injection (CANCELED) ONCE PRN, Starting on Fri04/11/14 at 1039, Until Fri04/11/14 at 1843, Intra-Operative (Intra-Procedure), Routine 1039 (Given - Provid er: Orville Roy MD - Comment: in 1,000 ml NaCl 0.9%) BUpivacaine-EPINEPHrine 0.25 %-1:200,000 injection (CANCELED) ONCE PRN, Starting on Fri04/11/14 at 1040, Until Fri04/11/14 at 1843, Intra-Operative (Intra-Procedure), Routine 1040 (Given - Provid er: Orville Roy MD)1200 (Given - Provider: Orville Roy MD) gelatin adsorbable 100 (GELFOAM) sponge (CANCELED) ONCE PRN, Starting on Fri04/11/14 at 1040, Until Fri04/11/14 at 1843, Intra-Operative (Intra-Procedure), Routine 1040 (Given - Provid er: Orville Roy MD - Comment: soaked in 20,000 Units of Topical Thrombin) HYDROmorphone (DILAUDID) 0.2 mg/mL 10mL Syringe (IR ONLY) (CANCELED) 0.2-0.4 mg, Intravenous, EVERY 5 MIN PRN, Pain, Starting on Fri04/11/14 at 1216, Until Fri04/11/14 at 1843, For moderate pain (4-6) give: 0.2 mg every 5 minute prn For severe pain (7-10) give: 0.4 mg every 5 minutes prn Maximum dose: 4 mg per hour Hold for respiratory rate less than 10 per minute., PACU Recovery 1302 (Given - Provid er: Lu Vo RN)1312 (Given - Provider: Lu Vo RN)1323 (Given - Provider: Lu Vo RN)1332 (Given - Provider: Lu Vo RN)1401 (Given - Provider: Lu Vo RN) HYDROmorphone (DILAUDID) tablet 2-6 mg 2-6 mg, Oral, EVERY 4 HOURS PRN, Starting on Fri04/11/14 at 1215, Until Fri04/11/14 at 1843, Pain, Routine 1441 (Given - Provid er: Vianey Ashley RN) ondansetron (ZOFRAN) injection 4 mg (CANCELED) 4 mg, Intravenous, EVERY 30 MIN PRN, Starting on Fri04/11/14 at 1216, Until Fri04/11/14 at 1843, Nausea, May repeat 4 mg once in 30 minutes. Consider prochlorperazine if ineffective., PACU Recovery 1349 (Given - Provid er: Lu Vo RN - Comment: given only 4 mg in OR) thrombin (Bovine) (THROMBINAR) kit (CANCELED) ONCE PRN, Starting on Fri04/11/14 at 1041, Until Fri04/11/14 at 1843, Intra-Operative (Intra-Procedure) 1041 (Given - Provid er: Orville Roy MD - Comment: gel foam soak) documented in this encounter Care Teams Hand Expansion Envelope Maker Relationship Specialty Start Date End Date Adolfo Kirkland MD [address] [place] [address] PCP - General 04/04/14 documented as of this encounter
--- OUTSIDE RECORDS SUMMARY | 2023-11-05 12:47 | XMS_ITS | Encounter Summary ---
[place] [address] Care Team Providers Care Plastic Surgery Technician Name Role Phone Adolfo Kirkland MD Primary Care Provider [phone] Reason for Visit * Reason Onset Date Comments Other 04/13/2014 difficulty sleep ing, med questions Encounter Details Date Type Department Care Team (Late st Contact Info) Description 04/13/2014 Telephone [place] [address] Jasmyn Epstein, RN Other (difficulty sleeping, med questions) Social History Tobacco Use Types Packs/Day Years Used Date Smoking Tobacco: Former Cigarettes Smokeless Tobacco: Never Comments:stopped 2 weeks ago Sex and Gender Information Value Date Recorded Sex Assigned at Not on file Gender Identity Not on file Sexual Orientation Not on file documented as of this encounter Miscellaneous Notes * Telephone Encounter - Jasmyn Epstein, RN - 04/13/2014 10:58 AM EST Recieived a couple calls from pt who is s/p Decompression left L4-5 on 04/11/[address] Roy for spinal stenosis. Pt reported having some difficulty sleeping. Explained that that was not unusual. Suggested he consider use of melatonin or possibly benadryl (not both) as these are OTC medications that can be used and have been effective for other postoperative pts. Pt is taking dilaudid for postoperative pain; was dispensed with # 80 at discharge on 04/11 Pt mentioned that he hallucinated when taking three tablets. Encouraged pt to use the ice, tylenol, ibuprofen regularly; to use The least amtof the opioid; explained that we do not want him incapacitated by the pain, that some post operative pain was to be expected; that it was a balance. Explained that having his sleep slightly interupted but awaking with a clear head was safe and preferred over more comfort/better sleep and hallucinations/confusion Pt concurred and verbalized understanding. Cautioned Mr Zaman that he pain med could not be called in or faxed; that it required three non holiday business days to allow time to get a refill request to his local pharmacy. Suggested he keep a close eye on his use/supply so he could call with ample notice. Suggested possibly checking in with us early Friday. documented in this encounter Plan of Treatment Not on file documented as of this encounter Visit Diagnoses Not on filedocumented in this encounter Care Teams Plastic Surgery Technician Relationship Specialty Start Date End Date Adolfo Kirkland MD [address] [place] [address] PCP - General 04/04/14 documented as of this encounter
--- OUTSIDE RECORDS SUMMARY | 2023-11-05 12:47 | XMS_ITS | Encounter Summary ---
Author Organization [place] [address] Care Team Providers Care Net Developer Architect Name Role Phone Adolfo Kirkland MD Primary Care Provider [phone] Encounter Details Date Type Department Care Team (Latest Contact Info) Description 04/11/2014 8:34 AM EST - 04/11/2014 4:05 PM EST Hospital En[place] [address] Orville Roy MD [facility] [place] [address] Discharge Disposition: Home Social History Tobacco Use Types Packs/Day Years Used Date Smoking Tobacco: Former Cigarettes Smokeless Tobacco: Never Comments:stopped 2 weeks ago Sex and Gender Information Value Date Recorded Sex Assigned at Not on file Gender Identity Not on file Sexual Orientation Not on file documented as of this encounter Last Filed Vital Signs Vital Sign Reading Time Taken Comments Blood Pressure 111/67 04/11/2014 1:32 PM EST Pulse 84 04/11/2014 1:32 PM EST Temperature 36.5 ??C (97.7 ??F) 04/11/2014 12:[address] Respiratory Rate 16 04/11/2014 1:32 PM EST Oxygen Saturation 95% 04/11/2014 1:32 PM EST Inhaled Oxygen Concentration - - Weight 102.1 kg (225 lb) 04/11/2014 9:36 AM EST Height 177.8 cm (5' 10) 04/11/2014 9:36 AM EST Body Mass Index 32.28 04/11/2014 9:36 AM EST documented in this encounter Discharge Instructions * Discharge Instructions* Lu Vo RN - 04/11/2014 12:53 PM EST Spine Surgery Discharge Instructions MEDICATION: 1. If you need a renewal of your pain medication, please contact the Spine Center Prescription Lineat [phone]. PRESCRIPTION RENEWAL REQUEST CAN TAKE UP TO 3 DAYS TO PROCESS SO PLEASE PLAN ACCORDINGLY. Some narcotic pain medications can not be called into your pharmacy and require the prescription to be picked up or mailed to your pharmacy. Call [phone] to speak with a Spine Center Nurse. 2. The pain medication you are on can cause constipation, so increase your intake of fluids and fiber while you are taking them. You should also take an [id number] stool softener, colace or senna, to facilitate [...] any questions call: Clinical issues, nurse questions: [phone] Medication renewal: [phone]: Manuela: [phone] If you need to speak with a Spine Center resident after-hours or on weekends for any of the above listed issues please call [phone] and ask for the Ortho resident on-call. If not urgent, please leave a message with the spine nurse team and your call will be returned within a business day. Future Appointments Date Time Provider Department Center 05/10/2014 10:40 AM Orville Roy MD [facility] POST ANESTHESIA INSTRUCTIONS Go home, rest, [...] PM EST Operative Note Patient Name: Danish WILLIS: [id number] MR#: [id number] Case Date: 04/11/2014 Surgeon: Surgeon(s) and Role: [...] planned surgery, and site according to the [facility] [place] protocol. The back was then prepped using [...] removed using a rongeur and curette. A Mitchell was then placed on the undersurface of [...] the level of the exiting left side B2kofrr root. Gelfoam, thrombin, and patties were used [...] the procedure. * Brief Op Note - Orivlle Roy MD - 04/11/2014 12:08 PM EST Brief Operative Note Patient Name: Dansih WILLIS: [id number] MR#: [id number] Case Date: 04/11/2014 Surgeon: Surgeon(s) and Role: * Orville Roy MD - Primary * Dilcia Cruz MD - Resident-Surgeon Ricardo Preoperative diagnosis: spinal stenosis left L4-5 Postoperative diagnosis: spinal stenosis left L4-5 Procedure(s): Decompression left L4-5. [id number], [id number] Anesthesia: General Findings: severe lateral recess stenosis [...] Given 04/11/2014 3:16 PM EST 1,000 mg HYDROmorphone (DILAUDID) 0.2 mg/mL 10mL Syringe (IR [...] Given 04/11/2014 1:49 PM EST 4 mg documented in this encounter Active and Recently [...] soak) documented in this encounter Care Teams Net Developer Architect Relationship Specialty Start Date End Date Adolfo Kirkland MD [address] [place] [address] PCP - General 04/04/14 documented as of this encounter
--- OUTSIDE RECORDS SUMMARY | 2023-11-05 12:47 | XMS_ITS | Encounter Summary ---
[place] [address] Care Team Providers Care Oil Well Service Operator Helper Name Role Phone Michael Yeh MD Primary Care Provider [phone] Reason for Visit * Reason Onset Date Comments Pre Procedure Call 03/24/2014 re medication holds preop Encounter Details Date Type Department Care Team (Late st Contact Info) Description 03/24/2014 Telephone [place] [address] Jasmyn Epstein, RN Pre Procedure Call (re medication holds preop) Social History Tobacco Use Types Packs/Day Years Used Date Smoking Tobacco: Every Day Cigarettes Smokeless Tobacco: Never Comments:stopped 2 weeks ago Sex and Gender Information Value Date Recorded Sex Assigned at Not on file Gender Identity Not on file Sexual Orientation Not on file documented as of this encounter Miscellaneous Notes * Telephone Encounter - Jasmyn Epstein RN - 03/24/2014 1:39 PM EST 1:30 Called and left message with family member for pt to call [place] nursing office at his first opportunity; advising that the need for a return call was time sensitive. [place] Nsg office hrs and phone number provided. Upon return call need to review med list with pt and advise pt of need to hold any anticoagulants, asa, NSAIDS, or fish oil preoperatively for 7-10 days. Awaiting return call. 3:20 Call received from pt. Pt had already received the information as noted above from Dr Roy at the visit; Reviewed this again with the pt who is not noted to be taking any of the meds of concern. documented in this encounter Plan of Treatment Not on file documented as of this encounter Visit Diagnoses Not on filedocumented in this encounter Care Teams Oil Well Service Operator Helper Relationship Specialty Start Date End Date Michael Yeh MD PCP - General 03/06/10 04/03/14 documented as of this encounter
--- OUTSIDE RECORDS SUMMARY | 2023-11-05 12:47 | XMS_ITS | Clinical Summary ---
Author Organization [facility] Address [facility] [place] [address] Care Team Providers Care Zoology Teacher Name Role Phone Adolfo Kirkland MD Primary Care Provider [phone] Allergies Active Allergy Reactions Criticality Noted Date Comments Oxycodone-Acetaminophen Other (See Comments) GI issues Medications Medication Sig Dispensed Refills Start Date End Date Status albuterol (PROVENTIL HFA;VENTOLIN HFA) 90 mcg/actuation inhaler Inhale 1 puff into the lungs as needed. Use with spacer Active gabapentin (NEURONTIN) 300 mg Capsule 300-600 mgs at bedtime. 60 capsule 2 03/15/2014 Active acetaminophen (TYLENOL) 500 mg Tablet Take 2 tablets by mouth every 8 hours. 30 tablet 1 04/11/2014 Active traMADol (ULTRAM) 50 mg Tablet Take 1 tablet by mouth nightly as needed for Pain. 30 tablet 0 05/10/2014 Active Active Problems Problem Noted Date Diagnosed Date Left buttock pain 11/04/2013 Synovial cyst of lumbar facet joint 11/04/2013 Overview (11/04/2013): Left l4-5 Social History Tobacco Use Types Packs/Day Years Used Date Smoking Tobacco: Smoker, Current Status Unknown Cigarettes Smokeless Tobacco: Never Comments:stopped 2 weeks ago Sex and Gender Information Value Date Recorded Sex Assigned at Not on file Gender Identity Not on file Sexual Orientation Not on file Last Filed Vital Signs Vital Sign Reading [...] Mass Index 32.28 04/11/2014 9:36 AM EST Plan of Treatment Health Maintenance Due Date Last Done Comments CT Colonography 1963 Colonoscopy 1963 Colorectal Cancer Screening 1963 FIT DNA 1963 FIT 1963 Sigmoidoscopy (10 year) with FIT yearly 1963 Sigmoidoscopy 1963 HIV screen 1981 Hepatitis C Screening 1981 Lipid Screening 1981 Tdap adult 1982 Tetanus vaccine 1982 Zoster vaccine (1 of 2) 2013 Advance Directive 2018 Covid-19 Vaccine (1 - 2022-24 season) 2022 Influenza (Flu) vaccine (1 o f 1 - Influenza standard series) 12/14/2023 Care Teams Zoology Teacher Relationship Specialty Start Date End Date Adolfo Kirkland MD [address] [place] [address] PCP - General 04/04/14
--- OUTSIDE RECORDS SUMMARY | 2023-11-05 12:47 | XMS_ITS | Encounter Summary ---
[place] [address] Care Team Providers Care Tank Tender Name Role Phone Michael Yeh MD Primary Care Provider [phone] Reason for Visit * Reason Comments Low Back Pain Left Leg Pain Encounter Details Date Type Department Care Team (Late st Contact Info) Description 03/24/2014 7:15 AM EST Office [place] [address] Orivlle Roy MD [facility] [place] [address] Synovial cyst of lumbar facet joint Discharge [...] Sign Reading Time Taken Comments Blood Pressure 108/67 03/24/2014 7:51 AM EST Pulse - - Temperature - - Respiratory Rate - - Oxygen Saturation - - Inhaled Oxygen Concentration - - Weight 102.1 kg (225 lb) 03/24/2014 7:51 AM EST Height 177.8 cm (5' 10) 03/24/2014 7:51 AM EST Body Mass Index 32.28 03/24/2014 7:51 AM EST documented in this encounter Progress Notes * Orville Roy MD - 03/24/2014 8:39 AM EST Mr. Zaman is a 48-year-old gentleman seen today in the spine center consultation from Mary Kay Tyson. This gentleman is seen and evaluated for persistent left-sided buttock pain, posterior thigh pain occasionally down to the mid leg level in the left. Left leg is more bothersome than the back. Right leg is asymptomatic. He has had a problem with this going back to 09/2013 with a recognized synovial cyst of the left L4-L5 facet joint with temporary improvement following aspiration, but his symptoms have reoccurred and remain problematic and limiting his ability to function. He is worse with any walking, nothing other than the injections actually made it any better. He does have some pain at night, which is bothersome. He has no numbness, distal pain, or weakness. His review of systems is negative for GI, , or constitutional symptoms. He has some type of gastric reaction to Percocet, but no allergies. He smokes a half a pack of cigarettes per day. Alcohol intake is rare. 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 He has a history of chronic bronchitis. Weight is 225 pounds, 102 kg, body mass index 32.28. PHYSICAL EXAMINATION: This is a very pleasant gentleman appearing his stated age and height. In the short distance, his gait is normal. He states he limps when walking long distance and much of his work as a service officer does involve walking. He is able to toe and heel walk without weakness. He has a level pelvis and straight spine, all of which are normal in appearance and nontender to palpation including the sciatic notches. His lower extremity motor examination is normal and sensory function is intact to light touch. Reflexes are 2 at the left knee, slightly decreased at the right knee, 1 at the ankles. Straight leg raise test produces proximal but not distal pain. Hip range of motion is well tolerated and is asymptomatic. Babinski's and clonus are absent. Distal pulses are palpable. He has no atrophy, fasciculations, or spasticity. DIAGNOSTIC DATA: Lumbar MRI at this institution demonstrates facet arthropathy, primarily on the left side at L4-L5 with synovial cyst formation compromising the lateral recess consistent with his symptoms. In general, he does not have central canal stenosis, I think the synovial cyst is the responsible factor for his leg pain. All this was reviewed with him in detail. We discussed medical and surgical options. He would like to proceed with surgical decompression. I recommended a left-sided L4-L5 decompression. He will not need a fusion and this could be done as a same day surgery. After reviewing the MRI and the findings of the x-rays, I reviewed the goals, recovery, and rehabilitation issues suggesting he might be able to return to work light duty at four weeks and then to full-time duty depending on how his recovery goes. I also reviewed the potential for risks and complications. Our discussion included, but was not limited to the issues of bleeding, infection, neurological injury, spinal fluid leak, continued pain, paralysis, weakness, numbness, failure to improve, additional surgery, mortality, blindness, blood clots, synovial cyst recurrence, and others. He has asked appropriate questions and appears to be well informed. He has reviewed and signed his informed surgical consent for surgery. He is instructed to discontinue anti-inflammatory medications. He is referred to shared decision making to review the DVD on spinal stenosis. It is recommended also that he discontinue his smoking. Spine Center Response Trends Patient-reported scores: myD-H Spine Questionnaire responses 11/04/2013 03/24/2014 VR36 - Physical Function (Range: 0-100) 13.1 43.7 VR36 - Bodily Pain (Range: 0-100) 18 42.8 VR36 - PCS (Range: 0-100) 30.8 44.7 VR36 - MCS (Range: 0-100) 46.1 36.2 Oswestry Disability Index (Range: 0-100) 38 34 documented in this encounter Plan of Treatment Not on file documented as of this encounter Procedures Procedure Name Priority Date/Time Associated Diagnosis Comments LAMINECTOMY, FACETECTOMY & FORAMINOTOMY,LUMAR, ONE LEVEL Routine 03/24/2014 8:28 AM EST documented in this encounter Visit Diagnoses Diagnosis Synovial cyst of lumbar facet joint Cyst of bone (localized), unspecified documented in this encounter Care Teams Tank Tender Relationship Specialty Start Date End Date Michael Yeh MD PCP - General 03/06/10 04/03/14 documented as of this encounter
--- OUTSIDE RECORDS SUMMARY | 2023-11-05 12:47 | XMS_ITS | Encounter Summary ---
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 Encounter Details Date Type Department Care Team (Late st Contact Info) Description 05/27/2014 Telephone [place] [id number] Jhony Tracy RN Other (return to work note.) Social History Tobacco Use Types Packs/Day Years Used Date Smoking Tobacco: Smoker, Current Status Unknown Cigarettes Smokeless Tobacco: Never Comments:stopped 2 weeks ago Sex and Gender Information Value Date Recorded Sex Assigned at Not on file Gender Identity Not on file Sexual Orientation Not on file documented as of this encounter Miscellaneous Notes * Telephone Encounter - Jhony Tracy RN - 05/27/2014 3:13 PM EST Received call from patient requesting note to 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 Patient is s/p 04/11/14 Decompression left L4-5. 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 He request note be faxed to [phone] Roy, note completed and faxed as requested. Patient was informed of the above. documented in this encounter Plan of Treatment Not on file documented as of this encounter Visit Diagnoses Not on filedocumented in this encounter Care Teams Carbon Setter Relationship Specialty Start Date End Date Adolfo Kirkland MD [address] [place] [address] PCP - General 04/04/14 documented as of this encounter
--- OUTSIDE RECORDS SUMMARY | 2023-11-05 12:48 | XMS_ITS | Encounter Summary ---
[place] [address] Care Team Providers Care Acid Patroller Name Role Phone Michael Yeh MD Primary Care Provider [phone] Encounter Details Date Type Department Care Team (Late st Contact Info) Description 05/08/2008 Orders Only [place] [address] Orville Roy MD [facility] [place] [address] Social History Tobacco Use Types Packs/Day Years Used Date Smoking Tobacco: Never Assessed Sex and Gender Information Value Date Recorded Sex Assigned at Not on file Gender Identity Not on file Sexual Orientation Not on file documented as of this encounter Plan of Treatment Not on file documented as of this encounter Procedures Procedure Name Priority Date/Time Associated Diagnosis Comments FILM LIBRARY STORAGE ONLY DX SPINE Routine 05/08/2008 10:05 AM EST documented in this encounter Results * Film Library- Storage only DX Spine (05/08/2008 10:05 AM EST) Anatomical Region Laterality Modality Other 05/08/2008 10:0 5 AM EST Narrative 11/02/2013 10:05 AM EDT This is a Non-reportable exam Procedure Note 11/02/2013 This is a Non-reportable exam Orville Roy MD IMG FILM LIBRARY ORD ERABLES documented in this encounter Visit Diagnoses Not on filedocumented in this encounter Care Teams Acid Patroller Relationship Specialty Start Date End Date Michael Yeh MD PCP - General 03/06/10 04/03/14 documented as of this encounter
--- OUTSIDE RECORDS SUMMARY | 2023-11-05 12:48 | XMS_ITS | Encounter Summary ---
[place] [address] Care Team Providers Care Signal Apprentice Name Role Phone Michael Yeh MD Primary Care Provider [phone] Reason for Referral * Surgical (Routine) - Closed Specialty Diagnoses / Procedures Referred By Contdonovan t Referred To Contact Orthopaedics Diagnoses Synovial cyst of lumbar facet joint Mary Kay Tyson APRN [facility] [place] [address] [facility] [address] [place] [address] Referral ID Status Reason Start Date Expiration Date V isits Requested Visits Authorized [id number] Closed Consult Only 03/17/2014 03/17/2015 1 1 Encounter Details Date Type Department Care Team (Late st Contact Info) Description 03/17/2014 Orders Only Spine Center at [place] [phone] Mary Kay Tyson [facility] [place] [address] Synovial cyst of lumbar facet joint Social History Tobacco Use Types Packs/Day Years Used Date Smoking Tobacco: Former Smokeless Tobacco: Never Comments:stopped 2 weeks ago Sex and Gender Information Value Date Recorded Sex Assigned at Not on file Gender Identity Not on file Sexual Orientation Not on file documented as of this encounter Progress Notes * Mary Kay Tyson APRN - 03/17/2014 4:51 PM EST I was able to review progress external MRI and it does appear as if he has a recurrent synovial cyst. As per his preference, I am referring him to see one of our surgeons to discuss surgical intervention. He has already had lumbar flexion-extension films. I'm passing the information to the secretaries to call and schedule an appointment. documented in this encounter Plan of Treatment Scheduled Referrals Name Type Priority Associated Diagnoses Orde r Schedule Referral to Spine Center Outpatient Referral Routine Synovial cyst of lumbar facet joint Ordered: 03/17/2014 documented as of this encounter Visit Diagnoses Diagnosis Synovial cyst of lumbar facet joint Cyst of bone (localized), unspecified documented in this encounter Care Teams Signal Apprentice Relationship Specialty Start Date End Date Michael Yeh MD PCP - General 03/06/10 04/03/14 documented as of this encounter
--- OUTSIDE RECORDS SUMMARY | 2023-11-05 12:48 | XMS_ITS | Encounter Summary ---
[place] [address] Care Team Providers Care Muck Miner Name Role Phone Michael Yeh MD Primary Care Provider [phone] Encounter Details Date Type Department Care Team (Latest Contact Info) Description 11/12/2013 11:15 AM EDT - 11/12/2013 11:59 PM EDT [place] [address] Michael Avila MD [facility] [place] [address] Left buttock pain; Synovial cyst of lumbar facet joint Discharge Disposition: Home Social History Tobacco Use Types Packs/Day Years Used Date Smoking Tobacco: Former Comments:stopped 2 weeks ago Sex and Gender Information Value Date Recorded Sex Assigned at Not on file Gender Identity Not on file Sexual Orientation Not on file documented as of this encounter Plan of Treatment Not on file documented as of this encounter Procedures Procedure Name Priority Date/Time Associated Diagnosis Comments PLATELET COUNT STAT 11/12/2013 11:21 AM EDT Left buttock pain Synovial cyst of lumbar facet joint documented in this encounter Results * Platelet count (11/12/2013 11:21 AM EDT) Platelets 179 145 - 370 x10(3)/mcL [facility] Blood specimen (specimen) 11/12/2013 11:21 AM EDT 11/12/2013 11:31 AM EDT Narrative Resulting Agency Comment Spec In Lab Michael Avila MD HEMATOLOGY ORDERABLE S [facility] documented in this encounter Visit Diagnoses Diagnosis Left buttock pain Mylagia and myositis, unspecified Synovial cyst of lumbar facet joint Cyst of bone (localized), unspecified documented in this encounter Care Teams Muck Miner Relationship Specialty Start Date End Date Michael Yeh MD PCP - General 03/06/10 04/03/14 documented as of this encounter
--- OUTSIDE RECORDS SUMMARY | 2023-11-05 12:48 | XMS_ITS | Encounter Summary ---
Author Organization [facility] Address [facility] [place] [address] Care Team Providers Care Shoe Laster Name Role Phone Michael Yeh MD Primary Care Provider [phone] Encounter Details Date Type Department Care Team (Latest Contact Info) Description 03/15/2014 3:43 PM EST - 03/15/2014 11:59 PM EST Hospital Encounter XRay at [address] [place] [address] Synovial cyst of lumbar facet joint Social History Tobacco Use Types Packs/Day Years Used Date Smoking Tobacco: Former Smokeless Tobacco: Never Comments:stopped 2 weeks ago Sex and Gender Information Value Date Recorded Sex Assigned at Not on file Gender Identity Not on file Sexual Orientation Not on file documented as of this encounter Medications at Time of Discharge Medication Sig Dispensed Refills Start Date End Date gabapentin (NEURONTIN) 300 mg Capsule 300-600 mgs at bedtime. 60 capsule 2 03/15/2014 albuterol (PROVENTIL HFA;VENTOLIN HFA) 90 mcg/actuation inhaler Inhale 1 puff into the lungs as needed. Use with spacer documented as of this encounter Plan of Treatment Not on file documented as of this encounter Procedures Procedure Name Priority Date/Time Associated Diagnosis Comments XR LUMBAR SPINE 2 OR 3 VIEWS Routine 03/15/2014 3:53 PM EST Synovial cyst of lumbar facet joint documented in this encounter Results * XR lumbar spine 2 or 3 views (03/15/2014 3:53 PM EST) Anatomical Region Laterality Modality L-spine N/A Radiographic Sade ging 03/15/2014 3:53 PM EST Narrative 03/15/2014 4:46 PM EST Examination LSPINE 2 OR 3 VIEWS Clinical History recurrent synovial cyst Comparison Radiographs from 2008. Technique Findings There are 5 mqz-wcr-kutmbav lumbar type vertebral bodies. ??The vertebral heights and disc spaces the vertebral heights are preserved. ??The L4-L5 disc space is minimally narrowed.No pars defect. ??There is lower lumbar spine facet arthropathy. Flexion-extension: 3 mm anterolisthesis of L4 on 5 is seen on extension. ??This becomes 4 mm on flexion. ?? Impression ? 1. No fracture. ? 2. Minimally narrowed L4-L5 disc space, new. ? 3. Anterolisthesis of L4 on 5 is not accompanied by a pars defect. ? 4. 1.5 mm motion L4-5 level may not be significant. Procedure Note Emili Earl MD - 03/15/2014 Examination LSPINE 2 OR 3 VIEWS Clinical History recurrent synovial cyst Comparison Radiographs from 2008. Technique Findings There are 5 dwu-gbf-bbblcxh lumbar type vertebral bodies. The vertebral heights and disc spaces the vertebral heights are preserved. The L4-L5disc space is minimally narrowed.No pars defect. There is lower lumbar spinefacet arthropathy. Flexion-extension: 3 mm anterolisthesis of L4 on 5 is seen on extension. This becomes 4 mmon flexion. Impression 1. No fracture. 2. Minimally narrowed L4-L5 disc space, new. 3. Anterolisthesis of L4 on 5 is not accompanied by a pars defect. 4. 1.5 mm motion L4-5 level may not be significant. Lamine Goldman MD IMG DX ORDERABLES documented in this encounter Visit Diagnoses Diagnosis Synovial cyst of lumbar facet joint Cyst of bone (localized), unspecified documented in this encounter Care Teams Shoe Laster Relationship Specialty Start Date End Date Michael Yeh MD PCP - General 03/06/10 04/03/14 documented as of this encounter
--- OUTSIDE RECORDS SUMMARY | 2023-11-05 12:48 | XMS_ITS | Encounter Summary ---
Author Organization [facility] Address [address] [place] [address] Care Team Providers Care Electromechanical Equipment Assembler Name Role Phone Unknown, Provider Primary Care Provider Danish Palacios MD Unavailable [phone] Encounter Details Date Type Department Care Team (Late st Contact Info) Description 08/04/2023 Orders Only [facility] Pathology & Laboratory Medicine - [facility] [address] [place] [address] [place], [place] [address] [place] [address] Other specified bacterial intestinal infections Social History Tobacco Use Types Packs/Day Years Used Date Smoking Tobacco: Never Assessed Sex and Gender Information Value Date Recorded Sex Assigned at Not on file Gender Identity Not on file Sexual Orientation Not on file documented as of this encounter Plan of Treatment Scheduled Orders Name Type Priority Associated Diagnoses Orde r Schedule H. PYLORI ANTIGEN Microbiology Routine Other Specified Bacterial Intestinal Infections Expected: 08/04/2023, Expires: 08/03/2024 documented as of this encounter Visit Diagnoses Diagnosis Other specified bacterial intestinal infections documented in this encounter Care Teams Electromechanical Equipment Assembler Relationship Specialty Start Date End Date Unknown, ProviderMD PCP - General 01/14/17 Danish Palacios MD [address] [place] [address] 01/14/17 documented as of this encounter
--- OUTSIDE RECORDS SUMMARY | 2023-11-05 12:48 | XMS_ITS | Referral Summary ---
Author Organization [facility] Address [address] [place] [address] Care Team Providers Care Life Insurance Actuary Name Role Phone Unknown, Provider Primary Care Provider Danish Palacios MD Unavailable [phone] Encounters Date Type Department Care Team Description 08/11/2023 Orders Only [facility] Pathology & Laboratory Medicine - [facility] [address] [place] [address] [place], [place] Other specified bacterial intestinal infections from Last 3 Months Social History Tobacco Use Types Packs/Day Years Used Date Smoking Tobacco: Never Assessed Sex and Gender Information Value Date Recorded Sex Assigned at Not on file Gender Identity Not on file Sexual Orientation Not on file Plan of Treatment Not on file Care Teams Life Insurance Actuary Relationship Specialty Start Date End Date Unknown, Provider, PCP - General 01/14/17 Danish Palacios MD [address] [place] [address] 01/14/17
--- OUTSIDE RECORDS SUMMARY | 2023-11-05 12:48 | XMS_ITS | Encounter Summary ---
Author Organization [facility] [address] Care Team Providers Care Marketing Systems Analyst Name Role Phone Michael Yeh MD Primary Care Provider [phone] Reason for Visit * Reason Comments Back Pain down left leg and bu ttocks Encounter Details Date Type Department Care Team (Late st Contact Info) Description 11/04/2013 3:15 PM EDT Office [place] [id number] Mary Kay Tyson, SENIOR QUALITY CONTROL INSPECTOR [facility] [place] [address] Synovial cyst of lumbar facet joint (Primary Dx); Left buttock pain Discharge Disposition: Home Social History Tobacco Use Types Packs/Day Years Used Date Smoking Tobacco: Former Comments:stopped 2 weeks ago Sex and Gender Information Value Date Recorded Sex Assigned at Not on file Gender Identity Not on file Sexual Orientation Not on file documented as of this encounter Last Filed Vital Signs Vital Sign Reading Time Taken Comments Blood Pressure 117/68 11/04/2013 3:19 PM EDT Pulse 67 11/04/2013 3:19 PM EDT Temperature - - Respiratory Rate 18 11/04/2013 3:19 PM EDT Oxygen Saturation - - Inhaled Oxygen Concentration - - Weight 104.3 kg (230 lb) 11/04/2013 3:19 PM EDT Height 177.8 cm (5' 10) 11/04/2013 3:19 PM EDT Body Mass Index 33 11/04/2013 3:19 PM EDT documented in this encounter Progress Notes * Mary Kay Tyson APRN - 11/04/2013 4:30 PM EDT Chief complaint: Chief Complaint Patient presents with ??? Back Pain down left leg and buttocks History of present illness:This patient is a 48 y.o. male that presents to the spine center for left-sided back, buttock, calf pain Past medical history: Amato symptoms started about 3-4 weeks ago after training for the [employer] in [place]. His symptoms are actually good when he was done in [place] because he was verybusy but when he back he had the sudden onset of pain starting about 2 days after he returned. It comes and goes it can go from 5-10 on a scale of 10 and can radiate into the groin as well. There is tingling in all of the toes there is no weakness. Symptoms are better with sitting or lying down and worse with walking. He sleeping 60 hours a night. He has no gait or balance disturbance and hasn't been able to exercise recently. His primary care provider gave her a Medrol Dosepak and is on the third day and has not given him no relief. Social and family history: Danish is a gentleman who works full-time for the [employer] [place] is also in the [employer]. He is a [id number]-[id number] history of smoking but no longer smokes. He drinks alcohol occasionally. Problem List: Patient Active Problem List Diagnosis Code ??? Left buttock pain 729.1 ??? Synovial cyst of lumbar facet joint 727.40 Review of Systems: Negative for current GI, , constitutional symptoms he will occasionally get some discomfort with L. sella maneuver. Medications and allergies were reviewed and updated. Physical Examination: Danish is a mildly overweight, 48-year-old gentleman with level shoulders, hips, knees he is extremely tender to palpation in the low back. He has what feels like the muscle spasm on the left low back. He has no power loss but decreased sensation in the left lateral calf. Reflexes are symmetrical and one at the patella absent left Achilles one at the right. There is no Salgado or clonus and Babinski with downgoing toes and negative dural tension signs and normal hip range of motion. Diagnostic data: Review of his MRI done recently reveals a synovial cyst with enlarged facets at L4-5 the cyst is on the left and abuts the left L5 nerve root consistent with his symptoms. He also has facet arthropathy throughout. Assessment: Synovial cyst L 4-5. Left Plan: Danish is a pleasant 48-year-old gentleman whose had symptoms for about 4 weeks after he returned from the [employer]. His symptoms are all the left inner in somewhat of an L5 or S1 distribution. He does have a synovial cyst on the left that could be causing his symptoms we discussed the relative merits of physical therapy, synovial cyst rupture and discussion with the surgeon. We have discussed that if he gets some benefit from the cyst but it returns in under 3 months I would likelyrefer him to a surgeon after. If he gets good results from the synovial cyst rupture and it lasts for longer than 3-6 months it's possible that we could repeat it were sent him to a surgeon. He wouldlike to go forward the cyst aspiration/rupture and I scheduled that for him as well as a followup 2 weeks afterwards to discuss his response This note was written with voice recognition software documented in this encounter Plan of Treatment Not on file documented as of this encounter Results * CT Synovial Cyst Aspiration / Rupture (11/12/2013 2:21 PM EDT) Anatomical Region Laterality Modality Wrist, Ankle Computed Tomogra phy 11/12/2013 2:21 PM EDT Narrative 11/12/2013 4:[address] Synovial Cyst Aspiration / Rupture/LEFT Clinical History left L4-5 synovial cyst Comparison MRI lumbar spine on October 26, 2013 ?? Technique Patient was informed of the risks, benefits and alternatives of the procedure and written consent was obtained. ??A preprocedure MRI was reviewed which demonstrated a broad based left-sided L4-L5 synovial cyst. Patient's primary symptoms were attributed to the L4 nerve root. ?? The patient was placed prone on the fluoroscopic table and the approach was planned using CT. ??The patient was provided with moderate sedation by interventional radiology nursing using split doses of 125 micrograms of fentanyl and 4.5 milligrams of Versed during continuous monitoring of the patient's vital signs. ?? The patient was prepped and draped in a sterile fashion. A total of 20 cc of 1 percent lidocaine was used for local anesthesia. ?? A bone-Opti system was utilized to advance through the left pedicle of the T12 vertebrae. A small amount of contrast was injected to confirm continuity with a synovial cyst. ??This synovial cyst was then ruptured using loss of resistance technique after injection of contrast. A post rupture CT was obtained confirming rupture of the cyst. ??80 milligrams of Depo-Medrol was injected post rupture into the facet joint. ?? Total contrast used: 10 cc of Omnipaque. ?? No immediate post-procedural complications. ?? Findings L4-L5 left synovial cyst filled with contrast and ruptured contrast is seen in the L4-L5 facet and epidural space. Impression Successful CT-guided L4-L5 left sided synovial cyst rupture without immediate postprocedure complication. ?? I, Dr. Machado was present throughout the procedure. Film and interpretation reviewed by the attending Procedure Note Lexx Machado MD - 11/12/[address] Synovial Cyst Aspiration / Rupture/LEFT Clinical History left L4-5 synovial cyst Comparison MRI lumbar spine on October 26, 2013 Technique Patient was informed of the risks, benefits and alternatives of theprocedure and written consent was obtained. A preprocedure MRI was reviewed which demonstrated a broad based left-sided L4-L5 synovial cyst. Patient'sprimary symptoms were attributed to the L4 nerve root. The patient was placed prone on the fluoroscopic table and the approachwas planned using CT. The patient was provided with moderate sedation by interventional radiology nursing using split doses of 125 micrograms of fentanyl and 4.5 milligrams of Versed during continuous monitoring of the patient's vital signs. The patient was prepped and draped in a sterile fashion. A total of 20 ccof 1 percent lidocaine was used for local anesthesia. A bone-Opti system was utilized to advance through the left pedicle of theT12 vertebrae. A small amount of contrast was injected to confirm continuitywith a synovial cyst. This synovial cyst was then ruptured using loss ofresistance technique after injection of contrast. A post rupture CT was obtained confirming rupture of the cyst. 80 milligrams of Depo-Medrol was injectedpost rupture into the facet joint. Total contrast used: 10 cc of Omnipaque. No immediate post-procedural complications. Findings L4-L5 left synovial cyst filled with contrast and ruptured contrast isseen in the L4-L5 facet and epidural space. Impression Successful CT-guided L4-L5 left sided synovial cyst rupture withoutimmediate postprocedure complication. I, Dr. Machado was present throughout the procedure. Film and interpretation reviewed by the attending Lamine Goldman MD IMG CT ORDERABLES documented in this encounter Visit Diagnoses Diagnosis Synovial cyst of lumbar facet joint- Primary Cyst of bone (localized), unspecified Left buttock pain Mylagia and myositis, unspecified Left buttock pain Mylagia and myositis, unspecified Synovial cyst of lumbar facet joint Cyst of bone (localized), unspecified documented in this encounter Care Teams Marketing Systems Analyst Relationship Specialty Start Date End Date Michael Yeh MD PCP - General 03/06/10 04/03/14 documented as of this encounter
--- OUTSIDE RECORDS SUMMARY | 2023-11-05 12:48 | XMS_ITS | Encounter Summary ---
Author Organization [facility] Address [address] [place] [address] Care Team Providers Care Chain Maker Machine Name Role Phone Unknown, Provider Primary Care Provider Danish Palacios MD Unavailable [phone] Encounter Details Date Type Department Care Team (Late st Contact Info) Description 08/11/2023 Orders Only [facility] Pathology & Laboratory Medicine - [facility] [address] [place] [address] [place], [place] [address] [place] [address] Other specified bacterial intestinal infections [...] Routine Other Specified Bacterial Intestinal Infections Expected: 08/11/2023, Expires: 08/10/2024 documented as of this encounter Visit Diagnoses Diagnosis Other specified bacterial intestinal infections documented in this encounter Care Teams Chain Maker Machine Relationship Specialty Start Date End Date Unknown, ProviderMD PCP - General 01/14/17 Danish Palacios MD [address] [place] [address] 01/14/17 documented as of this encounter
--- OUTSIDE RECORDS SUMMARY | 2023-11-05 12:48 | XMS_ITS | Encounter Summary ---
Author Organization [facility] Address [address] [place] [address] Care Team Providers Care Trimmer Press Clippings Name Role Phone Unknown, Provider Primary Care Provider [phone] Danish Palacios MD Unavailable [phone] Encounter Details Date Type Department Care Team (Late st Contact Info) Description 08/05/2023 Lab Requisition [facility] Pathology & Laboratory Medicine - [address] [address] Outr Resulting Lab, Provider Social History Tobacco Use Types Packs/Day Years Used Date Smoking Tobacco: Never Assessed Sex and Gender Information Value Date Recorded Sex Assigned at Not on file Gender Identity Not on file Sexual Orientation Not on file documented as of this encounter Plan of Treatment Not on file documented as of this encounter Procedures Procedure Name Priority Date/Time Associated Diagnosis Comments H. PYLORI ANTIGEN Routine 08/05/2023 11: 45 EDT documented in this encounter Results * (ABNORMAL) H. PYLORI ANTIGEN (08/05/2023 11:45 EDT) H. Pylori Positive( A) Negative 08/08/2023 13:16 EDT [facility] Comment:Indicates the presen ce of detectable H. pylori stool antigen. Feces SPECIMEN FROM RECTUM / Unknown 08/05/2023 11:45 EDT 08/05/2023 21:22 EDT Narrative [facility] - 08/08/2023 13:16 EDT New Liaison XL testing method used as of 02/03/2023 Provider Outr Resulting Lab MICROBIOLOGY - GENERAL ORDERABLES Performing Organization Address City/State/[facility] Co de Phone Number [facility] [address] [place], [place] [address] documented in this encounter Visit Diagnoses Not on filedocumented in this encounter Care Teams Trimmer Press Clippings Relationship Specialty Start Date End Date Unknown, Provider, PCP - General 01/14/17 Danish Palacios MD [address] [place] [address] 01/14/17 documented as of this encounter
--- OUTSIDE RECORDS SUMMARY | 2023-11-05 12:48 | XMS_ITS | Encounter Summary ---
Author Organization [facility] [place] [place] [address] Care Team Providers Care Musical Engineer Name Role Phone Michael Yeh MD Primary Care Provider [phone] Reason for Visit * Reason Comments Low Back Pain left side Encounter Details Date Type Department Care Team (Late st Contact Info) Description 11/26/2013 8:40 AM EDT Follow-[place] [address] Mary Kay Tyson, [facility] [place] [address] Synovial cyst of lumbar facet joint (Primary Dx) Discharge Disposition: Home Social History Tobacco Use Types Packs/Day Years Used Date Smoking Tobacco: Former Comments:stopped 2 weeks ago Sex and Gender Information Value Date Recorded Sex Assigned at Not on file Gender Identity Not on file Sexual Orientation Not on file documented as of this encounter Last Filed Vital Signs Vital Sign Reading Time Taken Comments Blood Pressure - - Pulse - - Temperature - - Respiratory Rate - - Oxygen Saturation - - Inhaled Oxygen Concentration - - Weight 99.3 kg (219 lb) 11/26/2013 8:40 AM EDT Height 177.8 cm (5' 10) 11/26/2013 8:40 AM EDT Body Mass Index 31.42 11/26/2013 8:40 AM EDT documented in this encounter Progress Notes * Mary Kay Tyson, MAEGAN - 11/26/2013 8:52 AM EDT Chief complaint: Left-sided buttock and leg pain. Subjective: Danish is a pleasant, 48-year-old gentleman who had a synovial cyst at L45 on the left.He is here after a CT guided aspiration/rupture. He reports his symptoms are completely with resolved with the exception of some mild muscle pain. Objective he moves about the room without any discomfort. His exam was not repeated today. Assessment: Successful rupture the synovial cyst. Plan: He does have some paperwork that needs to be filled out for the [employer] and I have completed the paperwork and made a copy to be placed in the chart. He is also requesting the consult notes and the CT-guided aspiration does not have directed him to medical records. We did talk about this cyst could recur and he tells me that if it recurs he wants to see a surgeon and does not wish togo through repeat procedure. He will get back in touch with me if he has any difficulties and I will see him on an as-needed basis. documented in this encounter Plan of Treatment Not on file documented as of this encounter Visit Diagnoses Diagnosis Synovial cyst of lumbar facet joint- Primary Cyst of bone (localized), unspecified documented in this encounter Care Teams Musical Engineer Relationship Specialty Start Date End Date Michael Yeh MD PCP - General 03/06/10 04/03/14 documented as of this encounter
--- OUTSIDE RECORDS SUMMARY | 2023-11-05 12:48 | XMS_ITS | Encounter Summary ---
Author Organization [facility] Address [address] [place] [address] Care Team Providers Care Supervisor Mill Name Role Phone Unavailable Primary Care Provider Unavailabl e Encounter Details Date Type Department Care Team (Late st Contact Info) Description 11/21/2010 Results Only [facility] Laboratory Services - [facility] [address] [place] [address] Wiley Max MD [address] [facility] [address] [place] [address] Social History Tobacco Use Types Packs/Day Years Used Date Smoking Tobacco: Never Assessed Sex and Gender Information Value Date Recorded Sex Assigned at Not on file Gender Identity Not on file Sexual Orientation Not on file documented as of this encounter Plan of Treatment Not on file documented as of this encounter Procedures Procedure Name Priority Date/Time Associated Diagnosis Comments PSA TOTAL, DIAGNOSTIC Routine 11/21/2010 19:57 EDT documented in this encounter Results * PSA (11/21/2010 19:57 EDT) PSA 0.3 0 - 2.5 ng/ml [facility] Comment: ??Serum PSA concentration should not be interpreted as absolute evidence for the presence or absence of malignant disease. ?? Assayed utilizing [employer] chemiluminescent technology. Values obtained by using different assay methods cannot be used interchangeably. 11/21/2010 19:5 7 EDT 11/21/2010 19:57 EDT Wiley Max MD CHEMISTRY & BLOOD GA S ORDERABLES [facility] [address] [place] [address] documented in this encounter Visit Diagnoses Not on filedocumented in this encounter
--- OUTSIDE RECORDS SUMMARY | 2023-11-05 12:48 | XMS_ITS | Encounter Summary ---
[place] [address] Care Team Providers Care Trade Economist Name Role Phone Michael Yeh MD Primary Care Provider [phone] Encounter Details Date Type Department Care Team (Late st Contact Info) Description 09/19/2008 Orders [place] [address] Orville Roy MD [facility] [place] [place] [address] Social History Tobacco Use Types Packs/Day Years [...] FILM LIBRARY STORAGE ONLY DX SPINE Routine 09/19/2008 10:05 AM EDT documented in this encounter Results * Film Library- Storage only DX Spine (09/19/2008 10:05 AM EDT) Anatomical Region Laterality Modality Other 09/19/2008 10:0 5 AM EDT Narrative 11/02/2013 10:05 AM EDT This is a Non-reportable exam Procedure Note 11/02/2013 This is a Non-reportable exam Orville Roy MD IMG FILM LIBRARY ORD ERABLES documented in this encounter Visit Diagnoses Not on filedocumented in this encounter Care Teams Trade Economist Relationship Specialty Start Date End Date Michael Yeh MD PCP - General 03/06/10 04/03/14 documented as of this encounter
--- OUTSIDE RECORDS SUMMARY | 2023-11-05 12:48 | XMS_ITS | Encounter Summary ---
[place] [address] Care Team Providers Care Informatics Nurse Name Role Phone Michael Yeh MD Primary Care Provider [phone] Encounter Details Date Type Department Care Team (Latest Contact Info) Description 11/12/2013 11:26 AM EDT - 11/12/2013 11:59 PM EDT Hospital [place] [address] CLINIC, Lamine Ramon MD [facility] [place] [address] Left buttock pain; Synovial cyst of lumbar [...] Sign Reading Time Taken Comments Blood Pressure 120/73 11/12/2013 4:00 PM EDT Pulse 64 11/12/2013 4:00 PM EDT Temperature 36.1 ??C (97 ??F) 11/12/2013 2:30 PM EDT Respiratory Rate 20 11/12/2013 4:00 PM EDT Oxygen Saturation 96% 11/12/2013 4:00 PM EDT Inhaled Oxygen Concentration - - Weight - - Height - - Body Mass Index - - documented in this encounter Discharge Instructions * Discharge Instructions* Yamilet Chen RN - 11/12/2013 2:43 PM EDT [facility] Vascular and Interventional Radiology Discharge Instructions For Your Puncture Site Activity and Diet: Go Home and rest quietly for the remainder of the day. You may resume your normal activities tomorrow. Resume your usual diet after the procedure. Bandage: There is a sterile dressing over the puncture site consisting of small gauze with a clear dressing (Tegaderm). This dressing should be left in place for 24 hours. If the clear dressing becomes loose you should place tape over the edges to secure it in place. Bathing: Do not take a shower until 24 hours after your procedure; after this time you may shower with the dressing in place, then remove it and pat your skin dry. You may use a bandaid to cover the site if there is any drainage. When to call your healthcare provider: If you notice bleeding or a bulge from the puncture site, you should apply firm pressure over the site for 10-15 minutes, keeping the site covered and call your doctor. If you are still bleeding after 10-15 minutes, reapply pressure, and have someone drive you to the nearest Emergency Department, or call 911. If you develop pain, redness, drainage or swelling at or around the puncture site. If you develop fever equal to or greater than 101F and/or shaking chills. When to call the Interventional Radiology Department: Please call with any questions or concerns. If it is during regular office hours, please call [phone]. If it is after regular office hours, or on weekends or holidays, please call [phone] and ask to speak to the Cnc Milling Machine Operator insulation cutter and former for Interventional Radiology. You have received medication during your procedure to help lesson anxiety and keep you comfortable.These medications affect judgement and reaction time. We recommend that you do not drive, operate equipment, sign any important documents, or smoke unattended for 24 hours following your procedure. Because of the sedation, be careful on stairs, as you may be unsteady on your feet. You may resume your regular diet as tolerated. IV site -- slight redness, or tenderness is normal, you can use a warm compress. If tenderness and redness increases or foul drainage occurs, please contact your M. D. 04/26/11 documented in this encounter Progress Notes * Jaciel Cortes - 11/12/2013 12:41 PM EDT Pre-Procedure AVI note: L4-L5 left sided synovial cyst rupture for persistent lower back pain and shooting pains down the left leg. No changes to the patient's medical history and no applicable allergies. ASA: 1 Mallampati: 2 CTA b/l, RRR Jaciel Cortes MD [id number] * Mata Mcguire RN - 11/11/2013 8:54 AM EDT [facility] NURSING DATABASE Name: EDITH MALAGON Date of : 1965 AGE 48 y.o. Address: [address] [place] [address] [address] [facility] [address] (home) [phone] (work) Mobile: Telephone Information: Referring Provider: Mary Kay Tyson Reason for Visit: Left L4-5 Synovial Cyst rupture Allergies Allergen Reactions ??? Percocet (Oxycodone-Acetaminophen) Other (See Comments) GI issues Pertinent PMH: Patient Active Problem List Diagnosis Code ??? Left buttock pain 729.1 ??? Synovial cyst of lumbar facet joint 727.40 Pertinent PSH: Date/Procedure Comments: 11/12/2013 CT Guided synovial cyst rupture L4-5 Versed 4.5 Mg/IV, Fentanyl 225 Mcg/IV Laboratory Results: Medications: Prior to Admission medications Not on File For outpatient procedures: I have informed this patient that they require a public transit trolley driver to drive them home after this procedure. In the absence of a public transit trolley driver, IR will not be able to perform this procedure and will need to reschedule. Pt verbalized understanding of these instructions during the pre-procedure education via phone. (initials) Pt has informed caller that blood thinner was stopped on per MD order. documented in this encounter Miscellaneous Notes * Miscellaneous - Provider, Scanning - 11/17/2013 1:53 PM EDT documented in this encounter Plan of Treatment Not on file documented as of this encounter Procedures Procedure Name Priority Date/Time Associated Diagnosis Comments CT SYNOVIAL CYST ASPIRATION / RUPTURE Routine 11/12/2013 2:21 PM EDT Synovial cyst of lumbar facet joint documented in this encounter Results * CT Synovial Cyst [...] cyst rupture without immediate postprocedure complication. ?? IDr. Machado was present throughout the procedure. Film [...] attending Lamine Goldman MD IMG CT ORDERABLES * Platelet count (11/12/2013 11:21 AM EDT) Platelets 179 145 - 370 x10(3)/mcL [facility] Blood specimen (specimen) 11/12/2013 11:21 AM EDT 11/12/2013 11:31 AM EDT Narrative Resulting Agency Comment Spec In Lab Michael Avila MD HEMATOLOGY ORDERABLE S CAYETANO GABRIEL documented in this encounter Visit Diagnoses Diagnosis Left buttock pain Mylagia and myositis, unspecified Synovial cyst of lumbar facet joint Cyst of bone (localized), unspecified documented in this encounter Administered Medications Inactive Administered Medications - up to 3 most recent administrations Medication Order MAR Action Action Date Dose Rate Site fentaNYL (PF) 50 mcg/mL injection 1 dose, Starting on Fri11/12/13 at 1315, Until Fri11/12/13 at 1333, MATA MCGUIRE: cabinet override fentaNYL 50mcg/mL injection 25-50 mcg, Intravenous, EVERY 5 MIN PRN, Starting on Fri11/12/13 at 1250, Until Fri11/12/13 at 1417, Pain, Day of Surgery (Day of Procedure), Routine Given 11/12/2013 2:11 PM EDT 25 mcg Given 11/12/2013 2:10 PM EDT 25 mcg Given 11/12/2013 2:00 PM EDT 50 mcg midazolam (PF) (VERSED) 1 mg/mL injection 0.5-1 mg 0.5-1 mg, Intravenous, EVERY 5 MIN PRN, Starting on Fri11/12/13 at 1250, Until Fri11/12/13 at 1417, Sleep, Day of Surgery (Day of Procedure), Routine Given 11/12/2013 2:10 PM EDT 0.5 mg Given 11/12/2013 2:00 PM EDT 1 mg Given 11/12/2013 1:55 PM EDT 0.5 mg midazolam (PF) (VERSED) 1 mg/mL injection 1 dose, Starting on Fri11/12/13 at 1315, Until Fri11/12/13 at 1333, MATA MCGUIRE: cabinet override documented in this encounter Care Teams Informatics Nurse Relationship Specialty Start Date End Date Michael Yeh MD PCP - General 03/06/10 04/03/14 documented as of this encounter
--- OUTSIDE RECORDS SUMMARY | 2023-11-05 12:48 | XMS_ITS | Encounter Summary ---
Author Organization [facility] Address [facility] [place] [address] Care Team Providers Care General Magistrate Name Role Phone Michael Yeh MD Primary Care Provider [phone] Encounter Details Date Type Department Care Team (Late st Contact Info) Description 02/25/2014 Orders Only Functional Spiritism Program at [facility] [address] [place] [address] Mary Kay Tyson APRN [facility] [place] [address] Social History Tobacco Use Types Packs/Day Years [...] Associated Diagnosis Comments FILM LIBRARY STORAGE ONLY MR SPINE Routine 02/25/2014 7:55 AM EST documented in this encounter Results * Film Library- Storage only MR Spine (02/25/2014 7:55 AM EST) Anatomical Region Laterality Modality Other 02/25/2014 7:55 AM EST Narrative 03/16/2014 8:08 AM EST This is a Non-reportable exam Procedure Note ANGELIQUE, UNSIGNED REPORT - 03/16/2014 This is a Non-reportable exam Mary Kay Tyson APRN IMG FILM LIBRARY OR DERABLES documented in this encounter Visit Diagnoses Not on filedocumented in this encounter Care Teams General Magistrate Relationship Specialty Start Date End Date Michael Yeh MD PCP - General 03/06/10 04/03/14 documented as of this encounter
--- OUTSIDE RECORDS SUMMARY | 2023-11-05 12:48 | XMS_ITS | Clinical Summary ---
Author Organization [facility] Address [address] [place] [address] Care Team Providers Care Deputy County Clerk Name Role Phone Unknown, Provider Primary Care Provider Danish Palacios MD Unavailable [phone] Encounters Date Type Department Care Team Description 08/11/2023 Orders Only [facility] Pathology & Laboratory Medicine - [facility] [address] [place] [address] [place], [place] Other specified bacterial intestinal infections from Last 3 Months Social History Tobacco Use Types Packs/Day Years Used Date Smoking Tobacco: Never Assessed Sex and Gender Information Value Date Recorded Sex Assigned at Not on file Gender Identity Not on file Sexual Orientation Not on file Plan of Treatment Health Maintenance Due Date Last Done Comments Hepatitis C Screen 1965 COVID-19 Vaccine (2022- season) 2022 RSV Immunization ( o r 60+ Years) (1 - 1-dose 60+ series) 2023 Care Teams Deputy County Clerk Relationship Specialty Start Date End Date Unknown, ProviderMD PCP - General 01/14/17 Danish Palacios MD [address] [place] [address] 01/14/17
--- OUTSIDE RECORDS SUMMARY | 2023-11-05 12:48 | XMS_ITS | Encounter Summary ---
[place] [address] Care Team Providers Care Graphic Design Manager Name Role Phone Michael Yeh MD Primary Care Provider [phone] Encounter Details Date Type Department Care Team (Late st Contact Info) Description 10/26/2013 Orders [place] [address] Orville Roy MD [facility] [place] [address] Social History Tobacco Use Types Packs/Day Years [...] FILM LIBRARY STORAGE ONLY MR SPINE Routine 10/26/2013 10:04 AM EDT documented in this encounter Results * Film Library- Storage only MR Spine (10/26/2013 10:04 AM EDT) Anatomical Region Laterality Modality Other 10/26/2013 10:0 4 AM EDT Narrative 11/02/2013 10:05 AM EDT This is a Non-reportable exam Procedure Note 11/02/2013 This is a Non-reportable exam Orville Roy MD IMG FILM LIBRARY ORD ERABLES documented in this encounter Visit Diagnoses Not on filedocumented in this encounter Care Teams Graphic Design Manager Relationship Specialty Start Date End Date Michael Yeh MD PCP - General 03/06/10 04/03/14 documented as of this encounter
--- OUTSIDE RECORDS SUMMARY | 2023-11-05 12:48 | XMS_ITS | Encounter Summary ---
[place] [address] Care Team Providers Care Grinding Mill Operator Name Role Phone Michael Yeh MD Primary Care Provider Encounter Details Date Type Department Care Team (Late st Contact Info) Description 11/09/2013 Telephone [place] [address] Dami Dalton Social History Tobacco Use Types Packs/Day Years Used Date Smoking Tobacco: Former Comments:stopped 2 weeks ago Sex and Gender Information Value Date Recorded Sex Assigned at Not on file Gender Identity Not on file Sexual Orientation Not on file documented as of this encounter Miscellaneous Notes * Telephone Encounter - Dami Dalton - 11/09/2013 12:14 PM EDT Bao to the patient and let him know of his upcoming procedure. He is aware that he will need a pile driver operator for this appointment. Ketty in Angio scheduled. documented in this encounter Plan of Treatment Not on file documented as of this encounter Visit Diagnoses Not on filedocumented in this encounter Care Teams Grinding Mill Operator Relationship Specialty Start Date End Date Michael Yeh MD PCP - General 03/06/10 04/03/14 documented as of this encounter
--- OUTSIDE RECORDS SUMMARY | 2023-11-05 12:48 | XMS_ITS | Encounter Summary ---
Author Organization [facility] [place] [address] Care Team Providers Care Loader Name Role Phone Michael Yeh MD Primary Care Provider [phone] Encounter Details Date Type Department Care Team (Late st Contact Info) Description 11/08/2013 Notes [place] [address] Naveen Browning MD [facility] [place] [address] Social History Tobacco Use Types Packs/Day Years Used Date Smoking Tobacco: Former Comments:stopped 2 weeks ago Sex and Gender Information Value Date Recorded Sex Assigned at Not on file Gender Identity Not on file Sexual Orientation Not on file documented as of this encounter Progress Notes * Naveen Browning - 11/08/2013 8:37 AM EDT Proceed with left L4-5 synovial cyst rupture Will check medications and allergies day of procedure. documented in this encounter Plan of Treatment Not on file documented as of this encounter Visit Diagnoses Not on filedocumented in this encounter Care Teams Loader Relationship Specialty Start Date End Date Michael Yeh MD PCP - General 03/06/10 04/03/14 documented as of this encounter
--- OUTSIDE RECORDS SUMMARY | 2023-11-05 12:48 | XMS_ITS | Encounter Summary ---
[place] [address] Care Team Providers Care Manufacturing Scheduler Name Role Phone Michael Yeh MD Primary Care Provider [phone] Encounter Details Date Type Department Care Team (Late st Contact Info) Description 10/27/2008 Orders [place] [address] Orville Roy MD [facility] [place] [address] Social History Tobacco Use Types Packs/Day Years [...] FILM LIBRARY STORAGE ONLY MR SPINE Routine 10/27/2008 10:05 AM EDT documented in this encounter Results * Film Library- Storage only MR Spine (10/27/2008 10:05 AM EDT) Anatomical Region Laterality Modality Other 10/27/2008 10:0 5 AM EDT Narrative 11/02/2013 10:05 AM EDT This is a Non-reportable exam Procedure Note 11/02/2013 This is a Non-reportable exam Orville Roy MD IMG FILM LIBRARY ORD ERABLES documented in this encounter Visit Diagnoses Not on filedocumented in this encounter Care Teams Manufacturing Scheduler Relationship Specialty Start Date End Date Michael Yeh MD PCP - General 03/06/10 04/03/14 documented as of this encounter
--- OUTSIDE RECORDS SUMMARY | 2023-11-05 12:48 | XMS_ITS | Encounter Summary ---
Author Organization [facility] [place] [address] Care Team Providers Care Hospital Educator Name Role Phone Michael Yeh MD Primary Care Provider [phone] Reason for Visit * Reason Comments Low Back Pain Left Hip Pain Encounter Details Date Type Department Care Team (Late st Contact Info) Description 03/15/2014 2:00 PM EST Office [place] [address] Mary Kay Tyson, [facility] [place] [address] Synovial cyst of lumbar facet joint Discharge [...] Notes * Mary Kay Tyson, MAEGAN - 03/15/2014 3:23 PM EST Chief complaint: Left-sided low back, buttock, posterior thigh to the calf and lateral calf pain Subjective: Danish is a 48-year-old gentleman who I saw in the past. He had a synovial cyst L4-5 ofthe left and had a cyst aspiration/rupture on November 12. He had 2 months of complete relief and thensymptoms started to recur and now he feels he is back to [facility] with his pain level the worst is it's ever been. He is not interested in repeat cyst rupture but would like to see a surgeon if thecyst is back. He had a MRI done at in the [facility] 2 weeks ago.these images are not here to review but after a full call they will be pushed through. Objective: His neurological exam is normal. Assessment:symptoms of recurrent synovial cyst Plan: He is interested in seeing a surgeon. I am going to order lateral flexion- extension views andschedule him to see if of Dr. Roy. He does have some time constraints but he can discuss those with the biometrics analyst to. In the meantime to help him sleep at night and giving him some gabapentin 300-600 mg.as needed for sleep and pain. Virtually at the close of clinic, despite having contacted and they are age and the patient having contacted [facility], the images were not forwarded for review. I will need to review these for the patient to see Dr. Roy. documented in this encounter Plan of Treatment Not on file documented as of this encounter Results * XR lumbar spine 2 or 3 views (03/15/2014 3:53 PM EST) Anatomical Region Laterality Modality L-spine N/A Radiographic Sade ging 03/15/2014 3:53 PM EST Narrative 03/15/2014 4:46 PM EST Examination LSPINE 2 OR 3 VIEWS Clinical History recurrent synovial cyst Comparison Radiographs from 2009. Technique Findings There are 5 lai-enw-nfbrycw lumbar type vertebral bodies. ??The vertebral heights [...] from 2008. Technique Findings There are 5 xnb-cfl-aygxist lumbar type vertebral bodies. The vertebral heights [...] facet joint Cyst of bone (localized), unspecified Synovial cyst of lumbar facet joint Cyst of bone (localized), unspecified documented in this encounter Care Teams Hospital Educator Relationship Specialty Start Date End Date Michael Yeh MD PCP - General 03/06/10 04/03/14 documented as of this encounter
--- OUTSIDE RECORDS SUMMARY | 2023-11-05 12:48 | XMS_ITS | Encounter Summary ---
[place] [address] Care Team Providers Care Strip Picker Name Role Phone Michael Yeh MD Primary Care Provider [phone] Encounter Details Date Type Department Care Team (Late st Contact Info) Description 10/29/2013 Orders [place] [address] Orville Roy MD [facility] [place] [place] [address] Social History Tobacco Use Types Packs/Day Years [...] Diagnosis Comments FILM LIBRARY STORAGE ONLY DX HIP Routine 10/29/2013 10:04 AM EDT documented in this encounter Results * Film Library- Storage only DX Hip (10/29/2013 10:04 AM EDT) Anatomical Region Laterality Modality Other 10/29/2013 10:0 4 AM EDT Narrative 11/02/2013 10:05 AM EDT This is a Non-reportable exam Procedure Note 11/02/2013 This is a Non-reportable exam Orville Roy MD IMG FILM LIBRARY ORD ERABLES documented in this encounter Visit Diagnoses Not on filedocumented in this encounter Care Teams Strip Picker Relationship Specialty Start Date End Date Michael Yeh MD PCP - General 03/06/10 04/03/14 documented as of this encounter
[2023-11-05] MEDS: ACETAMINOPHEN 1,000 MG/100 ML BTL 400 MG IVPB (12:52)
[2023-11-05] MEDS: Aspirin 81 MG CHEW 324 MG CH (12:52)
[2023-11-05 12:59] LABS: PTT Activated 24.1 sec (23.6-32.8)
[2023-11-05 13:05] LABS: ALT 44 U/L (16-63); AST 32 U/L (15-37); Albumin 3.3 g/dL (3.4-5.0); Alkaline Phosphatase 57 U/L (46-116); Anion Gap 7.2 mmol/L (3-11); BUN 17 mg/dL (7-18); CO2 27.8 mmol/L (21.0-32.0); CREATININE 1.1 mg/dL (0.70-1.30); Calcium 8.6 mg/dL (8.5-10.1); Chloride 107 mmol/L (98-107); Estimated GFR 76.85 (mL/min/1.73m2); Glucose 118 mg/dL (74-106); Magnesium 1.9 mg/dL (1.8-2.4); NT-proBNP 47 pg/mL (<300); Potassium 4.2 mmol/L (3.5-5.1); Sodium 142 mmol/L (136-145); TSH (W/Ref FT4) 1.33 uIU/mL (0.36-3.74); Total Protein 6.9 g/dL (6.4-8.2); Troponin I < 50 ng/L (< or =60)
[2023-11-05 13:15] LABS: D-Dimer 287 ng/mlFEU (<500)
--- NOTE | 2023-11-05 13:15 | DI.RAD_ITS ---
Exam(s) XR CHEST 2V PA LATERAL EXAM: XR CHEST 2V PA LATERAL CLINICAL HISTORY: pleuritic chest pain TECHNIQUE: 2D digital imaging was performed of the chest. Two images were obtained. PA and lateral views were obtained. COMPARISON: CR XR CHEST 2V PA LATERAL from 06/09/2018 FINDINGS: MEDIASTINUM: Normal. HEART: Normal. PULMONARY VASCULATURE: Normal. LUNGS: Clear. PLEURAL SPACE: No pleural effusion or pneumothorax. BONE:Within normal limits for the patient's age. OTHER FINDINGS:Normal. IMPRESSION: No acute pulmonary findings. DATA REPOSITORY: RADIATION DOSE DELIVERED:
[2023-11-05] MEDS: LORazepam 2 MG/ML VIAL 0.5 MG IVP (15:18)
[2023-11-05] MEDS: Dexamethasone 10 MG/ML VIAL IVP (15:18)
[2023-11-05 17:45] LABS: Troponin I < 50 ng/L (< or =60)
--- NOTE | 2023-11-05 20:07 | ED.PROG_ITS ---
Date of service: 11/05/23 Time of Service: 20:08 Medical Decision Making Signout received from outgoing provider. Final disposition pending repeat troponin. The repeat troponin value was negative. Patient was discharged with diagnosis of pleurisy. Recommend close follow-up with PCP/ . Quality:[facility] Health Related Social Needs: No Data to Display Sign Out Sign Out Data: Sign Out Comment: chest pain, resolved, likely resolving pleurisy, awaiting second trop in lab Last updated by Reji Adames MD at 11/05/23 17:25 Discharge Plan Disposition Patient Disposition: Home Condition: Stable Discharge Details Clinical Impression: Pleurisy, Chest pain Primary Care Provider: KERI LEBLANC ED Provider: Vee Ramsey Home Meds and New Rx's Prescriptions: No Action nicotine (polacrilex) 4 mg mini lozenge 4 mg PO DIRECTED melatonin 10 mg capsule 10 mg PO QHS Discharge Instructions Instructions: Chest Pain (DC) Additional Instructions: * lab work today is not remarkable for acute findings * continue NSAIDs as needed for pain * follow up with your PCP, return to the ED with any concerns Discharge Data Discharge Date/Time-TO BE ENTERED AT DEPARTURE: 11/05/23 18:06
== END 2023-11-05 18:06 | disposition home or self-care (01) ==
PROVIDERS: Emergency Medicine; Emergency Provider Emergency Medicine; PCP Internal Medicine
DX: R09.1 Pleurisy (principal)
CPT/HCPCS: 00123; 36415; 80053; 93005; 96365; 96375; 99284; 71046; 83735; 83880; 84443; 84484; 85025; 85379; 85610; 85730; 93010; 99283; J0131; J1100; J2060

== ENCOUNTER 2024-07-07 12:55 | Day surgery (SDC) | payer OTHER, SELFPAY ==
[2024-07-07] VITALS (33 sets, daily range): BP systolic 103–125; BP diastolic 57–78; PULSE 46–66; RESP 8–19; TEMP 36.1–36.5; O2SAT 91–99; BMI 40.5
--- NOTE | 2024-07-07 13:23 | W.PM.DSUDISC ---
Date of service: 07/07/24 Discharge Plan Disposition Patient Disposition: Home Condition: Good Discharge Details Reason For Visit: R knee arthroscopy Attending Provider: Loco Aleman Primary Care Provider: KERI LEBLANC Home Meds and New Rx's Prescriptions: New hydrocodone-acetaminophen 5-325 mg tablet 1 tab PO Q6H PRN (Reason: pain) Qty: 6 0RF acetaminophen 500 mg tablet 1,000 mg PO TID Qty: 90 0RF ibuprofen 600 mg tablet 600 mg PO TID PRN (Reason: pain) Qty: 90 0RF Continued sertraline 50 mg tablet 50 mg PO DAILY sertraline 25 mg tablet 25 mg PO DAILY melatonin 10 mg capsule 10 mg PO QHS Discharge Instructions Stand Alone Forms: Love Knee Arthroscopy Equipment/Supplies: Partial Weight Bearing Crutches Activity:: Activity as Tolerated Remove Dressings/Wound Care:: 72 hours Shower/Bathe:: 72 hours Diet:: As Tolerated Discharge Orders Discharge Orders: Discharge Order (Routine); Ordered 07/07/24 Ordered By: Michael Alegria DS: Diagnosis Discharge Diagnosis (1) Tear of medial meniscus of right knee: Status: Acute
--- NOTE | 2024-07-07 13:26 | ANES.PREOP_ITS ---
General Info Date of Service Date Performed: 07/07/24 Height: 5 ft 10 in Weight: 128.1 kg Body Mass Index (BMI): 40.5 Surgical Procedure: Operation Date: 07/07/24 15:10 Proposed Procedure Side Surgeon p Knee Arthroscopy, Partial Medial Meniscectomy Right Loco Aleman MD Actual Procedure Side Surgeon p Knee Arthroscopy, Partial Medial Meniscectomy Right Loco Aleman MD Pre-Op Diagnosis Post-Op Diagnosis Tear of medial meniscus of right knee Meds Allergies and Home Medications Allergies Allergy/AdvReac Type Severity Reaction Status Date / Time duloxetine Allergy Unknown Unknown Verified 07/07/24 13:38 vardenafil Allergy Unknown Unknown Verified 07/06/24 10:26 oxycodone (From Percocet) AdvReac Intermediate Nausea Verified 07/06/24 10:26 Home Medication ?Medication ?Instructions ?Recorded melatonin 10 mg capsule 10 mg PO QHS 11/05/23 sertraline 25 mg tablet 25 mg PO DAILY 04/20/24 sertraline 50 mg tablet 50 mg PO DAILY 04/20/24 acetaminophen 500 mg tablet 1,000 mg (2 x 500 mg) PO TID #90 07/07/24 tabs hydrocodone 5 mg-acetaminophen 325 1 tab PO Q6H PRN pain #6 tabs 07/07/24 mg tablet ibuprofen 600 mg tablet 600 mg PO TID PRN pain #90 tabs 07/07/24 Current Visit Medications: Current Medications Generic Name Dose Route Start Last Admin Trade Name Freq PRN Reason Stop Dose Admin Acetaminophen 1,000 mg 07/07/24 06:00 Acetaminophen 500 Mg Tab PO 07/07/24 23:59 PREOP ERICKA Acetaminophen 650 mg 07/07/24 13:22 Acetaminophen 325 Mg Tab PO 08/06/24 13:21 Q4H PRN PRN Hydrocodone Bitart/Acetaminophen 0 tab 07/07/24 13:22 Hydrocodone 5/Acetaminophen 325 Tab PO 08/06/24 13:21 Q3H PRN PRN Pain Celecoxib 400 mg 07/07/24 06:00 Celecoxib 200 Mg Cap PO 07/07/24 23:59 PREOP ERICKA Ringer's Solution 1,000 mls @ 80 mls/hr 07/07/24 06:00 IV 07/07/24 23:59 INFUSION ERICKA Cefazolin Sodium 3,000 mg/ 100 mls @ 200 mls/hr 07/07/24 06:00 Sodium Chloride IV 07/07/24 23:59 PREOP ERICKA Tranexamic Acid/Sodium Chloride 1,000 mg in 100 mls @ 600 mls/hr 07/07/24 06:00 IVPB 07/07/24 23:59 PREOP ERICKA IV Miscellaneous Supplies 1 each 07/07/24 06:00 Iv Access IV 07/07/24 23:59 DIRECTED ERICKA Sodium Chloride 0 ml 07/07/24 06:00 Normal Saline Flush 10 Ml Syr IV 07/07/24 23:59 PRN PRN Sodium Chloride 0 ml 07/07/24 06:00 Normal Saline 10 Ml Vial IJ 07/07/24 23:59 DIRECTED PRN Sterile Water 0 ml 07/07/24 06:00 Water,Injection,Sterile 10 Ml Vial IJ 07/07/24 23:59 DIRECTED PRN PFSH Active Problems Active Problems: Problem Status Onset Code Tear of medial meniscus of right knee Acute S83.241A Cortical age-related cataract, left eye Resolved H25.012 Nuclear age-related cataract, left eye Resolved H25.12 Cortical age-related cataract, right eye Resolved H25.011 Nuclear age-related cataract, right eye Resolved H25.11 Medical History Medical History No blood products Ex-smoker Sleep apnea Dysfunction of eustachian tube Major depressive disorder Multiple pulmonary nodules Non-alcoholic fatty liver disease Anxiety Depression PTSD (post-traumatic stress disorder) Per pt. states do not startle him upon waking from anes. Surgical History Surgical History Synovial cyst History of tonsillectomy History of tonsillectomy H/O hemorrhoidectomy Tobacco Smoking/Tobacco Use Status: Former Tobacco Use Passive smoking exposure: No Alcohol Alcohol Intake: current Alcohol intake frequency: a few times a month Substance Use Substance use: Never Substance use type: does not use Vital Signs and Lab Results Vital Signs Most Recent Vital Signs in EMR: Most Recent Vital Signs Temp Pulse Resp BP Pulse Ox 36.4 C L 58 L 18 112/78 95 07/07/24 13:00 07/07/24 13:00 07/07/24 13:00 07/07/24 13:00 07/07/24 13:00 Lab Results Blood Type / Crossmatch: No Data to Display Complete Blood Count: No Data to Display Complete Metabolic Panel: No Data to Display Liver Function Panel: No Data to Display Coagulation Panel: No Data to Display Cardiac Panel: No Data to Display Arterial Blood Gas: No Data to Display Venous Blood Gas: No Data to Display Pancreas Panel: No Data to Display Thyroid Panel: No Data to Display Infectious Disease: No Data to Display Blood Cultures: No Data to Display Toxicology Panel: 2 No Data to Display Anesthesia Assessment and Plan Anesthesia History Personal History: No History of Anesthesia Complications Family History: No Family History of Anesthesia Complications Exercise Tolerance Exercise Tolerance: Metabolic Equivalents>4 Pertinent Negatives Pertinent Negatives: No Symptoms of GERD, No Major Cardiovascular Symptoms or Complaints and No Major Pulmonary Symptoms or Complaints Cardiac & Pulmonary Exam Cardiac Exam: Normal S1/S2 Heart Sounds Pulmonary Exam: Clear Bilateral Breath Sounds Implantable Cardiac Device Does patient have a Pacemaker or an ICD?: No Airway Exam Known Difficult Airway: No Mallampati Class: 2 Mouth Opening: Normal (> 3cm) Thyromental Distance: Greater than 3 cm Neck Range of Motion: Full ROM Neck Circumference: Normal Teeth Condition: Normal Dentition ASA Classification ASA Score: ASA 3 Emergency Case?: No NPO Status NPO Status: NPO Clears >2 hours, Solids >8 hours Anesthesia Plan Resuscitation Status: Full Code Anesthesia Technique: General Anesthesia Airway Planned: LMA Monitors Used: Standard Monitors
[2024-07-07] MEDS: Celecoxib 200 MG CAP 400 MG PO (13:27)
[2024-07-07] MEDS: Acetaminophen 500 MG TAB 1000 MG PO (13:27)
[2024-07-07] MEDS: Lactated Ringers 1,000 ML 80 ML IV (13:36)
[2024-07-07] MEDS: ceFAZolin 3,000 MG in Normal Saline 100 ML 200 MG IV (13:59)
[2024-07-07] MEDS: TRANEXAMIC ACID/SOD. CHL. 1,000 MG/100 ML BAG 600 MG IVPB (14:10)
[2024-07-07] MEDS: EPINEPHrine 10 MG/10 ML ML (14:29)
[2024-07-07] MEDS: Bupivacaine 0.25% Pres-Free 30 ML VIAL (14:29)
--- NOTE | 2024-07-07 15:04 | W.ANESPOSTOP ---
Postoperative Evaluation Date, Time and Location Date Performed: 07/07/24 Time Performed: 15:04 Patient Location: PACU Vital Signs Most Recent Imported Vital Signs: Most Recent Vital Signs Temp Pulse Resp BP Pulse Ox 36.4 C L 58 L 18 112/78 95 07/07/24 14:43 07/07/24 13:00 07/07/24 13:00 07/07/24 13:00 07/07/24 13:00 Pain Score Most Recent Pain Score: Most Recent Pain Score Pain Level 0 07/07/24 14:48 Assessment Mental Status: Awake (Alert & Oriented to Patient Baseline) Airway and Respiratory Function: Patent airway with normal (patient baseline) respiratory exam Cardiovascular Function: Hemodynamically Stable Hydration Status: Adequately Hydrated Nausea & Vomiting: No Nausea or Vomiting Pain: Pain is tolerable per patient Peripheral Nerve Block: Patient did not receive a nerve block
[2024-07-07] MEDS: fentaNYL 100 MCG/2 ML VIAL IVP (15:12)
[2024-07-07] MEDS: HYDROmorphone 2 MG/ML SYR IVP (15:38)
[2024-07-07] MEDS: Normal Saline 10 ML VIAL IJ (15:38)
--- NOTE | 2024-07-07 15:50 | ROE_ITS ---
Operative Note Operative Note PRE-OP DIAGNOSIS: Right medial meniscus tear POST-OP DIAGNOSIS: same PROCEDURE: Arthroscopic partial medial meniscectomy, right knee SURGEON: Loco Aleman ANESTHESIA TYPE: General LMA/ETT Refer to Anesthesia Record ESTIMATED BLOOD LOSS: 0 PATHOLOGY: none sent COMPLICATIONS: None Patient was transported to: PACU Patient's condition: stable Indications: I have seen Danish in clinic for symptoms of a meniscus tear. This was confirmed based on MRI and exam findings. Nonoperative measures were exhausted but disability and pain persisted. I discussed knee arthroscopy with meniscal intervention with the patient. I reviewed the risks of the procedure to include, but not limited to, bleeding, infection, pain, stiffness, damage to nerves or vessels, recurrence, blood clot. Despite these risks, the patient elected to proceed. 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 The consent was reviewed with the patient and signed. The history and physical was updated. All questions were answered. He was taken back to the operating room. The patient was placed into the supine position on the operating room table. All bony prominences were well padded. Prophylactic antibiotics in the form of Cefazolin were administered. The right leg was then prepped with Chloraprep and draped in a standard fashion with stockinette and extremity drape. A timeout to confirm correct identity, side and site, procedure, allergies, anesthesia, and medical concerns was performed. A standard lateral portal was made at the lateral border of the patella tendon in line with the inferior pole of the patella, soft spot. The skin and deep tissue was incised sharply and the blunt trochar was inserted atraumatically. A diagnostic arthroscopy was performed and the findings are listed above. The suprapatellar pouch had no significant inflammatory change. The patellofemoral articulation showed fraying, grade I chondromalacia, of the superior patella as well as good tracking. The lateral gutter had no loose bodies and the medial gutter had no loose bodies. The knee was brought into some valgus stress in extension to open the medial compartment. A medial portal was made, localized by a spinal needle. The portal was created with an #11 blade through skin and capsule under direct visualization avoiding any meniscal injury. A probe was then inserted into the medial compartment. The medial compartment was fully in spected. The chondral surface of the tibia showed grade I/II chondromalacia and the surface of the femur showed grade II/III chondromalacia. The medial meniscus had a complex tear of the medial meniscus involving the body, posterior horn and extension to the posterior root. The root was intact. There was displaceable fragments as well seen within the notch and posterior, primarily over the undersurface of the medial meniscus. After evaluation, the meniscus was debrided down to a stable base using a series of biters and arthroscopic briana. It was probed afterwards to confirm that the tear had been removed and the meniscus was stable. Cartilage surfaces were debrided of any flaps, leaving any intact fibers. The notch was then inspected which showed an intact ACL and an intact PCL. The leg was then brought into a figure of 4 position. The lateral compartment was fully inspected with the arthroscope and a probe. The chondral surface of the lateral femur showed no significant chondromalacia. The chondral surface of the lateral tibia showed no significant chondromalacia. The lateral meniscus had no meniscal tear. The arthroscope was brought back into the suprapatellar pouch and the leg was in full extension. The knee was thoroughly irrigated with the arthroscopic fluid on high flow and pressure. Inflow was stopped and excess fluid was removed. The wounds were closed with 4-0 Nylon. They were dressed with Xeroform, 4x4 gauze, ABD pad, Kerlix and an CHAN wrap. A cryo-cuff was applied. The patient tolerated the procedure well and was returned [facility] area in a stable condition suffering no known complication. Date of Procedure: 07/07/24
[2024-07-07] MEDS: HYDROcodone 5/Acetaminophen 325 TAB PO (16:24)
== END 2024-07-07 17:30 | disposition home or self-care (01) ==
PROVIDERS: PCP Internal Medicine; Visit Provider Student in an Organized Health Care Education/Training Program
PROC: (CPT 29870; principal; 2024-07-07 15:00)
DX: S83.241A Other tear of medial meniscus, current injury, right knee, initial encounter (principal); G47.30 Sleep apnea, unspecified; K75.81 Nonalcoholic steatohepatitis (NASH); F41.9 Anxiety disorder, unspecified; F32.A Depression, unspecified; Z79.899 Other long term (current) drug therapy
CPT/HCPCS: 29881; J0665; J0690; J1100; J1171; J2250; J2405; J2704; J3010